=== PATIENT | male | born 1955 | race Caucasian/White ===

== ENCOUNTER 2022-03-06 08:45 | Outpatient (RCR) | payer MEDICARE, SELFPAY ==
--- NOTE | 2022-03-06 11:44 | HP.PTEVAL_ITS ---
Patient's Visit Information JO NAVARRO is a 66 year old M referred to Physical Therapy by MILTON TODD with a diagnosis of Thoracic back pain, unspecified back pain laterality, M54.6. Date of Evaluation: 03/06/22 Physical Therapist: Srinivas De Oliveira - Visit Plan Frequency: 1-2x /Week Duration: 6 Weeks Plan: Focus on improving core/back strength and LE flexibility. Find direction of preference if he has radicular symptoms. Use manual therapy as needed. 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 - Subjective Pt. is a 66 y.o. male who is having thoracic and lumbar pain for over 10 years. Pt. states that he injured his back in December 2010 when he was lifting a box and the weight shifted in the box and he noticed immediate pain in his back after this and has had pain ever since. His PLOF includes no history of back pain before this. Pt. has had MRI of his spine but is not clear on what it showed. Pt. will get intermittent pain down his right leg to his ankle. He denies any change in his bowel or bladder function or unexplained weight loss. He has difficulty with standing/walking longer than 30 minutes, sitting longer than 30 minutes, reaching out over the sink, sleeping, driving, lifting things, pushing/pulling, housework, and yard work. 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 His goal with physical therapy is to decrease his pain and improve his core strength. He has had previous physical therapy for his back many years ago. Pt. rates back pain at 1.5/10 currently, at worst 6/10, at best 1/10 and describes the pain as achy and intense. He is not taking any pain medication currently. His PMH includes type II diabetes, chronic back pain, and three abdominal surgeries. Pt. lives with his roommate. His hobbies include kumari player, fishing, and riding motorcycle. - Objective Posture- Thoracic kyphosis in standing. Palpation- Vague tenderness over thoracic and lumbar spine area. Lumbar AROM flexion- WNL and mild to moderate pain in low back, extension- WNL and mild low back pain, SB to left- WNL and mild low back pain, SB to right- WNL and mild low back pain, lumbar rotations- min restriction bilaterally and mild low back pain. Left LE strength grossly 5/5 for all motions. Right LE strength grossly 5/5 for all motions. Core strength- 4-/5. Sensation- WNL bilateral lower extremities. Moderate tight hamstrings bilaterally. Special tests- Well's leg raise [-], Straight leg raise [-] - Balance/Special Test Scores Oswestry Low Back Score: 18 - Goals Goal 1:: Pt. will be able to sit for at least 1 hour with back pain < 3/10. Goal Time Frame: 4-6 Weeks Goal 2:: Pt. will be able to stand/walk for at least 30 minutes with back pain < 3/10. Goal Time Frame: 4-6 Weeks Goal 3:: Pt. will be able to sleep a full night with no back pain. Goal Time Frame: 4-6 Weeks Goal 4:: Pt. will be able to lift at least 30# with proper body mechanics and no back pain. Goal Time Frame: 4-6 Weeks Goal 5:: Pt. will rate back pain at worst at 5/10 with ADL's. Goal Time Frame: 4-6 Weeks Goal 6:: Pt. will improve Oswestry <30% in order to improve mobility. Goal Time Frame: 4-6 Weeks - Rehabilitation Potential Physical Therapy Diagnosis: Decreased lumbar ROM, LE flexibility, core/back strength, and pain Rehabilitation Potential: Good - Anticipated Interventions Patient/Client Instruction: Educate patient on: Condition, Plan of Care, Benefits of Fitness Program For the Purpose of:: To decrease pain, To increase ROM, To improve ability to perform ADL's, To improve performance and independence with ADL's, To assume or resume ADL's, To improve tolerance to ADL's Therapeutic Exercise to Include: Strength training, Body mechanics, Flexibilty training, Gait and locomotor training, Active ROM, Dynamic Lumbar Stabilization, Travis Exercises Comment: Focus on improving core and back strength. For the Purpose of:: To decrease pain, To improve ability to perform ADL's, To improve performance and independence with ADL's, To increase flexibility/ROM, To improve tolerance to ADL's Functional Training to Include: ADL Training For the Purpose of:: To decrease pain, To improve ability to perform ADL's, To improve performance and independence with ADL's, To assume or resume ADL's Manual Therapy Techniques to Include: Functional dry needling, Soft tissue mobilization For the Purpose of:: To decrease pain, To improve performance and independence with ADL's, To increase flexibility/ROM Thank you for the opportunity to evaluate your patient. For Medicare and Medicare HMO plans, please review the plan of care and approve it. It will need to be FAXED BACK to us at [phone] for Medicare purposes. For Medicare only, by signing this I certify the plan of care. Please let me know if there are questions or concerns regarding this plan of care. Physician Signature: Date:
--- NOTE | 2022-06-17 15:42 | HP.PT.NRP ---
JO NAVARRO was seen in my office for initial evaluation on 03/06/22. The following Plan of Care was established for this patient: Initial Frequency: 1-2x /Week Initial Duration: 6 Weeks Patient/Client Instruction: Educate patient on: Condition, Plan of Care, Benefits of Fitness Program For the Purpose of:: To decrease pain, To increase ROM, To improve ability to perform ADL's, To improve performance and independence with ADL's, To assume or resume ADL's, To improve tolerance to ADL's Therapeutic Exercise to Include: Strength training, Body mechanics, Flexibilty training, Gait and locomotor training, Active ROM, Dynamic Lumbar Stabilization, Travis Exercises For the Purpose of:: To decrease pain, To improve ability to perform ADL's, To improve performance and independence with ADL's, To increase flexibility/ROM, To improve tolerance to ADL's Functional Training to Include: ADL Training For the Purpose of:: To decrease pain, To improve ability to perform ADL's, To improve performance and independence with ADL's, To assume or resume ADL's Manual Therapy Techniques to Include: Functional dry needling, Soft tissue mobilization For the Purpose of:: To decrease pain, To improve performance and independence with ADL's, To increase flexibility/ROM This patient was last seen in our office 03/06/22. Pertinent comments regarding their Physical therapy will appear below: Pt seen for initial evaluation and POC established. Pt did not show for any further visits. at this point, it has been over 2 months and I will discontinue due to nonattendance. At this point I will be discontinuing this patient from physical therapy. I would be happy to see this patient again in the future if found appropriate by the physician. Thank you! Claudio Recinos, DPT, OCS, CSCS Balance/Gait/Functional tests - Balance/Special Test Scores Oswestry Low Back Score: 18
== END 2022-03-06 19:00 | disposition home or self-care (01) ==
LOC: PT 08:45
DX: M54.6 Pain in thoracic spine; M79.18 Myalgia, other site
CPT/HCPCS: 97110; 97162

== ENCOUNTER 2023-05-01 15:48 | Emergency (ER) | payer MEDICARE, SELFPAY ==
[2023-05-01 15:49] VITALS: BP 193/116; PULSE 81; RESP 16; TEMP 37.2; O2SAT 94; BMI 41.8
--- NOTE | 2023-05-01 15:58 | EX.ED.DYSGE1 ---
HPI History of Present Illness Chief Complaint: Bite Informant: patient Onset/Context/Timing Onset: Today Narrative Narrative: Patient presents with a cat bite to the left hand. He was working in his garage when a neighbor's cat was there. Patient was petting the cat and looked away to talk to someone. The cat turned and bit him on the left hand. He has wounds around the thenar eminence. He states the cat was recently adopted from the cat rescue. PFSH ON LICENSE OF [facility] Medical History COPD (chronic obstructive pulmonary disease) Diabetes mellitus, type II HTN (hypertension) Hyperlipidemia Home Medications amoxicillin 875 mg-potassium clavulanate 125 mg tablet 1 tab PO BID #20 tabs 05/01/23 [Rx Last Taken Unknown] Allergy/AdvReac Type Severity Reaction Status Date / Time No Known Allergies Allergy Verified 05/01/23 15:49 Surgical History History of colon resection History of colostomy reversal Social History Smoking Status: Former smoker ROS ROS ED Constitutional Constitutional ED: Denies chills or fever(s) Eyes Eyes: Denies discharge from eye(s) ENT ENT ED: Denies discharge from eye(s), rhinorrhea or sore throat Cardiovascular Cardiovascular: Denies chest pain Respiratory/Chest Respiratory/Chest: Denies cough or dyspnea Gastrointestinal Gastrointestinal: Denies abdominal pain, nausea or vomiting Musculoskeletal Musculoskeletal: Reports extremity pain; Denies back pain Integumentary Reports other Details: Bite wound ; Denies Abrasions or rash Neurologic Neurologic: Denies headache(s), paresthesias or weakness Allergic/Immunologic Allergic/Immunologic ED: Denies lip swelling or urticaria EXAM Physical Exam Const Vital Signs: 05/01/23 15:49 Temperature 98.9 F Temperature Source Temporal Pulse Rate 81 Respiratory Rate 16 Blood Pressure 193/116 H Blood Pressure Mean 141 Pulse Ox 94 Oxygen Delivery Method Room Air Positive well nourished and well developed General Appearance ED: well developed HEENT Reports moist mucous membranes Eyes EOMs intact bilaterally Chest Wall inspection of chest normal and palpation of chest normal Resp normal respiratory effort and clear to auscultation bilaterally Cardio regular rate and regular rhythm GI non-tender Palpation: soft Extremity Extremity Narrative: 1 puncture wound each to the volar and dorsal aspect of the left thenar eminence. The wound over the palmar side measures approximately 3 mm in length. The dorsal wound measures approximate 1.5 mm in length. No fluctuance or tenderness. Full range of motion of the digit without difficulty. Normal cap refill and sensation. Neuro oriented x3 and no sensory deficits noted Motor Exam: strength 5/5 throughout Psych mental status grossly normal MDM MDM MDM Narrative Medical decision making narrative: Patient be given a dose of Augmentin. Left hand x-ray obtained to ensure no evidence of radiopaque foreign body. Treatment and Re-Evaluation :: Left hand x-rays per my interpretation reveal no evidence of bony abnormality and no radiopaque foreign body. Wounds are cleansed and dressed. Patient be started on a course of Augmentin. Return instructions given. Discharge Plan Triage Chief Complaint: Bite ED Provider: Jessica Espinal Dx/Rx/DC Orders Clinical Impression: Cat bite of left hand Instructions: ED Cat Bite Prescriptions: New amoxicillin-pot clavulanate 875-125 mg tablet 1 tab PO BID Qty: 20 0RF Primary Care Provider: Nohemy Nava Referrals: Nohemy Nava MD [Primary Care Provider] - 5-7 Days Disposition Disposition: Home, Self Care
--- NOTE | 2023-05-01 16:12 | RAD_ITS ---
STUDY: X-RAY - LEFT HAND REASON FOR EXAM: Male, 67 years old. bite wound TECHNIQUE: 3 view(s) of the hand. COMPARISON: None. FINDINGS: Normal radiocarpal articulation. Normal distal radioulnar joint. Normal visualized carpal bones. Normal carpal articulations Arthrosis of the carpometacarpal articulation of the thumb. Normal second through fifth carpometacarpal joints. Normal metacarpi. Normal metacarpophalangeal joint of the thumb. Normal interphalangeal joint of the thumb. Normal proximal and distal phalanges of the thumb. Normal metacarpophalangeal joints of the second through fifth fingers. Normal proximal and distal interphalangeal joints of the second through fifth fingers. Normal phalanges of the second through fifth fingers. Mild focal soft tissue swelling the base of the thumb RAD/Hand Min 3 Views IMPRESSION: Soft tissue swelling along the base of the thumb without radiopaque foreign body in soft tissues or evidence for acute osteomyelitis. Electronically Signed: Jg Tellez MD at 16:25 EST ,
[2023-05-01] MEDS: Amox/Clavulanate 875 MG Tablet PO (16:29)
== END 2023-05-01 16:35 | disposition home or self-care (01) ==
PROVIDERS: Emergency Provider Emergency Medicine; PCP Internal Medicine; Visit Provider Emergency Medicine
DX: S61.452A Open bite of left hand, initial encounter (principal); Z93.3 Colostomy status; J44.9 Chronic obstructive pulmonary disease, unspecified; E11.9 Type 2 diabetes mellitus without complications; W55.01XA Bitten by cat, initial encounter; Z87.891 Personal history of nicotine dependence; I10 Essential (primary) hypertension; E78.5 Hyperlipidemia, unspecified; Y93.89 Activity, other specified; Y92.015 Private garage of single-family (private) house as the place of occurrence of the external cause
CPT/HCPCS: 73130; 99283

== ENCOUNTER → 2023-10-05 | Outpatient (CLI) | payer MEDICARE, MEDICAID, SELFPAY ==
--- NOTE | 2023-10-05 13:25 | MRI_ITS ---
STUDY: MRI THORACIC SPINE WITHOUT CONTRAST REASON FOR EXAM: Male, 68 years old. SPONDYLOSIS TECHNIQUE: Standardized fat and water weighted pulse sequences were obtained in the sagittal and axial planes. COMPARISON: None. FINDINGS: Normal kyphosis of the thoracic spine. There is no substantial scoliosis. No demonstrated marrow edema or fracture or compression deformity. T1-2, T2-3, T3-4, T4-5, T5-6, T6-7, T7-8, T8-9, T9-10, T10-11, T11-12: Disc desiccation with mild disc space narrowing and disc bulging at the lower levels of the thoracic spine but no central canal stenosis or cord compression is demonstrated at any level. Severe left foraminal stenosis with nerve root compression at T10 and T11 due to significant severe facet joint hypertrophy. Normal remaining intervertebral neural foramina. Multilevel endplate degenerative changes are present as well. Normal visualized thoracic cord. No cord edema or syrinx formation is present. Normal conus medullaris that terminates at the T12-L1 level. The soft tissue structures are unremarkable. MRI/Spine Thoracic (Routine) IMPRESSION: 1. Multilevel degenerative changes of the thoracic spine. 2. Severe left foraminal stenosis with nerve root compression at T10-T11 no right foraminal stenosis with nerve root compression is demonstrated in the thoracic spine. Electronically Signed: Shashank Zamudio MD at 16:00 EDT ,
== END | disposition home or self-care (01) ==
LOC: MRI 13:21
PROVIDERS: PCP Internal Medicine; Referring Provider Anesthesiology; Visit Provider Anesthesiology
DX: M47.814 Spondylosis without myelopathy or radiculopathy, thoracic region (principal)
CPT/HCPCS: 72146

== ENCOUNTER → 2023-12-08 | Outpatient (CLI) | payer MEDICARE, SELFPAY ==
[2023-12-08 11:44] LABS: Amphetamine Urine VISTA NEGATIVE (<1000 ng/mL); Barbiturate Urine VISTA NEGATIVE (< 200 ng/mL); Benzodiazepine Urine VISTA NEGATIVE (< 200 ng/mL); Cocaine Urine VISTA NEGATIVE (< 300 ng/mL); Ecstacy Urine VISTA NEGATIVE (< 500 ng/mL); Methadone Urine VISTA NEGATIVE (< 300 ng/mL); PCP Urine VISTA NEGATIVE (< 25 ng/mL); THC Urine VISTA POSITIVE (< 50 ng/mL); Vista UDS pH Range 5
== END | disposition home or self-care (01) ==
PROVIDERS: PCP Internal Medicine; Referring Provider Anesthesiology; Visit Provider Anesthesiology
DX: M47.814 Spondylosis without myelopathy or radiculopathy, thoracic region (principal); G89.4 Chronic pain syndrome
CPT/HCPCS: 80307

== ENCOUNTER → 2024-03-28 | Outpatient (CLI) | payer MEDICARE, SELFPAY ==
--- NOTE | 2024-03-28 09:30 | MRI_ITS ---
EXAM: MR RIGHT UPPER EXTREMITY WITHOUT INTRAVENOUS CONTRAST, SHOULDER CLINICAL INDICATION: PAIN TECHNIQUE: Multiplanar and multisequence MR images of the right shoulder without intravenous contrast. COMPARISON: No relevant prior studies available. FINDINGS: TENDONS: SUPRASPINATUS: Full-thickness tear of the supraspinatus tendon with failure at the footprint and with retraction to the joint line. INFRASPINATUS: Full-thickness tear of the infraspinatus tendon with failure at the footprint and with retraction to the joint line. SUBSCAPULARIS: High-grade tearing involving the fibers of the distal superior subscapularis tendon allowing medial dislocation of the long head biceps tendon. TERES MINOR: Unremarkable. Intact. BICEPS BRACHII, LONG HEAD: Medial dislocation of the long head biceps tendon. LIGAMENTS: GLENOHUMERAL: Unremarkable. Intact. MUSCLES: Unremarkable. No rotator cuff muscle atrophy. FLUID: Unremarkable. No joint effusion. No subacromial-subdeltoid space bursal fluid. CARTILAGE: Unremarkable. Articular cartilage intact. GLENOID LABRUM: Unremarkable. Intact, limited evaluation on non-arthrographic exam. BONES/JOINTS: [id number] hypertrophic degenerative of the acromioclavicular joint with mass effect on the underlying soft tissues. Posterior subluxation of the humeral head indicating glenohumeral instability. Intraosseous cystic changes at the lateral/anterolateral aspect of the humeral head. Superior subluxation of the humeral head forming a pseudoarticulation with the undersurface of the acromion. Height 2 acromion with undersurface. No subacromial enthesophyte or os acromiale. OTHER SOFT TISSUES: Unremarkable. No rotator interval edema. MRI/Upper Ext Joint Only(Routine) IMPRESSION: 1. Full-thickness tear of the supraspinatus and infraspinatus tendons with failure at the footprint and retraction to the joint line. 2. High-grade tearing involving the fibers of the distal superior subscapularis tendon allowing medial dislocation of the long head biceps tendon. Electronically Signed: Mayo Perez MD at 0:49 EST ,
== END | disposition home or self-care (01) ==
LOC: MRI 08:51
PROVIDERS: PCP Internal Medicine; Referring Provider Anesthesiology; Visit Provider Anesthesiology
DX: M25.511 Pain in right shoulder (principal)
CPT/HCPCS: 73221

== ENCOUNTER → 2024-09-12 | Outpatient (CLI) | payer MEDICARE, SELFPAY ==
--- NOTE | 2024-09-12 15:54 | MRI_ITS ---
PROCEDURE: UPPER EXT JOINT ONLY(ROUTINE) 09/12/2024 REASON FOR EXAM: PAIN, PSEUDO PARALYSIS TECHNIQUE: MRI of the LEFT upper Extremity. Multiplanar and multisequence images were obtained without IV contrast administration. COMPARISON: COMPARISON : Radiographs on 08/09/2024. FINDINGS: Type III acromion. Degenerative joint disease of the acromioclavicular joint. Findings are demonstrated by joint space narrowing, osteophyte formation and degenerative periarticular bone marrow changes. Narrowing of the supraspinatus outlet and impingement on its myotendinous junction. Complete full thickness tear of the insertional fibers of the supraspinatus tendon. 5.7 cm proximal retraction of the ruptured tendon fibers. Severe chronic atrophy of the supraspinatus muscle. Complete full thickness tear of the insertional fibers of the infraspinatus tendon. 4.5 cm proximal retraction of the ruptured tendon fibers. Severe chronic atrophy of the infraspinatus muscle. Associated edema and surrounding effusion. Complete full thickness tear of the insertional fibers of the subscapularis tendon. 4.2 cm proximal retraction of the ruptured tendon fibers. Severe chronic atrophy of the infraspinatus muscle. Unremarkable teres minor muscle and tendon. Elevation of the humeral head with narrowing of the subacromial space. Posterior subluxation of the humerus in relation to the glenoid at the level of the glenohumeral joint. Degenerative joint disease of the glenohumeral joint. Medial subluxation of the bicipital tendon. Tendinosis of the bicipital tendon. Diffusely degenerated articular cartilage. Diffusely degenerated labrum. Degenerative fibrocystic changes at the humeral insertion of the rotator cuff tendons. Moderate glenohumeral joint effusion. Fluid signal and edema in the subdeltoid/subacromial bursa suggestive of bursitis and/or impingement. The remaining visualized osseous elements are intact with no evidence of fracture or dislocation. The remaining marrow signal is within normal limits. MRI/Upper Ext Joint Only(Routine) IMPRESSION: External impingement. Complete full thickness tear of the insertional fibers of the supraspinatus ten don. 5.7 cm proximal retraction of the ruptured tendon fibers. Severe chronic atrophy of the supraspinatus muscle. Complete full thickness tear of the insertional fibers of the infraspinatus ten don. 4.5 cm proximal retraction of the ruptured tendon fibers. Severe chronic atrophy of the infraspinatus muscle. Associated edema and surrounding effusion. Complete full thickness tear of the insertional fibers of the subscapularis ten don. 4.2 cm proximal retraction of the ruptured tendon fibers. Severe chronic atrophy of the infraspinatus muscle. Unremarkable teres minor muscle and tendon. Elevation of the humeral head with narrowing of the subacromial space. Posterior subluxation of the humerus in relation to the glenoid at the level of the glenohumeral joint. Degenerative joint disease of the glenohumeral joint. Medial subluxation of the bicipital tendon. Tendinosis of the bicipital tendon. Diffusely degenerated articular cartilage. Diffusely degenerated labrum. Degenerative fibrocystic changes at the humeral insertion of the rotator cuff t endons. Moderate glenohumeral joint effusion. Reading [facility]
== END | disposition home or self-care (01) ==
LOC: MRI 15:36
PROVIDERS: PCP Internal Medicine; Referring Provider Orthopaedic Surgery Sports Medicine; Visit Provider Orthopaedic Surgery Sports Medicine
DX: M25.512 Pain in left shoulder (principal)
CPT/HCPCS: 73221

== ENCOUNTER 2025-03-27 17:47 | Inpatient (IN) | payer MEDICARE, SELFPAY ==
[2025-03-27] VITALS (8 sets, daily range): BP systolic 138–178; BP diastolic 70–117; PULSE 80–110; RESP 16–27; TEMP 36.3–38.1; O2SAT 80–99; BMI 40.0; BMI 39.4
--- NOTE | 2025-03-27 17:57 | EKG12_ITS ---
Test Reason : Blood Pressure : */* mmHG Vent. Rate : 103 BPM Atrial Rate : 103 BPM P-R Int : 182 ms QRS Dur : 84 ms QT Int : 358 ms P-R-T Axes : 83 44 104 degrees QTcB Int : [address] & T wave abnormality, consider lateral ischemia Abnormal ECG Confirmed by Ajith Zamarripa ([id number]), editor managing newspaper ZULEYKA LUIS ([id number]) on 03/28/2025 10:56:27 AM Also confirmed by Ajith Zamarripa ([id number]), editor managing newspaper ZULEYKA LUIS ([id number]) on 03/29/2025 11:04:22 AM Referred By: Confirmed By: Ajith Zamarripa
[2025-03-27 18:58] LABS: Anion Gap 18 (7-18); BUN 13 mg/dL (4-19); BUN/Creat Ratio 15.8 RATIO (10-20); Calcium,Total 9.6 mg/dL (7.6-11.0); Carbon Dioxide 25.3 mmol/L (20.0-29.0); Chloride 92 mmol/L (96-106); Glucose 209 mg/dL (70-99); Potassium 4.8 mmol/L (3.5-5.1)
[2025-03-27 19:19] LABS: Troponin T High Sensitivity 21 ng/L (<=22)
--- NOTE | 2025-03-27 19:33 | EX.ED.DYSGE1 ---
HPI History of Present Illness Chief Complaint: Shortness of Breath PFSH PFS Medical History Left rotator cuff tear arthropathy Left shoulder pain Right rotator cuff tear arthropathy COPD (chronic obstructive pulmonary disease) Hyperlipidemia HTN (hypertension) Diabetes mellitus, type II Home Medications ?Medication ?Instructions ?Recorded ?Last Taken ?Type amoxicillin 875 mg-potassium 1 tab PO BID #20 tabs 05/01/23 Unknown Rx clavulanate 125 mg tablet albuterol sulfate 90 mcg/actuation 1 - 2 puff inhalation QDAY PRN 06/21/24 Unknown History aerosol inhaler atorvastatin 40 mg tablet 40 mg PO QDAY 06/21/24 Unknown History cyclobenzaprine 10 mg tablet mg PO 06/21/24 Unknown History cyclobenzaprine 5 mg tablet 5 mg PO QHS 06/21/24 Unknown History hydrochlorothiazide 12.5 mg capsule 12.5 mg PO QAM 06/21/24 Unknown History lisinopril 5 mg tablet 5 mg PO QDAY 06/21/24 Unknown History metformin 500 mg tablet 500 mg PO QDAY 06/21/24 Unknown History metoprolol succinate 100 mg 100 mg PO QDAY 06/21/24 Unknown History tablet,extended release 24 hr sertraline 100 mg tablet 100 mg PO QDAY 06/21/24 Unknown History trazodone 50 mg tablet 100 mg PO QPM 06/21/24 Unknown History Allergy/AdvReac Type Severity Reaction Status Date / Time No Known Allergies Allergy Verified 03/27/25 17:54 Surgical History History of colostomy reversal History of colon resection Social History housing: house Smoking Status: Former smoker EXAM Physical Exam Const Vital Signs: 03/27/25 17:51 03/27/25 19:38 03/27/25 19:38 Temperature 97.3 F L Temperature Source Temporal Pulse Rate 110 H Respiratory Rate 24 H 16 Respiratory Effort Respiratory Depth Respiratory Pattern Blood Pressure 178/117 H Blood Pressure Mean 137 Pulse Ox 80 98 98 Oxygen Delivery Method Room Air Nasal Cannula Oxygen Flow Rate (L/min) 4 03/27/25 19:38 03/27/25 19:38 03/27/25 19:40 Temperature Temperature Source Pulse Rate 80 107 H Respiratory Rate 16 26 H Respiratory Effort Normal Non-Labored Respiratory Depth Normal Respiratory Pattern Normal Tachypnea Blood Pressure 138/70 H Blood Pressure Mean 92 Pulse Ox 99 Oxygen Delivery Method Room Air Oxygen Flow Rate (L/min) 03/27/25 20:00 03/27/25 21:00 Temperature Temperature Source Pulse Rate 110 H 104 H Respiratory Rate 23 H 21 H Respiratory Effort Respiratory Depth Respiratory Pattern Blood Pressure 149/97 H 165/96 H Blood Pressure Mean 114 116 Pulse Ox 92 93 Oxygen Delivery Method Nasal Cannula Nasal Cannula Oxygen Flow Rate (L/min) 2 2 MDM MDM MDM Narrative Medical decision making narrative: HISTORY OF PRESENT ILLNESS: Chief complaint: Shortness of breath 69-year-old male history of COPD, hypertension, type 2 diabetes presents shortness of breath. Notes 2 days of congestion runny nose. Notes when EMS arrived he was 80% room air. Placed on 2 L in triage here and his saturations improved to 95% per triage note. Patient notes he feels congested. Reported sick contact. Denies chest pain. Denies leg swelling. The patient denies recent surgery in the last 4 weeks or immobilization in the last 3 days, denies previous diagnosis of DVT or PE, hemoptysis, unilateral leg swelling or malignancy with treatment the last 6 months or palliative. No estrogen use noted. REVIEW OF SYSTEMS: Pertinent positives: Shortness of breath Pertinent negatives: As per HPI PHYSICAL EXAM: Nursing triage notes reviewed, Vital signs reviewed Constitutional: please see mdm HENT: MMM Eyes: Pupils equal round and reactive to light, Extraocular muscles intact Neck: No stridor, no JVD, full neck ROM Lungs: Clear to auscultation, No wheezing or rales. No increased work of breathing, no conversational dyspnea, no accessory muscle use, no nasal flaring. No respiratory distress noted Heart: Regular rate and rhythm, No murmurs, No rubs and No gallops, 2+ distal pulses (radial, femoral, posterior tibial) in all extremities Abdomen: Soft, there is no tenderness, rigidity, rebound or guarding, no obvious peritoneal signs, no palpable pulsatile abdominal masses, no auscultated abdominal bruit : No CVAT Extremities: No edema Neuro: No new focal neurological deficits, cranial nerves II through XII intact, 5/5 strength in all present extremities. Intact sensation to light touch in all present extremities, 2+ reflexes bilateral patella tendons. Skin: No rash or lesions noted MEDICAL DECISION MAKING: Chief Complaint: please see HPI External records reviewed: Reviewed prior cardiovascular testing Factors affecting care: COPD otherwise as per HPI History obtained from others: none Consults: Internal medicine (Dr. Akin Linares) [facility] Narrative: Patient was initially hypotensive with blood pressure 170/117, tachycardic, tachypneic but afebrile initially satting 80% on room air. I considered the following differential diagnosis: COPD exacerbation, CHF exacerbation, hypertensive emergency, anemia, electro disturbance, PE I obtained a broad lab and imaging workup to further elucidate etiology the patient's complaint to further determine if the patient was suffering from a life-threatening etiology. Initially treat the patient with breathing treatments and steroids given complaint of headache also added on Reglan ALL IMAGES (IF OBTAINED) HAVE BEEN PERSONALLY REVIEWED AND INTERPRETED BY MYSELF. BMP without evidence of significant electrolyte abnormalities, no anion gap, no acute kidney injury. EKG with sinus tachycardia rate 103, normal axis, normal intervals, no STEMI COVID RSV/flu negative I have personally reviewed the patient's chest x-ray. Chest x-ray is unremarkable for pulmonary edema, pneumothorax, pneumonia or focal cardiopulmonary abnormality. Of note per radiology report there is signs of possible pulmonary edema so I added a BNP at this time. BNP is pending CBC with no leukocytosis, no anemia or thrombocytopenia High-sensitivity troponin is negative, no evidence of myocardial ischemia x2 Discussed with hospitalist given hypoxia, new onset oxygen requirement for admission. Hospitalist accepted the patient and recommended MedSurg. The patient and/or family, caregivers express understanding. The patient and/or family, caregivers agrees with the plan. Shared decision making: I will have a discussion with the patient and or visitors regarding risk/benefits of further testing or admission. They will be made aware of of the risk/benefits inherent in this decision they will be given the opportunity to voice understanding. Total critical care time today provided was at least 0 minutes. This excludes separately billable procedures. Critical care time (if documented) is secondary to the patient having high probability of clinically significant/life threatening deterioration in the patient's condition which required my urgent intervention. Impression: 1. Hypoxia 2. COPD exacerbation 3. Viral URI Dispo: Admit to MedSurg This note was generated with Taptuation software. It may contain incorrect words, spelling, and punctuation that were not noted in review of the chart prior to signing. Lab Data Labs: Laboratory Results - last 24 hr 03/27/25 03/27/25 03/27/25 18:06 18:06 19:15 WBC Cancelled 6.9 Corrected WBC Cancelled RBC Cancelled 5.88 Hgb Cancelled 16.7 H Hct Cancelled 50.8 MCV Cancelled 86.4 MCH Cancelled 28.4 MCHC Cancelled 32.9 RDW Std Deviation Cancelled 47.4 H RDW Coeff of Kishan Cancelled 14.9 H Plt Count Cancelled 165 MPV Cancelled 10.2 Immature Gran % (Auto) Cancelled 0.400 Neut % (Auto) Cancelled 85.4 H Lymph % (Auto) Cancelled 6.7 L Maury % (Auto) Cancelled 7.1 Eos % (Auto) Cancelled 0.1 Baso % (Auto) Cancelled 0.3 Absolute Neuts (auto) Cancelled 5.9 Absolute Lymphs (auto) Cancelled 0.46 L Total Counted Cancelled Neutrophils % (Manual) Cancelled Band Neutrophils % Cancelled Lymphocytes % (Manual) Cancelled Monocytes % (Manual) Cancelled Eosinophils % (Manual) Cancelled Basophils % (Manual) Cancelled Metamyelocytes % Cancelled Myelocytes % Cancelled Promyelocytes % Cancelled Blast Cells % Cancelled Plasma Cell % (Manual) Cancelled Other Cells % Cancelled Nucleated RBC % Cancelled 0 Nucleated RBCs/100 WBC Cancelled Differential Comment Cancelled Diff Path Review Cancelled Hypersegmented Neuts Cancelled Atypical Lymphocytes Cancelled Reactive Lymphocytes Cancelled Smudge Cells Cancelled Toxic Granulation Cancelled Toxic Vacuolation Cancelled Dohle Bodies Cancelled Rose Rods Cancelled Platelet Estimate Cancelled Plt Morphology Comment Cancelled RBC Morphology Cancelled Cancelled Polychromasia Cancelled Hypochromasia Cancelled Basophilic Stippling Cancelled Anisocytosis Cancelled Microcytosis Cancelled Macrocytosis Cancelled Spherocytes Cancelled Sickle Cells Cancelled Target Cells Cancelled Tear Drop Cells Cancelled Ovalocytes Cancelled Stomatocytes Cancelled [place] Bodies Cancelled Revere Cells Cancelled Bite Cells Cancelled Crenated Cell Cancelled Acanthocytes (Spur) Cancelled Rouleaux Cancelled Schistocytes Cancelled Sodium 135 Potassium 4.8 Chloride 92 L Carbon Dioxide 25.3 Anion Gap 18 BUN 13 Creatinine 0.84 Est GFR (MDRD) Non-Af 95 BUN/Creatinine Ratio 15.8 Glucose 209 H Calcium 9.6 Troponin T High Sens 21 Troponin T Hi Sens 2 Hr 03/27/25 19:54 WBC Corrected WBC RBC Hgb Hct MCV MCH MCHC RDW Std Deviation RDW Coeff of Kishan Plt Count MPV Immature Gran % (Auto) Neut % (Auto) Lymph % (Auto) Maury % (Auto) Eos % (Auto) Baso % (Auto) Absolute Neuts (auto) Absolute Lymphs (auto) Total Counted Neutrophils % (Manual) Band Neutrophils % Lymphocytes % (Manual) Monocytes % (Manual) Eosinophils % (Manual) Basophils % (Manual) Metamyelocytes % Myelocytes % Promyelocytes % Blast Cells % Plasma Cell % (Manual) Other Cells % Nucleated RBC % Nucleated RBCs/100 WBC Differential Comment Diff Path Review Hypersegmented Neuts Atypical Lymphocytes Reactive Lymphocytes Smudge Cells Toxic Granulation Toxic Vacuolation Dohle Bodies Rose Rods Platelet Estimate Plt Morphology Comment RBC Morphology Polychromasia Hypochromasia Basophilic Stippling Anisocytosis Microcytosis Macrocytosis Spherocytes Sickle Cells Target Cells Tear Drop Cells Ovalocytes Stomatocytes [place] Bodies Esa Cells Bite Cells Crenated Cell Acanthocytes (Spur) Rouleaux Schistocytes Sodium Potassium Chloride Carbon Dioxide Anion Gap BUN Creatinine Est GFR (MDRD) Non-Af BUN/Creatinine Ratio Glucose Calcium Troponin T High Sens Troponin T Hi Sens 2 Hr 20 Radiography Diagnostic Testing: Clinical Impression(s) from Imaging Studies Chest X-Ray 03/27/25 20:00 IMPRESSION: [id number] pulmonary edema. No focal consolidations. Reading Location: [facility] Discharge Plan Triage Chief Complaint: Shortness of Breath ED Provider: Leroy Grant Dx/Rx/DC Orders Prescriptions: No Action metformin 500 mg tablet 500 mg PO QDAY lisinopril 5 mg tablet 5 mg PO QDAY hydrochlorothiazide 12.5 mg capsule 12.5 mg PO QAM metoprolol succinate 100 mg tablet extended release 24 hr 100 mg PO QDAY atorvastatin 40 mg tablet 40 mg PO QDAY cyclobenzaprine 5 mg tablet 5 mg PO QHS trazodone 50 mg tablet 100 mg PO QPM cyclobenzaprine 10 mg tablet PO Patient Comments: [NO ORIGINAL SIG] sertraline 100 mg tablet 100 mg PO QDAY albuterol sulfate 90 mcg/actuation HFA aerosol inhaler 1 - 2 puff inhalation QDAY PRN amoxicillin-pot clavulanate 875-125 mg tablet 1 tab PO BID Qty: 20 0RF Primary Care Provider: Nohemy Nava Referrals: Nohemy Nava MD [Primary Care Provider, Internal Medicine] Print Language: Ma[place]
[2025-03-27] MEDS: Albuterol 2.5 MG/3 ML VIAL.NEB. INHALATION (19:40)
[2025-03-27 19:41] LABS: Hematocrit 50.8 % (40-54); Hemoglobin 16.7 g/dL (13.0-16.5); Immature Granulocytes Count 0.030 X10^3/uL (0.0-0.0); Mean Corp Hgb Conc 32.9 g/dL (32-36); Mean Corpuscular Volume 86.4 fL (80-94); Mean Platelet Vol. 10.2 fl (6.2-12.0); NRBC Flagged by Analyzer 0 % (0-5); POSITIVE DIFFERENTIAL YES; Platelet Count 165 K/mm3 (150-450); RBC Distribution Width CV 14.9 % (11.6-14.6); RBC Distribution Width SD 47.4 fl (35.1-43.9); Red Blood Count 5.88 M/mm3 (4.6-6.2); White Blood Count 6.9 K/mm3 (4.4-11.0)
--- NOTE | 2025-03-27 20:00 | RAD_ITS ---
PROCEDURE: CHEST 1 VIEW (PORTABLE) 03/27/2025 REASON FOR EXAM: SOB TECHNIQUE: Frontal view of the chest. FINDINGS: [id number] pulmonary edema. No focal consolidations. No pleural effusion or pneumothorax. Cardiac silhouette is within normal limits. No acute fractures. RAD/Chest 1 View (Portable) IMPRESSION: [id number] pulmonary edema. No focal consolidations. Reading Location: [id number]
[2025-03-27 20:28] LABS: Troponin T High Sens 2 HR 20 ng/L (<=22)
[2025-03-27 22:09] LABS: Pro- Brain NATRIURETIC PEPTIDE 84 pg/mL (<=900)
--- OUTSIDE RECORDS SUMMARY | 2025-03-27 22:41 | XMS RPT_ITS | CCD ---
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 06/21/24 10/21/24 History cyclobenzaprine 5 mg tablet 5 mg PO QHS 06/21/24 10/21/24 Hist ory diclofenac sodium 75 mg 75 mg PO Q12H PRN 06/21/24 5 History tablet,delayed release hydrochlorothiazide 12.5 mg capsule 12.5 mg PO QAM 06/21/24 5 History lisinopril 5 mg tablet 5 mg PO QDAY 06/21/24 10/21/24 His tory metformin 500 mg tablet 500 mg PO QDAY 06/21/24 10/21/24 H istory metoprolol succinate 100 mg 100 mg PO QDAY 06/21/24 10/21/24 H istory tablet,extended release 24 hr sertraline 100 mg tablet 100 mg PO QDAY 06/21/24 10/21/24 H istory trazodone 50 mg tablet 100 mg PO QPM 06/21/24 10/21/24 Hi story Have you fallen in the past year?: No PFSH Medical History Left rotator cuff tear arthropathy Left shoulder pain Right rotator cuff tear arthropathy COPD (chronic obstructive pulmonary disease) Hyperlipidemia HTN (hypertension) Diabetes mellitus, type II Surgical History History of colostomy reversal History of colon resection Social History Smoking Status: Former smoker HPI RIGHT SHOULDER Details: This documentation accurately reflects the service provided and the decisions made by me, Dr. Silvio Singleton MD 10/21/24 0909. Part of today???s visit was documented by [ ], acting as scribe. JO FISHER is a 69 year old M here today for right shoulder pain and wants to go ahead with cortisone injection instead now over 3 months since last injection at sections were noted. He has a rotator cuff tear arthropathy. Ortho Exam General General: Yes no acute distress Neurologic: Yes alert and Yes oriented x3 Psychologic: Yes reasonable and appropriate Right Shoulder Skin/Wound: Yes CDI, No ecchymosis, No erythema and No swelling Testing: Positive Hawkin's, Neer's, Speed's, empty can and belly press normal; Negative TTP Biceps, TTP AC Joint, Drop Arm, cross arm or scapular winging SHOULDER: normal motor and sens to ax nerve, and MRU and AIN/PIN Crepitus with range of motion testing active forward elevation 165 external rotation 20 degrees. Strength in forward elevation external rotation 4/5 Coding Level of Care Code Attention Mark Diagnoses Right rotator cuff tear arthropathy M75.101; M12.811 Comment 75852 and CPT inject major joint Assessment and Plan Assessment and Plan (1) Right rotator cuff tear arthropathy: Status: Acute Plan: 69-year-old man with right shoulder pain ongoing rotator cuff tear arthropat (more content not included)... Normal [facility] Orthopedic Visit Reporton Orthopedic Visit Report [facility] [address] [place] [address] OFFICE VISIT Date of Service: 09/20/24 MR#: [id number] Acct: [id number] Name: JO FISHER Rep #: [id number] : 1955 Provider: Dr. Silvio shore MD Age/Sex: 69/M Location: [facility] Status: Signed Intake Vital Signs 06/21/24 08:23 09/20/24 08:24 Height 5 ft 10 in 5 ft 10 in Weight: 290 lb BMI 41.5 Intake Visit Reasons: LEFT SHOULDER Chief Complaint: Left shoulder MRI review Accompanied by: Self Is patient in pain?: Yes Pain scale (1-10): 6 Allergies No Known Allergies Allergy (Verified 09/20/24 08:27) Medications ???Medication ???Instructions ???Recorded ???Confirmed ???Type amoxicillin 875 mg-potassium 1 tab PO BID #20 tabs 05/01/23 Rx clavulanate 125 mg tablet albuterol sulfate 90 mcg/actuation 1 - 2 puff inhalation QDAY PRN 0 06/21/24 09/20/24 History aerosol inhaler atorvastatin 40 mg tablet 40 mg PO QDAY 06/21/24 09/20/24 Hi story cyclobenzaprine 10 mg tablet mg PO 06/21/24 09/20/24 History cyclobenzaprine 5 mg tablet 5 mg PO QHS 06/21/24 09/20/24 Hist ory diclofenac sodium 75 mg 75 mg PO Q12H PRN 06/21/24 5 History tablet,delayed release hydrochlorothiazide 12.5 mg capsule 12.5 mg PO QAM 06/21/24 5 History lisinopril 5 mg tablet 5 mg PO QDAY 06/21/24 09/20/24 His tory metformin 500 mg tablet 500 mg PO QDAY 06/21/24 09/20/24 H istory metoprolol succinate 100 mg 100 mg PO QDAY 06/21/24 09/20/24 H istory tablet,extended release 24 hr sertraline 100 mg tablet 100 mg PO QDAY 06/21/24 09/20/24 H istory trazodone 50 mg tablet 100 mg PO QPM 06/21/24 09/20/24 Hi story Have you fallen in the past year?: No PFSH Medical History Left rotator cuff tear arthropathy Left shoulder pain Right rotator cuff tear arthropathy COPD (chronic obstructive pulmonary disease) Hyperlipidemia HTN (hypertension) Diabetes mellitus, type II Surgical History History of colostomy reversal History of colon resection Social History Smoking Status: Former smoker HPI LEFT SHOULDER Details: This documentation accurately reflects the service provided and the decisions made by me, Dr. Silvio Singleton MD 09/20/24 0820. Part of today???s visit was documented by [ ], acting as scribe. JO FISHER is a 69 year old M here today for FU L shoulder MRI. Doing reasonly well with the injections. 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 Supplemental Info [facility] [address] [place] [address] Upper Ext Joint Only(Routine) MR#: [id number] Acct: [id number] Name: JO FISHER Rep #: [id number] : 1955 M 69 From: Anny Rushing MD PCP: Dr. Win Zamora MD Status: REG CLI Study: Upper Ext Joint Only(Routine) Date of Exam: 09/12/24 Exam# [id number] Ordering Dr: Silvio Singleton MD PROCEDURE: UPPER EXT JOINT ONLY(ROUTINE) 09/12/2024 REASON FOR EXAM: PAIN, PSEUDO PARALYSIS TECHNIQUE: MRI of the LEFT upper Extremity. Multiplanar and multisequence images were obtained without IV contrast administration. COMPARISON: COMPARISON : Radiographs on 08/09/2024. FINDINGS: Type III acromion. Degenerative joint disease of the acromioclavicular joint. Findings are demonstrated by joint space narrowing, osteophyte formation and degenerative periarticular bone marrow changes. Narrowing of the supraspinatus outlet and impingement on its myotendinous junction. Complete full thickness tear of the insertional fibers of the supraspinatus tendon. 5.7 cm proximal retraction of the ruptured tendon fibers. Severe chronic atrophy of the supraspinatus muscle. Complete full thickness tear of the insertional fibers of the infraspinatus tendon. 4.5 cm proximal retraction of the ruptured tendon fibers. Severe chronic atrophy of the infraspinatus muscle. Associated edema and surrounding effusion. Complete full thickness tear of the insertional fibers of the subscapularis tendon. 4.2 cm proximal retraction of the ruptured tendon fibers. Severe chronic atrophy of the infraspinatus muscle. Unremarkable teres minor muscle and tendon. Elevation of the humeral head with narrowing of the subacromial space. Posterior subluxation of the humerus in relation to the glenoid at the level of the glenohumeral joint. Degenera (more content not included)... Normal [facility] Magnetic resonance imaging r eportOrdered By: Anny Rushing on 09-13-2024 Study report [facility] [address] [place] [address] Upper Ext Joint Only(Routine) MR#: [id number] Acct: [id number] Name: JO FISHER Rep #: [id number] : 1955 M 69 From: Michaela Rushing MD PCP: Dr. Win Zamora MD Status: RE G CLI Study:Upper Ext Joint Only(Routine) Date of Exam: 09/12/24 Exam# [id number] Ordering Dr: Silvio Singleton MD PROCEDURE: UPPER EXT JOINT ONLY(ROUTINE) 09/12/2024 REASON FOR EXAM: PAIN, PSEUDO PARALYSIS TECHNIQUE: MRI of the LEFT upper Extremity. Multiplanar and multisequence images were obtained without IV contrast administration. COMPARISON: COMPARISON : Radiographs on 08/09/2024. FINDINGS: Type III acromion. Degenerative joint disease of the acromioclavicular joint. Findings are demonstrated by joint space narrowing, osteophyte formation and degenerative periarticular bone marrow changes. Narrowing of the supraspinatus outlet and impingement on its myotendinous junction. Complete full thickness tear of the insertional fibers of the supraspinatus tendon. 5.7 cm proximal retraction of the ruptured tendon fibers. Severe chronic atrophy of the supraspinatus muscle. Complete full thickness tear of the insertional fibers of the infraspinatus tendon. 4.5 cm proximal retraction of the ruptured tendon fibers. Severe chronic atrophy of the infraspinatus muscle. Associated edema and surrounding effusion. Complete full thickness tear of the insertional fibers of the subscapularis tendon. 4.2 cm proximal retraction of the ruptured tendon fibers. Severe chronic atrophy of the infraspinatus muscle. Unremarkable teres minor muscle and tendon. Elevation of the humeral head with narrowing of the subacromial space. Posterior subluxation of the humerus in relation to the glenoid at the level of the glenohumeral joint. Degenerative joint disease of the glenohumeral joint. Medial subluxation of the bicipital tendon. Tendinosis of the bicipital tendon. Diffusely degenerated articular cartilage. Diffusely degenerated labrum. Degenerative fibrocystic changes at the humeral insertion of the rotator cuff tendons. Moderate glenohumeral joint effusion. Fluid signal and edema in the subdeltoid/subacromial bursa suggestive of bursitis and/or impingement. The remaining visualized osseous elements are intact with no evidence of fracture or dislocation. The remaining marrow signal is within normal limits. MRI/Upper Ext Joint Only(Routine) IMPRESSION: External impingement. Complete full thickness tear of the insertional fibers of the supraspinatus tendon. 5.7 cm proximal retraction of the ruptured tendon fibers. Severe chronic atrophy of the supraspinatus muscle. Complete full thickness tear of the insertional fibers of the infraspinatus tendon. 4.5 cm proximal retraction of the ruptured tendon fibers. Severe chronic atrophy of the infraspinatus muscle. Associated edema and surrounding effusion. Complete full thickness tear of the insertional fibers of the subscapularis tendon. 4.2 cm proximal retraction of the ruptured tendon fibers. Severe chronic atrophy of the infraspinatus muscle. Unremarkable teres minor muscle and tendon. Elevation of the humeral head with narrowing of the subacromial space. Posterior subluxation of the humerus in relation to the glenoid at the level of the glenohumeral joint. Degenerative joint disease of the glenohumeral joint. Medial subluxation of the bicipital tendon. Tendinosis of the bicipital tendon. Diffusely degenerated articular cartilage. Diffusely degenerated labrum. Degenerative fibrocystic changes at the humeral insertion of the rotator cuff tendons. Moderate glenohumeral joint effusion. Reading [facility] CC: Dr. Win Zamora MD; Dr. Silvio Singleton MD ~ Sleeping Car Conductor: Signed [facility] Upper Ext Joint Only(Routine )on 09-12-2024 Upper Ext Joint Only(Routine) [facility] [address] [place] [address] Upper Ext Joint Only(Routine) MR#: [id number] Acct: [id number] Name: JO FISHER Rep #: [id number] : 1955 M 69 From: Anny bey MD PCP: Dr. Win Zamora MD Status: REG CLI Study: Upper Ext Joint Only(Routine) Date of Exam: 0 09/12/24 Exam# [id number] Ordering Dr: Silvio Singleton MD PROCEDURE: UPPER EXT JOINT ONLY(ROUTINE) 09/12/2024 REASON FOR EXAM: PAIN, PSEUDO PARALYSIS TECHNIQUE: MRI of the LEFT upper Extremity. Multiplanar and multisequence images were obtained without IV contrast administration. COMPARISON: COMPARISON : Radiographs on 08/09/2024. FINDINGS: Type III acromion. Degenerative joint disease of the acromioclavicular joint. Findings are demonstrated by joint space narrowing, osteophyte formation and degenerative periarticular bone marrow changes. Narrowing of the supraspinatus outlet and impingement on its myotendinous junction. Complete full thickness tear of the insertional fibers of the supraspinatus tendon. 5.7 cm proximal retraction of the ruptured tendon fibers. Severe chronic atrophy of the supraspinatus muscle. Complete full thickness tear of the insertional fibers of the infraspinatus tendon. 4.5 cm proximal retraction of the ruptured tendon fibers. Severe chronic atrophy of the infraspinatus muscle. Associated edema and surrounding effusion. Complete full thickness tear of the insertional fibers of the subscapularis tendon. 4.2 cm proximal retraction of the ruptured tendon fibers. Severe chronic atrophy of the infraspinatus muscle. Unremarkable teres minor muscle and tendon. Elevation of the humeral head with narrowing of the subacromial space. Posterior subluxation of the humerus in relation to the glenoid at the level of the glenohumeral joint. Degenerative joint disease of the glenohumeral joint. Medial subluxation of the bicipital tendon. Tendinosis of the bicipital tendon. Diffusely degenerated articular cartilage. Diffusely degenerated labrum. Degenerative fibrocystic changes at the humeral insertion of the rotator cuff tendons. Moderate glenohumeral joint effusion. Fluid signal and edema in the subdeltoid/subacromial bursa suggestive of bursitis and/or impingement. The remaining visualized osseous elements are intact with no evidence of fracture or dislocation. The remaining marrow signal is within normal limits. MRI/Upper Ext Joint Only(Routine) IMPRESSION: External impingement. Complete full thickness tear of the insertional fibers of the supraspinatus tendon. 5.7 cm proximal retraction of the ruptured tendon fibers. Severe chronic atrophy of the supraspinatus muscle. Complete full thickness tear of the insertional fibers of the infraspinatus tendon. 4.5 cm proximal retraction of the ruptured tendon fibers. Severe chronic atrophy of the infraspinatus muscle. Associated edema and surrounding effusion. Complete full thickness tear of the insertional fibers of the subscapularis tendon. 4.2 cm proximal retraction of the ruptured tendon fibers. Severe chronic atrophy of the infraspinatus muscle. Unremarkable teres minor muscle and tendon. Elevation of the humeral head with narrowing of the subacromial space. Posterior subluxation of the humerus in relation to the glenoid at the level of the glenohumeral joint. Degenerative joint disease of the glenohumeral joint. Medial subluxation of the bicipital tendon. Tendinosis of the bicipital tendon. Diffusely degenerated articular cartilage. Diffusely degenerated labrum. Degenerative fibrocystic changes at the humeral insertion of the rotator cuff tendons. Moderate glenohumeral joint effusion. Reading Location: [place] [address] CC: Dr. Win Zamora MD; Dr. Silvio Singleton MD Sleeping Car Conductor: Signed [facility] Orthopedic Visit Reporton Orthopedic Visit Report [facility] [address] [place] [address] OFFICE VISIT Date of Service: 08/09/24 MR#: [id number] Acct: [id number] Name: JO FISHER Rep #: [id number] : 1955 Provider: Dr. Silvio shore MD Age/Sex: 69/M Location: [facility] Status: Signed with Addenda ADDENDUM by Emily Rojo on 08/09/24 at 1043 Office Procedure Documentation entered by Emily Rojo 08/09/24 10:43: Ortho Injections Injections Yes Subacromial Injection Left Is this a patient provided medication?: No Details: Obtained consent for injection. Under sterile conditions, injected the patients left subacromial with 2cc Kenalog 4cc Bupivacaine. The patient tolerated the injection well without any noted complication. Patient should call our office if redness develops, pain worsens or if they have any concerns. Office Meds Kenalog 40 mg/mL suspension for injection Performing Provider: Silvio Singleton MD Performing Location: [facility] Administered by: Silvio Singleton MD on 08/09/24 10:42 Dose Route Admin Location Dispensed Lot Number Expiration Date ND Man ufacturer 80 mg intra-articular left subacromial 2 mL [id number] 08/04/25 2520-9487-45 [employer] Date cc: * Signed Intake Vital Signs 06/21/24 08:23 Height 5 ft 10 in Intake Visit Reasons: LEFT SHOULDER Accompanied by: Self Is patient in pain?: Yes Pain scale (1-10): 7 Allergies No Known Allergies Allergy (Verified 08/09/24 10:00) Medications ???Medication ???Instructions ???Recorded ???Confirmed ???Type amoxicillin 875 mg-potassium 1 tab PO BID #20 tabs 05/01/2309/28 Rx clavulanate 125 mg tablet albuterol sulfate 90 mcg/actuation 1 - 2 puff inhalation QDAY PRN 0 06/21/24 08/09/24 History aerosol inhaler atorvastatin 40 mg tablet 40 mg PO QDAY 06/21/24 08/09/24 Hi story cyclobenzaprine 10 mg tablet mg PO 06/21/24 08/09/24 History cyclobenzaprine 5 mg tablet 5 mg PO QHS 06/21/24 08/09/24 Hist ory diclofenac sodium 75 mg 75 mg PO Q12H PRN 06/21/24 5 History tablet,delayed release hydrochlorothiazide 12.5 mg capsule 12.5 mg PO QAM 06/21/24 5 History lisinopril 5 mg tablet 5 mg PO QDAY 06/21/24 08/09/24 His tory metformin 500 mg tablet 500 mg PO QDAY 03/18/25 05/06/25 H istory metoprolol succinate 100 mg 100 mg PO QDAY 06/21/24 08/09/24 H istory tablet,extended release 24 hr sertraline 100 mg tablet 100 mg PO QDAY 06/21/24 08/09/24 H istory trazodone 50 mg tablet 100 mg PO QPM 06/21/24 08/09/24 Hi story Have you fallen in the past year?: No PFSH Medical History Left shoulder pain Right rotator cuff tear arthropathy COPD (chronic obstructive pulmonary disease) Hyperlipidemia HTN (hypertension) Diabetes mellitus, type II Surgical History History of colostomy reversal History of colon resection Social History Smoking Status: Former smoker HPI LEFT SHOULDER Details: This documentation accurately reflects the service provided and the decisions made by me, Dr. Silvio Singleton MD 08/09/24 08. Part of today???s visit was documented by [ ], acting as scribe. JO FISHER is a 69 year old M here today for new onset left shoulder pain. Patient feels like he tore something. He was previously seen for a right shoulder rotator cuff tear arthropathy and given a cortisone injection. 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 He is having great difficulty lifting up the arm. He was previously seen for the right shoulder. Left shoulder he actually injured it a while ago but that settled down. Most the pain is laterally worse with lifting quite weak. Supplemental Info X-rays 4 views taken today of the left shoulder demonstrate glenohumeral joint space well- maintained. The acromiohumeral distance is slightly narrowed at 6 mm. Coding Level of Care Code Attention Mark Diagnoses Left shoulder pain M25.512 Comment 79224 and CPT inject major joint Assessment and Plan Assessment and Plan (1) Left shoulder pain: Status: Acute Plan: JO FISHER is a 69 year old M here today for new onset left shoulder pain. Patient has pseudoparalysis as well as a narrowed acromiohumeral distance and very concerned for a high-grade rotator cuff tear. I will go ahead and order an urgent MRI of the shoulder follow-up after that in the meantime rest ice anti-inflammatories gentle shoulder exercises. Patient opted to go ahead with a cortisone injection I did let the (more content not included)... Normal [facility] Shoulder min 2 Viewson 08-09 Shoulder min 2 Views [facility] [address] [place] [address] Shoulder min 2 Views MR#: [id number] Acct: [id number] Name: JO FISHER Rep #: [id number] : 1955 M 69 From: Mehran Live i, MD PCP: Dr. Win Zamora MD Status: DEP AMB Study: Shoulder min 2 Views Date of Exam: 08/09/24 Exam# [id number] Ordering Dr: Silvio Singleton MD PROCEDURE: SHOULDER MIN 2 VIEWS 08/09/2024 REASON FOR EXAM: PAIN, INJURY TECHNIQUE: Four views of the left shoulder. COMPARISON: None. FINDINGS: Left shoulder is in anatomic alignment. There is no fracture or dislocation. Minimal age-related subchondral sclerosis seen within the glenoid fossa as well as the humeral head. Amorphous calcification seen within the soft tissue of the left upper arm. RAD/Shoulder min 2 Views IMPRESSION: Minor age-related arthritic changes. No fracture or dislocation is seen within the left shoulder. Reading Location: [id number] CC: Dr. Win Zamora MD; Dr. Silvio Singleton MD Sleeping Car Conductor: Signed Normal [facility] Orthopedic Visit Reporton Orthopedic Visit Report [facility] [place] [facility] [facility] [address] [place] [address] OFFICE VISIT Date of Service: 06/21/24 MR#: [id number] Acct: [id number] Name: JO FISHER Rep #: [id number] : 1955 Provider: Dr. Silvio shore MD Age/Sex: 69/M Location: [facility] Status: Signed with Addenda ADDENDUM by Debo shore 06/21/24 at 0904 Office Procedure Documentation entered by Debo Benitez 06/21/24 09:04: Ortho Injections Injections Yes Subacromial Injection Right Is this a patient provided medication?: No Details: Obtained consent for injection. Under sterile conditions, injected the patients right subacromial shoulder with 2.0mL Kenalog and 4.0mL Bupivacaine. The patient tolerated the injection well without any noted complication. Patient should call our office if redness develops, pain worsens or if they have any concerns. Office Meds Kenalog 40 mg/mL suspension for injection Performing Provider: Silvio Singleton MD Performing Location: [facility] Administered by: Silvio Singleton MD on 06/21/24 09:02 Dose Route Admin Location Dispensed Lot Number Expiration Date [place] Man ufacturer 80 mg intra-articular Right Shoulder 2 mL [id number] 08/04/25 5749-7399-28 [employer] Date cc: * Signed Intake Vital Signs 05/01/23 15:49 06/21/24 08:23 Height 5 ft 10 in 5 ft 10 in Intake Visit Reasons: RIGHT SHOULDER Chief Complaint: Right Shoulder Pain Accompanied by: Self Is patient in pain?: Yes Pain scale (1-10): 3 Allergies No Known Allergies Allergy (Verified 06/21/24 08:24) Medications ???Medication ???Instructions ???Recorded ???Confirmed ???Type amoxicillin 875 mg-potassium 1 tab PO BID #20 tabs 05/01/23 Rx clavulanate 125 mg tablet albuterol sulfate 90 mcg/actuation 1 - 2 puff inhalation QDAY PRN 0 06/21/24 06/21/24 History aerosol inhaler atorvastatin 40 mg tablet 40 mg PO QDAY 06/21/24 06/21/24 Hi story cyclobenzaprine 10 mg tablet mg PO 06/21/24 06/21/24 History cyclobenzaprine 5 mg tablet 5 mg PO QHS 06/21/24 06/21/24 Hist ory diclofenac sodium 75 mg 75 mg PO Q12H PRN 06/21/24 5 History tablet,delayed release hydrochlorothiazide 12.5 mg capsule 12.5 mg PO QAM 06/21/24 5 History lisinopril 5 mg tablet 5 mg PO QDAY 06/21/24 06/21/24 His tory metformin 500 mg tablet 500 mg PO QDAY 06/21/24 06/21/24 H istory metoprolol succinate 100 mg 100 mg PO QDAY 06/21/24 06/21/24 H istory tablet,extended release 24 hr sertraline 100 mg tablet 100 mg PO QDAY 06/21/24 06/21/24 H istory trazodone 50 mg tablet 100 mg PO QPM 06/21/24 06/21/24 Hi story Have you fallen in the past year?: No PFSH Medical History Right rotator cuff tear arthropathy COPD (chronic obstructive pulmonary disease) Hyperlipidemia HTN (hypertension) Diabetes mellitus, type II Surgical History History of colostomy reversal History of colon resection Social History Smoking Status: Former smoker HPI RIGHT SHOULDER Details: This documentation accurately reflects the service provided and the decisions made by me, Dr. Silvio Singleton MD 06/21/24 0802. Part of today???s visit was documented by [ ], acting as scribe. JO FISHER is a 69 year old M here today for right shoulder pain. 1 year history no trauma pain on the lateral anterior aspect of the shoulder some grinding and crepitus clicking and popping of the shoulder. [id number]. Has not had any formal treatment. The pain is moderate. It is worse with lifting. 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 Supplemental Info [facility] Imaging Services [address] [facility] [place] [address] Upper Ext Joint Only(Routine) MR#: [id number] Acct: [id number] Name: JO FISHER Rep #: [id number] : 1955 M 68 From: Mayo Perez MD PCP: Dr. Win Zamora MD Status: REG CLI Study: Upper Ext Joint Only(Routine) Date of Exam: 03/28/24 Exam# [id number] Ordering Dr: Srinivas Peoples MD [id number] EXAM: MR RIGHT UPPER EXTREMITY WITHOUT INTRAVENOUS CONTRAST, SHOULDER CLINICAL INDICATION: PAIN TECHNIQUE: Multiplanar and multisequence MR images of the right shoulder without intravenous contrast. COMPARISON: No relevant prior studies available. FINDINGS: TENDONS: SUPRASPINAT (more content not included)... Normal [facility] A1AT SerPl-ncon 06-06-2024 Alpha 1 antitrypsin [Mass/Vol] 136 mg/dL Normal 90-200 [facility] Comment on above: Order Comment: Speci men Type: BLOOD SPECIMENOrdering Facility: [facility] Address: [address] [place] [address] Performed By: #### 1 825-9 ####[facility] LABCLIA [id number] [place] [address] [place]#### 87342-9 ####[facility]ORATORYCLIA [id number] [address] STATES OF [facility] [id number] [place] [address] [place]#### 12519-4 ####[facility] [id number] [place] [address] [place] ALBUMIN/CREATININE RATIO, UR INEon 06-06-2024 Albumin Unsp time DL <= 20 mg/L (U) [Mass/Time] 224.3 mg/L Normal [facility] Comment on above: Order Comment: Speci men Type: URINE SPECIMENOrdering Facility: [facility] Address: [address] [place] [address] Performed By: #### U ACR ####[facility] [place] LABORATORYCLIA [id number] [place] [address] [place] Albumin/Creatinine (U) [Mass ratio] 295 mg/g High <30 [facility] Comment on above: Order Comment: Speci men Type: URINE SPECIMENOrdering Facility: [facility] Address: [address] [place] [address] Result Comment: Adul t Male and Female Nephrotic Criteria: <30 mg/g is considered normal to mildly increased 30-300 mg/g is considered moderately increased >300 mg/g is considered severely increased KDIGO. (2013). KDIGO 2012 Clinical Practice Guideline for the Evaluation and Management of Chronic Kidney Disease. Official Journal of the International Society of Nephrology, 3(1), 1-150. Performed By: #### U ACR ####[facility] LABORATORYCLIA [id number] [place] [address] [place] Creatinine (U) [Mass/Vol] 76.0 mg/dL Normal 46.8-314.5 [facility] Comment on above: Order Comment: Speci men Type: URINE SPECIMENOrdering Facility: [facility] Address: [address] [place] [address] Performed By: #### U ACR ####[facility] LABORATORYCLIA [id number] [place] [address] [place] CBC panel Auto (Bld)on 06-06 Erythrocyte distribution width (RBC) [Ratio] 15.2 % High 11.5-15.0 [facility] Comment on above: Order Comment: Speci men Type: BLOOD SPECIMENOrdering Facility: [facility] Address: [address] [place] [address] Performed By: #### 5 8410-2 ####[facility] [id number] [place] [address] [place] Hematocrit (Bld) [Volume fraction] 51.6 % High 39.0-51.0 [facility] Comment on above: Order Comment: Speci men Type: BLOOD SPECIMENOrdering Facility: [facility] Address: [address] [place] [address] Performed By: #### 5 8410-2 ####[facility]BURGNCL[facility] [id number] [place] [address] [place] Hemoglobin (Bld) [Mass/Vol] 16.5 g/dL Normal 13.0-17.0 [facility] Comment on above: Order Comment: Speci men Type: BLOOD SPECIMENOrdering Facility: [facility] Address: [address] [place] [address] Performed By: #### 5 8410-2 ####[facility]GNCC[facility] [id number] [place] [address] [place] MCH (RBC) [Entitic mass] 27.5 pg Normal 26.0-34.0 [facility] Comment on above: Order Comment: Speci men Type: BLOOD SPECIMENOrdering Facility: [facility] Address: [address] [place] [address] Performed By: #### 5 8410-2 ####[facility]BURGNCLIA [id number] [place] [address] [place] MCHC (RBC) [Mass/Vol] 32.0 g/dL Normal 30.5-36.0 [facility] Comment on above: Order Comment: Speci men Type: BLOOD SPECIMENOrdering Facility: [facility] Address: [address] [place] [address] Performed By: #### 5 8410-2 ####[facility] PETERSBURGNCLI [id number] [address] [place] MCV (RBC) [Entitic vol] 86.0 fL Normal 80.0-100.0 [facility] Comment on above: Order Comment: Speci men Type: BLOOD SPECIMENOrdering Facility: [facility] Address: [address] [place] [address] Performed By: #### 5 8410-2 ####[facility]GNCLI [id number] [place] [address] [place] Nucleated RBC (Bld) [#/Vol] 10*3/uL Normal <0.01 [facility] Comment on above: Order Comment: Speci men Type: BLOOD SPECIMENOrdering Facility: [facility] Address: [address] [place] [address] Performed By: #### 5 8410-2 ####[facility] PETERSBURGPAMELLAFER [id number] [place] [address] [place] Platelet mean volume (Bld) [Entitic vol] 10.4 fL Normal 9.0-12.7 [facility] Comment on above: Order Comment: Speci men Type: BLOOD SPECIMENOrdering Facility: [facility] Address: [address] [place] [address] Performed By: #### 5 8410-2 ####[facility]ERSBURGPAMELLACACHE VAL[facility] [id number] [place] [address] [place] Platelets (Bld) [#/Vol] 167 10*3/uL Normal 150-400 [facility] Comment on above: Order Comment: Speci men Type: BLOOD SPECIMENOrdering Facility: [facility] Address: [address] [place] [address] Performed By: #### 5 8410-2 ####[facility] PETERSBURGPAMELLASUKUMARA [id number] [place] [address] [place] RBC (Bld) [#/Vol] 6.00 10*6/uL Normal 4.20-6.00 [facility] Comment on above: Order Comment: Speci men Type: BLOOD SPECIMENOrdering Facility: [facility] Address: [address] [place] [address] Performed By: #### 5 8410-2 ####[facility]GNCLIA [id number] [place] [address] [place] WBC (Bld) [#/Vol] 6.19 10*3/uL Normal 3.70-11.00 [facility] Comment on above: Order Comment: Speci men Type: BLOOD SPECIMENOrdering Facility: [facility] Address: [address] [place] [address] Performed By: #### 5 8410-2 ####[facility] [id number] [place] [address] [place] [facility] Comprehensive metabolic 2000 panelon 06-06-2024 Albumin [Mass/Vol] 4.0 g/dL Normal 3.9-4.9 [facility] Comment on above: Order Comment: Speci men Type: BLOOD SPECIMENOrdering Facility: [facility] Address: [address] [place] [address] Performed By: #### 1 825-9 ####[facility] LABCLIA [id number] [place] [address] [place]#### 90704-5 ####[facility] LABORATORYCLIA [id number] [address] STATES OF [facility] [id number] [place] [address] [place]#### 99386-3 ####[facility] [id number] [place] [address] [place] ALP [Catalytic activity/Vol] 73 U/L Normal 38-113 [facility] Comment on above: Order Comment: Speci men Type: BLOOD SPECIMENOrdering Facility: [facility] Address: [address] [place] [address] Performed By: #### 1 825-9 ####[facility] LABCLIA [id number] [place] [address] [place]#### 87223-0 ####[facility]ORATORYCLIA [id number] [place] [address] [place] AMERICATRINITY [facility] MILLTOWNCLIA [id number] [place] [address] [place]#### 61025-6 ####[facility] MILLTOWNCLIA [id number] [place] [address] [place] ALT [Catalytic activity/Vol] 16 U/L Normal 10-54 [facility] Comment on above: Order Comment: Speci men Type: BLOOD SPECIMENOrdering Facility: [facility] Address: [address] [place] [address] Performed By: #### 1 825-9 ####[facility] LABCLIA [id number] [place] [address] [place]#### 18255-0 ####[facility] LABORATORYCLIA [id number] [place] [address] [place] AMERICATRINITY HE[facility] MILLWNCLIA [id number] [place] [address] [place]#### 88525-6 ####[facility] MILLWNCLIA [id number] [place] [address] [place] Anion gap [Moles/Vol] 12 mmol/L Normal 8-15 [facility] Comment on above: Order Comment: Speci men Type: BLOOD SPECIMENOrdering Facility: [facility] Address: [facility] [place] [address] Performed By: #### 1 825-9 ####[facility] LABCLIA [id number] [place] [address] [place]#### 80872-2 ####[facility]ORATORYCLIA [id number] [place] [address] [place] AMERICATRIN[facility] MILLTOWNCLIA [id number] [place] [address] [place]#### 34382-9 ####[facility] MILLWNCLIA [id number] [place] [address] [place] AST [Catalytic activity/Vol] 13 U/L Low 14-40 [facility] Comment on above: Order Comment: Speci men Type: BLOOD SPECIMENOrdering Facility: [facility] Address: [address] [place] [address] Performed By: #### 1 825-9 ####[facility] LABCLIA [id number] [place] [address] [place]#### 32561-7 ####[facility] LABORATORYCLIA [id number] [address] STATES OF [facility] [id number] [place] [address] [place]#### 13764-1 ####[facility]ERS[facility]GNCLIA [id number] [place] [address] [place] Bilirubin [Mass/Vol] 0.4 mg/dL Normal 0.2-1.3 [facility] Comment on above: Order Comment: Speci men Type: BLOOD SPECIMENOrdering Facility: [facility] Address: [address] [place] [address] Performed By: #### 1 825-9 ####[facility] LABCLIA [id number] [place] [address] [place]#### 97554-5 ####[facility]ORATORYCLIA [id number] [address] STATES OF AMERICATRIN[facility] MILLWNCLIA [id number] [place] [address] [place]#### 71934-2 ####[facility] CENTERWNCLIA [id number] [place] [address] [place] Calcium [Mass/Vol] 8.9 mg/dL Normal 8.5-10.2 [facility] Comment on above: Order Comment: Speci men Type: BLOOD SPECIMENOrdering Facility: [facility] Address: [address] [place] [address] Performed By: #### 1 825-9 ####[facility] LABCLIA [id number] [place] [address] [place]#### 17708-6 ####[facility]ORATORYCLIA [id number] [place] [address] [place] AMERICAAULTMAN [facility] TOO MILLWNCLIA [id number] [place] [address] [place]#### 57217-3 ####[facility] MILLTOWNCLIA [id number] [place] [address] [place] Chloride [Moles/Vol] 96 mmol/L Low 98-107 [facility] Comment on above: Order Comment: Speci men Type: BLOOD SPECIMENOrdering Facility: [facility] Address: [address] [place] [address] Performed By: #### 1 825-9 ####[facility] LABCLIA [id number] [place] [address] [place]#### 08866-2 ####[facility]ORATORYCLIA [id number] [place] [address] [place] AMERICAAULTMAN [facility] TOO MILLTOWNCLIA [id number] [place] [address] [place]#### 36452-1 ####[facility] MILLTOWNCLIA [id number] [place] [address] [place] CO2 [Moles/Vol] 29 mmol/L Normal 22-30 [facility] Comment on above: Order Comment: Speci men Type: BLOOD SPECIMENOrdering Facility: [facility] Address: [address] [place] [address] Performed By: #### 1 825-9 ####[facility] LABCLIA [id number] [place] [address] [place]#### 92155-2 ####[facility] LABORATORYCLIA [id number] [address] STATES OF [facility] [id number] [place] [address] [place]#### 15674-2 ####[facility] [id number] [place] [address] [place] Creatinine [Mass/Vol] 0.68 mg/dL Low 0.73-1.22 [facility] Comment on above: Order Comment: Speci men Type: BLOOD SPECIMENOrdering Facility: [facility] Address: [address] [place] [address] Performed By: #### 1 825-9 ####[facility] LABCLIA [id number] [address] [place]#### 71948-2 ####[facility] LABORATORYCLIA [id number] [address] STATES OF AMERICAMEASE COUNTRYSIDE HOSPITALA [id number] [place] [address] [place]#### 14769-0 ####[facility] [id number] [place] [address] [place] Creatinine and Glomerular filtration rate.predicted panel (S/P/Bld) 101 mL/min/1.73m??? Normal >=60 [facility] Comment on above: Order Comment: Speci men Type: BLOOD SPECIMENOrdering Facility: [facility] Address: [address] [place] [address] Result Comment: Lucretia mated Glomerular Filtration Rate (eGFR) is calculated using the 2020 CKD-EPI creatinine equation. This equation utilizes serum creatinine, sex, and age as parameters. The creatinine assay has traceable calibration to isotope dilution-mass spectrometry. Refer to KDIGO guidelines for clinical interpretation. In patients with unstable renal function, e.g. those with acute kidney injury, the eGFR may not accurately reflect actual GFR. Performed By: #### 1 825-9 ####[facility] LABCLIA [id number] [address]#### 48336-3 ####[facility] LABORATORYCLIA [id number] [address] [id number] [address]#### 77334-9 ####[facility] [id number] [place] [address] [place] Glucose [Mass/Vol] 138 mg/dL High 74-99 [facility] Comment on above: Order Comment: Speci men Type: BLOOD SPECIMENOrdering Facility: [facility] Address: [address] [place] [address] Result Comment: The [place] Diabetes Association (ADA) provides guidance for cutoff values for fasting glucose and random glucose. The ADA defines fasting as no caloric intake for at least 8 hours. Fasting plasma glucose results between 100 to 125 mg/dL indicate increased risk for diabetes (prediabetes). Fasting plasma glucose results greater than or equal to 126 mg/dL meet the criteria for diagnosis of diabetes. In the absence of unequivocal hyperglycemia, results should be confirmed by repeat testing. In a patient with classic symptoms of hyperglycemia or hyperglycemic crisis, random plasma glucose results greater than or equal to 200 mg/dL meet the criteria for diagnosis of diabetes. Reference: Standards of Medical Care in Diabetes 2016, [place] Diabetes Association. Diabetes Care. 2016.39(Suppl 1). Performed By: #### 1 825-9 ####[facility] LABCLIA [id number] [place] [address] [place]#### 16357-4 ####[facility] [place] LABORATORYCLIA [id number] [place] [address] [place] AMERICAMEASE COUNTRYSIDE HOSPITALA [id number] [place] [address] [place]#### 68253-0 ####[facility] [id number] [place] [address] [place] Potassium [Moles/Vol] 3.9 mmol/L Normal 3.7-5.1 [facility] Comment on above: Order Comment: Speci men Type: BLOOD SPECIMENOrdering Facility: [facility] Address: [address] [place] [address] Performed By: #### 1 825-9 ####[facility] LABCLIA [id number] [place] [address] [place]#### 55521-4 ####[facility] [place] LABORATORYCLIA [id number] [place] [address] [place] AMERICAMEASE COUNTRYSIDE HOSPITALA [id number] [place] [address] [place]#### 55557-3 ####[facility] [id number] [place] [address] [place] Protein [Mass/Vol] 6.9 g/dL Normal 6.3-8.0 [facility] Comment on above: Order Comment: Speci men Type: BLOOD SPECIMENOrdering Facility: [facility] Address: [address] [place] [address] Performed By: #### 1 825-9 ####[facility] LABCLIA [id number] [place] [address] [place]#### 51593-8 ####[facility]ORATORYCLIA [id number] [place] [address] [place] AMERICAAULTMAN [facility] TOO MILLTOWNCLIA [id number] [place] [address] [place]#### 38246-4 ####[facility] MILLTOWNCLIA [id number] [place] [address] [place] Sodium [Moles/Vol] 137 mmol/L Normal 136-144 [facility] Comment on above: Order Comment: Speci men Type: BLOOD SPECIMENOrdering Facility: [facility] Address: [address] [place] [address] Performed By: #### 1 825-9 ####[facility] LABCLIA [id number] [place] [address] [place]#### 45340-4 ####[facility] LABORATORYCLIA [id number] [place] [address] [place] AMERICAAULTMAN [facility] TOO MILLTOWNCLIA [id number] [place] [address] [place]#### 24243-5 ####[facility] MILLTOWNCLIA [id number] [place] [address] [place] Urea nitrogen [Mass/Vol] 17 mg/dL Normal 9-24 [facility] Comment on above: Order Comment: Speci men Type: BLOOD SPECIMENOrdering Facility: [facility] Address: [address] [place] [address] Performed By: #### 1 825-9 ####[facility] LABCLIA [id number] [place] [address] [place]#### 61520-6 ####[facility]ORATORYCLIA [id number] [place] [address] [place] AMERICAKINDRED HOSPITAL [facility]BURGNCCAC[facility] [id number] [place] [address] [place]#### 35746-3 ####[facility] [id number] [place] [address] [place] HbA1c (Bld)on 06-06-2024 Average glucose Estimated from glycated hemoglobin (Bld) [Mass/Vol] 169 mg/dL Normal [facility] Comment on above: Order Comment: Juan belle Type: BLOOD SPECIMENOrdering Facility: [facility] Address: [address] [place] [address] Result Comment: eAG: (Estimated average glucose) is a calculated value from HgbA1c and is leather goods sales representative of the average blood glucose level in the last 2-3 month period. Performed By: #### 5 5454-3 ####[facility] LABCLIA [id number] [place] [address] [place] HbA1c (Bld) [Mass fraction] 7.5 % High 4.3-5.6 [facility] Comment on above: Order Comment: Juan belle Type: BLOOD SPECIMENOrdering Facility: [facility] Address: [address] [place] [address] Result Comment: Amjulio ican Diabetes Association guidelines indicate that patients with HgbA1c in the range 5.7-6.4% are at increased risk for development of diabetes, and intervention by lifestyle modification may be beneficial. HgbA1c greater or equal to 6.5% is considered diagnostic of diabetes. Performed By: #### 5 5454-3 ####[facility] LABCLIA [id number] [place] [address] [place] Lipid 1996 panelon Cholesterol [Mass/Vol] 183 mg/dL Normal <200 [facility] Comment on above: Order Comment: Juan belle Type: BLOOD SPECIMENOrdering Facility: [facility] Address: [address] [place] [address] Result Comment: <200 mg/dL, Desirable 200-239 mg/dL, Borderline high >239 mg/dL, High Performed By: #### 1 825-9 ####[facility] LABCLIA [id number] [place] [address] [place]#### 14202-7 ####[facility] LABORATORYCLIA [id number] [address] STATES OF [facility] HOSPITALLIA [id number] [place] [address] [place]#### 40776-3 ####[facility] [id number] [place] [address] [place] Cholesterol in HDL [Mass/Vol] 40 mg/dL Normal >39 [facility] Comment on above: Order Comment: Speci men Type: BLOOD SPECIMENOrdering Facility: [facility] Address: [address] [place] [address] Result Comment: 40-5 9 mg/dL, Acceptable >59 mg/dL, High: Negative risk factor for coronary heart disease <40 mg/dL, Low: Positive risk factor for coronary heart disease Performed By: #### 1 825-9 ####[facility] LABCLIA [id number] [place] [address] [place]#### 42052-1 ####[facility]ORATORYCLIA [id number] [address] STATES OF [facility]PITALWMDLIA [id number] [place] [address] [place]#### 39956-4 ####[facility] [id number] [place] [address] [place] Cholesterol in LDL [Mass/Vol] 106 mg/dL High <100 [facility] Comment on above: Order Comment: Speci men Type: BLOOD SPECIMENOrdering Facility: [facility] Address: [address] [place] [address] Result Comment: <100 mg/dL, Optimal 100-129 mg/dL, Near optimal/above optimal 130-159 mg/dL, Borderline high 160-189 mg/dL, High >189 mg/dL, Very high Secondary prevention optimal LDL Cholesterol levels are recommended to be < 70 mg/dL Performed By: #### 1 825-9 ####[facility] LABCLIA [id number] [address]#### 69379-3 ####[facility] LABORATORYCLIA [id number] [address] [id number] [place] [address]#### 80748-0 ####[facility] [id number] [address] STATES OF [facility] Cholesterol in LDL/Cholesterol in HDL [Mass ratio] 2.65 {ratio} High <2.54 [facility] Comment on above: Order Comment: Speci men Type: BLOOD SPECIMENOrdering Facility: [facility] Address: [address] [place] [address] Result Comment: Refe rence: 1. National Cholesterol Education Program ATP III Guideline At-A-Glance Quick Desk Reference: National Heart, Lung, and Blood [place]. National Institutes of Health. 2001: NIH Publication No. 01-3305. 2. An International Atherosclerosis Society position paper: global recommendations for the management of dyslipidemia: executive summary, Atherosclerosis. 2014: 232(2):410-413. Performed By: #### 1 825-9 ####[facility] LABCLIA [id number] [address]#### [address]673-3 ####[facility] LABORATORYCLIA [id number] [address] [id number] [place] [address] [place]#### 54049-7 ####[facility] [id number] [place] [address] [place] Cholesterol in VLDL [Mass/Vol] 37 mg/dL High <30 [facility] Comment on above: Order Comment: Speci men Type: BLOOD SPECIMENOrdering Facility: [facility] Address: [address] [place] [address] Performed By: #### 1 825-9 ####[facility] LABCLIA [id number] [place] [address] [place]#### 24739-2 ####[facility]ORATORYCLIA [id number] [address] [id number] [place] [address] [place]#### 29692-3 ####[facility] [id number] [place] [address] [place] Cholesterol non HDL [Mass/Vol] 143 mg/dL High <130 [facility] Comment on above: Order Comment: Speci men Type: BLOOD SPECIMENOrdering Facility: [facility] Address: [address] [place] [address] Result Comment: <130 mg/dL, Optimal 130-159 mg/dL, Near optimal/above optimal 160-189 mg/dL, Borderline high 190-219 mg/dL, High >219 mg/dL, Very high Secondary prevention optimal non HDL Cholesterol levels are recommended to be <100 mg/dL Performed By: #### 1 825-9 ####[facility] LABCLIA [id number] [place] [address] [place]#### 65534-5 ####[facility]ORYCLIA [id number] [address] STATES OF [facility] MILLTOWNCLIA [id number] [place] [address] [place]#### 57287-7 ####[facility]ENTERWNCLIA [id number] [place] [address] [place] Cholesterol.total/C holesterol in HDL [Mass ratio] 4.58 {ratio} Normal <5.10 [facility] Comment on above: Order Comment: Speci men Type: BLOOD SPECIMENOrdering Facility: [facility] Address: [address] [place] [address] Performed By: #### 1 825-9 ####[facility] LABCLIA [id number] [place] [address] [place]#### 42069-0 ####[facility]ORATORYCLIA [id number] [place] [address] [place] [facility] H[facility]IT[facility] [id number] [place] [address] [place]#### 98069-4 ####[facility] [id number] [place] [address] [place] FASTING TIME 12 hrs Normal [facility] Comment on above: Order Comment: Speci men Type: BLOOD SPECIMENOrdering Facility: [facility] Address: [address] [place] [address] Performed By: #### 1 825-9 ####[facility] LABCLIA [id number] [place] [address] [place]#### 09612-1 ####[facility]ATORYCLIA [id number] [place] [address] [place] AMERICAMELBOUR[facility] MEDICAL CENTERWMDLIA [id number] [place] [address] [place]#### 59775-1 ####[facility]ENTERWNCLIA [id number] [place] [address] [place] Triglyceride [Mass/Vol] 187 mg/dL High <150 [facility] Comment on above: Order Comment: Speci men Type: BLOOD SPECIMENOrdering Facility: [facility] Address: [address] [place] [address] Result Comment: <150 mg/dL, Normal 150-199 mg/dL, Borderline high 200-499 mg/dL, High >499 mg/dL, Very high Performed By: #### 1 825-9 ####[facility] LABCLIA [id number] [address] [place]#### 35250-3 ####[facility] LABORATORYCLIA [id number] [place], [place] [id number] [place] [address] STATES OF [facility] [id number] [address] [place]#### [address]122-0 ####[facility] [id number] [address] STATES OF [facility] CNOVon 05-16-2024 CNOV Office Visit (INTMWS ) -------- JO FISHER ([id number]) 1955 M Date Time Provider Department 05/16/24 8:00 AM WIN ZAMORA INTMWS During your visit today, we recorded the following information about you: Pulse Respiration Blood pressure Weight 79/minute 16/minute 138/84 131 kg Height 1.734 m Win Zamora MD 05/16/2024 11:13 PM Signed This note was created using NoteWriter. Subjective Jo Fisher is a 68 year old male. HISTORY Jo Fisher is a 68 year old gentleman here for Medicare Annual Wellness Visit, yearly exam and follow up appointment. Jo Fisher is a 68-year-old male with a history of DM, HTN, insomnia, anxiety, depression, and COPD, presenting for a Medicare Annual Wellness Visit. Jo reports no issues with current medications, including metformin, metoprolol, trazodone, Jardiance, lisinopril, Lipitor, hydrochlorothiazide, and sertraline, and denies experiencing any side effects. He is taking trazodone for insomnia, which helps him fall asleep but does not maintain sleep. He typically gets 3-6 hours of sleep per night, occasionally up to 8 hours. He attributes his sleep disturbances to chronic back pain from an injury in 2010. He uses a memory foam mattress and a good pillow, which he finds comfortable. He is also taking sertraline for anxiety and depression. He was previously on duloxetine for pain management but experienced significant personality changes and brain zaps when attempting to discontinue it. He expresses a desire to eventually discontinue sertraline as well. He is currently under the care of Dr. Peoples for pain management, receiving injections that initially provided relief. He monitors his blood pressure at home and reports good control. He also checks his blood glucose occasionally, with readings typically in the 110-120 mg/dL range in the morning. His last HbA1c was 7.3% last year. He has been losing weight and has quit smoking, although he continues to vape occasionally. He has not received any vaccines this year but is interested in updating his COVID-19 and flu vaccinations. He declines the shingles vaccine, stating he has never had chickenpox despite exposure. He also declines lung cancer screening. He has a history of a perforated colon and colostomy but has not completed a Cologuard test sent last year. He has two sisters and no brothers. His mother had HTN, and his father had heart issues and in 1981 at the age of 50, possibly due to a blood clot following a fall. He has an emergency contact, his roommate, who he trusts to make medical decisions on his behalf if needed. PAST MEDICAL HISTORY Diagnosis Date Opiate abuse, episodic (HCC) history of opiate abuse, per care everywhere note 04/21/2022 Perforated sigmoid colon (HCC) Current Outpatient Medications Medication Sig diclofenac, EC, (VOLTAREN) 75 mg EC tablet TAKE 1 PILL BY MOUTH WITH FOOD UP TO EVERY 12 HOURS NEEDED FOR PAIN cyclobenzaprine (FLEXERIL) 10 mg tablet Take 15 mg by mouth three times a day as needed. sertraline (ZOLOFT) 100 mg tablet Take 1 tablet by mouth once daily. hydroCHLOROthiazide 12.5 mg capsule Take 1 capsule by mouth once daily. albuterol HFA (PROVENTIL HFA, VENTOLIN HFA) 90 mcg/actuation inhaler INHALE 1-2 PUFFS BY MOUTH DAILY NEEDED atorvastatin (LIPITOR) 40 mg tablet Take 1 tablet by mouth once daily. empagliflozin (JARDIANCE) 10 mg tablet Take 1 tablet by mouth once daily. lisinopril (ZESTRIL) 30 mg tablet Take 1 tablet by mouth once daily. traZODone (DESYREL) 50 mg tablet TAKE 2 TABLETS BY MOUTH EVERY EVENING AT 6 PM. metFORMIN (GLUCOPHAGE) 1,000 mg tablet Take 1 tablet by mouth two times a day with meals. metoprolol succinate ER (TOPROL XL) 100 mg Take 1 tablet by mouth once daily. Fluticasone Propionate (CUTIVATE) 0.05 % cream Apply to affected area twice daily. No current facility-administered medications for this visit. ALLERGIES Allergen Reactions Poison Tamica Extract Itching FAMILY HISTORY Problem Relation Age of Onset Hypertension Mother Heart Father Social History Tobacco Use Smoking status: Former Current packs/day: 0.00 Average packs/day: 1.5 packs/day for 44.0 years (66.0 ttl pk-yrs) Types: Cigarettes Start date: 09/17/1968 Quit date: 09/17/2012 Years since quittin.6 Smokeless tobacco: Never Vaping Use Vaping status: Some Days Substances: Nicotine Devices: Disposable Substance Use Topics Alcohol use: Yes Comment: very rarely Drug use: Yes Types: Marijuana Comment: medical marijuana card - occationally Review of Systems Objective BP 159/100 Pulse 79 Resp 16 Ht 173.4 cm (5' 8.25) Wt 131 kg (288 lb 12.8 oz) BMI 43.59 kg/m? Last 5 Encounter Wt Readings: Date: Wt: 05/16/2024 131 kg (288 lb 12.8 oz) 10/23/2023 132.5 kg (292 lb) 06/15/2023 132. (more content not included)... Normal [facility] Upper Ext Joint Only(Routine )on 03-28-2024 Upper Ext Joint Only(Routine) [facility] [address] [place] [address] Upper Ext Joint Only(Routine) MR#: [id number] Acct: [id number] Name: JO FISHER Rep #: [id number] : 1955 M 68 From: Mayo Perez MD PCP: Dr. Win Zamora MD Status: REG CLI Study: Upper Ext Joint Only(Routine) Date of Exam: 05/29/23 Exam# [id number] Ordering Dr: Srinivas Peoples MD [id number] EXAM: MR RIGHT UPPER EXTREMITY WITHOUT INTRAVENOUS CONTRAST, SHOULDER CLINICAL INDICATION: PAIN TECHNIQUE: Multiplanar and multisequence MR images of the right shoulder without intravenous contrast. COMPARISON: No relevant prior studies available. FINDINGS: TENDONS: SUPRASPINATUS: Full-thickness tear of the supraspinatus tendon with failure at the footprint and with retraction to the joint line. INFRASPINATUS: Full-thickness tear of the infraspinatus tendon with failure at the footprint and with retraction to the joint line. SUBSCAPULARIS: High-grade tearing involving the fibers of the distal superior subscapularis tendon allowing medial dislocation of the long head biceps tendon. TERES MINOR: Unremarkable. Intact. BICEPS BRACHII, LONG HEAD: Medial dislocation of the long head biceps tendon. LIGAMENTS: GLENOHUMERAL: Unremarkable. Intact. MUSCLES: Unremarkable. No rotator cuff muscle atrophy. FLUID: Unremarkable. No joint effusion. No subacromial-subdeltoid space bursal fluid. CARTILAGE: Unremarkable. Articular cartilage intact. GLENOID LABRUM: Unremarkable. Intact, limited evaluation on non-arthrographic exam. BONES/JOINTS: [id number] hypertrophic degenerative of the acromioclavicular joint with mass effect on the underlying soft tissues. Posterior subluxation of the humeral head indicating glenohumeral instability. Intraosseous cystic changes at the lateral/anterolateral aspect of the humeral head. Superior subluxation of the humeral head forming a pseudoarticulation with the undersurface of the acromion. Height 2 acromion with undersurface. No subacromial enthesophyte or os acromiale. OTHER SOFT TISSUES: Unremarkable. No rotator interval edema. MRI/Upper Ext Joint Only(Routine) IMPRESSION: 1. Full-thickness tear of the supraspinatus and infraspinatus tendons with failure at the footprint and retraction to the joint line. 2. High-grade tearing involving the fibers of the distal superior subscapularis tendon allowing medial dislocation of the long head biceps tendon. Electronically Signed: Mayo Perez MD at 0:49 EST , CC: Dr. Win Zamora MD; Dr. Srinivas Peoples MD Sleeping Car Conductor: Signed Normal [facility] ECG COMPLETEon 10-23-2023 Atrial Rate 83 BPM [facility] Calculated P [place] 56 degrees [facility] Calculated R [place] 68 degrees [facility] Calculated T [place] 88 degrees [facility] P-R Interval 192 ms [facility] QRS Duration 96 ms [facility] QT Interval 394 ms [facility] QTC Calculation (Bazett) 462 ms [facility] Ventricular Rate 83 BPM [facility] NORMAL SINUS RHYTHM NONSPECIFIC T WAVE ABNORMALITY PROLONGED QT INTERVAL OR TU FUSION, CONSIDER HYPOKALEMIA ABNORMAL ECG Confirmed by MD ROBLES GREGORY () on 10/23/2023 10:31:14 AM [facility] NAME : CHRIS FISHER PID : [id number] : 1955 Gender : Male Race : ORD : [id number] Procedure Date : Oct 23 2023 08:11:35 Edit Date : Oct 23 2023 10:31:18 Diagnosis: NORMAL SINUS RHYTHM NONSPECIFIC T WAVE ABNORMALITY PROLONGED QT INTERVAL OR TU FUSION, CONSIDER HYPOKALEMIA ABNORMAL ECG Confirmed by MD ROBLES GREGORY () on 10/23/2023 10:31:14 AM Test Reason : Z00.00 Welcome to Medicare preventive visit Location : [address] : [place] Overread By : MD ROBLES GREGORY Edited By : MD ROBLES GREGORY Referred By : JESSICA NICOLE Acquired by : Jill VILCHIS, [facility] XR Chest PA and Lateralon IMPRESSION: Mild prominence of interstitial markings at the lung bases. Minimal atelectasis or fibrosis. Sleeping Car Conductor: PSCB Transcribe Date/Time: Jun 05 2023 4:06P Dictated by : TERRIE RAM MD This examination was interpreted and the report reviewed and electronically signed by: TERRIE RAM MD on Jun 05 2023 4:07PM [facility] DIVISION OF RADIOLOGY * * *Final Report* * * DATE OF EXAM: Jun 05 2023 8:21AM WOX [id number] - XR CHEST 2V FRONTAL/LAT / PROCEDURE REASON: Pre-op exam * * * * Physician Interpretation * * * * EXAMINATION: CHEST RADIOGRAPH (2 VIEW FRONTAL & LATERAL) CLINICAL HISTORY: Pre-op exam MQ: XC2_6 EXAM DATE/TIME: 06/05/2023 8:21 AM COMPARISON: No relevant prior studies available. RESULT: Lines, tubes, and devices: None. Lungs and pleura: No consolidation. No lung mass. No pleural effusion. No pneumothorax. Prominence of the interstitial markings at the lung bases. Minimal basal atelectasis or fibrosis Cardiomediastinal silhouette: Normal cardiomediastinal silhouette. Bones and soft tissues: Unremarkable. DIVISION OF RADIOLOGY Provider, [facility] - 06/05/2023 * * *Final Report* * * DATE OF EXAM: Jun 05 2023 8:21AM WOX [id number] - XR CHEST 2V FRONTAL/LAT / PROCEDURE REASON: Pre-op exam * * * * Physician Interpretation * * * * EXAMINATION: CHEST RADIOGRAPH (2 VIEW FRONTAL & LATERAL) CLINICAL HISTORY: Pre-op exam MQ: XC2_6 EXAM DATE/TIME: 06/05/2023 8:21 AM COMPARISON: No relevant prior studies available. RESULT: Lines, tubes, and devices: None. Lungs and pleura: No consolidation. No lung mass. No pleural effusion. No pneumothorax. Prominence of the interstitial markings at the lung bases. Minimal basal atelectasis or fibrosis Cardiomediastinal silhouette: Normal cardiomediastinal silhouette. Bones and soft tissues: Unremarkable. IMPRESSION IMPRESSION: Mild prominence of interstitial markings at the lung bases. Minimal atelectasis or fibrosis. Sleeping Car Conductor: KYLEE Transcribe Date/Time: Jun 05 2023 4:06P Dictated by : TERRIE RAM MD This examination was interpreted and the report reviewed and electronically signed by: TERRIE RAM MD on Jun 05 2023 4:07PM EST [facility] Radiology Study observation (narrative) [facility] XR Chest PA and LateralOrder ed By: Ccf Provider on 06-05-2023 [facility] CNCOon 04-23-2023 CNCO Letter Text Normal [facility] CNOVon 04-23-2023 CNOV Office Visit (SPAGWO ) -------- JO FISHER ([id number]) 1955 M Date Time Provider Department 04/23/23 8:15 AM ALISON GLASS During your visit today, we recorded the following information about you: Pulse Respiration 78/minute 16/minute Belkys Navarro MA 04/23/2023 12:59 PM Signed Review of Systems Constitutional: Negative for activity change, chills, fever and unexpected weight change. Gastrointestinal: Negative for bowel retention or incontinence Genitourinary: Negative for difficulty urinating. Negative for bladder retention or incontinence Musculoskeletal: Positive for arthralgias, back pain, gait problem, joint swelling, myalgias, neck pain and neck stiffness. Neurological: Positive for weakness, numbness and headaches. Psychiatric/Behavioral: Positive for dysphoric mood and sleep disturbance. Negative for suicidal ideas. The patient is nervous/anxious. Alison Glass APRN.CNP 04/23/2023 12:59 PM Signed [facility] Today's Date: 04/23/2023 Name: Jo Fisher : 1955 Purpose: Follow-up Patient Evaluation - This is an established patient, returning today for continued evaluation and management of the chief complaint noted below Chief complaint: Mid and Lower back pain Pertinent Past Medical History: DM, anxiety/depression, HTN, HLD, COPD, Medical THC __ Interval History: Overall pain and functional disability since last visit: Unchanged New Complaints since last visit: right shoulder pain Pt states the right shoulder started hurting about 1 month ago, does not remember an initial injury Pt states the pain is an aching, burning pain, pt states with lifting it feels it is being stabbed with a hot knife. Pt states he can lift his right arm but with assistance of his left arm. States he can not hold his coffee cup with his right hand at this point. Pt states the pain is interrupting his sleep. Pt states he had an xray (at [facility]) and was told he did not tear his rotator cuff. Pt has not had PT for this pain. Pain Description (Back): Timing: constant to a degree Character: Aching and Stabbing Primary Location: Right sided Mid thoracic (can go to both sides at times) Lumbar Back Radiation: radiation into his left hip from the low back Exacerbating factors: standing, forward flexion, lifting, and walking Relieving factors: sitting down Interferes with: physical activity, walking, sleeping, cooking, household cleaning, reaching for shelves, and lifting The patient reports 2 hours of uninterrupted sleep per night The patient denies difficulty with bowel or bladder control, unintentional weight loss, and fevers, chills, or night sweats. Pt states the pain increases as the day progresses. Pt states when he is cooking is when his pain really increases. Pt states he did not get any relief from the ILESI he had done. Pt states his left hip and the right shoulder are the areas that are interfering with his activity of daily living the most. Current Pain Medications: Neuropathics: pt stopped lyrica reports ineffective and made him feel funny NSAIDS:diclofenac Muscle Relaxants:tizanidine Topicals: Other Prescription or OTC Pain Medications: Opioids (when applicable): Current Anti-depressants or Mood-Stabilizers: Zoloft Current Anti-Coagulants: None Tolerating Medication: No Medications helping improve ADL's and Self-care: No Current Therapies Attended: No Current Therapies Studies Obtained (when obtained, relevant findings reported below): None __ Notable Events During Course of Treatment: btained on 10/28/2022) Jo Fisher is a 67 year old year-old male; for evaluation and management of the above-mentioned chief complaint. This has been present for the past 12 years. The onset of symptoms was sudden and was without associated trauma. Patient states he had a work injury in 2010. 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 He states his pain is the worst with things like reaching out, standing and doing dishes. He is constantly rubbing his right side thoracic region, to the point there has skin color and texture changes there. He also has pain to his left hip. He states it is a burning ache and numbness. This effects his gait. He states he was with a PM in [place] and was getting injections. He isn't sure exactly what he got. But does remember he had a testing injection with lidocaine. Perhaps it was a MBB. He does think that he has had lumbar RFA, and states it wasn't helpful. He was to start PT, however went to one visit and could not tolerate it. This was (more content not included)... Normal [facility] Jocelin 04-23-2023 KAMAR Telephone (SPAGWO) -------- JO FISHER ([id number]) 1955 M Date Time Provider Department 04/23/23 ALISON GLASS During your visit today, we recorded the following information about you: Tyra Burris 04/23/2023 9:01 AM Signed Procedure(s) being scheduled: 1.Are you diabetic Yes. Please list the current medications being prescribed Metfoermin. 2. Are you on any blood thinners? No If yes, does it require a hold? No If yes, was approval letter sent? No 3. Are you taking any aspirin? No 4. Are you currently taking any antibiotics? No If yes, is it prophylactic or for treatment of an infection? 5. Do you have any allergies to latex? No 6. Do you have any allergies to seafood or shellfish? No 7. Do you have any allergies to x-ray dye? No 8. Did the physician instruct you to take any medication prior to your procedure? No 9. Does this procedure require a milk driver? Yes If yes, has patient been notified that a milk driver is needed and must be present at check in? yes 10. Were the pre-procedure instructions explained and provided to the patient? Yes 11. Do you have a pacemaker? No 12. Do you have an internal stimulator of any kind? No If yes, please bring the remote with you to your procedure visit. 13. Have you received the COVID-19 Vaccine? Yes. If yes, date(s) received: (Patient should not receive a procedure including steroids 14 days prior to their first dose of the COVID vaccine. They should not receive any procedure containing steroids in the time frame between their 1st and 2nd doses of the COVID vaccine. They should not receive a procedure containing steroids 14 days after their 2nd dose of the COVID vaccine.) Tyra Burris Allergies As of Date: 04/23/2023 Noted Allergy Reaction POISON TAMICA EXTRACT 04/24/2022 9 - Itching Date Reviewed: 04/23/2023 Reviewed by: Belkys Navarro MA - Fully Assessed Reason for Visit: Injection Questions [Other] Prescriptions as of 04/23/2023 - ALPRAZolam 0.5 mg dissolvable tablet Bring to office for procedure. Do not take until instructed by clinical staff - tiZANidine (ZANAFLEX) 4 mg tablet Take 1 tablet by mouth daily at bedtime. - diclofenac, EC, (VOLTAREN) 75 mg EC tablet TAKE 1 PILL BY MOUTH WITH FOOD UP TO EVERY 12 HOURS NEEDED FOR PAIN - sertraline (ZOLOFT) 100 mg tablet take 1 tablet by mouth every day - hydroCHLOROthiazide 12.5 mg capsule Take 1 capsule by mouth once daily. - albuterol HFA (PROVENTIL HFA, VENTOLIN HFA) 90 mcg/actuation inhaler INHALE 1-2 PUFFS BY MOUTH DAILY NEEDED - atorvastatin (LIPITOR) 40 mg tablet Take 1 tablet by mouth once daily. - traZODone (DESYREL) 50 mg tablet TAKE 2 TABLETS BY MOUTH EVERY EVENING AT 6 PM. - empagliflozin (JARDIANCE) 10 mg tablet Take 1 tablet by mouth once daily. - lisinopril (ZESTRIL,PRINIVIL) 30 mg tablet Take 30 mg by mouth once daily. - metoprolol succinate ER (TOPROL XL) 100 mg Take 100 mg by mouth once daily. - Fluticasone Propionate (CUTIVATE) 0.05 % cream Apply to affected area twice daily. - metFORMIN (GLUCOPHAGE) 1,000 mg tablet Take 1 tablet by mouth twice daily with meals. Problem List As Of Date 04/23/2023 Noted Resolved Myofascial pain [M79.18] 02/20/2021 Low back pain [M54.50] 02/20/2021 Arthropathy of lumbar facet joint [M47.816] 02/20/2021 Degeneration of lumbar intervertebral disc [M51*02/20/2021 Type 2 diabetes mellitus with hyperglycemia (HC*04/23/2022 Morbid obesity with BMI of 40.0-44.9, adult (HC*04/24/2022 Primary hypertension [I10] 08/20/2022 Chronic right-sided thoracic back pain [M54.6, *09/09/2022 Mood disorder (HCC) [F39] 09/15/2022 Encounter Status:Closed by TYRA BURRIS on 04/23/23 [facility] XR SHOULDER MINIMUM 2 VIEWS RIGHTon 04-20-2023 XR SHOULDER MINIMUM 2 VIEWS RIGHT ORIGINAL EXAMINATION: XR right shoulder four views 04/20/2023 2:50 pm XR COMPARISON: None HISTORY: ORDERING SYSTEM PROVIDED HISTORY: Reason for Exam: pain, chronic shoulder pain that is worsening FINDINGS: No acute fracture, dislocation, lytic process or periosteal reaction is seen in the visualized bones and joints. No erosive type of arthritis. There is faint calcifications superior to the greater tuberosity on the Grashey view suspicious for calcific tendinitis. Minimal osteoarthritis in the glenohumeral and AC joints. Preserved subacromial space. IMPRESSION: No acute skeletal abnormality is seen. . Minimal osteoarthritis. Suspect mild calcific tendinitis. Interpreted by: Moisés Carias MD Preliminary Report By: Moisés Carias MD Electronically signed By Moisés Carias MD Dictated Date: 04/20/2023 2:52:15 PM Prelim Date: 04/20/2023 2:53:37 PM Sign Date: 04/20/2023 2:53:37 PM Ordering Provider: CHARLES Cabrera [facility]ly [facility] ([place]) [facility] -------- JO FISHER ([id number]) 1955 M Date Time Provider Department 03/16/23 JESSICA TAPIA AGSPINE3 During your visit today, we recorded the following information about you: Sandra Laurent LPN 03/16/2023 11:28 AM Signed Patient called stating he is about to run out of methocarbamol because he was told he is allowed to take extra when needed. He has a refill that will be available soon, but will run out before that date. He is asking if you can write for more as needed. Please advise Sandra Laurent LPN Allergies As of Date: 03/16/2023 Noted Allergy Reaction POISON TAMICA EXTRACT 04/24/2022 9 - Itching Date Reviewed: 03/16/2023 Reviewed by: Rehana Jiang LPN - Fully Assessed Reason for Visit: Medication Problem [65] Visit Diagnosis:Myofascial pain [M79.18] Order(s):methocarbamol (ROBAXIN) 750 mg tabletTake 1 tablet by mouth as directed. TAKE 1-2 PILL BY MOUTH UP TO 3 TIMES PER DAY NEEDED FOR PAINFUL MUSCLE SPASMSDisp: 180 tabletRfl: 5 Prescriptions as of 03/16/2023 - methocarbamol (ROBAXIN) 750 mg tablet Take 1 tablet by mouth as directed. TAKE 1-2 PILL BY MOUTH UP TO 3 TIMES PER DAY NEEDED FOR PAINFUL MUSCLE SPASMS - tiZANidine (ZANAFLEX) 4 mg tablet Take 1 tablet by mouth daily at bedtime. - diclofenac, EC, (VOLTAREN) 75 mg EC tablet TAKE 1 PILL BY MOUTH WITH FOOD UP TO EVERY 12 HOURS NEEDED FOR PAIN - sertraline (ZOLOFT) 100 mg tablet take 1 tablet by mouth every day - hydroCHLOROthiazide 12.5 mg capsule Take 1 capsule by mouth once daily. - albuterol HFA (PROVENTIL HFA, VENTOLIN HFA) 90 mcg/actuation inhaler INHALE 1-2 PUFFS BY MOUTH DAILY NEEDED - atorvastatin (LIPITOR) 40 mg tablet Take 1 tablet by mouth once daily. - traZODone (DESYREL) 50 mg tablet TAKE 2 TABLETS BY MOUTH EVERY EVENING AT 6 PM. - empagliflozin (JARDIANCE) 10 mg tablet Take 1 tablet by mouth once daily. - lisinopril (ZESTRIL,PRINIVIL) 30 mg tablet Take 30 mg by mouth once daily. - metoprolol succinate ER (TOPROL XL) 100 mg Take 100 mg by mouth once daily. - Fluticasone Propionate (CUTIVATE) 0.05 % cream Apply to affected area twice daily. - metFORMIN (GLUCOPHAGE) 1,000 mg tablet Take 1 tablet by mouth twice daily with meals. Problem List As Of Date 03/16/2023 Noted Resolved Myofascial pain [M79.18] 02/20/2021 Low back pain [M54.50] 02/20/2021 Arthropathy of lumbar facet joint [M47.816] 02/20/2021 Degeneration of lumbar intervertebral disc [M51*02/20/2021 Type 2 diabetes mellitus with hyperglycemia (HC*04/23/2022 Morbid obesity with BMI of 40.0-44.9, adult (HC*04/24/2022 Primary hypertension [I10] 08/20/2022 Chronic right-sided thoracic back pain [M54.6, *09/09/2022 Mood disorder (HCC) [F39] 09/15/2022 Prescriptions ordered this encounter Disp Refills Start End METHOCARBAMOL 750 MG TABLET 180 * 5 03/16/2023 04/15/2023 Route: ORAL Sig: Take 1 tablet by mouth as directed. TAKE 1-2 PILL BY MOUTH UP TO 3 TIMES PER DAY NEEDED FOR PAINFUL MUSCLE SPASMS Medications Discontinued During This Encounter Prescriptions - methocarbamol (ROBAXIN) 750 mg tablet (Discontinued) TAKE 1 PILL BY MOUTH UP TO 3 TIMES PER DAY NEEDED FOR PAINFUL MUSCLE SPASMS Encounter Status:Closed by JESSICA TAPIA on 03/16/23 [facility] GLUCOSE, BLOOD (POC)on 03-16 Glucose [Mass/Vol] 227 mg/dL Abnormal 74 - 99 mg/dL [facility] CNOVon 03-06-2023 CNOV Office Visit (SPAGWO ) -------- JO FISHER ([id number]) 1955 M Date Time Provider Department 03/06/23 7:30 AM ALISON GLASS During your visit today, we recorded the following information about you: Pulse Respiration 82/minute 16/minute Alison Glass APRN.CNP 03/06/2023 12:48 PM Signed [facility] Today's Date: 03/06/2023 Last Visit: 01/22/2023 Name: Jo Fisher : 1955 Purpose: Follow-up Patient Evaluation - This is an established patient, returning today for continued evaluation and management of the chief complaint noted below Chief complaint: Mid and Lower back pain Referring Clinician: Pertinent Past Medical History: DM, anxiety/depression, HTN, HLD, COPD, Medical THC __ Plan at last visit: Impression AND Plan: Unfortunately patient did not respond well to lumbar MBB's, we will cancel the second set. He also did not have a positive response to the right T5 REID NB. He continues to have that right-sided flank pain especially concentrated to a small region below the bra line which bothers him a lot he constantly rubs that region. After discussing imaging and considering pain complaints we discussed thoracic MADISON. Patient was agreeable to this. Although he did have severe left foraminal stenosis that he 10 his pain seems to be more concentrated to the right side, slightly below the bra line. In the meantime we will increase patient's Lyrica to 150 mg 3 times daily. Encourage patient to obtain hip imaging as he also complained that his left hip continues to bother him. Patient to follow-up after intervention and after x-ray. Depending on results of current treatment plan consider: Titrate Lyrica, repeat lumbar MADISON, TBD-pending response to thoracic MADISON, TPI's to right thoracic paraspinal region (not previously tolerated)-pending response to REID NB __ Interval History: Overall pain and functional disability since last visit: Unchanged New Complaints since last visit: No Patient states he stopped the Lyrica as he did not feel it was helping him with his pain and he felt it was causing him other issues he did not like. Patient states he went for the epidural injection and he had a panic moment and did not go through with the injection. Patient states he is scheduled for second injection and is willing to attempt it. Patient states he has had these injections in the past and they have not helped however he would like to try them with another provider. Patient was stating that his current medication regime is not managing his pain. Patient currently is on medical marijuana, but he says if he could get medication other than that he would not use that. He said he did stop at a heartbeat. Patient states in the past he has been prescribed fentanyl and oxycodone 4 times a day at his provider in [place]. Patient states he felt his pain was managed at that time. Patient is here for follow-up appointment. Pain Description: Timing: intermittent Character: Aching and Stabbing Primary Location: Right sided Mid thoracic (can go to both sides at times) Radiation: Lumbar Back Exacerbating factors: standing, forward flexion, lifting, and walking Relieving factors: unable to pinpoint positions/factors that are mitigating Interferes with: physical activity, walking, sleeping, cooking, household cleaning, reaching for shelves, and lifting The patient reports 2 hours of uninterrupted sleep per night The patient denies difficulty with bowel or bladder control, unintentional weight loss, and fevers, chills, or night sweats. Current Pain Medications: Neuropathics: pt stopped lyrica reports ineffective and made him feel funny NSAIDS: Muscle Relaxants: Topicals: Other Prescription or OTC Pain Medications: Opioids (when applicable): Date last refilled: Quantity supplied: Quantity remaining: Last taken: Tolerating Medication: No Medications helping improve ADL's and Self-care: No Current Therapies Attended: No Current Therapies Studies Obtained (when obtained, relevant findings reported below): None __ Notable Events During Course of Treatment: btained on 10/28/2022) Jo Fisher is a 67 year old year-old male; for evaluation and management of the above-mentioned chief complaint. This has been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 Result Comment: Quiller Operator bailee Kidney disease, GFR = <60. Kidney failure, GFR = <15. The GFR estimate is not adjusted for extreme body surface area or acute process, nor has it been validated for women or ethnic groups other than and . Performed By: #### C REAT, ALT, AST, PLTC #### Testing performed at [address] [address] PLATELET COUNTon 01-23-2022 Platelets (Bld) [#/Vol] 191 10*3/uL Normal 130.0-400.0 [facility] Comment on above: Performed By: #### C REAT, ALT, AST, PLTC #### Testing performed at [place] [id number] COVID-19, MOLECULARon 2021 SARS-CoV-2 (COVID-19) RNA DIMA+probe Ql (Unsp spec) Not detected Normal Not Detected [facility] Comment on above: Order Comment: This test was performed under the FDA's Emergency Use Authorization (EUA). Testing was performed using the [employer] SARS-CoV-2 RT-PCR Test on the Ema Anneliese System. This test has not been approved for use in asymptomatic patients and its performance in this patient population has not been evaluated. Negative results do not rule out the presence of SARS-CoV-2. Fact sheets for the EUA can be found at the following links: For Healthcare Providers: https://www.fda.gov/media/316848/download For Patients: https://www.fda.gov/media/013240/download Performed By: #### L [id number] #### [facility] [address] [address] Kane Baptiste M.D. [id number] BMP FASTINGon 11-27-2021 Anion gap [Moles/Vol] 8 mmol/L Normal 8-16 [facility] Comment on above: Performed By: #### B MPF #### [place] [address] Calcium [Mass/Vol] 9.4 mg/dL Normal 8.4-10.2 [facility] Comment on above: Performed By: #### B MPF #### Testing performed at [place] [id number] Chloride [Moles/Vol] 101 mmol/L Normal 98-107 [facility] Comment on above: Result Comment: Plea se note: Triglyceride levels of 600mg/dL or higher may positively bias chloride results by approximately 2.1 mmol Performed By: #### B MPF #### [place] [address] CO2 [Moles/Vol] 29 mmol/L Normal 22-30 [facility] Comment on above: Performed By: #### B MPF #### Testing performed at [place] [id number] Creatinine [Mass/Vol] 0.80 mg/dL Normal 0.7-1.2 [facility] Comment on above: Performed By: #### B MPF #### Testing performed at [place] [id number] EST. GFR, 125 ml/min/1.73sq.m Normal [facility] Comment on above: Performed By: #### B MPF #### Testing performed at [place] [id number] EST. GFR,Non 103 ml/min/1.73sq.m Normal [facility] Comment on above: Performed By: #### B MPF #### [place] [address] GFR Information Average GFR for 60-6 9 years old = 85. 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 Kidney failure, GFR = <15. The GFR estimate is not adjusted for extreme body surface area or acute process, nor has it been validated for women or ethnic groups other than and . Testing performed at [place] [address] Performed By: #### B MPF #### [place] [address] Glucose [Mass/Vol] 108 mg/dL High 70-100 [facility] Comment on above: Result Comment: NORMAL <100 mg/dL PREDIABETES 101-126 mg/dL DIABETES 126 mg/dL or higher Performed By: #### B MPF #### [place] [address] Potassium [Moles/Vol] 4.9 mmol/L Normal 3.5-5.1 [facility] Comment on above: Performed By: #### B MPF #### [place] [address] Sodium [Moles/Vol] 138 mmol/L Normal 137-145 [facility] Comment on above: Performed By: #### B MPF #### [place] [address] Urea nitrogen [Mass/Vol] 22 mg/dL High 7-20 [facility] Comment on above: Performed By: #### B MPF #### [place] [address] HEMOGLOBIN A1Con 11-27-2021 Glucose [Mass/Vol] 154 mg/dL Normal [facility] Comment on above: Result Comment: Test ing performed at [place] [address] Performed By: #### H A1CT #### Testing performed at [facility] [address] [place] [address] HbA1c (Bld) [Mass fraction] 7.0 % High 0-6 [facility] Comment on above: Result Comment: NORMAL <5.7% PREDIABETES 5.7-6.4% DIABETES 6.5% OR HIGHER Performed By: #### H A1CT #### Testing performed at [facility] [address] [place] [address] Vital Signs Date Time Vital Sign Value Performing Clinician Facility 11-15-2024 09:41-0400 Body mass index (BMI) [Ratio] 44.52 kg/m2 Jessica Nicole PRODUCT TEST SPECIALIST.WORM RAISER Work Phone: [facility] 11-15-2024 09:41-0400 Body weight 133.8 kg Jessica Nicole PRODUCT TEST SPECIALIST.WORM RAISER Work Phone: [facility] 11-15-2024 09:41-0400 Diastolic blood pressure 74 mm[Hg] Jessica Nicole PRODUCT TEST SPECIALIST.WORM RAISER Work Phone: [facility] 11-15-2024 09:41-0400 Heart rate 80 /min Jessica Nicole PRODUCT TEST SPECIALIST.WORM RAISER Work Phone: [facility] 11-15-2024 09:41-0400 Respiratory rate 16 /min Jessica Nicole PRODUCT TEST SPECIALIST.WORM RAISER Work Phone: [facility] 11-15-2024 09:41-0400 Systolic blood pressure 138 mm[Hg] Jessica Nicole PRODUCT TEST SPECIALIST.WORM RAISER Work Phone: [facility] 10-21-2024 09:09-0400 Body height 177.[address] Win Zamora MD Work Phone: [facility] 10-21-2024 09:09-0400 Body mass index (BMI) [Ratio] 41.5 kg/m2 Dr. Win Zamora MD Work Phone: [facility] 10-21-2024 09:09-0400 Body weight 131.[address] Win Zamora MD Work Phone: [facility] 09-20-2024 08:24-0400 Body height 177.[address] Win Zamora MD Work Phone: [facility] 09-20-2024 08:24-0400 Body mass index (BMI) [Ratio] 41.5 kg/m2 Dr. Win Zamora MD Work Phone: [facility] 09-20-2024 08:24-0400 Body weight 131.[address] Win Zamora MD Work Phone: [facility] 06-21-2024 08:23-0400 Body height 177.[address] Win Zamora MD Work Phone: [facility] 05-16-2024 09:10-0500 Diastolic blood pressure 84 mm[Hg] Win Zamora MD Work Phone: [facility] 05-16-2024 09:10-0500 Systolic blood pressure 138 mm[Hg] Win Zamora MD Work Phone: [facility] 05-16-2024 08:06-0500 Heart rate 79 /min Win Zamora MD Work Phone: [facility] 05-16-2024 08:02-0500 Body height 173.4 cm Win Zamora MD Work Phone: [facility] 05-16-2024 08:02-0500 Body mass index (BMI) [Ratio] 43.59 kg/m2 Win Zamora MD Work Phone: [facility] 05-16-2024 08:02-0500 Body weight 131 kg Win Zamora MD Work Phone: [facility] 05-16-2024 08:02-0500 Respiratory rate 16 /min Win Zamora MD Work Phone: [facility] 10-23-2023 07:09-0400 Body height 174 cm Jessica Nicole APRN.CNS Work Phone: [facility] 10-23-2023 07:09-0400 Body mass index (BMI) [Ratio] 43.75 kg/m2 Jessica Nicole PRODUCT TEST SPECIALIST.WORM RAISER Work Phone: [facility] 10-23-2023 07:09-0400 Body weight 132.45 kg Jessica Nicole PRODUCT TEST SPECIALIST.WORM RAISER Work Phone: [facility] 10-23-2023 07:09-0400 Diastolic blood pressure 82 mm[Hg] Jessica Nicole PRODUCT TEST SPECIALIST.WORM RAISER Work Phone: [facility] 10-23-2023 07:09-0400 Heart rate 91 /min Jessica Nicole PRODUCT TEST SPECIALIST.WORM RAISER Work Phone: [facility] 10-23-2023 07:09-0400 Respiratory rate 16 /min Jessica Nicole PRODUCT TEST SPECIALIST.WORM RAISER Work Phone: [facility] 10-23-2023 07:09-0400 Systolic blood pressure 142 mm[Hg] Jessica Nicole PRODUCT TEST SPECIALIST.WORM RAISER Work Phone: [facility] 06-15-2023 07:30-0400 Body weight 132.45 kg Naun Briana PRODUCT TEST SPECIALIST.SPORTS BOOK SERVER Work Phone: [facility] 06-15-2023 07:30-0400 Diastolic blood pressure 92 mm[Hg] Naun Briana PRODUCT TEST SPECIALIST.SPORTS BOOK SERVER Work Phone: [facility] 06-15-2023 07:30-0400 Heart rate 76 /min Naun Briana PRODUCT TEST SPECIALIST.SPORTS BOOK SERVER Work Phone: [facility] 06-15-2023 07:30-0400 Respiratory rate 18 /min Naun Briana PRODUCT TEST SPECIALIST.SPORTS BOOK SERVER Work Phone: [facility] 06-15-2023 07:30-0400 SaO2% (BldA) [Mass fraction] 94 % Naun Briana PRODUCT TEST SPECIALIST.SPORTS BOOK SERVER Work Phone: [facility] 06-15-2023 07:30-0400 Systolic blood pressure 146 mm[Hg] Naun Briana PRODUCT TEST SPECIALIST.SPORTS BOOK SERVER Work Phone: [facility] 06-05-2023 07:18-0500 Diastolic blood pressure 94 mm[Hg] Naun Briana PRODUCT TEST SPECIALIST.SPORTS BOOK SERVER Work Phone: [facility] 06-05-2023 07:18-0500 Systolic blood pressure 168 mm[Hg] Naun Briana PRODUCT TEST SPECIALIST.SPORTS BOOK SERVER Work Phone: [facility] 06-05-2023 07:15-0500 Body weight 130.64 kg Naun Briana PRODUCT TEST SPECIALIST.SPORTS BOOK SERVER Work Phone: [facility] 06-05-2023 07:15-0500 Heart rate 77 /min Naun Briana PRODUCT TEST SPECIALIST.SPORTS BOOK SERVER Work Phone: [facility] 06-05-2023 07:15-0500 Respiratory rate 16 /min Naun Briana PRODUCT TEST SPECIALIST.SPORTS BOOK SERVER Work Phone: [facility] 06-05-2023 07:15-0500 SaO2% (BldA) [Mass fraction] 92 % Naun Briana PRODUCT TEST SPECIALIST.SPORTS BOOK SERVER Work Phone: [facility] 05-01-2023 15:49-0500 Body height 177.8 cm [facility] 05-01-2023 15:49-0500 Body mass index (BMI) [Ratio] 41.8 kg/m2 [facility] 05-01-2023 15:49-0500 Body temperature 98.9 [degF] [facility] 05-01-2023 15:49-0500 Body weight 132.3 kg [facility] 05-01-2023 15:49-0500 Diastolic blood pressure 116 mm[Hg] [facility] 05-01-2023 15:49-0500 Heart rate 81 /min [facility] 05-01-2023 15:49-0500 Respiratory rate 16 /min [facility] 05-01-2023 15:49-0500 SaO2% (BldA) [Mass fraction] 94 % [facility] 05-01-2023 15:49-0500 Systolic blood pressure 193 mm[Hg] [facility] 04-20-2023 15:17-0500 Diastolic Blood Pressure Non-Invasive 87 mm[Hg] DR CHARLES WARNER DO [facility] 04-20-2023 15:17-0500 Heart rate 78 /min DR CHARLES WARNER DO [facility] 04-20-2023 15:17-0500 Respiratory rate 16 /min DR CHARLES WARNER DO [facility] 04-20-2023 15:17-0500 Systolic Blood Pressure Non-Invasive 166 mm[Hg] DR CHARLES WARNER DO [facility] 04-20-2023 13:15-0500 Body temperature 96.98 [degF] DR CHARLES WARNER DO [facility] 04-20-2023 13:15-0500 Diastolic Blood Pressure Non-Invasive 104 mm[Hg] DR CHARLES WARNER DO [facility] 04-20-2023 13:15-0500 Heart rate 84 /min DR CHARLES WARNER DO [facility] 04-20-2023 13:15-0500 Respiratory rate 22 /min DR CHARLES WARNER DO [facility] 04-20-2023 13:15-0500 Systolic Blood Pressure Non-Invasive 192 mm[Hg] DR CHARLES WARNER DO [facility] 03-16-2023 08:19-0500 Diastolic blood pressure 81 mm[Hg] Shiv Salguero MD Work Phone: [facility] 03-16-2023 08:19-0500 Heart rate 99 /min Shiv Salguero MD Work Phone: [facility] 03-16-2023 08:19-0500 Respiratory rate 15 /min Shiv Salguero MD Work Phone: [facility] 03-16-2023 08:19-0500 Systolic blood pressure 132 mm[Hg] Shiv Salguero MD Work Phone: [facility] 03-06-2023 07:51-0500 Heart rate 82 /min Alison Prebish PRODUCT TEST SPECIALIST.SPORTS BOOK SERVER Work Phone: [facility] 03-06-2023 07:51-0500 Respiratory rate 16 /min Alison Prebish PRODUCT TEST SPECIALIST.SPORTS BOOK SERVER Work Phone: [facility] 03-06-2023 07:51-0500 SaO2% (BldA) [Mass fraction] 96 % Alison Prebish PRODUCT TEST SPECIALIST.SPORTS BOOK SERVER Work Phone: [facility] 02-02-2023 07:01-0400 Diastolic blood pressure 110 mm[Hg] Shiv Salguero MD Work Phone: [facility] 02-02-2023 07:01-0400 Heart rate 76 /min Shiv Salguero MD Work Phone: [facility] 02-02-2023 07:01-0400 Respiratory rate 18 /min Shiv Salguero MD Work Phone: [facility] 02-02-2023 07:01-0400 SaO2% (BldA) [Mass fraction] 94 % Shiv Salguero MD Work Phone: [facility] 02-02-2023 07:01-0400 Systolic blood pressure 182 mm[Hg] Shiv Salguero MD Work Phone: [facility] 01-19-2023 07:25-0400 Diastolic blood pressure 112 mm[Hg] Shiv Salguero MD Work Phone: [facility] 01-19-2023 07:25-0400 Heart rate 77 /min Shiv Salguero MD Work Phone: [facility] 01-19-2023 07:25-0400 Respiratory rate 16 /min Shiv Salguero MD Work Phone: [facility] 01-19-2023 07:25-0400 SaO2% (BldA) [Mass fraction] 93 % Shiv Salguero MD Work Phone: [facility] 01-19-2023 07:25-0400 Systolic blood pressure 188 mm[Hg] Shiv Salguero MD Work Phone: [facility] 12-22-2022 08:42-0400 Diastolic blood pressure 99 mm[Hg] Shiv Salguero MD Work Phone: [facility] 12-22-2022 08:42-0400 Heart rate 76 /min Shiv Salguero MD Work Phone: [facility] 12-22-2022 08:42-0400 Respiratory rate 18 /min Shiv Salguero MD Work Phone: [facility] 12-22-2022 08:42-0400 SaO2% (BldA) [Mass fraction] 96 % Shiv Salguero MD Work Phone: [facility] 12-22-2022 08:42-0400 Systolic blood pressure 160 mm[Hg] Shiv Salguero MD Work Phone: [facility] 10-13-2022 13:14-0400 Body weight 124.29 kg Naun Briana PRODUCT TEST SPECIALIST.SPORTS BOOK SERVER Work Phone: [facility] 10-13-2022 13:14-0400 Diastolic blood pressure 60 mm[Hg] Naun Briana PRODUCT TEST SPECIALIST.SPORTS BOOK SERVER Work Phone: [facility] 10-13-2022 13:14-0400 Heart rate 84 /min Naun Briana PRODUCT TEST SPECIALIST.SPORTS BOOK SERVER Work Phone: [facility] 10-13-2022 13:14-0400 SaO2% (BldA) [Mass fraction] 92 % Naun Briana PRODUCT TEST SPECIALIST.SPORTS BOOK SERVER Work Phone: [facility] 10-13-2022 13:14-0400 Systolic blood pressure 130 mm[Hg] Naun Briana PRODUCT TEST SPECIALIST.SPORTS BOOK SERVER Work Phone: [facility] 10-08-2022 13:34-0400 Body weight 124.29 kg Naun Briana PRODUCT TEST SPECIALIST.SPORTS BOOK SERVER Work Phone: [facility] 10-08-2022 13:34-0400 Diastolic blood pressure 90 mm[Hg] Naun Briana PRODUCT TEST SPECIALIST.SPORTS BOOK SERVER Work Phone: [facility] 10-08-2022 13:34-0400 Heart rate 80 /min Naun Briana PRODUCT TEST SPECIALIST.SPORTS BOOK SERVER Work Phone: [facility] 10-08-2022 13:34-0400 Respiratory rate 16 /min Naun Briana PRODUCT TEST SPECIALIST.SPORTS BOOK SERVER Work Phone: [facility] 10-08-2022 13:34-0400 Systolic blood pressure 158 mm[Hg] Naun Briana PRODUCT TEST SPECIALIST.SPORTS BOOK SERVER Work Phone: [facility] 09-03-2022 08:32-0400 Body height 172.7 cm Tia Eckert MD Work Phone: [facility] 09-03-2022 08:32-0400 Body weight 124.29 kg Tia Eckert MD Work Phone: [facility] 09-03-2022 08:32-0400 Diastolic blood pressure 102 mm[Hg] Tia Eckert MD Work Phone: [facility] 09-03-2022 08:32-0400 Systolic blood pressure 160 mm[Hg] Tia Eckert MD Work Phone: [facility] 05-14-2022 08:20-0500 Body weight 126.1 kg Makayla Mansfield APRN.SPORTS BOOK SERVER Work Phone: [facility] 05-14-2022 08:20-0500 Diastolic blood pressure 84 mm[Hg] Makayla Mansfield APRN.SPORTS BOOK SERVER Work Phone: [facility] 05-14-2022 08:20-0500 Heart rate 74 /min Makayla Mansfield APRN.SPORTS BOOK SERVER Work Phone: [facility] 05-14-2022 08:20-0500 SaO2% (BldA) [Mass fraction] 94 % Makayla Mansfield APRN.SPORTS BOOK SERVER Work Phone: [facility] 05-14-2022 08:20-0500 Systolic blood pressure 171 mm[Hg] Makayla Mansfield PRODUCT TEST SPECIALIST.SPORTS BOOK SERVER Work Phone: [facility] 05-12-2022 08:46-0500 Diastolic blood pressure 92 mm[Hg] Elba Amaya MD Work Phone: [facility] 05-12-2022 08:46-0500 Heart rate 68 /min Elba Amaya MD Work Phone: [facility] 05-12-2022 08:46-0500 Respiratory rate 18 /min Elba Amaya MD Work Phone: [facility] 05-12-2022 08:46-0500 SaO2% (BldA) [Mass fraction] 95 % Elba Amaya MD Work Phone: [facility] 05-12-2022 08:46-0500 Systolic blood pressure 174 mm[Hg] Elba Amaya MD Work Phone: [facility] 04-24-2022 12:59-0500 Body height 172.7 cm Jessica Nicole PRODUCT TEST SPECIALIST.WORM RAISER Work Phone: [facility] 04-24-2022 12:59-0500 Body weight 124.29 kg Jessica Nicole PRODUCT TEST SPECIALIST.WORM RAISER Work Phone: [facility] 04-24-2022 12:59-0500 Diastolic blood pressure 78 mm[Hg] Jessica Nicole PRODUCT TEST SPECIALIST.WORM RAISER Work Phone: [facility] 04-24-2022 12:59-0500 Heart rate 83 /min Jessica Nicole PRODUCT TEST SPECIALIST.WORM RAISER Work Phone: [facility] 04-24-2022 12:59-0500 Respiratory rate 16 /min Jessica Nicole PRODUCT TEST SPECIALIST.WORM RAISER Work Phone: [facility] 04-24-2022 12:59-0500 SaO2% (BldA) [Mass fraction] 93 % Jessica Nicole PRODUCT TEST SPECIALIST.WORM RAISER Work Phone: [facility] 04-24-2022 12:59-0500 Systolic blood pressure 122 mm[Hg] Jessica Nicole PRODUCT TEST SPECIALIST.WORM RAISER Work Phone: [facility] 04-23-2022 09:19-0500 Body height 177.8 cm Fermín Fonseca II, MD Work Phone: [facility] 04-23-2022 09:19-0500 Body mass index (BMI) [Ratio] 40.32 kg/m2 Fermín Fonseca II, MD Work Phone: [facility] 04-23-2022 09:19-0500 Body weight 127.46 kg Fermín Fonseca II, MD Work Phone: [facility] 04-23-2022 09:19-0500 Diastolic blood pressure 84 mm[Hg] Fermín Fonseca II, MD Work Phone: [facility] 04-23-2022 09:19-0500 Systolic blood pressure 160 mm[Hg] Fermín Fonseca II, MD Work Phone: [facility] 07-31-2021 09:41-0400 Body height 177.8 cm Fermín Fonseca II, MD Work Phone: [facility] 07-31-2021 09:41-0400 Body mass index (BMI) [Ratio] 39.6 kg/m2 Fermín Fonseca II, MD Work Phone: [facility] 07-31-2021 09:41-0400 Body temperature 97.7 [degF] Fermín Fonscea II, MD Work Phone: [facility] 07-31-2021 09:41-0400 Body weight 125.19 kg Fermín Fonseca II, MD Work Phone: [facility] 07-31-2021 09:41-0400 Diastolic blood pressure 90 mm[Hg] Fermín Fonseca II, MD Work Phone: [facility] 07-31-2021 09:41-0400 Heart rate 78 /min Fermín Fonseca II, MD Work Phone: [facility] 07-31-2021 09:41-0400 SaO2% (BldA) [Mass fraction] 92 % Fermín Fonseca II, MD Work Phone: [facility] 07-31-2021 09:41-0400 Systolic blood pressure 144 mm[Hg] Fermín Fonseca II, MD Work Phone: [facility] 04-18-2021 09:36-0500 Body height 177.8 cm Fermín Fonseca II, MD Work Phone: [facility] 04-18-2021 09:36-0500 Body mass index (BMI) [Ratio] 37.82 kg/m2 Fermín Fonseca II, MD Work Phone: [facility] 04-18-2021 09:36-0500 Body temperature 98.01 [degF] Fermín Fonseca II, MD Work Phone: [facility] 04-18-2021 09:36-0500 Body weight 119.57 kg Fermín Fonseca II, MD Work Phone: [facility] 04-18-2021 09:36-0500 Diastolic blood pressure 84 mm[Hg] Fermín Fonseca II, MD Work Phone: [facility] 04-18-2021 09:36-0500 Heart rate 86 /min Fermín Fonseca II, MD Work Phone: [facility] 04-18-2021 09:36-0500 SaO2% (BldA) [Mass fraction] 95 % Fermín Fonseca II, MD Work Phone: [facility] 04-18-2021 09:36-0500 Systolic blood pressure 138 mm[Hg] Fermín Fonseca II, MD Work Phone: [facility] Encounters Encounter Date Encounter Type Care Provider Facility Start: 12-26-2024 End: 12-26-[address] Silvio Singleton [facility] Work Phone: Start: 12-26-2024 End: 12-26-2024 ambulatory Silvio Singleton Facility:[facility] Start: 12-13-2024 End: 12-13-2024 ambulatory Win Zamora MD Work Phone: [facility] Comment on above: Allied Health Visit (Medication Adherence Outreach ) Start: 11-15-2024 End: 11-15-2024 Office outpatient visit 25 minutes Jessica Nicole APRNRahWORM RAISER Work Phone: [facility] Comment on above: Type 2 diabetes rubén itus with hyperglycemia, without long-term current use of insulin (HCC) (Primary Dx); Type 2 diabetes mellitus with diabetic polyneuropathy, without long-term current use of insulin (HCC); Screening for diabetic retinopathy; Screening for depression; Encounter for screening examination for other mental health and behavioral disorders; Screening for colon cancer; Lumbar spondylosis Start: 11-15-2024 End: 11-15-2024 ambulatory WIN ZAMORA Facility:[facility] Start: 10-21-2024 End: 10-21-[address] Sil[facility] Work Phone: Start: 10-21-2024 End: 10-21-[address] Win Zamora MD Work Phone: [facility] Start: 10-19-2024 End: 10-19-2024 ambulatory Win Zamora MD Work Phone: [facility] Start: 10-19-2024 End: 10-19-2024 Patient encounter procedure Win Zamora MD Work Phone: [facility] Comment on above: Population Health Na vigation Outreach ([employer] ) Start: 09-20-2024 End: 09-20-[address] Sil[facility]io Singleton [facility] Work Phone: Start: 09-20-2024 End: 09-20-[address] Win Zamora MD Work Phone: [facility] Work Phone: Start: 09-12-2024 End: 09-12-[address] Win Zamora MD Work Phone: [facility] Work Phone: Start: 09-12-2024 End: 09-12-[address] Silvio Singleton MD -[facility] Work Phone: Start: 09-12-2024 End: 09-12-2024 ambulatory Silvio Singleton Facility:[facility] Start: 08-16-2024 End: 08-17-2024 Refill Win Zamora MD Work Phone: [facility] Comment on above: Refill Request Start: 08-09-2024 End: 08-09-[address] Silvio Singleton MD -[facility] Work Phone: Start: 08-09-2024 End: 08-09-2024 ambulatory Win Zamora Facility:[facility] Start: 08-05-2024 End: 08-05-2024 ambulatory Constantin Escobedo MA [facility] Start: 08-05-2024 End: 08-05-2024 Patient encounter procedure [facility] [place] Start: 06-21-2024 End: 06-21-[address] [facility] Work Phone: Start: 06-21-2024 End: 06-21-2024 ambulatory Win Zamora Facility:[facility] Start: 06-06-2024 End: 06-06-2024 ambulatory WIN ZAMORA Facility:[facility] Start: 05-16-2024 End: 05-16-2024 ambulatory WIN Jill ZAMORA Facility:[facility] Start: 05-16-2024 End: 05-16-2024 Patient encounter procedure Win Zamora MD Work Phone: [facility] [place] Comment on above: Type 2 diabetes rubén itus with diabetic polyneuropathy, without long-term current use of insulin (HCC) (Primary Dx); Pulmonary emphysema, unspecified emphysema type (HCC); Anxiety and depression; Morbid obesity with BMI of 40.0-44.9, adult (HCC); Medicare annual wellness visit, subsequent; Primary hypertension; Hyperlipidemia, unspecified hyperlipidemia type; Insomnia, unspecified type; Mood disorder (HCC); Encounter for immunization; Chronic obstructive pulmonary disease, unspecified COPD type (HCC); Screening for colon cancer; Mucopurulent chronic bronchitis (HCC) Start: 03-28-2024 End: 03-28-2024 ambulatory Win Zamora Facility:[facility] Start: 02-10-2024 End: 02-11-2024 Refill Win Zamora MD Work Phone: [facility] Comment on above: Refill Request [facility] Start: 12-16-2023 End: 12-16-2023 Refill Win Zamora MD Work Phone: [facility] Comment on above: Refill Request Start: 10-23-2023 Orders Only Jessica Nicole APRN.WORM RAISER Work Phone: [facility] Comment on above: EKG abnormality (Lissy eldon Dx) Start: 10-23-2023 End: 10-23-2023 Patient encounter procedure Jessica Nicole APRN.WORM RAISER Work Phone: [facility] Comment on above: Welcome to Medicare preventive visit (Primary Dx); Encounter for immunization; Pulmonary emphysema, unspecified emphysema type (HCC); Chronic obstructive pulmonary disease, unspecified COPD type (HCC); Screening for colon cancer; Encounter for screening for lung cancer; Screening for diabetic retinopathy; Type 2 diabetes mellitus with diabetic polyneuropathy, without long-term current use of insulin (HCC); Mood disorder (HCC); Hyperlipidemia, unspecified hyperlipidemia type Start: 10-23-2023 End: 10-23-2023 Patient encounter status Jessica Nicole APRN.WORM RAISER Work Phone: [facility] Work Phone: Start: 08-07-2023 Refill Win chapin MD Work Phone: [facility] Comment on above: Refill Request Start: 07-10-2023 Refill Win chapin MD Work Phone: [facility] [place] Comment on above: Refill Request Start: 06-29-2023 Telephone encounter Win munoz MD Work Phone: [facility] [place] Comment on above: requesting medicatio n no on list Start: 06-26-2023 ambulatory Kimmy Serra TR[facility] Comment on above: Population Health Na vigation Outreach ([employer] care gaps) Start: 06-17-2023 ambulatory No Pcp CARRIE Beltran [facility] Start: 06-15-2023 Telephone encounter Naun key APRN.SPORTS BOOK SERVER Work Phone: [facility] Comment on above: Orders Start: 06-15-2023 End: 06-15-2023 Patient encounter procedure Naun Warren APRN.SPORTS BOOK SERVER Work Phone: [facility] Comment on above: Chronic right should er pain (Primary Dx); Chronic pain syndrome; Back pain due to injury; Sleep disorder; Primary hypertension Start: 06-05-2023 End: 06-05-2023 Subsequent hospital visit by physician Robb [facility] Work Phone: Radiology Comment on above: Pre-op exam [Z01.818 ] Start: 06-05-2023 End: 06-05-2023 Patient encounter procedure Naun Warren APRN.SPORTS BOOK SERVER Work Phone: [facility] Comment on above: Chronic right should er pain (Primary Dx); Pre-op exam; Chronic right-sided thoracic back pain; Radiculopathy of lumbar region; Back pain due to injury; Primary hypertension; Mood disorder (HCC); Pulmonary emphysema, unspecified emphysema type (HCC); Morbid obesity with BMI of 40.0-44.9, adult (HCC); Type 2 diabetes mellitus with diabetic polyneuropathy, without long-term current use of insulin (HCC); Encounter for therapeutic drug monitoring; Screening for lipid disorders Start: 06-05-2023 End: 06-05-2023 Preprocedural examination done Naun Warren APRN.SPORTS BOOK SERVER Work Phone: [facility] Work Phone: Start: 05-20-2023 Refill Win chapin MD Work Phone: [facility] [place] Comment on above: Refill Request Start: 05-01-2023 End: 05-01-2023 Emergency department patient visit [facility] Work Phone: Start: 04-23-2023 End: 04-23-2023 ambulatory WIN D TALAMPAS Facility:[facility] Start: 04-20-2023 End: 04-20-2023 Emergency department patient visit DR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 and Outreach to patient: Left Voicemail/message for return call What was primary intervention? No intervention Jess Taveras CPhT [facility] Pharmacy Team [facility] 12-23-2024 Note Patient Outreach ([facility]) RAMONJO L ([id number]) 1955 M Date Time Provider Department 12/23/24 WIN ZAMORA During your visit today, we recorded the following information about you: Jess Taveras CPhT 12/23/2024 10:31 AM Signed Patient is identified through a medication adherence outreach initiative based on pharmacy claims data from: [employer] Medication Adherence Category: Hypertension Statins Second Attempt Medication(s) Lisinopril 30 mg Last Filled 08/11/24 for 90 DS, Next fill due 11/11/24 Medication Status per portal/Epic Reconcile Dispense: Not filled Medication Status per Profile Review: No issues per profile review Atorvastatin 40 mg Last Filled 08/11/24 for 90 DS, Next fill due 11/11/24 Medication Status per portal/Epic Reconcile Dispense: Filled late - Greater than 7 days after next fill date Date Filled (MM/DD): 12/15 Day Supply: 90 Medication Status per Profile Review: No issues per profile review Patient identified by name and Outreach to patient: Left Voicemail/message for return call What was primary intervention? No intervention Jess Taveras CPhT [facility] Pharmacy Team Jess Taveras CPhT 12/30/2024 12:32 PM Signed Patient is identified through a medication adherence outreach initiative based on pharmacy claims data from: [employer] Medication Adherence Category: Hypertension Second Attempt Medication(s) Lisinopril 30 mg Last Filled 08/11/24 for 90 DS, Next fill due 11/11/24 Medication Status per portal/Epic Reconcile Dispense: Not filled Medication Status per Profile Review: No issues per profile review Patient identified by name and Outreach to patient: Left Voicemail/message for return call What was primary intervention? No intervention Jess Taveras CPhT [facility] Team Allergies As of Date: 12/23/2024 Noted Allergy Reaction POISON TAMICA EXTRACT 04/24/2022 9 - Itching Date Reviewed: 11/15/2024 Reviewed by: Jessica Nicole APRN.WORM RAISER - Fully Assessed Reason for Visit: Allied Health Visit [5] Cmt: Medication Adherence Outreach Prescriptions as of 12/30/2024 - peg 3350-Electrolytes (GOLYTELY) 236-22.74-6.74 -5.86 gram suspension Refer to printed prep instructions from your provider. - diclofenac, EC, (VOLTAREN) 75 mg EC tablet TAKE 1 PILL BY MOUTH WITH FOOD UP TO EVERY 12 HOURS NEEDED FOR PAIN - albuterol HFA (PROVENTIL HFA, VENTOLIN HFA) 90 mcg/actuation inhaler INHALE 1-2 PUFFS BY MOUTH DAILY NEEDED - metFORMIN (GLUCOPHAGE) 1,000 mg tablet Take 1 tablet by mouth two times a day with meals. - metoprolol succinate ER (TOPROL XL) 100 mg Take 1 tablet by mouth once daily. - traZODone (DESYREL) 50 mg tablet TAKE 2 TABLETS BY MOUTH EVERY EVENING AT 6 PM. - empagliflozin (JARDIANCE) 10 mg tablet Take 1 tablet by mouth once daily. - lisinopril (ZESTRIL) 30 mg tablet Take 1 tablet by mouth once daily. - atorvastatin (LIPITOR) 40 mg tablet Take 1 tablet by mouth once daily. - hydroCHLOROthiazide 12.5 mg capsule Take 1 capsule by mouth once daily. - sertraline (ZOLOFT) 100 mg tablet Take 1 tablet by mouth once daily. - cyclobenzaprine (FLEXERIL) 10 mg tablet Take 15 mg by mouth three times a day as needed. - Fluticasone Propionate (CUTIVATE) 0.05 % cream Apply to affected area twice daily. Problem List As Of Date 12/23/2024 Noted Resolved Myofascial pain [M79.18] 02/20/2021 Low back pain [M54.50] 02/20/2021 Arthropathy of lumbar facet joint [M47.816] 02/20/2021 Degeneration of lumbar intervertebral disc [M51*02/20/2021 Type 2 diabetes mellitus with hyperglycemia (HC*04/23/2022 Morbid obesity with BMI of 40.0-44.9, adult (HC*04/24/2022 Primary hypertension [I10] 08/20/2022 Chronic right-sided thoracic back pain [M54.6, *09/09/2022 Mood disorder (HCC) [F39] 09/15/2022 Pulmonary emphysema, unspecified emphysema type*06/05/2023 Type 2 diabetes mellitus with diabetic polyneur*05/16/2024 Encounter Status:Closed by JESS TAVERAS on 12/23/24 [facility] 12-13-2024 Note HNO ID: [id number] Author: CARLI KWAN CPhT Service: ? Author Type: Production Repairer Type: Progress Notes Filed: 12/13/2024 10:47 Note Text: Patient is identified through a medication adherence outreach initiative based on pharmacy claims data from: [employer] Medication Adherence Category: Hypertension Statins First Review Attribution Status: Correct attribution Medication(s) Lisinopril 30 mg 1 tab daily Last Filled 08/11/24 for 90 DS, Next fill due 11/11/24 Filled 03/29/24, 05/16/24 both 90 ds Medication Status per portal/Epic Reconcile Dispense: Not filled Medication Status per Profile Review: No issues per profile review Atorvastatin 40 mg 1 tab daily Last Filled 07/30/24 for 90 DS, Next fill due 11/11/24 Filled 03/09/24, 05/16/24 both 90 ds Medication Status per portal/Epic Reconcile Dispense: Not filled Medication Status per Profile Review: No issues per profile review Patient/provider appropriate for outreach? Yes Patient identified by name and Outreach to patient: Left Voicemail/message for return call What was primary intervention? No intervention Carli Kwan CPhT [facility] Pharmacy Team [facility] 12-13-2024 History of Present illness Narrative Patient is identified through a medication adherence outreach initiative based on pharmacy claims data from: [employer] Medication Adherence Category: Hypertension Statins First Review Attribution Status: Correct attribution Medication(s) Lisinopril 30 mg 1 tab daily Last Filled 08/11/24 for 90 DS, Next fill due 11/11/24 Filled 03/29/24, 05/16/24 both 90 ds Medication Status per portal/Epic Reconcile Dispense: Not filled Medication Status per Profile Review: No issues per profile review Atorvastatin 40 mg 1 tab daily Last Filled 07/30/24 for 90 DS, Next fill due 11/11/24 Filled 03/09/24, 05/16/24 both 90 ds Medication Status per portal/Epic Reconcile Dispense: Not filled Medication Status per Profile Review: No issues per profile review Patient/provider appropriate for outreach? Yes Patient identified by name and Outreach to patient: Left Voicemail/message for return call What was primary intervention? No intervention Carli Kwan CPhT [facility] Pharmacy Team documented in this encounter [facility] 12-13-2024 Note Patient Outreach ( POHE) JO FISHER ([id number]) 1955 Date Time Provider Department 12/13/24 WIN ZAMORA During your visit today, we recorded the following information about you: Carli Kwan CPhT 12/13/2024 10:47 AM Signed Patient is identified through a medication adherence outreach initiative based on pharmacy claims data from: [employer] Medication Adherence Category: Hypertension Statins First Review Attribution Status: Correct attribution Medication(s) Lisinopril 30 mg 1 tab daily Last Filled 08/11/24 for 90 DS, Next fill due 11/11/24 Filled 03/29/24, 05/16/24 both 90 ds Medication Status per portal/Epic Reconcile Dispense: Not filled Medication Status per Profile Review: No issues per profile review Atorvastatin 40 mg 1 tab daily Last Filled 07/30/24 for 90 DS, Next fill due 11/11/24 Filled 03/09/24, 05/16/24 both 90 ds Medication Status per portal/Epic Reconcile Dispense: Not filled Medication Status per Profile Review: No issues per profile review Patient/provider appropriate for outreach? Yes Patient identified by name and Outreach to patient: Left Voicemail/message for return call What was primary intervention? No intervention Carli Kwan CPhT [facility] Team Allergies As of Date: 12/13/2024 Noted Allergy Reaction POISON TAMICA EXTRACT 04/24/2022 9 - Itching Date Reviewed: 11/15/2024 Reviewed by: Jessica Nicole APRN.WORM RAISER - Fully Assessed Reason for Visit: Allied Health Visit [5] Cmt: Medication Adherence Outreach Prescriptions as of 12/13/2024 - peg 3350-Electrolytes (GOLYTELY) 236-22.74-6.74 -5.86 gram suspension Refer to printed prep instructions from your provider. - diclofenac, EC, (VOLTAREN) 75 mg EC tablet TAKE 1 PILL BY MOUTH WITH FOOD UP TO EVERY 12 HOURS NEEDED FOR PAIN - albuterol HFA (PROVENTIL HFA, VENTOLIN HFA) 90 mcg/actuation inhaler INHALE 1-2 PUFFS BY MOUTH DAILY NEEDED - metFORMIN (GLUCOPHAGE) 1,000 mg tablet Take 1 tablet by mouth two times a day with meals. - metoprolol succinate ER (TOPROL XL) 100 mg Take 1 tablet by mouth once daily. - traZODone (DESYREL) 50 mg tablet TAKE 2 TABLETS BY MOUTH EVERY EVENING AT 6 PM. - empagliflozin (JARDIANCE) 10 mg tablet Take 1 tablet by mouth once daily. - lisinopril (ZESTRIL) 30 mg tablet Take 1 tablet by mouth once daily. - atorvastatin (LIPITOR) 40 mg tablet Take 1 tablet by mouth once daily. - hydroCHLOROthiazide 12.5 mg capsule Take 1 capsule by mouth once daily. - sertraline (ZOLOFT) 100 mg tablet Take 1 tablet by mouth once daily. - cyclobenzaprine (FLEXERIL) 10 mg tablet Take 15 mg by mouth three times a day as needed. - Fluticasone Propionate (CUTIVATE) 0.05 % cream Apply to affected area twice daily. Problem List As Of Date 12/13/2024 Noted Resolved Myofascial pain [M79.18] 02/20/2021 Low back pain [M54.50] 02/20/2021 Arthropathy of lumbar facet joint [M47.816] 02/20/2021 Degeneration of lumbar intervertebral disc [M51*02/20/2021 Type 2 diabetes mellitus with hyperglycemia (HC*04/23/2022 Morbid obesity with BMI of 40.0-44.9, adult (HC*04/24/2022 Primary hypertension [I10] 08/20/2022 Chronic right-sided thoracic back pain [M54.6, *09/09/2022 Mood disorder (HCC) [F39] 09/15/2022 Pulmonary emphysema, unspecified emphysema type*06/05/2023 Type 2 diabetes mellitus with diabetic polyneur*05/16/2024 Encounter Status:Closed by CARLI KWAN on 12/13/24 [facility] 11-15-2024 History of Present illness Narrative SUBJECTIVE: Colorectal Cancer Screening Never done RSV Vaccine(1 - Risk 60-74 years 1-dose series) Never done Dilated Retinal Exam due on 10/17/2023 Depression Screening due on 10/22/2024 Anxiety Screening due on 10/22/2024 Jo Fisher is a 66 year old male. PMH significant for ACTIVE PROBLEM LIST Myofascial Pain Low Back Pain Arthropathy of Lumbar Facet Joint Degeneration of Lumbar Intervertebral Disc Type 2 Diabetes Mellitus With Hyperglycemia (Hcc) Morbid Obesity With Bmi of 40.0-44.9, Adult (Hcc) Primary Hypertension Chronic Right-Sided Thoracic Back Pain Mood Disorder Pulmonary Emphysema, Unspecified Emphysema Type (Hcc) Type 2 Diabetes Mellitus With Diabetic Polyneuropathy, Without Long-Term Current Use of Insulin (Hcc) Jo Fisher is a 69-year-old male with a history of diabetes mellitus and hypertension, presenting for a routine visit. Diabetes Mellitus: - Last A1c in June was 7.5%. - Notes remote history of A1c over 13%, took ozempic at that time for several months, not sure it helped much - Taking metformin 1000 mg BID. - Checks blood glucose levels periodically at home. - Jo has not had an eye exam recently; last exam was over a year ago at [place]. Hypertension: - Blood pressure readings remain consistent. - Jo requests refill for diclofenac. Back Pain: - Jo reports improvement in back pain. Colorectal Health: - Last colonoscopy was 10 years ago; revealed a soft spot leading to a perforated colon. - Underwent emergency surgery for perforated colon, resulting in temporary colostomy for 9 months. He reports colonoscopy 2012 when he had bowel surgery, no colon cancer screening since that time. Lifestyle: - Jo switched pharmacy to [facility] due to issues with [facility]. - Denies depression or anxiety. - Denies head or neck cancer, heart problems, Parkinson's, multiple sclerosis, or cirrhosis. - No difficulty with sedation or anesthesia in the past. - Denies chest pain or dyspnea in normal situations; experiences dyspnea with heat. DIABETES MELLITUS: Without report of excessive thirst or increased frequency of urination, chest pain or dyspnea , numbness, tingling or pain in extremities, new or unusual visual symptoms, low sugar/hypoglycemic reactions, weight loss/gain, lightheadedness/dizziness, and bowel changes/loose stools. Hemoglobin A1C (%) Date Value 06/06/2024 7.5 06/05/2023 7.3 ) HTN: Without report of headache, chest pain, palpitations, dyspnea, peripheral edema, orthopnea, fatigue, and PND. Last 14 Encounter BP Readings: Date: BP: 11/15/2024 138/74 05/16/2024 138/84 10/23/2023 142/82 06/15/2023 146/92 06/05/2023 168/94 03/16/2023 132/81 02/02/2023 182/110 01/19/2023 188/112 01/05/2023 158/88 12/22/2022 160/99 12/10/2022 132/66 10/13/2022 130/60 10/08/2022 158/90 09/15/2022 174/100 Hyperlipidemia. Mr. Fisher reports doing well on current therapy. His most recent lipid panels are: Cholesterol, Total (mg/dL) Date Value 06/06/2024 183 06/05/2023 164 HDL Cholesterol (mg/dL) Date Value 06/06/2024 40 06/05/2023 32 LDL Cholesterol, Calculated (mg/dL) Date Value 06/06/2024 106 06/05/2023 86 Triglyceride (mg/dL) Date Value 06/06/2024 187 06/05/2023 228 DIABETES MELLITUS: Without report ofexcessive thirst or increased frequency of urination, chest pain or dyspnea , numbness, tingling or pain in extremities, new or unusual visual symptoms, low sugar/hypoglycemic reactions, weight loss/gain, lightheadedness/dizziness, and bowel changes/loose stools. Patient's last HgA1C was Hemoglobin A1C (%) Date Value 06/06/2024 7.5 06/05/2023 7.3 ) ROS Respiratory: (+) exertional dyspnea in heat, (-) dyspnea at rest Psychiatric: (-) depression, (-) anxiety Objective BP 138/74 Pulse 80 Resp 16 Wt 133.8 kg (294 lb 15.6 oz) BMI 44.52 kg/m Physical Exam Vitals and nursing note reviewed. Constitutional: Appearance: Normal appearance. HENT: Head: Normocephalic and atraumatic. Eyes: Conjunctiva/sclera: Conjunctivae normal. Neck: Thyroid: No thyroid mass or thyromegaly. Vascular: Normal carotid pulses. No carotid bruit or JVD. Cardiovascular: Rate and Rhythm: Normal rate and regular rhythm. Pulses: Carotid pulses are 2+ on the right side and 2+ on the left side. Radial pulses are 2+ on the right side and 2+ on the left side. Pulmonary: Effort: Pulmonary effort is normal. Breath sounds: Normal breath sounds. Abdominal: General: Bowel sounds are normal. Palpations: Abdomen is soft. Musculoskeletal: Right lower leg: No edema. Left lower leg: No edema. Skin: General: Skin is warm and dry. Neurological: General: No focal deficit present. Mental Status: He is alert and oriented to person, place, and time. ALLERGIES Allergen Reactions Poison Tamica Extract Itching Medications metFORMIN (GLUCOPHAGE) 1,000 mg tablet Take 1 tablet by mouth two times a day with meals. metoprolol succinate ER (TOPROL XL) 100 mg Take 1 tablet by mouth once daily. traZODone (DESYREL) 50 mg tablet TAKE 2 TABLETS BY MOUTH EVERY EVENING AT 6 PM. empagliflozin (JARDIANCE) 10 mg tablet Take 1 tablet by mouth once daily. lisinopril (ZESTRIL) 30 mg tablet Take 1 tablet by mouth once daily. atorvastatin (LIPITOR) 40 mg tablet Take 1 tablet by mouth once daily. hydroCHLOROthiazide 12.5 mg capsule Take 1 capsule by mouth once daily. sertraline (ZOLOFT) 100 mg tablet Take 1 tablet by mouth once daily. cyclobenzaprine (FLEXERIL) 10 mg tablet Take 15 mg by mouth three times a day as needed. albuterol HFA (PROVENTIL HFA, VENTOLIN HFA) 90 mcg/actuation inhaler INHALE 1-2 PUFFS BY MOUTH DAILY NEEDED Fluticasone Propionate (CUTIVATE) 0.05 % cream Apply to affected area twice daily. peg 3350-Electrolytes (GOLYTELY) 236-22.74-6.74 -5.86 gram suspension Refer to printed prep instructions from your provider. diclofenac, EC, (VOLTAREN) 75 mg EC tablet TAKE 1 PILL BY MOUTH WITH FOOD UP TO EVERY 12 HOURS NEEDED FOR PAIN PAST MEDICAL HISTORY Diagnosis Date Opiate abuse, episodic (HCC) history of opiate abuse, per care everywhere note 04/21/2022 Perforated sigmoid colon (HCC) PAST SURGICAL HISTORY Procedure Laterality Date PAST SURGICAL HISTORY OF colon surgery PAST SURGICAL HISTORY OF colostomy bag REPAIR EPIGASTRIC HERNIA,REDUC Social History Tobacco Use Smoking status: Former Current packs/day: 0.00 Average packs/day: 1.5 packs/day for 44.0 years (66.0 ttl pk-yrs) Types: Cigarettes Start date: 09/17/1968 Quit date: 09/17/2012 Years since quittin.1 Smokeless tobacco: Never Vaping Use Vaping status: Some Days Substances: Nicotine Devices: Disposable Substance Use Topics Alcohol use: Yes Comment: very rarely Drug use: Yes Types: Marijuana Comment: medical marijuana card - occationally 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 Ambrocio or with ophthalmology providers with [facility]. 1. Type 2 diabetes mellitus with hyperglycemia, without long-term current use of insulin (HCC) (E11.65) 2. Type 2 diabetes mellitus with diabetic polyneuropathy, without long-term current use of insulin (HCC) (E11.42) - Last A1c in June was 7.5%; currently taking metformin 1000 mg BID. - Discussed GLP-1 medications for glucose and weight control; previously trialed Ozempic for several months without perceived benefit. - Discussed option to increase metformin dose if A1c rises. - Recommended A1c testing today. - Educated on importance of annual eye exams to monitor for diabetic retinopathy. 3. Screening for diabetic retinopathy (Z13.5) Will schedule follow up exam 4. Screening for depression (Z13.31) 5. Encounter for screening examination for other mental health and behavioral disorders (Z13.39) - No current depression or anxiety symptoms reported. 6. Screening for colon cancer (Z12.11) - Due for colon cancer screening; last colonoscopy 10 years ago. - Discussed colonoscopy as a screening option; to consider and schedule if desired. - Reviewed medical history and assessed risk for sedation/anesthesia. 7. Lumbar spondylosis (M47.816) - Back pain improving. - Refill for diclofenac sent to new pharmacy. labs today 6 mo. visit with MD Jessica Salvador APRN.WORM RAISER Medical Decision Making: Problems: Moderate: 2+ stable chronic illnesses Data: Unique test(s) ordered: 2 Risk: Moderate: Drug management Medical Decision Making Level: 4 - Moderate documented in this encounter [facility] 11-15-2024 Note HNO ID: [id number] Author: JESSICA NICOLE APRN.WORM RAISER Service: ? Author Type: Nurse Specialist Type: Progress Notes Filed: 11/15/2024 10:18 Note Text: SUBJECTIVE: Colorectal Cancer Screening Never done RSV Vaccine(1 - Risk 60-74 years 1-dose series) Never done Dilated Retinal Exam due on 10/17/2023 Depression Screening due on 10/22/2024 Anxiety Screening due on 10/22/2024 Jo Fisher is a 66 year old male. PMH significant for ACTIVE PROBLEM LIST Myofascial Pain Low Back Pain Arthropathy of Lumbar Facet Joint Degeneration of Lumbar Intervertebral Disc Type 2 Diabetes Mellitus With Hyperglycemia (Hcc) Morbid Obesity With Bmi of 40.0-44.9, Adult (Hcc) Primary Hypertension Chronic Right-Sided Thoracic Back Pain Mood Disorder Pulmonary Emphysema, Unspecified Emphysema Type (Hcc) Type 2 Diabetes Mellitus With Diabetic Polyneuropathy, Without Long-Term Current Use of Insulin ([facility]) Jo Fisher is a 69-year-old male with a history of diabetes mellitus and hypertension, presenting for a routine visit. Diabetes Mellitus: - Last A1c in June was 7.5%. - Notes remote history of A1c over 13%, took ozempic at that time for several months, not sure it helped much - Taking metformin 1000 mg BID. - Checks blood glucose levels periodically at home. - Jo has not had an eye exam recently; last exam was over a year ago at [place]. Hypertension: - Blood pressure readings remain consistent. - Jo requests refill for diclofenac. Back Pain: - Jo reports improvement in back pain. Colorectal Health: - Last colonoscopy was 10 years ago; revealed a soft spot leading to a perforated colon. - Underwent emergency surgery for perforated colon, resulting in temporary colostomy for 9 months. He reports colonoscopy 2012 when he had bowel surgery, no colon cancer screening since that time. Lifestyle: - Jo switched pharmacy to [facility] due to issues with [facility]. - Denies depression or anxiety. - Denies head or neck cancer, heart problems, Parkinson's, multiple sclerosis, or cirrhosis. - No difficulty with sedation or anesthesia in the past. - Denies chest pain or dyspnea in normal situations; experiences dyspnea with heat. DIABETES MELLITUS: Without report of excessive thirst or increased frequency of urination, chest pain or dyspnea , numbness, tingling or pain in extremities, new or unusual visual symptoms, low sugar/hypoglycemic reactions, weight loss/gain, lightheadedness/dizziness, and bowel changes/loose stools. Hemoglobin A1C (%) Date Value 06/06/2024 7.5 06/05/2023 7.3 ) HTN: Without report of headache, chest pain, palpitations, dyspnea, peripheral edema, orthopnea, fatigue, and PND. Last 14 Encounter BP Readings: Date: BP: 11/15/2024 138/74 05/16/2024 138/84 10/23/2023 142/82 06/15/2023 146/92 06/05/2023 168/94 03/16/2023 132/81 02/02/2023 182/110 01/19/2023 188/112 01/05/2023 158/88 12/22/2022 160/99 12/10/2022 132/66 10/13/2022 130/60 10/08/2022 158/90 09/15/2022 174/100 Hyperlipidemia. Mr. Fisher reports doing well on current therapy. His most recent lipid panels are: Cholesterol, Total (mg/dL) Date Value 06/06/2024 183 06/05/2023 164 HDL Cholesterol (mg/dL) Date Value 06/06/2024 40 06/05/2023 32 LDL Cholesterol, Calculated (mg/dL) Date Value 06/06/2024 106 06/05/2023 86 Triglyceride (mg/dL) Date Value 06/06/2024 187 06/05/2023 228 DIABETES MELLITUS: Without report ofexcessive thirst or increased frequency of urination, chest pain or dyspnea , numbness, tingling or pain in extremities, new or unusual visual symptoms, low sugar/hypoglycemic reactions, weight loss/gain, lightheadedness/dizziness, and bowel changes/loose stools. Patient's last HgA1C was Hemoglobin A1C (%) Date Value 06/06/2024 7.5 06/05/2023 7.3 ) ROS Respiratory: (+) exertional dyspnea in heat, (-) dyspnea at rest Psychiatric: (-) depression, (-) anxiety Objective BP 138/74 Pulse 80 Resp 16 Wt 133.8 kg (294 lb 15.6 oz) BMI 44.52 kg/m? Physical Exam Vitals and nursing note reviewed. Constitutional: Appearance: Normal appearance. HENT: Head: Normocephalic and atraumatic. Eyes: Conjunctiva/sclera: Conjunctivae normal. Neck: Thyroid: No thyroid mass or thyromegaly. Vascular: Normal carotid pulses. No carotid bruit or JVD. Cardiovascular: Rate and Rhythm: Normal rate and regular rhythm. Pulses: Carotid pulses are 2+ on the right side and 2+ on the left side. Radial pulses are 2+ on the right side and 2+ on the left side. Pulmonary: Effort: Pulmonary effort is normal. Breath sounds: Normal breath sounds. Abdominal: General: Bowel sounds are normal. Palpations: Abdomen is soft. Musculoskeletal: Right lower leg: No edema. Left lower leg: No edema. Skin: General: Skin is warm and dry. Neurological: General: No focal deficit present. Mental Status: He i (more content not included)... [facility] 10-19-2024 Note HNO ID: [id number] Author: ?, ?, ? Service: ? Author Type: ? Type: Progress Notes Filed: 10/19/2024 12:18 Note Text: POPULATION HEALTH NAVIGATION OUTREACH Action/FYI Patient outreach for HM due; ZAN, Maynard Unable to reach pt/ mychart sent Reason for Outreach Care Gap/HCC or Scheduling Wellness Visits Care Gaps due: Colorectal Cancer Screening Diabetic Eye Exam Patient Contacted: Unable or unnecessary to reach patient: Unable to leave message MyChart message sent Navigation Signature: Jessica Boyer Pss October 19, 2024 12:06 PM [facility] 07-16-2025 History of Present illness Narrative POPULATION HEALTH NAVIGATION OUTREACH Action/FYI Patient outreach for HM due; ZAN, Maynard Unable to reach pt/ mychart sent Reason for Outreach Care Gap/HCC or Scheduling Wellness Visits Care Gaps due: Colorectal Cancer Screening Diabetic Eye Exam Patient Contacted: Unable or unnecessary to reach patient: Unable to leave message Xquvat message sent Navigation Signature: Jessica [place] October 19, 2024 12:06 PM documented in this encounter [facility] 10-19-2024 Note Patient Outreach (NE TNAV) JO FISHER ([id number]) 1955 M Date Time Provider Department 10/19/24 WIN ZAMORA During your visit today, we recorded the following information about you: Jessica Christianson 10/19/2024 12:18 PM Signed POPULATION HEALTH NAVIGATION OUTREACH Action/FYI Patient outreach for HM due; ZAN, Maynard Unable to reach pt/ mychart sent Reason for Outreach Care Gap/HCC or Scheduling Wellness Visits Care Gaps due: Colorectal Cancer Screening Diabetic Eye Exam Patient Contacted: Unable or unnecessary to reach patient: Unable to leave message Independent IP message sent Navigation Signature: Jessica Colorado October 19, 2024 12:06 PM Allergies As of Date: 10/19/2024 Noted Allergy Reaction POISON TAMICA EXTRACT 04/24/2022 9 - Itching Date Reviewed: 05/16/2024 Reviewed by: Tori Vilchis LPN - Fully Assessed Reason for Visit: Population Health Navigation Outreach [3910] Cmt: June Gage Prescriptions as of 10/19/2024 - diclofenac, EC, (VOLTAREN) 75 mg EC tablet TAKE 1 PILL BY MOUTH WITH FOOD UP TO EVERY 12 HOURS NEEDED FOR PAIN - metFORMIN (GLUCOPHAGE) 1,000 mg tablet Take 1 tablet by mouth two times a day with meals. - metoprolol succinate ER (TOPROL XL) 100 mg Take 1 tablet by mouth once daily. - traZODone (DESYREL) 50 mg tablet TAKE 2 TABLETS BY MOUTH EVERY EVENING AT 6 PM. - empagliflozin (JARDIANCE) 10 mg tablet Take 1 tablet by mouth once daily. - lisinopril (ZESTRIL) 30 mg tablet Take 1 tablet by mouth once daily. - atorvastatin (LIPITOR) 40 mg tablet Take 1 tablet by mouth once daily. - hydroCHLOROthiazide 12.5 mg capsule Take 1 capsule by mouth once daily. - sertraline (ZOLOFT) 100 mg tablet Take 1 tablet by mouth once daily. - cyclobenzaprine (FLEXERIL) 10 mg tablet Take 15 mg by mouth three times a day as needed. - albuterol HFA (PROVENTIL HFA, VENTOLIN HFA) 90 mcg/actuation inhaler INHALE 1-2 PUFFS BY MOUTH DAILY NEEDED - Fluticasone Propionate (CUTIVATE) 0.05 % cream Apply to affected area twice daily. Problem List As Of Date 10/19/2024 Noted Resolved Myofascial pain [M79.18] 02/20/2021 Low back pain [M54.50] 02/20/2021 Arthropathy of lumbar facet joint [M47.816] 02/20/2021 Degeneration of lumbar intervertebral disc [M51*02/20/2021 Type 2 diabetes mellitus with hyperglycemia (HC*04/23/2022 Morbid obesity with BMI of 40.0-44.9, adult (HC*04/24/2022 Primary hypertension [I10] 08/20/2022 Chronic right-sided thoracic back pain [M54.6, *09/09/2022 Mood disorder (HCC) [F39] 09/15/2022 Pulmonary emphysema, unspecified emphysema type*06/05/2023 Type 2 diabetes mellitus with diabetic polyneur*05/16/2024 Encounter Status:Closed by JESSICA CHRISTIANSON on 10/19/24 [facility] 09-20-2024 Evaluation note Diagnosis Onset Date Resolution Left rotator cuff tear arthropathy acute September 20, 2024 8:24am Left shoulder pain acute September 042024 8:24am Right rotator cuff tear arthropathy acute October 21, 2024 9:07am Left rotator cuff tear arthropathy acute December 26, 2024 7:54am [facility] Work Phone: [phone] Telephone encounter Note* Telephone Encounter - Win Zamora MD - 08/16/2024 7:58 PM EDT Renal function fine The following approved medication requests have been transmitted electronically. Requested Prescriptions Signed Prescriptions Disp Refills diclofenac, EC, (VOLTAREN) 75 mg EC tablet 60 tablet 5 Sig: TAKE 1 PILL BY MOUTH WITH FOOD UP TO EVERY 12 HOURS NEEDED FOR PAIN Authorizing Provider: WIN ZAMORA MD [facility]05-13-2025 Miscellaneous Notes* Telephone Encounter - Win Zamora MD - 08/16/2024 7:58 PM EDT Renal function fine The following approved medication requests have been transmitted electronically. Requested Prescriptions Signed Prescriptions Disp Refills diclofenac, EC, (VOLTAREN) 75 mg EC tablet 60 tablet 5 Sig: TAKE 1 PILL BY MOUTH WITH FOOD UP TO EVERY 12 HOURS NEEDED FOR PAIN Authorizing Provider: WIN ZAMORA MD * Telephone Encounter - Felicita Kurtz RN - 08/16/2024 6:08 PM EDT Prescription Refill Information The patient has been identified by name and date of : Yes Caregiver verified no other encounters exist for this prescription request: Yes Caregiver confirmed with patient/requestor that no other refills are due, in the near future, with this provider at this time: Yes The last office visit in the department: 05/16/24 Does the patient have a future office visit with this provider/department: Yes (11/14/24) Requested Prescriptions Pending Prescriptions Disp Refills diclofenac, EC, (VOLTAREN) 75 mg EC tablet 60 tablet 5 Sig: TAKE 1 PILL BY MOUTH WITH FOOD UP TO EVERY 12 HOURS NEEDED FOR PAIN Felicita Kurtz RN August 16, 2024 6:09 PM [facility] Telephone encounter Note * Telephone Encounter - Felicita Kurtz RN - 08/16/2024 6:08 PM EDT Prescription Refill Information The patient has been identified by name and date of : Yes Caregiver verified no other encounters exist for this prescription request: Yes Caregiver confirmed with patient/requestor that no other refills are due, in the near future, with this provider at this time: Yes The last office visit in the department: 05/16/24 Does the patient have a future office visit with this provider/department: Yes (11/14/24) Requested Prescriptions Pending Prescriptions Disp Refills diclofenac, EC, (VOLTAREN) 75 mg EC tablet 60 tablet 5 Sig: TAKE 1 PILL BY MOUTH WITH FOOD UP TO EVERY 12 HOURS NEEDED FOR PAIN Felicita Kurtz RN August 16, 2024 6:09 PM [facility] Evaluation note* Diagnosis Onset Date Resolution Status Admit Date Left shoulder pain acute August 9:55am Left rotator cuff tear arthropathy acute September 20, 2024 8:24am Left shoulder pain acute September 042024 8:24am [facility] Work Phone: 1(743) 960-596005-02-2025 NoteHNO ID: [id number] Author: CONSTANTIN ESCOBEDO MA Service: ? Author Type: Senior Clinical Data Analyst Type: Progress Notes Filed: 08/05/2024 14:31 Note Text: POPULATION HEALTH NAVIGATION OUTREACH Action/FYI Gaps due: DIABETIC RETINAL EXAM Maynard No med adherence LVM/MCM, Updated notes. Reason for Outreach Care Gap/HCC or Scheduling Wellness Visits Care Gaps due: Colorectal Cancer Screening Diabetic Eye Exam Patient Contacted: Unable or unnecessary to reach patient: Left message Mommy Nearesthart message sent Updated appointment notes Navigation Signature: Constantin Escobedo MA August 05, 2024 2:27 [facility]05-02-2025 History of Present illness Narrative* Constantin Escobedo MA - 08/05/2024 2:22 PM EDT POPULATION HEALTH NAVIGATION OUTREACH Action/FYI Gaps due: DIABETIC RETINAL EXAM Maynard No med adherence LVM/MCM, Updated notes. Reason for Outreach Care Gap/HCC or Scheduling Wellness Visits Care Gaps due: Colorectal Cancer Screening Diabetic Eye Exam Patient Contacted: Unable or unnecessary to reach patient: Left message Xquvat message sent Updated appointment notes Navigation Signature: Constantin Escobedo MA August 05, 2024 2:27 PM documented in [facility] NotePatient Outreach (NETNAV) JO FISHER ([id number]) 1955 M Date Time Provider Department 08/05/24 CONSTANTIN ESCOBEDO During your visit today, we recorded the following information about you: Constantin Escobedo MA 08/05/2024 2:31 PM Signed POPULATION HEALTH NAVIGATION OUTREACH Action/FYI Gaps due: DIABETIC RETINAL EXAM Maynard No med adherence LVM/MCM, Updated notes. Reason for Outreach Care Gap/HCC or Scheduling Wellness Visits Care Gaps due: Colorectal Cancer Screening Diabetic Eye Exam Patient Contacted: Unable or unnecessary to reach patient: Left message Xquvat message sent Updated appointment notes Navigation Signature: Constantin Escobedo MA August 05, 2024 2:27 PM Allergies As of Date: 08/05/2024 Noted Allergy Reaction POISON TAMICA EXTRACT 04/24/2022 9 - Itching Date Reviewed: 05/16/2024 Reviewed by: Tori Vilchis LPN - Fully Assessed Prescriptions as of 08/05/2024 - metFORMIN (GLUCOPHAGE) 1,000 mg tablet Take 1 tablet by mouth two times a day with meals. - metoprolol succinate ER (TOPROL XL) 100 mg Take 1 tablet by mouth once daily. - traZODone (DESYREL) 50 mg tablet TAKE 2 TABLETS BY MOUTH EVERY EVENING AT 6 PM. - empagliflozin (JARDIANCE) 10 mg tablet Take 1 tablet by mouth once daily. - lisinopril (ZESTRIL) 30 mg tablet Take 1 tablet by mouth once daily. - atorvastatin (LIPITOR) 40 mg tablet Take 1 tablet by mouth once daily. - hydroCHLOROthiazide 12.5 mg capsule Take 1 capsule by mouth once daily. - sertraline (ZOLOFT) 100 mg tablet Take 1 tablet by mouth once daily. - diclofenac, EC, (VOLTAREN) 75 mg EC tablet TAKE 1 PILL BY MOUTH WITH FOOD UP TO EVERY 12 HOURS NEEDED FOR PAIN - cyclobenzaprine (FLEXERIL) 10 mg tablet Take 15 mg by mouth three times a day as needed. - albuterol HFA (PROVENTIL HFA, VENTOLIN HFA) 90 mcg/actuation inhaler INHALE 1-2 PUFFS BY MOUTH DAILY NEEDED - Fluticasone Propionate (CUTIVATE) 0.05 % cream Apply to affected area twice daily. Problem List As Of Date 08/05/2024 Noted Resolved Myofascial pain [M79.18] 02/20/2021 Low back pain [M54.50] 02/20/2021 Arthropathy of lumbar facet joint [M47.816] 02/20/2021 Degeneration of lumbar intervertebral disc [M51*02/20/2021 Type 2 diabetes mellitus with hyperglycemia (HC*04/23/2022 Morbid obesity with BMI of 40.0-44.9, adult (HC*04/24/2022 Primary hypertension [I10] 08/20/2022 Chronic right-sided thoracic back pain [M54.6, *09/09/2022 Mood disorder (HCC) [F39] 09/15/2022 Pulmonary emphysema, unspecified emphysema type*06/05/2023 Type 2 diabetes mellitus with diabetic polyneur*05/16/2024 Encounter Status:Closed by CONSTANTIN ESCOBEDO on 08/05/24[facility] 06-21-2024 Evaluation note* Diagnosis Onset Date Resolution Status Admit Date Right rotator cuff tear arthropathy acute June 21, 2024 8:18am Left shoulder pain acute August h2024 9:55am [facility] Work Phone: 1(273) 677-525903-18-2025 Evaluation note* Diagnosis Onset Date Resolution Status Admit Date Right rotator cuff tear arthropathy acute June 21, 2024 8:18am Left shoulder pain acute August h2024 9:55am Left rotator cuff tear arthropathy acute September 20, 2024 8:24am Left shoulder pain acute September 042024 8:24am [facility] Work Phone: 1(922) 862-849002-10-2025 Instructions* Patient Instructions* Win Zamora MD - 05/16/2024 8:21 AM EST - Continue taking your current medications: Metformin, Metoprolol, and Trazodone. - New prescriptions for Jardiance and Lisinopril have been sent to your pharmacy; fill them when due. - Schedule and complete the following lab tests: - Hemoglobin A1c - Metabolic panel - Blood count - Cholesterol - Urine test for ualfpkd-tk-[id number] ratio - These lab tests should be done twice a year; fasting is required for the cholesterol test. - Schedule an eye exam with your eye doctor, Claudio Ambrocio, if you haven't had one this year. - Monitor your blood pressure at home regularly. - Check your blood sugar levels occasionally, especially in the morning before eating. - Apply lotion to your feet daily to prevent dry skin and cracking. - Consider getting the RSV vaccine at your pharmacy, especially given your history of COPD. - Work on reducing and eventually quitting vaping. - Maintain a healthy diet and exercise at least 3 days a week. - Next follow-up appointment in 6 months. Screening schedule The following prevention plan is recommended: Alpha-1 Antitrypsin Deficiency Screening Never done Colorectal Cancer Screening Never done RSV Vaccine(1 - Risk 60-74 years 1-dose series) Never done BP Controlled (<130/80) due on 10/14/2023 Dilated Retinal Exam due on 10/17/2023 Urine Albumin:Creatinine Ratio due on 11/25/2023 Influenza Vaccine(1) due on 12/06/2023 HbA1C due on 12/06/2023 Diabetic Foot Exam due on 12/11/2023 Covid-19 Vaccine() due on 12/18/2023 LDL Cholesterol due on 06/04/2024 WHAT YOU CAN DO TO PREVENT FALLS Many falls can be prevented. By making some changes, you can lower your chances of falling. Four things YOU can do to prevent falls for you* and your caregiver 1. Begin a regular exercise program Exercise is one of the most important ways to lower your chances of falling. It makes you stronger and helps you feel better. Exercises that improve balance and coordination (like Volodymyr Chi) are the most helpful. Lack of exercise leads to weakness and increases your chances of falling. Ask your doctor or health care provider about the best type of exercise program for you. 2. Have your health care provider review your medicines Have your doctor or pharmacist review all the medicines you take, even [id number] medicines. As you get older, the way medicines work in your body can change. Some medicines, or combinations of medicines, can make you sleepy or dizzy andcan cause you to fall. 3. Have your vision checked Have your eyes checked by an eye doctor at least once a year. You may be wearing the wrong glasses or have a condition like glaucoma or cataracts that limits your vision. Poor vision can increase your chances of falling. 4. Make your home safer About half of all falls happen at home. To make your home safer: Remove things you can trip over (like papers, books, clothes, and shoes) from stairs and places where you walk. Remove small throw rugs or use double-sided tape to keep the rugs from slipping. Keep items you use often in cabinets you can reach easily without using a step stool. Have grab bars put in next to your toilet and in the tub or shower. Use non-slip mats in the bathtub and on shower floors. Improve the lighting in your home. As you get older, you need brighter lights to see well. Hang light-weight curtains or shades to reduce glare. Have handrails and lights put in on all staircases. Wear shoes both inside and outside the house. Avoid going barefoot or wearing slippers. For more information, contact: Centers for Disease Control and Prevention www.cdc.gov/injury * This information may not apply if you have certain medical conditions. documented in this encounterK[facility]-10-[facility]25 NoteHNO ID: [id number] Author: WIN ZAMORA MD Service: ? Author Type: Physician Type: Progress Notes Filed: 05/16/2024 23:13 Note Text: This note was created using [employer]. Subjective Jo Fisher is a 68 year old male. HISTORY Jo Fisher is a 68 year old gentleman here for Medicare Annual Wellness Visit, yearly exam and follow up appointment. Jo Fisher is a 68-year-old male with a history of DM, HTN, insomnia, anxiety, depression, and COPD, presenting for a Medicare Annual Wellness Visit. Jo reports no issues with current medications, including metformin, metoprolol, trazodone, Jardiance, lisinopril, Lipitor, hydrochlorothiazide, and sertraline, and denies experiencing any side effects. He is taking trazodone for insomnia, which helps him fall asleep but does not maintain sleep. He typically gets 3-6 hours of sleep per night, occasionally up to 8 hours. He attributes his sleep disturbances to chronic back pain from an injury in 2010. He uses a memory foam mattress and a good pillow, which he finds comfortable. He is also taking sertraline for anxiety and depression. He was previously on duloxetine for pain management but experienced significant personality changes and brain zaps when attempting to discontinue it. He expresses a desire to eventually discontinue sertraline as well. He is currently under the care of Dr. Peoples for pain management, receiving injections that initially provided relief. He monitors his blood pressure at home and reports good control. He also checks his blood glucose occasionally, with readings typically in the 110-120 mg/dL range in the morning. His last HbA1c was 7.3% last year. He has been losing weight and has quit smoking, although he continues to vape occasionally. He has not received any vaccines this year but is interested in updating his COVID-19 and flu vaccinations. He declines the shingles vaccine, stating he has never had chickenpox despite exposure. He also declines lung cancer screening. He has a history of a perforated colon and colostomy but has not completed a Cologuard test sent last year. He has two sisters and no brothers. His mother had HTN, and his father had heart issues and in 1981 at the age of 50, possibly due to a blood clot following a fall. He has an emergency contact, his roommate, who he trusts to make medical decisions on his behalf if needed. PAST MEDICAL HISTORY Diagnosis Date Opiate abuse, episodic (HCC) history of opiate abuse, per care everywhere note 04/21/2022 Perforated sigmoid colon ([facility]) Current Outpatient Medications Medication Sig diclofenac, EC, (VOLTAREN) 75 mg EC tablet TAKE 1 PILL BY MOUTH WITH FOOD UP TO EVERY 12 HOURS NEEDED FOR PAIN cyclobenzaprine (FLEXERIL) 10 mg tablet Take 15 mg by mouth three times a day as needed. sertraline (ZOLOFT) 100 mg tablet Take 1 tablet by mouth once daily. hydroCHLOROthiazide 12.5 mg capsule Take 1 capsule by mouth once daily. albuterol HFA (PROVENTIL HFA, VENTOLIN HFA) 90 mcg/actuation inhaler INHALE 1-2 PUFFS BY MOUTH DAILY NEEDED atorvastatin (LIPITOR) 40 mg tablet Take 1 tablet by mouth once daily. empagliflozin (JARDIANCE) 10 mg tablet Take 1 tablet by mouth once daily. lisinopril (ZESTRIL) 30 mg tablet Take 1 tablet by mouth once daily. traZODone (DESYREL) 50 mg tablet TAKE 2 TABLETS BY MOUTH EVERY EVENING AT 6 PM. metFORMIN (GLUCOPHAGE) 1,000 mg tablet Take 1 tablet by mouth two times a day with meals. metoprolol succinate ER (TOPROL XL) 100 mg Take 1 tablet by mouth once daily. Fluticasone Propionate (CUTIVATE) 0.05 % cream Apply to affected area twice daily. No current facility-administered medications for this visit. ALLERGIES Allergen Reactions Poison Tamica Extract Itching FAMILY HISTORY Problem Relation Age of Onset Hypertension Mother Heart Father Social History Tobacco Use Smoking status: Former Current packs/day: 0.00 Average packs/day: 1.5 packs/day for 44.0 years (66.0 ttl pk-yrs) Types: Cigarettes Start date: 09/17/1968 Quit date: 09/17/2012 Years since quittin.6 Smokeless tobacco: Never Vaping Use Vaping status: Some Days Substances: Nicotine Devices: Disposable Substance Use Topics Alcohol use: Yes Comment: very rarely Drug use: Yes Types: Marijuana Comment: medical marijuana card - occationally Review of Systems Objective BP 159/100 Pulse 79 Resp 16 Ht 173.4 cm (5' 8.25) Wt 131 kg (288 lb 12.8 oz) BMI 43.59 kg/m? Last 5 Encounter Wt Readings: Date: Wt: 05/16/2024 131 kg (288 lb 12.8 oz) 10/23/2023 132.5 kg (292 lb) 06/15/2023 132.5 kg (292 lb) 06/05/2023 130.6 kg (288 lb) 12/10/2022 124.3 kg (274 lb) No waist measurement recorded Estimated body mass index is 43.59 kg/m? as calculated from the following: Height as of this encounter: 173.4 cm (5' 8.25). Weight as of this encounter: 131 kg (288 lb 12.8 oz). Las (more content not included)...[facility]02-10-2025 History of Present illness Narrative* Win Zamora MD - 05/16/2024 8:19 AM EST Images from the original note were not included. This note was created using [employer]. Subjective Jo Fisher is a 68 year old male. HISTORY Jo Fisher is a 68 year old gentleman here for Medicare Annual Wellness Visit, yearly exam and follow up appointment. Jo Fisher is a 68-year-old male with a history of DM, HTN, insomnia, anxiety, depression, andCOPD, presenting for a Medicare Annual Wellness Visit. Jo reports no issues with current medications, including metformin, metoprolol, trazodone, Jardiance, lisinopril, Lipitor, hydrochlorothiazide, and sertraline, and denies experiencing any side effects. He is taking trazodone for insomnia, which helps him fall asleep but does not maintain sleep.He typically gets 3-6 hours of sleep per night, occasionally up to 8 hours. He attributes his sleepdisturbances to chronic back pain from an injury in 2010. He uses a memory foam mattress and a goodpillow, which he finds comfortable. He is also taking sertraline for anxiety and depression. He was previously on duloxetine for pain management but experienced significant personality changes and brain zaps when attempting to discontinue it. He expresses a desire to eventually discontinue sertraline as well. He is currently under the care of Dr. Peoples for pain management, receiving injections that initially provided relief. He monitors his blood pressure at home and reports good control. He also checks his blood glucose occasionally, with readings typically in the 110-120 mg/dL range in the morning. His last HbA1c was 7.3% last year. He has been losing weight and has quit smoking, although he continues to vape occasionally. He has not received any vaccines this year but is interested in updating his COVID-19 and flu vaccinations. He declines the shingles vaccine, stating he has never had chickenpox despite exposure. He also declines lung cancer screening. He has a history of a perforated colon and colostomy but has not completed a Cologuard test sent last year. He has two sisters and no brothers. His mother had HTN, and his father had heart issues and in 1981 at the age of 50, possibly due to a blood clot following a fall. He has an emergency contact, his roommate, who he trusts to make medical decisions on his behalf if needed. PAST MEDICAL HISTORY Diagnosis Date Opiate abuse, episodic (HCC) history of opiate abuse, per care everywhere note 04/21/2022 Perforated sigmoid colon (HCC) Current Outpatient Medications Medication Sig diclofenac, EC, (VOLTAREN) 75 mg EC tablet TAKE 1 PILL BY MOUTH WITH FOOD UP TO EVERY 12 HOURS NEEDED FOR PAIN cyclobenzaprine (FLEXERIL) 10 mg tablet Take 15 mg by mouth three times a day as needed. sertraline (ZOLOFT) 100 mg tablet Take 1 tablet by mouth once daily. hydroCHLOROthiazide 12.5 mg capsule Take 1 capsule by mouth once daily. albuterol HFA (PROVENTIL HFA, VENTOLIN HFA) 90 mcg/actuation inhaler INHALE 1-2 PUFFS BY MOUTH DAILY NEEDED atorvastatin (LIPITOR) 40 mg tablet Take 1 tablet by mouth once daily. empagliflozin (JARDIANCE) 10 mg tablet Take 1 tablet by mouth once daily. lisinopril (ZESTRIL) 30 mg tablet Take 1 tablet by mouth once daily. traZODone (DESYREL) 50 mg tablet TAKE 2 TABLETS BY MOUTH EVERY EVENING AT 6 PM. metFORMIN (GLUCOPHAGE) 1,000 mg tablet Take 1 tablet by mouth two times a day with meals. metoprolol succinate ER (TOPROL XL) 100 mg Take 1 tablet by mouth once daily. Fluticasone Propionate (CUTIVATE) 0.05 % cream Apply to affected area twice daily. No current facility-administered medications for this visit. ALLERGIES Allergen Reactions Poison Tamica Extract Itching FAMILY HISTORY Problem Relation Age of Onset Hypertension Mother Heart Father Social History Tobacco Use Smoking status: Former Current packs/day: 0.00 Average packs/day: 1.5 packs/day for 44.0 years (66.0 ttl pk-yrs) Types: Cigarettes Start date: 09/17/1968 Quit date: 09/17/2012 Years since quittin.6 Smokeless tobacco: Never Vaping Use Vaping status: Some Days Substances: Nicotine Devices: Disposable Substance Use Topics Alcohol use: Yes Comment: very rarely Drug use: Yes Types: Marijuana Comment: medical marijuana card - occationally Review of Systems Objective BP 159/100 Pulse 79 Resp 16 Ht 173.4 cm (5' 8.25) Wt 131 kg (288 lb 12.8 oz) BMI 43.59 kg/m Last 5 Encounter Wt Readings: Date: Wt: 05/16/2024 131 kg (288 lb 12.8 oz) 10/23/2023 132.5 kg (292 lb) 06/15/2023 132.5 kg (292 lb) 06/05/2023 130.6 kg (288 lb) 12/10/2022 124.3 kg (274 lb) No waist measurement recorded Estimated body mass index is 43.59 kg/m as calculated from the following: Height as of this encounter: 173.4 cm (5' 8.25). Weight as of this encounter: 131 kg (288 lb 12.8 oz). Last 5 Encounter BP Readings: Date: BP: 05/16/2024 159/100 10/23/2023 142/82 06/15/2023 146/92 06/05/2023 168/94 03/16/2023 132/81 05/16/24 0802 05/16/24 0806 05/16/24 0910 BP: 165/102 159/100 138/84 BP Position: Sitting Pulse: 80 79 Resp: 16 Weight: 131 kg (288 lb 12.8 oz) Height: 173.4 cm (5' 8.25) Physical Exam Vitals reviewed. Constitutional: Appearance: Normal appearance. HENT: Head: Normocephalic. Right Ear: Tympanic membrane, ear canal and external ear normal. Left Ear: Tympanic membrane, ear canal and external ear normal. Mouth/Throat: Mouth: Mucous membranes are moist. Pharynx: Oropharynx is clear. Eyes: Extraocular Movements: Extraocular movements intact. Conjunctiva/sclera: Conjunctivae normal. Neck: Thyroid: No thyromegaly. Vascular: No carotid bruit. Cardiovascular: Rate and Rhythm: Normal rate and regular rhythm. Pulses: Normal pulses. Dorsalis pedis pulses are 2+ on the right side and 2+ on the left side. Posterior tibial pulses are 2+ on the right side and 2+ on the left side. Heart sounds: Normal heart sounds. Pulmonary: Effort: Pulmonary effort is normal. Breath sounds: Normal breath sounds. Abdominal: General: Abdomen is flat. There is no distension. Palpations: Abdomen is soft. There is no mass. Musculoskeletal: Cervical back: Normal range of motion. Right lower leg: No edema. Left lower leg: No edema. Feet: Right foot: Protective Sensation: 10 sites tested. 10 sites sensed. Skin integrity: Skin integrity normal. Left foot: Protective Sensation: 10 sites tested. 9 sites sensed. Skin integrity: Skin integrity normal. Skin: General: Skin is warm and dry. Neurological: General: No focal deficit present. Mental Status: He is alert and oriented to person, place, and time. Psychiatric: Attention and Perception: Attention and perception normal. Mood and Affect: Mood and affect normal. Speech: Speech normal. Behavior: Behavior normal. Thought Content: Thought content normal. Cognition and Memory: Cognition and memory normal. Judgment: Judgment normal. Hemoglobin A1C (%) Date Value 06/05/2023 7.3 11/24/2022 6.9 04/24/2022 6.8 Assessment and Plan Jo Fisher is a 68 year old male here for a Medicare wellness visit. Medicare Health Risk Assessment General Health Good Exercise: Minutes/Day 120 min Exercise: Days/Week 3 days Alcohol: Daily Use Never Alcohol: Drinks/Day Patient does not drink Alcohol: 6 or more drinks Never Feel off balance No Concerns: Teeth/Dentures No Concerns: Sexual function No Troubled by feelings None of the above Frequency: Eating healthy diet Several days ADLs requiring help None of the above Safety precautions in home/vehicle Yes Smoke, vape, chews tobacco Yes, and I might quit Difficulty hearing No Difficulty seeing No Current Providers Specialists: I have reviewed specialist-related care of the patient in the medical record. Outside specialists seen: Dr. Shant Ambrocio (ophthalmology), Dr. Peoples (pain management) Medical/Family history review Reviewed and updated problem list, medical/surgical/family/social history, medications, and allergies. Opioid use review Opioid Medications (last 90 days) No data to display Anxiety/Depression screening PHQ-2 Score: 1 (Lower risk for depression) Recommendation: no further intervention at this time, continuing current treatment plan, and medication management Cognitive screening Mini Cog Score: 5 Cognitive screening reviewed and No further action needed (score 3-5). Functional Observation Was the patient's Timed Up & Go test unsteady or >= 12 seconds? No Advance Care Planning Surrogate decision maker and/or advance care plan documented Does not have HCDPOA but roommate is his surrogate decision maker and emergency contact. Measurements BP 159/100 Pulse 79 Resp 16 Ht 173.4 cm (5' 8.25) Wt 131 kg (288 lb 12.8 oz) BMI 43.59 kg/m 05/16/24 0802 05/16/24 0806 05/16/24 0910 BP: 165/102 159/100 138/84 BP Position: Sitting Pulse: 80 79 Resp: 16 Weight: 131 kg (288 lb 12.8 oz) Height: 173.4 cm (5' 8.25) Vision Screening: Follows with optometry/ophthalmology Hearing/vision screening results: Vision Screening Right eye - Without correction: With correction: 20/25 Left eye - Without correction: With correction: 20/25 Both eyes - Without correction: With correction: 20/25 Assessment/Plan Medicare annual wellness visit, subsequent (Z00.00) - Counseled on healthy diet and regular exercise - Fall avoidance information provided - Personalized prevention plan provided # Type 2 diabetes mellitus with diabetic polyneuropathy, without long-term current use of insulin ([facility]) (E11.42) - Ordered standing lab orders for Hemoglobin A1c, metabolic panel, blood count, lipid panel, and urine bkrkcde-my-[id number] ratio to monitor glycemic control and renal function. - Last A1c was 7.3% last year; goal is to maintain or improve this level. - Continue current medications: Metformin and Jardiance. - Refilled Jardiance prescription to ensure continuity of care. - Advised patient to monitor blood glucose levels at home, especially fasting levels, which are currently in the 110-120 mg/dL range. - Scheduled follow-up in 6 months to review lab results and adjust treatment as necessary. # Pulmonary emphysema, unspecified emphysema type ([facility]) (J43.9) # Chronic obstructive pulmonary disease, unspecified COPD type ([facility]) (J44.9) # Mucopurulent chronic bronchitis ([facility]) (J41.1) - Patient reports chronic cough with sputum production. - Lungs clear on auscultation. - Discussed the importance of smoking cessation; patient continues to vape. - Recommended RSV vaccine, available at the pharmacy, to reduce the risk of respiratory infections. - Ordered spirometry to assess lung function. # Anxiety and depression (F41.9) # Mood disorder ([facility]) (F39) - Currently managed with sertraline. - Patient expresses desire to discontinue sertraline; discussed potential withdrawal symptoms and the importance of gradual tapering. - Advised to consult with mental health provider before making any changes to medication regimen. # Morbid obesity with BMI of 40.0-44.9, adult ([facility]) (E66.01) - BMI within the range of 40.0-44.9. - Encouraged dietary modifications and regular physical activity to promote weight loss. - Scheduled follow-up in 6 months to monitor progress. # Medicare annual wellness visit, subsequent (Z00.00) - Completed comprehensive review of medical history, medications, and family history. - Discussed preventive care measures, including immunizations and cancer screenings. - Performed physical examination, including diabetic foot exam. - Updated family history to include mother's hypertension and father's heart disease. - Provided patient with information on advance directives and healthcare power of ip attorney. # Primary hypertension (I10) - Blood pressure readings within target range. - Continue current medication: Lisinopril. - Refilled Lisinopril prescription to ensure continuity of care. - Advised patient to monitor blood pressure at home. # Hyperlipidemia, unspecified hyperlipidemia type (E78.5) - Ordered standing lab orders for lipid panel to monitor cholesterol levels. - Continue current medication: Lipitor. - Refilled Lipitor prescription to ensure continuity of care. - Discussed dietary modifications to improve lipid profile. # Insomnia, unspecified type (G47.00) - Currently managed with trazodone. - Patient reports variable sleep duration, ranging from 3 to 8 hours per night. - Refi lled trazodone prescription to ensure continuity of care. - Discussed sleep hygiene measures to improve sleep quality. # Encounter for immunization (Z23) - Administered influenza and COVID-19 vaccines. - Discussed the benefits of the shingles vaccine; patient declined. # Screening for colon cancer (Z12.11) - Patient has a history of partial colectomy. - Discussed the importance of regular colon cancer screening. - Ordered Cologuard test; patient to complete and return the kit. Win Zamora MD [facility] Telephone encounter Note * Telephone Encounter - Charity Mann LPN - 02/11/2024 3:01 PM EST Spoke with pt and information listed below given. Pt verbalizes understanding. Charity Mann LPN [facility]11-07-2024 Miscellaneous Notes* Telephone Encounter - Charity Mann LPN - 02/11/2024 3:01 PM EST Spoke with pt and information listed below given. Pt verbalizes understanding. Charity Mann LPN * Telephone Encounter - Win Zamora MD - 02/11/2024 12:28 PM EST The following approved medication requests have been transmitted electronically. Requested Prescriptions Pending Prescriptions Disp Refills diclofenac, EC, (VOLTAREN) 75 mg EC tablet 60 tablet 5 Sig: TAKE 1 PILL BY MOUTH WITH FOOD UP TO EVERY 12 HOURS NEEDED FOR PAIN Win Zamora MD * Telephone Encounter - Jessica Su - 02/10/2024 4:44 PM EST Prescription Refill Information The patient has been identified by name and date of : Yes Caregiver verified no other encounters exist for this prescription request: Yes Caregiver confirmed with patient/requestor that no other refills are due, in the near future, with this provider at this time: Yes The last office visit in the department: 10-23-23 Does the patient have a future office visit with this provider/department: Yes diclofenac, EC, (VOLTAREN) 75 mg EC tablet 60 tablet 5 08/07/2023 02/03/2024 Sig: TAKE 1 PILL BY MOUTH WITH FOOD UP TO EVERY 12 HOURS NEEDED FOR PAIN Sent to pharmacy as: diclofenac, EC, (VOLTAREN) 75 mg EC tablet Class: Normal [facility] [place] Jessica Castillo [facility] February 10, 2024 4:45 PM documented in this encounterK[facility]11-[facility]24 Telephone encounter Note * Telephone Encounter - Win Zamora MD - 02/11/2024 12:28 PM EST The following approved medication requests have been transmitted electronically. Requested Prescriptions Pending Prescriptions Disp Refills diclofenac, EC, (VOLTAREN) 75 mg EC tablet 60 tablet 5 Sig: TAKE 1 PILL BY MOUTH WITH FOOD UP TO EVERY 12 HOURS NEEDED FOR PAIN Win Zamora MD [facility]11-06-[facility] Telephone encounter Note* Telephone Encounter - Charity Mann LPN - 02/10/2024 4:57 PM EST Our records show pt should have a refill left at the pharmacy. Let a message with this information for pt. Charity Mann LPN [facility]11-06-2024 Miscellaneous Notes* Telephone Encounter - Charity Mann LPN - 02/10/2024 4:57 PM EST Our records show pt should have a refill left at the pharmacy. Let a message with this information for pt. Charity Mann LPN * Telephone Encounter - Jessica Su - 02/10/2024 4:42 PM EST Prescription Refill Information The patient has been identified by name and date of : Yes Caregiver verified no other encounters exist for this prescription request: Yes Caregiver confirmed with patient/requestor that no other refills are due, in the near future, with this provider at this time: Yes The last office visit in the department: 10-23-23 Does the patient have a future office visit with this provider/department: Yes Requested Prescriptions Pending Prescriptions Disp Refills metFORMIN (GLUCOPHAGE) 1,000 mg tablet 180 tablet 3 Sig: Take 1 tablet by mouth two times a day with meals. Jessica [place] February 10, 2024 4:43 PM documented in this encounterK[facility]11-[facility]-2024 Telephone encounter Note * Telephone Encounter - Jessica Su - 02/10/2024 4:44 PM EST Prescription Refill Information The patient has been identified by name and date of : Yes Caregiver verified no other encounters exist for this prescription request: Yes Caregiver confirmed with patient/requestor that no other refills are due, in the near future, with this provider at this time: Yes The last office visit in the department: 10-23-23 Does the patient have a future office visit with this provider/department: Yes diclofenac, EC, (VOLTAREN) 75 mg EC tablet 60 tablet 5 08/07/2023 02/03/2024 Sig: TAKE 1 PILL BY MOUTH WITH FOOD UP TO EVERY 12 HOURS NEEDED FOR PAIN Sent to pharmacy as: diclofenac, EC, (VOLTAREN) 75 mg EC tablet Class: Normal [facility] in [place] Jessica Newton [facility] February 10, 2024 4:45 PM [facility] Work Phone: 1(120) 912-890111-06-2024 Telephone encounter Note* Telephone Encounter - Jessica Su - 02/10/2024 4:42 PM EST Prescription Refill Information The patient has been identified by name and date of : Yes Caregiver verified no other encounters exist for this prescription request: Yes Caregiver confirmed with patient/requestor that no other refills are due, in the near future, with this provider at this time: Yes The last office visit in the department: 10-23-23 Does the patient have a future office visit with this provider/department: Yes Requested Prescriptions Pending Prescriptions Disp Refills metFORMIN (GLUCOPHAGE) 1,000 mg tablet 180 tablet 3 Sig: Take 1 tablet by mouth two times a day with meals. Jessica Newton [facility] February 10, 2024 4:43 PM [facility] Work Phone: 1(781) 380-528809-11-2024 Telephone encounter Note* Telephone Encounter - Marilee Beasley RN - 12/16/2023 6:18 PM EDT Patient calling for refill of Atorvastatin. Advised refills available at pharmacy. Marilee Beasley RN [facility]09-11-2024 Miscellaneous Notes* Telephone Encounter - Marilee Beasley RN - 12/16/2023 6:18 PM EDT Patient calling for refill of Atorvastatin. Advised refills available at pharmacy. Marilee Beasley, RN documented in this encounterK[facility]07-19-2024 Progress note* Result Encounter Note - Jessica Nicole APRN.CNS - 10/23/2023 11:18 AM EDT nonspecific T wave changes, prolonged QT or fusion beats [facility]07-19-2024 Miscellaneous Notes* Result Encounter Note - Jessica Nicole APRN.CNS - 10/23/2023 11:18 AM EDT nonspecific T wave changes, prolonged QT or fusion beats * Result Encounter Note - Jessica Nicole APRN.CNS - 10/23/2023 11:17 AM EDT Will add BMP to labs to complete next month documented in this encounterK[facility]07-19-2024 Progress note* Result Encounter Note - Jessica Nicole APRN.CNS - 10/23/2023 11:17 AM EDT Will add BMP to labs to complete next month [facility]-19[facility] Instructions* Patient Instructions* Jessica Nicole APRN.CNS - 10/23/2023 7:21 AM EDT Screening schedule The following prevention plan is recommended: Pneumococcal Vaccine: 65+(1 of 2 - PCV) Never done Spirometry Never done DTaP,Tdap,Td Vaccine(1 - Tdap) Never done Alpha-1 Antitrypsin Deficiency Screening Never done Colorectal Cancer Screening Never done Shingrix Vaccine(1 of 2) Never done RSV Vaccine(1 - 1-dose 60+ series) Never done Covid-19 Vaccine(2022- season) due on 12/05/2022 Behavioral Health Screening Never done Lung Cancer Screening due on 07/02/2023 BP Controlled (<130/80) due on 10/14/2023 Dilated Retinal Exam due on 10/17/2023 WHAT YOU CAN DO TO PREVENT FALLS Many falls can be prevented. By making some changes, you can lower your chances of falling. Four things YOU can do to prevent falls for you* and your caregiver 1. Begin a regular exercise program Exercise is one of the most important ways to lower your chances of falling. It makes you stronger and helps you feel better. Exercises that improve balance and coordination (like Volodymyr Chi) are the most helpful. Lack of exercise leads to weakness and increases your chances of falling. Ask your doctor or health care provider about the best type of exercise program for you. 2. Have your health care provider review your medicines Have your doctor or pharmacist review all the medicines you take, even hwyl-qji-pehzepr medicines. As you get older, the way medicines work in your body can change. Some medicines, or combinations of medicines, can make you sleepy or dizzy andcan cause you to fall. 3. Have your vision checked Have your eyes checked by an eye doctor at least once a year. You may be wearing the wrong glasses or have a condition like glaucoma or cataracts that limits your vision. Poor vision can increase your chances of falling. 4. Make your home safer About half of all falls happen at home. To make your home safer: Remove things you can trip over (like papers, books, clothes, and shoes) from stairs and places where you walk. Remove small throw rugs or use double-sided tape to keep the rugs from slipping. Keep items you use often in cabinets you can reach easily without using a step stool. Have grab bars put in next to your toilet and in the tub or shower. Use non-slip mats in the bathtub and on shower floors. Improve the lighting in your home. As you get older, you need brighter lights to see well. Hang light-weight curtains or shades to reduce glare. Have handrails and lights put in on all staircases. Wear shoes both inside and outside the house. Avoid going barefoot or wearing slippers. For more information, contact: Centers for Disease Control and Prevention www.cdc.gov/injury * This information may not apply if you have certain medical conditions. documented in this encounterK[facility]07-19-2024 History of Present illness Narrative* Jessica Nicole APRN.CNS - 10/23/2023 7:20 AM EDT Images from the original note were not included. Jo Fisher is a 68 year old male here for a Medicare wellness visit. Medicare Health Risk Assessment General Health Fair health Exercise: Minutes/Day Walking, limited UE due to right shoulder rotator cuff repair Exercise: Days/Week daily Alcohol: Daily Use no Alcohol: Drinks/Day 0 Alcohol: 6 or more drinks 0 Feel off balance no problems Concerns: Teeth/Dentures lower dentures loose, can eat, no pain Concerns: Sexual function no problems reported Troubled by feelings no Frequency: Eating healthy diet tries to eat a healthy, some indiscretions ADLs requiring help independent Safety precautions in home/vehicle no problems Smoke, vape, chews tobacco no, former Difficulty hearing none reported Difficulty seeing wears glasses Current Providers Specialists: I have reviewed specialist-related care of the patient in the medical record. 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 Dr. Peoples [facility] for pain management.Has had injections. Donn Mauro for medical marijuana. Online Medical/Family history review Reviewed and updated problem list, medical/surgical/family/social history, medications, and allergies. Opioid use review Opioid Medications (last 90 days) No data to display Anxiety/Depression screening Recommendation: continuing current treatment plan Cognitive screening Cognitive screening reviewed and No further action needed (score 3-5). Functional Observation Was the patient's Timed Up & Go test unsteady or ? 12 seconds? No Advance Care Planning Surrogate decision maker and/or advance care plan documented Roommate, [place]-contact listed Measurements BP 142/82 Pulse 91 Resp 106 Ht 5' 8.5 (1.74m) Wt 292 lb (132.5kg) BMI 43.75 kg/(m^2). Vision Screening: Right: Left: Both: Assessment/Plan Welcome to Medicare preventive visit (Z00.00) - Counseled on healthy diet and regular exercise - Fall avoidance information provided - Personalized prevention plan provided Labs 1 mo. 6 mo follow up Win Zamora MD documented in this encounterK[facility]05-03-2024 Telephone encounter Note * Telephone Encounter - Tisha Christina LPN - 08/07/2023 1:02 PM EDT Patient has been identified by name and date of : Yes, Patient phones for refill(s): Requested Prescriptions Pending Prescriptions Disp Refills diclofenac, EC, (VOLTAREN) 75 mg EC tablet 60 tablet 5 Sig: TAKE 1 PILL BY MOUTH WITH FOOD UP TO EVERY 12 HOURS NEEDED FOR PAIN empagliflozin (JARDIANCE) 10 mg tablet 90 tablet 3 Sig: Take 1 tablet by mouth once daily. Date of last office visit in primary care: 06/15/2023 Date of next office visit in primary care: Visit date not found Patient advised of need for a follow up appointment. Please advise. Thank you. Tisha Christina LPN. [facility]05-03-2024 Miscellaneous Notes* Telephone Encounter - Tisha Christina LPN - 08/07/2023 1:02 PM EDT Patient has been identified by name and date of : Yes, Patient phones for refill(s): Requested Prescriptions Pending Prescriptions Disp Refills diclofenac, EC, (VOLTAREN) 75 mg EC tablet 60 tablet 5 Sig: TAKE 1 PILL BY MOUTH WITH FOOD UP TO EVERY 12 HOURS NEEDED FOR PAIN empagliflozin (JARDIANCE) 10 mg tablet 90 tablet 3 Sig: Take 1 tablet by mouth once daily. Date of last office visit in primary care: 06/15/2023 Date of next office visit in primary care: Visit date not found Patient advised of need for a follow up appointment. Please advise. Thank you. Tisha Christina LPN. * Telephone Encounter - Soniya Matias - 08/07/2023 12:53 PM EDT Patient has been identified by name and date of : Yes Requested Prescriptions Pending Prescriptions Disp Refills diclofenac, EC, (VOLTAREN) 75 mg EC tablet 60 tablet 5 Sig: TAKE 1 PILL BY MOUTH WITH FOOD UP TO EVERY 12 HOURS NEEDED FOR PAIN empagliflozin (JARDIANCE) 10 mg tablet 90 tablet 3 Sig: Take 1 tablet by mouth once daily. RX INSTRUCTIONS: Patient aware RX will be sent to pharmacy. No need to notify patient. Soniya [place] documented in this encounterK[facility]05-03-2024 Telephone encounter Note * Telephone Encounter - Soniya Matias - 08/07/2023 12:53 PM EDT Patient has been identified by name and date of : Yes Requested Prescriptions Pending Prescriptions Disp Refills diclofenac, EC, (VOLTAREN) 75 mg EC tablet 60 tablet 5 Sig: TAKE 1 PILL BY MOUTH WITH FOOD UP TO EVERY 12 HOURS NEEDED FOR PAIN empagliflozin (JARDIANCE) 10 mg tablet 90 tablet 3 Sig: Take 1 tablet by mouth once daily. RX INSTRUCTIONS: Patient aware RX will be sent to pharmacy. No need to notify patient. Soniya [place] [facility]04-05-2024 Miscellaneous Notes* Telephone Encounter - Tramaine Altman MA - 07/10/2023 3:03 PM EDT Requested Prescriptions Pending Prescriptions Disp Refills lisinopril (ZESTRIL) 30 mg tablet Sig: Take 1 tablet by mouth once daily. Date of last office visit in primary care: 06/15/2023 Date of next office visit in primary care: 07/24/2023 Please advise. Thank you. Tramaine Altman MA. * Telephone Encounter - Scarlet Salazar - 07/10/2023 8:58 AM EDT Patient has been identified by name and date of : Yes Patient phones for refill(s): Requested Prescriptions Pending Prescriptions Disp Refills lisinopril (ZESTRIL) 30 mg tablet Sig: Take 1 tablet by mouth once daily. Date of last office visit in primary care: 06/15/2023 Date of next office visit in primary care: 07/24/2023 Please advise. Thank you. Scarlet Salazar. documented in this [facility]03-25-2024 Miscellaneous Notes* Telephone Encounter - Jessica Nicole APRN.CNS - 06/29/2023 3:51 PM EDT ok * Telephone Encounter - Soniya Ferrara MA - 06/29/2023 11:15 AM EDT Patient has been identified by name and date of : Yes Patient phones for refill(s): Requested Prescriptions Pending Prescriptions Disp Refills traZODone (DESYREL) 50 mg tablet 60 tablet 5 Sig: TAKE 2 TABLETS BY MOUTH EVERY EVENING AT 6 PM. Date of last office visit in primary care: 06/15/2023 Date of next office visit in primary care: 07/24/2023 Please advise. Thank you. Soniya Ferrara MA. * Telephone Encounter - Nimco Parsons - 06/29/2023 10:31 AM EDT Patient requesting medication that is no longer of medication list. traZODone (DESYREL) 50 mg tablet Pharmacy: [facility] documented in this encounterK[facility]03-22-2024 History of Present illness Narrative* Kimmy Serra MA - 06/26/2023 2:18 PM EDT POPULATION HEALTH NAVIGATION OUTREACH Action[facility] Reason for Outreach Care Gap/HCC or Scheduling Wellness Visits Care Gaps due: Medicare Annual Wellness Visit Patient Contacted: Unable or unnecessary to reach patient: Unable to leave message Mommy Nearesthart message sent Navigation Signature: Kimmy Serra MA June 26, 2023 2:18 PM documented in this encounterK[facility]03-13-2024 History of Present illness Narrative* Makenzie Hussein - 06/17/2023 10:50 AM EDT POPULATION HEALTH NAVIGATION OUTREACH Action/[facility] Support: Called pt to schedule an appt in Pain Management. [facility] for pt to call [phone] for scheduling. Reason for Outreach Care Gap/HCC or Scheduling Wellness Visits Care Gaps due: Specialty Scheduling Patient Contacted: Unable or unnecessary to reach patient: Left message Navigation Signature: Makenzie Hussein June 17, 2023 10:50 AM documented in this encounterK[facility]03-11-2024 Miscellaneous Notes* Telephone Encounter - Melania Hylton OCCA - 06/15/2023 8:15 AM EDT Consult to pain management faxed to the [facility] [place] at [phone] as requested. ARMANI Osuna documented in this [facility]03-11-2024 Instructions* Patient Instructions* Naun Warren APRN.SPORTS BOOK SERVER - 06/15/2023 7:47 AM EDT [facility] [place] [facility] Address: [address] [place] [address], [address] [place] [phone] Look up Amitriptyline medication and see if you would be interested. You could also look at trying supplements that have glucosamine chondroitin, tumeric, or try nettletea. documented in this encounterK[facility]03-11-2024 History of Present illness Narrative* Naun Warren APRN.CNP - 06/15/2023 7:35 AM EDT SUBJECTIVE Jo Fisher is a 68 year old male here today for a check up on his medical problems. Chief Complaint Patient presents with: Follow Up HPI Jo Fisher is a 68 year old male. Here today for follow up. Still with a lot of aches and pains. Issues with his shoulders, knees. Weather change has been hard. Planning for a right shoulder arthroscopy with rotator cuff repair with Dr. Gilmore but surgery date is TBD, he has been cleared forthe procedure by primary care. Pain continues to be the primary concern. He was seen with [facility] pain management but not helpful. Has tried things such as tylenol, NSAIDs, muscle relaxer use, muscle rubs, lidocaine patches, prior PT,gabapentin and Lyrica and Cymbalta along with prior use of a TENS unit and injections. He has had minimal relief with his pain other than some relief with marijuana use.Sleep is not the greatest even with Trazodone use. His medications were reviewed today and his list is now up to date. Medications Current Outpatient Medications Medication Sig methocarbamol (ROBAXIN) 750 mg tablet metFORMIN (GLUCOPHAGE) 1,000 mg tablet Take 1 tablet by mouth two times a day with meals. metoprolol succinate ER (TOPROL XL) 100 mg Take 1 tablet by mouth once daily. tiZANidine (ZANAFLEX) 4 mg tablet Take 1 tablet by mouth daily at bedtime. diclofenac, EC, (VOLTAREN) 75 mg EC tablet TAKE 1 PILL BY MOUTH WITH FOOD UP TO EVERY 12 HOURS NEEDED FOR PAIN sertraline (ZOLOFT) 100 mg tablet take 1 tablet by mouth every day hydroCHLOROthiazide 12.5 mg capsule Take 1 capsule by mouth once daily. albuterol HFA (PROVENTIL HFA, VENTOLIN HFA) 90 mcg/actuation inhaler INHALE 1-2 PUFFS BY MOUTH DAILY NEEDED atorvastatin (LIPITOR) 40 mg tablet Take 1 tablet by mouth once daily. empagliflozin (JARDIANCE) 10 mg tablet Take 1 tablet by mouth once daily. lisinopril (ZESTRIL,PRINIVIL) 30 mg tablet Take 30 mg by mouth once daily. Fluticasone Propionate (CUTIVATE) 0.05 % cream Apply to affected area twice daily. amitriptyline (ELAVIL) 10 mg tablet Take 1-2 tablets by mouth daily at bedtime. No current facility-administered medications for this visit. ALLERGIES Allergen Reactions Poison Tamica Extract Itching ACTIVE PROBLEM LIST Pulmonary Emphysema, Unspecified Emphysema Type ([facility]) - 06/05/2023 Mood Disorder ([facility]) - 09/15/2022 Chronic Right-Sided Thoracic Back Pain - 09/09/2022 Primary Hypertension - 08/20/2022 Morbid Obesity With Bmi of 40.0-44.9, Adult ([facility]) - 04/24/2022 Type 2 Diabetes Mellitus With Hyperglycemia ([facility]) - 04/23/2022 Myofascial Pain - 02/20/2021 Low Back Pain - 02/20/2021 Arthropathy of Lumbar Facet Joint - 02/20/2021 Degeneration of Lumbar Intervertebral Disc - 02/20/2021 Social History Tobacco Use Smoking status: Former Packs/day: 1.50 Years: 44.00 Additional pack years: 0.00 Total pack years: 66.00 Types: Cigarettes Quit date: 09/17/2012 Years since quittin.7 Smokeless tobacco: Never Vaping Use Vaping Use: Some days Substances: Nicotine Devices: Disposable Substance Use Topics Alcohol use: Yes Comment: very rarely Drug use: Yes Types: Marijuana Comment: medical marijuana card - occationally Review of Systems Respiratory: Negative. Cardiovascular: Negative. Musculoskeletal: Positive for arthralgias and myalgias. OBJECTIVE BP 146/92 Pulse 76 Resp 18 Wt 292 lb (132.5kg) SpO2 94% Physical Exam Vitals and nursing note reviewed. Constitutional: General: He is awake. He is not in acute distress. Appearance: Normal appearance. He is well-developed and well-groomed. He is not ill-appearing, toxic-appearing or diaphoretic. HENT: Head: Normocephalic. Right Ear: External ear normal. Left Ear: External ear normal. Nose: Nose normal. Eyes: General: Vision grossly intact. Conjunctiva/sclera: Conjunctivae normal. Pupils: Pupils are equal, round, and reactive to light. Neck: Vascular: No JVD. Trachea: Trachea normal. Pulmonary: Effort: Pulmonary effort is normal. No accessory muscle usage, prolonged expiration or respiratory distress. Musculoskeletal: Cervical back: Neck supple. Skin: General: Skin is warm and dry. Capillary Refill: Capillary refill takes less than 2 seconds. Neurological: General: No focal deficit present. Mental Status: He is alert and oriented to person, place, and time. Mental status is at baseline. Psychiatric: Attention and Perception: Attention and perception normal. Mood and Affect: Mood and affect normal. Speech: Speech normal. Behavior: Behavior normal. Behavior is cooperative. Thought Content: Thought content normal. Cognition and Memory: Cognition and memory normal. Judgment: Judgment normal. ASSESSMENT/PLAN: 1. Chronic right shoulder pain - ICD9: 719.41, 338.29, ICD10: M25.511, G89.29 (primary diagnosis) Planning for surgery with ortho for right shoulder issues. - CONSULT TO PAIN MGT 2. Chronic pain syndrome - ICD9: 338.4, ICD10: G89.4 Discussed options. Can get second opinion from other pain management here in town. Try amitriptyline. Discussed other supplements he could try. - CONSULT TO PAIN MGT 3. Back pain due to injury - ICD9: 724.5, ICD10: M54.9 - CONSULT TO PAIN MGT 4. Sleep disorder - ICD9: 780.50, ICD10: G47.[address] of trazodone. 5. Primary hypertension - ICD9: 401.9, ICD10: I10 - Home blood pressure readings controlled - Factors affecting control: elevated first thing in the am, better about 2 hours after medications - Recommend home blood pressure monitoring, to bring results to next visit - Encouraged sodium restriction, DASH or Mediterranean diet - Recommend regular aerobic exercise Portions of this note have been entered by ancillary staff. I have reviewed and when necessary edited, so that they are an adequate record of my encounter with this patient Please note that parts of this document were created using voice recognition software and therefore may contain grammatical errors. Patient verbalizes understanding of instructions from today's visit and in agreement with treatmentplan. Questions answered. Agrees to call the office if questions, concerns of issues with acute symptoms not improving or if they worsen. See diagnoses and orders for additional plan(s). Allergies and medications were reviewed, list was updated, and refills given if needed. Past medical, surgical, social, and family history reviewed and updated as appropriate. Encouraged proper diet & exercise as well as compliance with taking medications. Age- appropriate health preventative measures were discussed. Return in about 4 weeks (around 07/13/2023) for recheck on new medication.. RAJAT Martinez [facility] History of Present illness Narrative* Adriana Gutiérrez RT(Aimee) - 06/05/2023 8:20 AM EST Radiology Service Progress Note PATIENT NAME: Jo Fisher DATE OF SERVICE: June 05, 2023 TIME: 8:13 AM PATIENT IDENTITY VERIFICATION COMPLETED USING TWO (2) IDENTIFIERS: Name and Date of confirmedby patient verbally. FALL SCREENING: Has the patient had 2 falls in the last year or 1 fall with injury or currently using an Ambulatory Assistive Device (Walker, Cane, Wheelchair, Crutches, etc.)? No PATIENT GENDER DATA: Male PATIENT RELEVANT IMPLANT DATA REVIEWED: Yes PATIENT PRESENTS WITH AN IMPLANTABLE OR ATTACHED SPIDER ASSEMBLER: No RADIOLOGY DEPARTMENT: General X-ray: Exam(s) Completed: Chest X-Ray PERIPHERAL IV DATA: Not applicable SIGNED BY: RT Bernabe(Aimee) June 05, 2023 8:13 AM documented in this encounterK[facility]-01-2024 History of Present illness Narrative* Naun Warren APRN.CNP - 06/05/2023 7:21 AM EST SUBJECTIVE Jo Fisher is a 68 year old male here today for a check up on his medical problems. Chief Complaint Patient presents with: Pre-Op Exam HPI Jo Fisher is an 68 year old male presents to the office for pre-op examination. Is scheduled to have a right shoulder arthroscopy with rotator cuff repair, distal clavicle excision and subacromial decompression done, date is still TBD pending clearance, by Dr. Gilmore with [facility]. History of having anesthesia: Yes, prior surgeries without issues. Any reaction from anesthesia in the past: No. Personal or family history of heart disease: No. Chronic diseases controlled: Due for labs. Currently taking a blood thinner: NSAIDs for chronic pain issues. Patient denies chest pain, SOB,dizziness, palpitations, one sided weakness, dropping of face or mouth, fever, or recent sickness. No history of CVA or CT. Labs, chest xray, EKG to be obtained. Medical history is significant for chronic back pain, HTN, mood disorder, pulmonary emphysema, obesity and DM. Had been seen with [facility] pain management, recommended PT for his back pain. Treatment for pain has included tylenol use, NSAIDs, muscle relaxer, muscle rubs, lidocaine patches, prior PT, prior opoid use but was weaned off of this, gabapentin, Lyrica (cause him to feel funny), and Cymbalta along with marijuana use. With his hypertension he is typically elevated in the am upon taking his medications and then improves to desired goal shortly after taking medications. Prior heart cath that was clear years ago. No issues with swelling, chest pain, or chest tightness. Former smoker. Last low dose CT in 06/2022 with nodules, routine monitoring recommended. DM has been controlled, most recent hgba1c 6 months ago was 6.9%. His medications were reviewed today and his list is now up to date. Medications Current Outpatient Medications Medication Sig methocarbamol (ROBAXIN) 750 mg tablet metFORMIN (GLUCOPHAGE) 1,000 mg tablet Take 1 tablet by mouth two times a day with meals. metoprolol succinate ER (TOPROL XL) 100 mg Take 1 tablet by mouth once daily. tiZANidine (ZANAFLEX) 4 mg tablet Take 1 tablet by mouth daily at bedtime. diclofenac, EC, (VOLTAREN) 75 mg EC tablet TAKE 1 PILL BY MOUTH WITH FOOD UP TO EVERY 12 HOURS NEEDED FOR PAIN sertraline (ZOLOFT) 100 mg tablet take 1 tablet by mouth every day hydroCHLOROthiazide 12.5 mg capsule Take 1 capsule by mouth once daily. albuterol HFA (PROVENTIL HFA, VENTOLIN HFA) 90 mcg/actuation inhaler INHALE 1-2 PUFFS BY MOUTH DAILY NEEDED atorvastatin (LIPITOR) 40 mg tablet Take 1 tablet by mouth once daily. traZODone (DESYREL) 50 mg tablet TAKE 2 TABLETS BY MOUTH EVERY EVENING AT 6 PM. empagliflozin (JARDIANCE) 10 mg tablet Take 1 tablet by mouth once daily. lisinopril (ZESTRIL,PRINIVIL) 30 mg tablet Take 30 mg by mouth once daily. Fluticasone Propionate (CUTIVATE) 0.05 % cream Apply to affected area twice daily. No current facility-administered medications for this visit. ALLERGIES Allergen Reactions Poison Tamica Extract Itching ACTIVE PROBLEM LIST Pulmonary Emphysema, Unspecified Emphysema Type ([facility]) - 06/05/2023 Mood Disorder ([facility]) - 09/15/2022 Chronic Right-Sided Thoracic Back Pain - 09/09/2022 Primary Hypertension - 08/20/2022 Morbid Obesity With Bmi of 40.0-44.9, Adult ([facility]) - 04/24/2022 Type 2 Diabetes Mellitus With Hyperglycemia ([facility]) - 04/23/2022 Myofascial Pain - 02/20/2021 Low Back Pain - 02/20/2021 Arthropathy of Lumbar Facet Joint - 02/20/2021 Degeneration of Lumbar Intervertebral Disc - 02/20/2021 Social History Tobacco Use Smoking status: Former Packs/day: 1.50 Years: 44.00 Additional pack years: 0.00 Total pack years: 66.00 Types: Cigarettes Quit date: 09/17/2012 Years since quittin.7 Smokeless tobacco: Never Vaping Use Vaping Use: Some days Substances: Nicotine Devices: Disposable Substance Use Topics Alcohol use: Yes Comment: very rarely Drug use: Yes Types: Marijuana Comment: medical marijuana card - occationally Review of Systems Constitutional: Negative. Eyes: Negative for visual disturbance. Respiratory: Negative for chest tightness and shortness of breath. Cardiovascular: Negative for chest pain, palpitations and leg swelling. Musculoskeletal: Positive for arthralgias and back pain. Neurological: Negative for seizures, syncope, facial asymmetry and speech difficulty. OBJECTIVE BP 168/94 Pulse 77 Resp 16 Wt 288 lb (130.6kg) SpO2 92% Physical Exam Vitals and nursing note reviewed. Constitutional: General: He is awake. He is not in acute distress. Appearance: Normal appearance. He is well-developed and well-groomed. He is not ill-appearing, toxic-appearing or diaphoretic. HENT: Head: Normocephalic. Right Ear: External ear normal. Left Ear: External ear normal. Nose: Nose normal. Eyes: General: Vision grossly intact. Conjunctiva/sclera: Conjunctivae normal. Pupils: Pupils are equal, round, and reactive to light. Neck: Vascular: No carotid bruit or JVD. Trachea: Trachea normal. Cardiovascular: Rate and Rhythm: Normal rate and regular rhythm. Pulses: Normal pulses. Heart sounds: Normal heart sounds. No murmur heard. Pulmonary: Effort: Pulmonary effort is normal. No accessory muscle usage, prolonged expiration or respiratory distress. Breath sounds: Normal breath sounds. Musculoskeletal: Cervical back: Normal range of motion and neck supple. Skin: General: Skin is warm and dry. Capillary Refill: Capillary refill takes less than 2 seconds. Neurological: General: No focal deficit present. Mental Status: He is alert and oriented to person, place, and time. Mental status is at baseline. Cranial Nerves: No cranial nerve deficit. Sensory: No sensory deficit. Psychiatric: Attention and Perception: Attention and perception normal. Mood and Affect: Mood and affect normal. Speech: Speech normal. Behavior: Behavior normal. Behavior is cooperative. Thought Content: Thought content normal. Cognition and Memory: Cognition and memory normal. Judgment: Judgment normal. ASSESSMENT/PLAN: 1. Chronic right shoulder pain - ICD9: 719.41, 338.29, ICD10: M25.511, G89.29 (primary diagnosis) Scheduled to have a right shoulder arthroscopy with rotator cuff repair, distal clavicle excision and subacromial decompression done, date is still TBD pending clearance, by Dr. Gilmore with [facility]. 2. Pre-op exam - ICD9: V72.84, ICD10: Z01.818 Based on physical exam done at today's visit, negative review of systems, negative history for heart disease, CVD, and stable EKG showing sinus rhythm with no signs ischemia, no arrhythmia, no ectopythe patient is cleared for surgery from a primary care standpoint pending that his labs and chest xray are also stable. If stable then ok to proceed with planned procedure at the discretion of the performing provider. - XR CHEST 2V FRONTAL/LAT - ECG COMPLETE 3. Chronic right-sided thoracic back pain - ICD9: 724.1, 338.29, ICD10: M54.6, G89.29 We can reach out to his pain management provider and see if any other recommendations, procedures and alternative pain management are too costly. He declines a trial of getting back on gabapentin to see if it is helpful to at least reduce pain some. Could consider a trial of amitriptyline. 4. Radiculopathy of lumbar region - ICD9: 724.4, ICD10: M54.16 5. Back pain due to injury - ICD9: 724.5, ICD10: M54.9 6. Primary hypertension - ICD9: 401.9, ICD10: I10 - Home blood pressure readings controlled and controlled when in later in the day - Factors affecting control: suspected white coat hypertension - Continue current medications - Recommend home blood pressure monitoring, to bring results to next visit - Encouraged sodium restriction, DASH or Mediterranean diet - Recommend regular aerobic exercise 7. Mood disorder (HCC) - ICD9: 296.90, ICD10: F39 Continue Zoloft. 8. Pulmonary emphysema, unspecified emphysema type (HCC) - ICD9: 492.8, ICD10: J43.9 Stable. 9. Morbid obesity with BMI of 40.0-44.9, adult (HCC) - ICD9: 278.01, V85.41, ICD10: E66.01, Z68.41 10. Type 2 diabetes mellitus with diabetic polyneuropathy, without long-term current use of insulin(HCC) - ICD9: 250.60, 357.2, ICD10: E11.42 - Control undetermined, due for labs - Continue current medications - Counseled on healthy diet and regular exercise - Discussed need for and benefit of weight loss. BMI 43.79 kg/(m^2) - HGB A1C 11. Encounter for therapeutic drug monitoring - ICD9: V58.83, ICD10: Z51.81 - CBC + DIFF - COMP METABOLIC PANEL 12. Screening for lipid disorders - ICD9: V77.91, ICD10: Z13.220 - LIPID PANEL BASIC Portions of this note have been entered by ancillary staff. I have reviewed and when necessary edited, so that they are an adequate record of my encounter with this patient Please note that parts of this document were created using voice recognition software and therefore may contain grammatical errors. Patient verbalizes understanding of instructions from today's visit and in agreement with treatmentplan. Questions answered. Agrees to call the office if questions, concerns of issues with acute symptoms not improving or if they worsen. See diagnoses and orders for additional plan(s). Allergies and medications were reviewed, list was updated, and refills given if needed. Past medical, surgical, social, and family history reviewed and updated as appropriate. Encouraged proper diet & exercise as well as compliance with taking medications. Age- appropriate health preventative measures were discussed. Return if symptoms worsen or fail to improve, for Keep next scheduled appointment.. Naun Warren APRN-KAMAR documented in this encounterK[facility]-14-2024 Miscellaneous Notes* Telephone Encounter - Nimco Parsons - 05/20/2023 9:22 AM EST Patient has been identified by name and date of : Patient phones for refill(s): Requested Prescriptions Pending Prescriptions Disp Refills metFORMIN (GLUCOPHAGE) 1,000 mg tablet 180 tablet 3 Sig: Take 1 tablet by mouth two times a day with meals. Date of last office visit in primary care: 12/10/2022 Date of next office visit in primary care: 06/10/2023 Please advise. Thank you. Nimco Parsons. documented in this encounterK[facility]01-18-2024 NoteHNO ID: [id number] Author: ALISON GLASS APRN.CNP Service: ? Author Type: Nurse Practitioner Type: Progress Notes Filed: 04/23/2023 12:59 Note Text: [facility] Today's Date: 04/23/2023 Name: Jo Fisher : 1955 Purpose: Follow-up Patient Evaluation - This is an established patient, returning today for continued evaluation and management of the chief complaint noted below Chief complaint: Mid and Lower back pain Pertinent Past Medical History: DM, anxiety/depression, HTN, HLD, COPD, Medical THC Interval History: Overall pain and functional disability since last visit: Unchanged New Complaints since last visit: right shoulder pain Pt states the right shoulder started hurting about 1 month ago, does not remember an initial injury Pt states the pain is an aching, burning pain, pt states with lifting it feels it is being stabbed with a hot knife. Pt states he can lift his right arm but with assistance of his left arm. States he can not hold his coffee cup with his right hand at this point. Pt states the pain is interrupting his sleep. Pt states he had an xray (at [facility]) and was told he did not tear his rotator cuff. Pt has not had PT for this pain. Pain Description (Back): Timing: constant to a degree Character: Aching and Stabbing Primary Location: Right sided Mid thoracic (can go to both sides at times) Lumbar Back Radiation: radiation into his left hip from the low back Exacerbating factors: standing, forward flexion, lifting, and walking Relieving factors: sitting down Interferes with: physical activity, walking, sleeping, cooking, household cleaning, reaching for shelves, and lifting The patient reports 2 hours of uninterrupted sleep per night The patient denies difficulty with bowel or bladder control, unintentional weight loss, and fevers, chills, or night sweats. Pt states the pain increases as the day progresses. Pt states when he is cooking is when his pain really increases. Pt states he did not get any relief from the ILESI he had done. Pt states his left hip and the right shoulder are the areas that are interfering with his activity of daily living the most. Current Pain Medications: Neuropathics: pt stopped lyrica reports ineffective and made him feel funny NSAIDS:diclofenac Muscle Relaxants:tizanidine Topicals: Other Prescription or OTC Pain Medications: Opioids (when applicable): Current Anti-depressants or Mood-Stabilizers: Zoloft Current Anti-Coagulants: None Tolerating Medication: No Medications helping improve ADL's and Self-care: No Current Therapies Attended: No Current Therapies Studies Obtained (when obtained, relevant findings reported below): None Notable Events During Course of Treatment: btained on 10/28/2022) Jo Fisher is a 67 year old year-old male; for evaluation and management of the above-mentioned chief complaint. This has been present for the past 12 years. The onset of symptoms was sudden and was without associated trauma. Patient states he had a work injury in 2010. 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 He states his pain is the worst with things like reaching out, standing and doing dishes. He is constantly rubbing his right side thoracic region, to the point there has skin color and texture changes there. He also has pain to his left hip. He states it is a burning ache and numbness. This effects his gait. He states he was with a PM in [place] and was getting injections. He isn't sure exactly what he got. But does remember he had a testing injection with lidocaine. Perhaps it was a MBB. He does think that he has had lumbar RFA, and states it wasn't helpful. He was to start PT, however went to one visit and could not tolerate it. This was a few weeks ago. He states that the pain seems to be consistent throughout the day. No specific time of the day it is bothersome. He does notice his pain increases with changes in the weather. He does seem to lean forward on the grocery cart when shopping. 01/2023: Patient was stating that his current medication regime is not managing his pain. Patient currently is on medical marijuana, but he says if he could get medication other than that he would not use that. He said he did stop at a heartbeat. Patient states in the past he has been prescribed fentanyl and oxycodone 4 times a day at his provider in [place]. Patient states he felt his pain was managed at that time. Data Reviewed: PAIN PROCEDURES: DATE PROCEDURE IMPROVEMENT 03/16/2023 ASHLEY T10-T11 No relief, made it wo (more content not included)... [facility]01-18-2024 NoteHNO ID: [id number] Author: BELKYS NAVARRO MA Service: ? Author Type: Senior Clinical Data Analyst Type: Progress Notes Filed: 04/23/2023 12:59 Note Text: Review of Systems Constitutional: Negative for activity change, chills, fever and unexpected weight change. Gastrointestinal: Negative for bowel retention or incontinence Genitourinary: Negative for difficulty urinating. Negative for bladder retention or incontinence Musculoskeletal: Positive for arthralgias, back pain, gait problem, joint swelling, myalgias, neck pain and neck stiffness. Neurological: Positive for weakness, numbness and headaches. Psychiatric/Behavioral: Positive for dysphoric mood and sleep disturbance. Negative for suicidal ideas. The patient is nervous/anxious.[facility]01-15-2024 Hospital Discharge instructions Patient Education 04/20/2023 15:05:19 Shoulder Sprain Shoulder Sprain A sprain is a stretching or tearing of the ligaments that hold a joint together. A sprain may take up to 8 weeks to fully heal, depending on how severe it is. Moderate to severe shoulder sprains are treated with a sling or shoulder immobilizer. Minor sprains can be treated without any special support. Home care The following guidelines will help you care for your injury at home: If a sling was given to you, leave it in place for the time advised by your healthcare provider. Ifyou aren t sure how long to wear it, ask for advice. If the sling becomes loose, adjust it so that your forearm is level with the ground. Your shoulder should feel well supported. Put an ice pack on the injured area for 20 minutes every 1 to 2 hours the first day. You can make your own ice pack by putting ice cubes in a plastic bag. A bag of frozen peas or something similar works well too. Wrap the bag in a thin towel. Continue with ice packs 3 to 4 times a day for the next 2 to 3 days. Then use the pack as needed to ease pain and swelling. You may use acetaminophen or ibuprofen to control pain, unless another pain medicine was prescribed. If you have chronic liver or kidney disease, talk with your healthcare provider before using thesemedicines. Also talk with your provider if you ve had a stomach ulcer or gastrointestinal bleeding. Shoulder joints become stiff if left in a sling for too long. You should start range of motion exercises about 7 to 10 days after the injury. Talk with your provider to find out what type of exercises to do and how soon to start. Follow-up care Follow up with your healthcare provider, or as advised. Any X-rays you had today don t show any broken bones, breaks, or fractures. Sometimes fractures dont show up on the first X-ray. Bruises and sprains can sometimes hurt as much as a fracture. These injuries can take time to heal completely. If your symptoms don t improve or they get worse, talk with your provider. You may need a repeat X-ray or other treatments. When to seek medical advice Call your healthcare provider right away if any of these occur: Shoulder pain or swelling in your arm that gets worse Fingers become cold, blue, numb, or tingly Large amount of bruising of the shoulder or upper arm Fever or chills [id number] [employer]. [address] [place] [address]. All rights reserved. This information is not intended as a substitute for professional medical care. Always follow yourhealthcare professional's instructions. Follow Up Care 04/20/2023 13:08:04 With:ENOC MAYEN MD Address: [address] [place] [address] [facility] [place] [address] [phone] When:2-4 days With:WIN ZAMORA MD Address: [address] [place] [address]- When:2-4 days [facility] 01-15-2024 Emergency department Discharge summary Discharge Instructions Thank you for allowing [facility] to assist you with your healthcare needs. The following is importantdischarge information regarding your hospital visit. Diagnosis from Today's Visit Shoulder pain-right x 1 month What to Do Next Instructions from Your Care Team No qualifying data available. Post Acute Orders No qualifying data available. You Need to Schedule the Following Appointments Follow Up with ENOC MAYEN MD When Within 2-4 days Where: [address] [facility] [place] [address]- [phone] Follow Up with WIN ZAMORA MD When Within 2-4 days Where: [address] [place] [address]- Allergies NKA Medications Please ask your primary doctor or pharmacist before taking any other medication not listed, including over the counter drugs, herbal medications, vitamins and or supplements as they may interact withyour home medications. Please take this list to your next doctor s visit. Bring all medications you take, including over the counter medications, herbals and other supplements with you to your doctor s visit. Patients and families are reminded to discard old lists and to update any records with all medication providers or retail pharmacies. Education Materials Shoulder Sprain A sprain is a stretching or tearing of the ligaments that hold a joint together. A sprain may take up to 8 weeks to fully heal, depending on how severe it is. Moderate to severe shoulder sprains are treated with a sling or shoulder immobilizer. Minor sprains can be treated without any special support. Home care The following guidelines will help you care for your injury at home: If a sling was given to you, leave it in place for the time advised by your healthcare provider. Ifyou aren t sure how long to wear it, ask for advice. If the sling becomes loose, adjust it so that your forearm is level with the ground. Your shoulder should feel well supported. Put an ice pack on the injured area for 20 minutes every 1 to 2 hours the first day. You can make your own ice pack by putting ice cubes in a plastic bag. A bag of frozen peas or something similar works well too. Wrap the bag in a thin towel. Continue with ice packs 3 to 4 times a day for the next 2 to 3 days. Then use the pack as needed to ease pain and swelling. You may use acetaminophen or ibuprofen to control pain, unless another pain medicine was prescribed. If you have chronic liver or kidney disease, talk with your healthcare provider before using thesemedicines. Also talk with your provider if you ve had a stomach ulcer or gastrointestinal bleeding. Shoulder joints become stiff if left in a sling for too long. You should start range of motion exercises about 7 to 10 days after the injury. Talk with your provider to find out what type of exercises to do and how soon to start. Follow-up care Follow up with your healthcare provider, or as advised. Any X-rays you had today don t show any broken bones, breaks, or fractures. Sometimes fractures dont show up on the first X-ray. Bruises and sprains can sometimes hurt as much as a fracture. These injuries can take time to heal completely. If your symptoms don t improve or they get worse, talk with your provider. You may need a repeat X-ray or other treatments. When to seek medical advice Call your healthcare provider right away if any of these occur: Shoulder pain or swelling in your arm that gets worse Fingers become cold, blue, numb, or tingly Large amount of bruising of the shoulder or upper arm Fever or chills [id number] [employer]. [address] [place] [address]. All rights reserved. This information is not intended as a substitute for professional medical care. Always follow yourhealthcare professional's instructions. Additional Information VACCINATE! IT SAVES LIVES! Members of the community who have not yet received the COVID-19 vaccine and would like to receive it can visit one of [facility] vaccine clinics. There are many vaccine clinic locations within the [facility]. For locations and available times, please visit www.[email or web address].[email or web address]/. It is important to note that some COVID mobile vaccine clinics are held outdoors and may be canceled in rainy or stormy conditions. To learn more about pediatric vaccinations (ages 5-11), we invite you to visit the [facility] webpage. [email or web address]/[email or web address] [email or web address] learn more about the COVID-19 vaccine, we invite you to visit the CDC website for a list of frequently asked questions. https://www.cdc.gov/coronavirus/2019-ncov/vaccines/faq.html [facility] Patient Portal Access Instructions: Stay connected with your healthcare team and access your personal medical information anytime with the [facility] Patient Portal. If you would like a full copy of your medical records please contact the [facility] Medical Records Department Thursday through Thursday between 8a.m. and 4:30p.m. Please follow the directions below to access the portal: 1.Access the email account you provided upon registration to the [facility].2.Look for an invitation email from [facility].3.Open the email and access the invitation link: Accept Invitation to [facility]4.Fill in the required schultz to create your account. Sign into [email or web address] with your username and password that you created in the above steps to stay up to date. You can then view a summary of results, a summary of your visits, and the ability to download your summaries to your computer or send the information securely to a physician. Remember that your healthcare information is confidential, so carefully consider who you will allow to register on the [facility] Patient Portal for access to your information. You can also access the [facility] Patient Portal on the [employer]. Simply click on Health Records under [employer] and then click on the [facility] logo. HOW TO SAFELY DISPOSE OF PRESCRIPTION MEDICATIONS Please use one of the following methods to safely dispose of your unused medications. 1.Use a drug disposal kit: the drug disposal pouch allows you to safely discard your old and unuseddrugs. Ask your nurse to give you one when you are discharged.2.Visit a local take-back location: Many local pharmacies and police departments have programs that collect old and unwanted prescriptiondrugs. Call your local pharmacy or go to http://[employer]/9A8Rc6m to find one close to you.3.Make use of household items: Use cat litter or old coffee grounds to dispose medications if other options arenot available. Mix your drugs with these household products, seal them in an airtight container andthrow it into the garbage. Call [facility]: [phone] to be sure your drugs can be disposed of in this way. Some medicines may require a different approach.4.Never flush your medications down the toilet. IF YOU HAVE BEEN PRESCRIBED AN OPIOIDS FOR PAIN If you have been prescribed an opioid (such as hydrocodone, oxycodone or morphine), it is critical to understand the possible side effects and risks of opioid pain medications. Even when taken as directed, opioids can have several side effects including: Tolerance, meaning you might need to take more of a medication for the same pain relief. Nausea, vomiting and/or constipation. Sleepiness, dizziness, dry mouth, confusion, depression or itching. Physical dependence, meaning you have withdrawal symptoms when a medication is stopped ? this can develop within a few days. KNOW YOUR RESPONSIBILITIES It is important to know exactly how much and how often to take the opioid pain medications you are prescribed. Never take opioids in higher amounts or more often than prescribed. Do not combine opioids with alcohol or other drugs that cause drowsiness, such as benzodiazepines, also known as benzos,including diazepam and alprazolam, muscle relaxants or sleep aids. Never sell or share prescriptionopioids. This is illegal. Store opioids in a secure place and out of reach of others (including children, family, friends and visitors). The last page(s) of this document has been signed and retained as a CHART COPY Signatures Patient Education Materials Shoulder Sprain Medication Leaflets My discharge plan and instructions have been reviewed and explained to me and I,JO FISHER understand my current condition and have read and understand these discharge instructions. I have received a written copy of the plan/instructions. If I have questions, I am aware that I should contact my doctor. Patient/Child Protective Services Social Worker Signature: Date/Time: Relationship to Patient: Witness Name/Signature: Date/Time: [facility]01-15-2024 Note ORIGINAL EXAMINATION: XR right shoulder four views 04/20/2023 2:50 pm XR COMPARISON: None HISTORY: ORDERING SYSTEM PROVIDED HISTORY: Reason for Exam: pain, chronic shoulder pain that is worsening FINDINGS: No acute fracture, dislocation, lytic process or periosteal reaction is seen in the visualized bones and joints. No erosive type of arthritis. There is faint calcifications superior to the greater tuberosity on the Grashey view suspicious for calcific tendinitis. Minimal osteoarthritis in the glenohumeral and AC joints. Preserved subacromial space. IMPRESSION: No acute skeletal abnormality is seen. . Minimal osteoarthritis. Suspect mild calcific tendinitis. Interpreted by: Moisés Carias MD Preliminary Report By: Moisés Carias MD Electronically signed By Moisés Carias MD Dictated Date: 04/20/2023 2:52:15 PM Prelim Date: 04/20/2023 2:53:37 PM Sign Date: 04/20/2023 2:53:37 PM Ordering Provider: [facility]12-11-2023 NoteHNO ID: [id number] Author: Shiv Salguero MD Service: ? Author Type: Physician Type: Progress Notes Filed: 03/16/2023 11:45 AM Note Text: [facility] Date: 03/16/2023 Patient name: Jo Fisher Physician performing procedure: Shiv Salguero MD, PhD Procedure: Thoracic Interlaminar Epidural Steroid Injection under fluoroscopic guidance Levels Treated: T10-11 Interlaminar Space, Left bias Injectate: A total of 3ml, consisting of 1ml of Depo-medrol (40mg/cc), and 2ml of Normal Saline Improvement after today's procedure: as per nursing report Diagnosis: No diagnosis found. Comments: None HPI: Jo Fisher is an 67 year old MALE 67 year old MALE opioid abuse history, HTN, T2DM, perforated sigmoid colon s/p repair who presents today for an elective thoracic interlaminar epidural steroid injection. Patient otherwise denies fevers, chills, weakness, saddle anesthesia, bowel or bladder incontinence or recent antibiotic or anticoagulant use. MRI Spine Report MRI LUMBAR SPINE WO IVCON Exam End: 10/02/2022 10:30 AM (Final result) Narrative: * * *Final Report* * * DATE OF EXAM: Oct 02 2022 9:48AM LDM 0303 - MRI LUMBAR SPINE WO IVCON / PROCEDURE REASON: multiple diagnoses * * * * Physician Interpretation * * * * EXAMINATION: MRI LUMBAR SPINE WO IVCON, MRI THORACIC SPINE WO IVCON CLINICAL HISTORY: Chronic thoracic and lumbar pain with progressive increase in severity and frequency, unresponsive to conservative management. TECHNIQUE: Routine lumbosacral and thoracic spine MR protocol without gadolinium. MQ: [id number] COMPARISON: None. RESULT: THORACIC: Counting reference: Craniocervical and lumbosacral junctions For the purposes of this report, Assume the first normal thoracic rib is at the T1 level. Localizer images: Non-diagnostic. Alignment: Alignment is anatomic. Mild to moderate disc space narrowing is noted in the lower thoracic spine. Cord: The thoracic spinal cord is within normal limits of signal intensity and morphology. Bone marrow signal/fracture: No evidence of pathologic marrow infiltration. No evidence of prior fracture. Thoracic soft tissues: The paraspinal soft tissues are within normal limits. Canal and foramina: Minimal disc bulging is noted at T3-4, T9-10 and T10-11 and a small central disc protrusion is noted at T8-9 and T11-12 with slight flattening of ventral surface of the cord at T8-9 but there is no impact on the adjacent spinal cord otherwise. Facet degenerative changes and rostrocaudal facet subluxation cause severe left T10-11 bony foraminal stenosis. The thoracic canal and foramina are otherwise patent. LUMBAR: Counting reference: Craniocervical and lumbosacral junctions For the purposes of this report, L4-5 is considered the level of the iliac crest and assume there are 5 lumbar-type vertebrae. Anatomic variant: None. Localizer images: No additional findings. Alignment: Alignment is anatomic. Moderate disc space narrowing is noted at L4-5 and L5-S1 and mild disc space narrowing is noted at L1-2. Bone marrow signal/fracture: No evidence of pathologic marrow infiltration. No evidence of prior fracture. Conus: The conus is within normal limits of signal intensity and morphology. Paraspinal soft tissues: Paraspinal soft tissues are within normal limits. L1-L2: Mild disc bulging without significant canal or foraminal stenosis. L2-L3: Canal and foramina are patent L3-L4: Canal and foramina are patent L4-L5: Mild disc osteophyte complex with mild canal stenosis. Facet degenerative changes and rostrocaudal facet subluxation cause [id number] right and mild left foraminal stenosis. L5-S1: Mild disc osteophyte complex and small shallow right central disc protrusion, the latter of which abuts the exiting right S1 nerve root sleeve. No significant impact on the thecal sac. Facet degenerative changes and rostrocaudal facet subluxation cause mild right and moderate left foraminal stenosis. Sacrum and iliac wings: Mild arthritic changes in the right SI joint. Impression: IMPRESSION: Small eccentric disc protrusion at L5-S1 abutting the exiting right S1 nerve root sleeve. No impact on the adjacent thecal sac. Bony foraminal stenosis at L4-5 and L5-S1 as outlined above. Mild thoracic degenerative disc disease. Small central disc protrusions at T8-9 and T11-12 without significant impact on the cord at either level. Severe left T10-11 bony foraminal stenosis. Anatomic Thoracic/Lumbar Variant: None. L4-5 is considered the level of the iliac crest and assume there are 5 lumbar-type vertebrae. Sleeping Car Conductor: KYLEE Transcribe Date/Time: Oct 04 2022 7:26P Dictated by : NEHA DE JESUS MD This examination was interpreted and the report reviewed and electronically signed by: NEHA DE JESUS MD on Oct 04 2022 7:37P (more content not included)...[facility]12-11-2023 NoteHNO ID: [id number] Author: Martina Bey MA Service: ? Author Type: Senior Clinical Data Analyst Type: Progress Notes Filed: 03/16/2023 11:45 AM Note Text: Review of Systems Constitutional: Negative for activity change, chills, fever and unexpected weight change. Gastrointestinal: Negative for bowel retention or incontinence Genitourinary: Negative for difficulty urinating. Negative for bladder retention or incontinence Musculoskeletal: Positive for back pain and neck pain. Negative for arthralgias, gait problem, joint swelling, myalgias and neck stiffness. Neurological: Positive for weakness, numbness and headaches. Psychiatric/Behavioral: Positive for sleep disturbance. Negative for dysphoric mood and suicidal ideas. The patient is nervous/anxious.[facility]12-11-2023 Nurse Note* Marta Alcantara LPN - 03/16/2023 8:18 AM EST Order has been placed in the patient's chart with the following parameters for discharge from the physician: Patient is alert and oriented Vitals: Diastolic/Systolic +/- 20mmHg Respirations: 12-18 Pulse: 60-100 SpO2 is greater than or equal to 90% Patient has no nausea or vomiting Patient has no dizziness Pain level is +/- 2 from initial evaluation Dressing, dry and intact with no evidence of bleeding Criteria has been met, patient is okay to be discharged per the physician. Physician has gone in and evaluated the patient. Dressing dry and intact. No drainage noted. The patient denies nausea, numbness, tingling, weakness, shortness of breath, dizziness, or headache. Pain level 4/10. Vital signs within normal limits. Patient denied needing walked out by clinical staff and denied needing a wheelchair. Patient given discharge instructions and sent to transportation via ambulatory method. Patient left in good condition. * Rehana Jiang LPN - 03/16/2023 7:24 AM EST Procedure to be performed: T10/11 Thoracic Interlaminar Epidural Steroid Injection Patient was walked from exam room to procedure room and assisted onto the procedure tablePatient s procedure was performed in an [facility] Procedure room. Pause completed at each level by provider to verify correct level and laterality placement Pressure was applied to patient s injection site(s) and bleeding was minimal. Patient had no complaint of shortness of breath, dizziness, headache, numbness, tingling, weakness or complications from procedure. Patient was assisted from the procedure table and walked back to exam room. Patient was advised a clinician will be to obtain another set of vitals. Time Out: 0800 Confirmed patient name, date of , procedure site, laterality, and allergies Procedure Start: 802 Procedure End: 812 NON * Martina Bey MA - 03/16/2023 7:24 AM EST Solar Applications Development Engineer's Name: eldon Are you on a blood thinner: no If yes, is a hold required: no Last dose of blood thinner: no INR Result today: no Do you require a Lovenox bridge:no Are you a diabetic:yes Are you/or could you be : no Are you taking Xanax for the procedure:yes Are you currently on a steroid? no Are you currently on an antibiotic: no Have you had a COVID-19 vaccine in the last 14 days Or are you scheduled to receive one? no [facility] History of Present illness Narrative* Shiv Salguero MD - 03/16/2023 7:40 AM EST [facility] Date: 03/16/2023 Patient name: Jo Fisher Physician performing procedure: Shiv Salguero MD, PhD Procedure: Thoracic Interlaminar Epidural Steroid Injection under fluoroscopic guidance Levels Treated: T10-11 Interlaminar Space, Left bias Injectate: A total of 3ml, consisting of 1ml of Depo-medrol (40mg/cc), and 2ml of Normal Saline Improvement after today's procedure: as per nursing report Diagnosis: No diagnosis found. Comments: None HPI: Jo Fisher is an 67 year old MALE 67 year old MALE opioid abuse history, HTN, T2DM, perforated sigmoid colon s/p repair who presents today for an elective thoracic interlaminar epidural steroid injection. Patient otherwise denies fevers, chills, weakness, saddle anesthesia, bowel or bladder incontinenceor recent antibiotic or anticoagulant use. MRI Spine Report MRI LUMBAR SPINE WO IVCON Exam End: 10/02/2022 10:30 AM (Final result) Narrative: * * *Final Report* * * DATE OF EXAM: Oct 02 2022 9:48AM LDM 0303 - MRI LUMBAR SPINE WO IVCON / PROCEDURE REASON: multiple diagnoses * * * * Physician Interpretation * * * * EXAMINATION: MRI LUMBAR SPINE WO IVCON, MRI THORACIC SPINE WO IVCON CLINICAL HISTORY: Chronic thoracic and lumbar pain with progressive increase in severity and frequency, unresponsive to conservative management. TECHNIQUE: Routine lumbosacral and thoracic spine MR protocol without gadolinium. MQ: MRTLWO_3 COMPARISON: None. RESULT: THORACIC: Counting reference: Craniocervical and lumbosacral junctions For the purposes of this report, Assume the first normal thoracic rib is at the T1 level. Localizer images: Non-diagnostic. Alignment: Alignment is anatomic. Mild to moderate disc space narrowing is noted in the lower thoracic spine. Cord: The thoracic spinal cord is within normal limits of signal intensity and morphology. Bone marrow signal/fracture: No evidence of pathologic marrow infiltration. No evidence of prior fracture. Thoracic soft tissues: The paraspinal soft tissues are within normal limits. Canal and foramina: Minimal disc bulging is noted at T3-4, T9-10 and T10-11 and a small central disc protrusion is noted at T8-9 and T11-12 with slight flattening of ventral surface of the cord at T8-9 but there is no impact on the adjacent spinal cord otherwise. Facet degenerative changes and rostrocaudal facet subluxation cause severe left T10-11 bony foraminal stenosis. The thoracic canal and foramina are otherwise patent. LUMBAR: Counting reference: Craniocervical and lumbosacral junctions For the purposes of this report, L4-5 is considered the level of the iliac crest and assume there are 5 lumbar-type vertebrae. Anatomic variant: None. Localizer images: No additional findings. Alignment: Alignment is anatomic. Moderate disc space narrowing is noted at L4-5 and L5-S1 and mild disc space narrowing is noted at L1-2. Bone marrow signal/fracture: No evidence of pathologic marrow infiltration. No evidence of prior fracture. Conus: The conus is within normal limits of signal intensity and morphology. Paraspinal soft tissues: Paraspinal soft tissues are within normal limits. L1-L2: Mild disc bulging without significant canal or foraminal stenosis. L2-L3: Canal and foramina are patent L3-L4: Canal and foramina are patent L4-L5: Mild disc osteophyte complex with mild canal stenosis. Facet degenerative changes and rostrocaudal facet subluxation cause [id number] right and mild left foraminal stenosis. L5-S1: Mild disc osteophyte complex and small shallow right central disc protrusion, the latter of which abuts the exiting right S1 nerve root sleeve. No significant impact on the thecal sac. Facet degenerative changes and rostrocaudal facet subluxation cause mild right and moderate left foraminal stenosis. Sacrum and iliac wings: Mild arthritic changes in the right SI joint. Impression: IMPRESSION: Small eccentric disc protrusion at L5-S1 abutting the exiting right S1 nerve root sleeve. No impact on the adjacent thecal sac. Bony foraminal stenosis at L4-5 and L5-S1 as outlined above. Mild thoracic degenerative disc disease. Small central disc protrusions at T8-9 and T11-12 without significant impact on the cord at either level. Severe left T10-11 bony foraminal stenosis. Anatomic Thoracic/Lumbar Variant: None. L4-5 is considered the level of the iliac crest and assume there are 5 lumbar-type vertebrae. Sleeping Car Conductor: PSCB Transcribe Date/Time: Oct 04 2022 7:26P Dictated by : NEHA DE JESUS MD This examination was interpreted and the report reviewed and electronically signed by: NEHA DE JESUS MD on Oct 04 2022 7:37PM EST Review of Systems: Pertinent Positives: MSK: pain in the region being treated Neuro: No weakness or numbness in the region being treated Skin: Negative (No itching) Eyes: Negative (No blurred or double vision) Respiratory: Negative (No Cough, Dnzfpdnzf-va-xyuxen, Dyspnea on exertion, wheezing) Cardiovascular: Negative (No Chest Pain, Tightness, Pressure, Palpitations) Gastrointestinal: Negative (No Abdominal pain, Nausea, Vomiting, Constipation, Diarrhea) Genitourinary: Negative (No dysuria) Hematologic: Negative (No bleeding, bruising) OB: is Denied or Not Applicable Endocrine: Negative (No hot/cold intolerance) Psychiatric: Negative (No depression, anxiety or suicidal ideation) PAST MEDICAL HISTORY Diagnosis Date Opiate abuse, episodic (HCC) history of opiate abuse, per care everywhere note 04/21/2022 Perforated sigmoid colon (HCC) PAST SURGICAL HISTORY Procedure Laterality Date PAST SURGICAL HISTORY OF colon surgery PAST SURGICAL HISTORY OF colostomy bag REPAIR EPIGASTRIC HERNIA,REDUC FAMILY HISTORY Problem Relation Age of Onset Hypertension Mother Heart Father Social History Tobacco Use Smoking status: Former Packs/day: 1.50 Years: 44.00 Additional pack years: 0.00 Total pack years: 66.00 Types: Cigarettes Quit date: 09/17/2012 Years since quittin.3 Smokeless tobacco: Never Vaping Use Vaping Use: Some days Substances: Nicotine Devices: Disposable Substance Use Topics Alcohol use: Yes Comment: very rarely Drug use: Yes Types: Marijuana Comment: medical marijuana card - occationally Current Outpatient Medications on File Prior to Visit Medication Sig pregabalin (LYRICA) 150 mg capsule Take 1 capsule by mouth three times a day for 30 days. hydroCHLOROthiazide 12.5 mg capsule Take 1 capsule by mouth once daily. albuterol HFA (PROVENTIL HFA, VENTOLIN HFA) 90 mcg/actuation inhaler INHALE 1-2 PUFFS BY MOUTH DAILY NEEDED atorvastatin (LIPITOR) 40 mg tablet Take 1 tablet by mouth once daily. traZODone (DESYREL) 50 mg tablet TAKE 2 TABLETS BY MOUTH EVERY EVENING AT 6 PM. tiZANidine (ZANAFLEX) 4 mg tablet TAKE 1 TABLET BY MOUTH EVERY DAY AT BEDTIME NEEDED FOR MUSCLE SPASM sertraline (ZOLOFT) 100 mg tablet TAKE 1 TABLET BY MOUTH EVERY DAY methocarbamol (ROBAXIN) 750 mg tablet TAKE 1 PILL BY MOUTH UP TO 3 TIMES PER DAY NEEDED FOR PAINFUL MUSCLE SPASMS diclofenac, EC, (VOLTAREN) 75 mg EC tablet TAKE 1 PILL BY MOUTH WITH FOOD UP TO EVERY 12 HOURS NEEDED FOR PAIN empagliflozin (JARDIANCE) 10 mg tablet Take 1 tablet by mouth once daily. lisinopril (ZESTRIL,PRINIVIL) 30 mg tablet Take 30 mg by mouth once daily. metoprolol succinate ER (TOPROL XL) 100 mg Take 100 mg by mouth once daily. Fluticasone Propionate (CUTIVATE) 0.05 % cream Apply to affected area twice daily. metFORMIN (GLUCOPHAGE) 1,000 mg tablet Take 1 tablet by mouth twice daily with meals. No current facility-administered medications on file prior to visit. Attestation Information obtained by others were confirmed and edited as necessary on 02/02/2023 by Shiv Salguero MD. Objective Exam: Vitals: As per nursing documentation Constitutional: Normal Appearance, Oriented to Time, Place and Person Head: No lacerations, no external signs of trauma Eyes: Conjunctiva clear. No discharge from the eyes Cardiovascular: Appears well-perfused Pulmonary: Non-labored respirations Abdominal: Non-distended Skin: No visible rashes or ecchymosis Psychiatric: Mood appropriate for given condition Neurological: no focal deficits, gross movements are limited by pain, but otherwise unremarkable Data Reviewed: Nursing note and vitals reviewed. Additional imaging reviewed as appropriate Assessment and Plan: We discussed the current plan and the pathology responsible for the patient's pain. Specific counseling related to the procedure was provided regarding the risks, benefits and alternatives. The patient wishes to proceed with the plan as noted above. No diagnosis found. UNIVERSAL PROTOCOL / SAFETY CHECKLIST Procedure to be Performed: as stated above Sign In: A Moment of CARE was completed. Personnel directly involved with the procedure wore the appropriate PPE (Personal Protective Equipment). Patient/Surrogate Stated/Verified: PATIENT VERIFIED(optional for EMERGENT procedures): Patient name, Date of , Relevant allergies and The intended procedure Time Out Communication: Intended patient and procedure match the source documents. Consent documented and matches the intended procedure. Relevant labs, photos, and/or imaging studies have been reviewed. Medications required for procedure verified. Sign Out: SIGN OUT (optional for EMERGENT procedures): No specimen collected. Shiv Salguero MD Time out to confirm patient name, date of , procedure site, laterality, and allergies performed by physician. Please see nursing note for exact times (time out, procedure start, procedure end). [place] protocol documentation / Pre-Procedure checklist: Unless stated otherwise in the procedure note, the risks include but are not limited to infection, allergic reaction, increased pain, lack of therapeutic benefit, steroid reaction, nerve damage, paralysis, stroke, epidural hematoma, syncope, headache, respiratory or cardiac arrest, pneumothorax, and scar formation Time Out was led by the physician in the procedure room, with the patient and all staff present andparticipating The following information was verified: name, date of , procedure site (marked), laterality, anticoagulants and allergies [place] protocol documentation / Pre-Procedure Checklist: Consent: Verbal and written consent was obtained prior to the procedure. Risks, benefits and alternative treatment options were discussed with the patient. All questions were fully answered. Unless stated otherwise in the procedure note, the risks include but are not limited to infection, allergic reaction, increased pain, lack of therapeutic benefit, steroid reaction, nerve damage, paralysis, stroke, epidural hematoma, syncope, headache, respiratory or cardiac arrest, pneumothorax, and scar formation Once the plan was agreed upon, the patient gave written consent to proceed and was transported intothe procedure room Surgical/Procedure pause or Time Out : Time Out was led by the physician in the procedure room, with the patient and all staff present andparticipating The following information was verified during the Time Out process: Patient name, patient date of , procedure site (marked), laterality, anticoagulants and allergies Anticoagulants: reviewed with patient, notable for: none DESCRIPTION OF PROCEDURE: The patient was brought to the procedure room and positioned prone on the procedure room table. Thecervical spine was then exposed, prepped, and draped in the usual sterile fashion using 2% Chloroprep scrub. Skin anesthesia was achieved using 2 mL of Lidocaine 1% using a 25G 1.5inch needle to infiltrate the skin over the respective injection site. The target interspace was visualized under fluoroscopic imaging. A 20 gauge 3 1/2 Tuohy needle was then slowly guided into the epidural space utilizing loss of resistance technique and multi- planar fluoroscopic imaging for needle guidance. After negative aspiration for blood or CSF, contrast in the form of 1mL of Omnipaque 300 was injected and was found to be consistent with epidural spread. There was no evidence of intravascular or intrathecal uptake. After negative aspiration, the above mentioned injectate was then administered. The needlewas subsequently withdrawn and minimal bleeding was observed. No specimens were obtained. A dressing was applied and the patient was taken to the recovery area for further observation. Please see the nursing note for exact times (time out, procedure start, procedure end). The patient was noted to have tolerated the procedure well and was discharged after an appropriate period of post-procedure observation in stable condition. The patient was instructed to contact us in the event of worsening pain, fever, weakness, numbness or bladder or bowel incontinence. The patient was further advised to follow-up with the requesting physician within one to two weeks or as per their requested follow-up plan. A post-procedure visit summary with written instructions was offeredto the patient at the time of discharge. Shiv Salguero MD, PhD Pain Management [facility] * Martina Bey MA - 03/16/2023 7:39 AM EST Review of Systems Constitutional: Negative for activity change, chills, fever and unexpected weight change. Gastrointestinal: Negative for bowel retention or incontinence Genitourinary: Negative for difficulty urinating. Negative for bladder retention or incontinence Musculoskeletal: Positive for back pain and neck pain. Negative for arthralgias, gait problem, joint swelling, myalgias and neck stiffness. Neurological: Positive for weakness, numbness and headaches. Psychiatric/Behavioral: Positive for sleep disturbance. Negative for dysphoric mood and suicidal ideas. The patient is nervous/anxious. [facility] Instructions* Patient Instructions* Marta Alcantara LPN - 03/16/2023 7:27 AM EST PROCEDURE DISCHARGE INSTRUCTIONS 03/16/2023 Jo Fisher 1955 Physician: Shiv Salguero MD Procedure: Epidural Steroid Injection: Thoracic (Transforaminal/Interlaminar) Post Procedure Instructions: If sedation given, no driving the day of the procedure., Rest the day of the procedure., You may resume normal activities the day after the procedure, as tolerated., Pain should gradually subside over the next 2-3 weeks., Avoid movements that may aggravate pain., Apply cold compresses to injection site if needed., No hot baths, hot tubs or hot compresses for 24 hours., and Increased pain the day after the procedure may occur. If you have any of the following signs or symptoms, please call our office at Fever and/or chills Swelling and/or drainage from injection site New pain that is different than your normal pain (other than soreness at the site of the procedure) Stiff neck Shortness of breath Severe increase in pain Motor dysfunctions, such as difficulty walking, bowel or bladder dysfunction and/or incontinence Headache that is severe, light sensitive or develops when changing positions (positional headache) Nausea and/or vomiting accompanied by headache that started 24-48 hours after the procedure If you have any emergent concerns, please call 911 or go to your local emergency room. Please also contact our office to let us know you will be seeking emergency care and why. documented in this [facility]12-[facility]23 NoteHNO ID: [id number] Author: Martina Bey MA Service: ? Author Type: Senior Clinical Data Analyst Type: Progress Notes Filed: 03/06/2023 12:48 PM Note Text: Review of Systems Constitutional: Negative for activity change, chills, fever and unexpected weight change. Gastrointestinal: Negative for bowel retention or incontinence Genitourinary: Negative for difficulty urinating. Negative for bladder retention or incontinence Musculoskeletal: Positive for back pain and neck pain. Negative for arthralgias, gait problem, joint swelling, myalgias and neck stiffness. Neurological: Positive for weakness and headaches. Negative for numbness. Psychiatric/Behavioral: Positive for sleep disturbance. Negative for dysphoric mood and suicidal ideas. The patient is nervous/anxious.[facility]12-01-2023 NoteHNO ID: [id number] Author: Alison Glass APRN.SPORTS BOOK SERVER Service: ? Author Type: Nurse Practitioner Type: Progress Notes Filed: 03/06/2023 12:48 PM Note Text: [facility] Today's Date: 03/06/2023 Last Visit: 01/22/2023 Name: Jo Fisher : 1955 Purpose: Follow-up Patient Evaluation - This is an established patient, returning today for continued evaluation and management of the chief complaint noted below Chief complaint: Mid and Lower back pain Referring Clinician: Pertinent Past Medical History: DM, anxiety/depression, HTN, HLD, COPD, Medical THC Plan at last visit: Impression AND Plan: Unfortunately patient did not respond well to lumbar MBB's, we will cancel the second set. He also did not have a positive response to the right T5 REID NB. He continues to have that right-sided flank pain especially concentrated to a small region below the bra line which bothers him a lot he constantly rubs that region. After discussing imaging and considering pain complaints we discussed thoracic MADISON. Patient was agreeable to this. Although he did have severe left foraminal stenosis that he 10/11 his pain seems to be more concentrated to the right side, slightly below the bra line. In the meantime we will increase patient's Lyrica to 150 mg 3 times daily. Encourage patient to obtain hip imaging as he also complained that his left hip continues to bother him. Patient to follow-up after intervention and after x-ray. Depending on results of current treatment plan consider: Titrate Lyrica, repeat lumbar MADISON, TBD-pending response to thoracic MADISON, TPI's to right thoracic paraspinal region (not previously tolerated)-pending response to REID NB Interval History: Overall pain and functional disability since last visit: Unchanged New Complaints since last visit: No Patient states he stopped the Lyrica as he did not feel it was helping him with his pain and he felt it was causing him other issues he did not like. Patient states he went for the epidural injection and he had a panic moment and did not go through with the injection. Patient states he is scheduled for second injection and is willing to attempt it. Patient states he has had these injections in the past and they have not helped however he would like to try them with another provider. Patient was stating that his current medication regime is not managing his pain. Patient currently is on medical marijuana, but he says if he could get medication other than that he would not use that. He said he did stop at a heartbeat. Patient states in the past he has been prescribed fentanyl and oxycodone 4 times a day at his provider in [place]. Patient states he felt his pain was managed at that time. Patient is here for follow-up appointment. Pain Description: Timing: intermittent Character: Aching and Stabbing Primary Location: Right sided Mid thoracic (can go to both sides at times) Radiation: Lumbar Back Exacerbating factors: standing, forward flexion, lifting, and walking Relieving factors: unable to pinpoint positions/factors that are mitigating Interferes with: physical activity, walking, sleeping, cooking, household cleaning, reaching for shelves, and lifting The patient reports 2 hours of uninterrupted sleep per night The patient denies difficulty with bowel or bladder control, unintentional weight loss, and fevers, chills, or night sweats. Current Pain Medications: Neuropathics: pt stopped lyrica reports ineffective and made him feel funny NSAIDS: Muscle Relaxants: Topicals: Other Prescription or OTC Pain Medications: Opioids (when applicable): Date last refilled: Quantity supplied: Quantity remaining: Last taken: Tolerating Medication: No Medications helping improve ADL's and Self-care: No Current Therapies Attended: No Current Therapies Studies Obtained (when obtained, relevant findings reported below): None Notable Events During Course of Treatment: btained on 10/28/2022) Jo Fisher is a 67 year old year-old male; for evaluation and management of the above-mentioned chief complaint. This has been present for the past 12 years. The onset of symptoms was sudden and was without associated trauma. Patient states he had a work injury in 2010. 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 He states his pain is the worst with things like reaching out, standing and doing dishes. He is constantly rubbing his right side thoracic region, to the point there has skin color and texture changes there. He also has pain to his left hip. He (more content not included)...[facility]12-01-[facility] History of Present illness Narrative* Martina Bey MA - 03/06/2023 7:48 AM EST Review of Systems Constitutional: Negative for activity change, chills, fever and unexpected weight change. Gastrointestinal: Negative for bowel retention or incontinence Genitourinary: Negative for difficulty urinating. Negative for bladder retention or incontinence Musculoskeletal: Positive for back pain and neck pain. Negative for arthralgias, gait problem, joint swelling, myalgias and neck stiffness. Neurological: Positive for weakness and headaches. Negative for numbness. Psychiatric/Behavioral: Positive for sleep disturbance. Negative for dysphoric mood and suicidal ideas. The patient is nervous/anxious. * Alison Glass APRN.SPORTS BOOK SERVER - 03/06/2023 7:30 AM EST Images from the original note were not included. [facility] Today's Date: 03/06/2023 Last Visit: 01/22/2023 Name: Jo Fisher : 1955 Purpose: Follow-up Patient Evaluation - This is an established patient, returning today for continued evaluation and management of the chief complaint noted below Chief complaint: Mid and Lower back pain Referring Clinician: Pertinent Past Medical History: DM, anxiety/depression, HTN, HLD, COPD, Medical THC Plan at last visit: Impression & Plan: Unfortunately patient did not respond well to lumbar MBB's, we will cancel the second set. He also did not have a positive response to the right T5 REID NB. He continues to have that right-sided flankpain especially concentrated to a small region below the bra line which bothers him a lot he constantly rubs that region. After discussing imaging and considering pain complaints we discussed thoracic MADISON. Patient was agreeable to this. Although he did have severe left foraminal stenosis that he 10/ his pain seems to be more concentrated to the right side, slightly below the bra line. In the meantime we will increase patient's Lyrica to 150 mg 3 times daily. Encourage patient to obtain hip imaging as he also complained that his left hip continues to bother him. Patient to follow-up after intervention and after x-ray. Depending on results of current treatment plan consider: Titrate Lyrica, repeat lumbar MADISON, TBD-pending response to thoracic MADISON, TPI's to right thoracic paraspinal region (not previously tolerated)-pending response to REID NB Interv al History: Overall pain and functional disability since last visit: Unchanged New Complaints since last visit: No Patient states he stopped the Lyrica as he did not feel it was helping him with his pain and he felt it was causing him other issues he did not like. Patient states he went for the epidural injectionand he had a panic moment and did not go through with the injection. Patient states he is scheduledfor second injection and is willing to attempt it. Patient states he has had these injections in the past and they have not helped however he would like to try them with another provider. Patient was stating that his current medication regime is not managing his pain. Patient currently is on medical marijuana, but he says if he could get medication other than that he would not use that. He said he did stop at a heartbeat. Patient states in the past he has been prescribed fentanyl and oxycodone 4 times a day at his provider in [place]. Patient states he felt his pain was managed atthat time. Patient is here for follow-up appointment. Pain Description: Timing: intermittent Character: Aching and Stabbing Primary Location: Right sided Mid thoracic (can go to both sides at times) Radiation: Lumbar Back Exacerbating factors: standing, forward flexion, lifting, and walking Relieving factors: unable to pinpoint positions/factors that are mitigating Interferes with: physical activity, walking, sleeping, cooking, household cleaning, reaching for shelves, and lifting The patient reports 2 hours of uninterrupted sleep per night The patient denies difficulty with bowel or bladder control, unintentional weight loss, and fevers,chills, or night sweats. Current Pain Medications: Neuropathics: pt stopped lyrica reports ineffective and made him feel funny NSAIDS: Muscle Relaxants: Topicals: Other Prescription or OTC Pain Medications: Opioids (when applicable): Date last refilled: Quantity supplied: Quantity remaining: Last taken: Tolerating Medication: No Medications helping improve ADL's and Self-care: No Current Therapies Attended: No Current Therapies Studies Obtained (when obtained, relevant findings reported below): None Notable Events During Course of Treatment: btained on 10/28/2022) Jo Fisher is a 67 year old year-old male; for evaluation and managementof the above-mentioned chief complaint. This has been present for the past 12 years. The onset of symptoms was sudden and was without associated trauma. Patient states he had a work injury in 2010. 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 He states his pain is the worst with things like reaching out, standing and doing dishes. He is constantly rubbing his right side thoracic region, to the point there has skin color and texture changes there. He also has pain to his left hip. He states it is a burning ache and numbness. This effects his gait. He states he was with a PM in [place] and was getting injections. He isn't sure exactly what he got. Butaustyn remember he had a testing injection with lidocaine. Perhaps it was a MBB. He does think thathe has had lumbar RFA, and states it wasn't helpful. He was to start PT, however went to one visit and could not tolerate it. This was a few weeks ago. He states that the pain seems to be consistent throughout the day. No specific time of the day it is bothersome. He does notice his pain increases with changes in the weather. He does seem to lean forward on the grocery cart when shopping. Data Reviewed: PAIN PROCEDURES: DATE PROCEDURE IMPROVEMENT To date, no interventional pain management procedures performed at this practice. Pt has had injections in the past in [place] Current Anti-depressants or Mood-Stabilizers: Zoloft Current Anti-Coagulants: None SOCIAL HISTORY No social history on file. Allergies: ALLERGIES Allergen Reactions Poison Tamica Extract Itching INTAKE PAIN ASSESSMENT 02/02/2023 03/06/2023 Are you having pain associated with your visit today? Yes, Provider notified Yes, Provider notified Pain Scales Verbal (Numeric Rating or Visual Analog Scale) Verbal (Numeric Rating or Visual Analog Scale) Pain Level 8 5 Pain Location Back-Lower Back Description Aching Aching;Stabbing Duration Amount of Time - - Duration Units Years Years Frequency Continuous Intermittent Intervention/Comfort measure Medication;Reposition;Relaxation - Comments - - Compliance: PDMP website checked and validated on 03/06/2023 by Alison Glass APRN.SPORTS BOOK SERVER All prescriptions have been APPROPRIATELY filled. No suspicious activity was identified. Recent Drug screens: AG SPINE COMBINATION 10/28/2022 Questionnaire GREENLIGHT Completed Date 10/28/2022 Questionnaire Opiod Risk Tool Completed Date 10/28/2022 No question data found. (All drug screens are appropriate unless indicated otherwise) Risk Assessment: LIZ-7: LIZ - 7 SCORES 10/28/2022 LIZ-7 Score 3 (0-4) minimal anxiety, (5-9) mild anxiety, (10-14) moderate anxiety, (15-21) severe anxiety PHQ-9: PHQ-9 10/07/2022 10/07/2022 10/28/2022 Score 3 3 5 (0-4) minimal depression, (5-9) mild depression, (10-14) moderate depression, (15-19) moderately severe depression, (20-27) severe depression Diagnostic Studies: Relevant Imaging: MRI Spine Report MRI LUMBAR SPINE WO IVCON Exam End: 10/02/2022 10:30 AM (Final result) Narrative: * * *Final Report* * * DATE OF EXAM: Oct 02 2022 9:48AM LDM [id number] - MRI LUMBAR SPINE WO IVCON / PROCEDURE REASON: multiple diagnoses * * * * Physician Interpretation * * * * EXAMINATION: MRI LUMBAR SPINE WO IVCON, MRI THORACIC SPINE WO IVCON CLINICAL HISTORY: Chronic thoracic and lumbar pain with progressive increase in severity and frequency, unresponsive to conservative management. TECHNIQUE: Routine lumbosacral and thoracic spine MR protocol without gadolinium. MQ: [id number] COMPARISON: None. RESULT: THORACIC: Counting reference: Craniocervical and lumbosacral junctions For the purposes of this report, Assume the first normal thoracic rib is at the T1 level. Localizer images: Non-diagnostic. Alignment: Alignment is anatomic. Mild to moderate disc space narrowing is noted in the lower thoracic spine. Cord: The thoracic spinal cord is within normal limits of signal intensity and morphology. Bone marrow signal/fracture: No evidence of pathologic marrow infiltration. No evidence of prior fracture. Thoracic soft tissues: The paraspinal soft tissues are within normal limits. Canal and foramina: Minimal disc bulging is noted at T3-4, T9-10 and T10-11 and a small central disc protrusion is noted at T8-9 and T11-12 with slight flattening of ventral surface of the cord at T8-9 but there is no impact on the adjacent spinal cord otherwise. Facet degenerative changes and rostrocaudal facet subluxation cause severe left T10-11 bony foraminal stenosis. The thoracic canal and foramina are otherwise patent. LUMBAR: Counting reference: Craniocervical and lumbosacral junctions For the purposes of this report, L4-5 is considered the level of the iliac crest and assume there are 5 lumbar-type vertebrae. Anatomic variant: None. Localizer images: No additional findings. Alignment: Alignment is anatomic. Moderate disc space narrowing is noted at L4-5 and L5-S1 and mild disc space narrowing is noted at L1-2. Bone marrow signal/fracture: No evidence of pathologic marrow infiltration. No evidence of prior fracture. Conus: The conus is within normal limits of signal intensity and morphology. Paraspinal soft tissues: Paraspinal soft tissues are within normal limits. L1-L2: Mild disc bulging without significant canal or foraminal stenosis. L2-L3: Canal and foramina are patent L3-L4: Canal and foramina are patent L4-L5: Mild disc osteophyte complex with mild canal stenosis. Facet degenerative changes and rostrocaudal facet subluxation cause [id number] right and mild left foraminal stenosis. L5-S1: Mild disc osteophyte complex and small shallow right central disc protrusion, the latter of which abuts the exiting right S1 nerve root sleeve. No significant impact on the thecal sac. Facet degenerative changes and rostrocaudal facet subluxation cause mild right and moderate left foraminal stenosis. Sacrum and iliac wings: Mild arthritic changes in the right SI joint. Impression: IMPRESSION: Small eccentric disc protrusion at L5-S1 abutting the exiting right S1 nerve root sleeve. No impact on the adjacent thecal sac. Bony foraminal stenosis at L4-5 and L5-S1 as outlined above. Mild thoracic degenerative disc disease. Small central disc protrusions at T8-9 and T11-12 without significant impact on the cord at either level. Severe left T10-11 bony foraminal stenosis. Anatomic Thoracic/Lumbar Variant: None. L4-5 is considered the level of the iliac crest and assume there are 5 lumbar-type vertebrae. 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 Car Conductor: [facility] Transcribe Date/Time: Oct 04 2022 7:26P Dictated by : NEHA DE JESUS MD This examination was interpreted and the report reviewed and electronically signed by: NEHA DE JESUS MD on Oct 04 2022 7:37PM EST Electrodiagnostic Study (EMG): None Recent Labs: Creatinine Date Value Ref Range Status 11/24/2022 0.79 0.73 - 1.22 mg/dL Final No results found for: EGFR Glucose, Point of Care Date Value Ref Range Status 02/02/2023 132 (A) 74 - 99 mg/dL Final Comment: Location:[facility], [facility], [place], [facility] The Accu-Chek Inform II glucose meter has not been approved for testing on patients receiving intensive medical intervention or therapy and results from this point of care glucose test should not be used for patient management decisions in these cases. Inaccurate results may also occur from other interfering factors, such as N-acetylcysteine (blood concentrations of greater than 5mg/dL), galactose, extremes of hematocrit (<10 or >65), or high doses of ascorbic acid (vitamin C) greater than 3mg/dL. Consider alternate testing mechanisms (e.g. core lab, blood gas instrument) in the above situations. WBC Date Value Ref Range Status 11/24/2022 6.88 3.70 - 11.00 k/uL Final Hemoglobin Date Value Ref Range Status 11/24/2022 14.0 13.0 - 17.0 g/dL Final Hematocrit Date Value Ref Range Status 11/24/2022 46.8 39.0 - 51.0 % Final Platelet Count Date Value Ref Range Status 11/24/2022 177 150 - 400 k/uL Final Current Medications, Past Medical History, Past Surgical History, Family History, Social History and Review of Systems: On today's date, noted above, I have confirmed and edited as necessary, the PFSH and ROS obtained by others. Physic al Exam: 03/06/23 0751 Pulse: 82 Resp: 16 SpO2: 96% Physical Exam Vitals reviewed. Constitutional: General: He is not in acute distress. Appearance: He is not ill-appearing. HENT: Head: Normocephalic and atraumatic. Eyes: Conjunctiva/sclera: Conjunctivae normal. Cardiovascular: Pulses: Normal pulses. Pulmonary: Effort: Pulmonary effort is normal. No respiratory distress. Musculoskeletal: Thoracic back: No tenderness or bony tenderness. No scoliosis. Lumbar back: Tenderness present. Decreased range of motion. Positive right straight leg raise test and positive left straight leg raise test. Comments: Special Tests- Facet Loading: Right-Positive; Left Positive SI Compression:Negative SHEILA:Right-Positive ; Left Positive Skin: General: Skin is warm and dry. Neurological: Mental Status: He is alert and oriented to person, place, and time. Motor: Weakness present. Gait: Gait abnormal (analgic). Deep Tendon Reflexes: Reflex Scores: Patellar reflexes are 1+ on the right side and 1+ on the left side. Comments: Psychiatric: Mood and Affect: Mood and affect normal. Behavior: Behavior normal. Behavior is cooperative. IMPRESSION: 67 year old male presents with complaint(s) of Mid and low back pain. Had a lengthy discussion regarding the injection patient wants to follow through with the injection that is currentlyscheduled. Also discussed medications at length. Patient does understand with the medical marijuanathat no opioid therapy will be prescribed. Patient does understand the risks of opioid therapy in this practice at this point we will try to avoid this method of managing his pain. Patient stated understanding. Diagnoses: (M54.16) Radiculopathy of lumbar region (primary encounter diagnosis) (M54.9) Back pain due to injury (M54.6, G89.29) Chronic right-sided thoracic back pain (M47.816) Lumbar spondylosis (M79.18) Myofascial pain PLAN: Jo Fisher would benefit from the following to reach personal goals for decreasing pain, improving function and work participation, and/or improving quality of life: Medications: Requested Prescriptions Signed Prescriptions Disp Refills tiZANidine (ZANAFLEX) 4 mg tablet 30 tablet 5 Sig: Take 1 tablet by mouth daily at bedtime. methocarbamol (ROBAXIN) 750 mg tablet 90 tablet 5 Sig: TAKE 1 PILL BY MOUTH UP TO 3 TIMES PER DAY NEEDED FOR PAINFUL MUSCLE SPASMS diclofenac, EC, (VOLTAREN) 75 mg EC tablet 60 tablet 5 Sig: TAKE 1 PILL BY MOUTH WITH FOOD UP TO EVERY 12 HOURS NEEDED FOR PAIN Will attempt diclofenac twice daily to see if that will help with the pain until he has the injection done. Interventional Procedures: Patient is currently scheduled for a thoracic interlaminar epidural steroid injection. Studies: None Functional Anglican: NONE Referrals: No additional considerations at present Follow-up: after injection with Physician or DEONTE Depending on response to the above plan, consider: TBD Patient Education, Compliance and Clinic Policies Reviewed and/or Discussed Today: None Attribution: In addition to reviewing the information noted above, some elements copied from my most recent clinical note(s), including the physical exam (completed in entirety today), and the impression and plan sections, have been updated where appropriate. All reflect current medical decision making from today's date. Alison Glass APRN.[facility] documented in this encounterK[facility]23 Miscellaneous Notes* Telephone Encounter - Elsy Mendoza LPN - 02/02/2023 3:46 PM EDT Patient has been identified by name and date of : Yes Patient phones for refill(s): Requested Prescriptions Pending Prescriptions Disp Refills sertraline (ZOLOFT) 100 mg tablet [Pharmacy Med Name: SERTRALINE HCL 100 MG TABLET] 90 tablet Sig: take 1 tablet by mouth every day Date of last office visit in primary care: 12/10/2022 Date of next office visit in primary care: 06/10/2023 Last 2 Encounter Wt Readings: Date: Wt: 12/10/2022 124.3 kg (274 lb) 10/13/2022 124.3 kg (274 lb) Previous labs/tests for medication: Not applicable Please advise. Thank you. Elsy Mendoza LPN. * Telephone Encounter - Jessica Su - 02/02/2023 11:12 AM EDT Patient is out of medication. documented in this encounterK[facility]10-30-2023 NoteHNO ID: [id number] Author: Saloni Segundo LPN Service: ? Author Type: LICENSED NURSE Type: Progress Notes Filed: 02/03/2023 10:58 AM Note Text: Review of Systems Constitutional: Positive for activity change. Negative for chills, fever and unexpected weight change. Gastrointestinal: Negative for bowel retention or incontinence Genitourinary: Negative for difficulty urinating. Negative for bladder retention or incontinence Musculoskeletal: Positive for arthralgias, back pain, gait problem and joint swelling. Negative for myalgias, neck pain and neck stiffness. Neurological: Positive for weakness. Negative for numbness and headaches. Psychiatric/Behavioral: Positive for dysphoric mood. Negative for sleep disturbance and suicidal ideas. The patient is nervous/anxious.[facility]10-30-2023 Miscellaneous Notes* Telephone Encounter - Shiv Salguero MD - 02/02/2023 7:15 AM EDT Chart and PDMP reviewed. Order for Xanax 0.5mg SL #2 tablets sent to patients pharmacy to be used prior to their scheduled procedure on 02/02/23. Pt is advised to pick -up this medication on the day prior to the procedure and to bring it with them to her appointment. This medication should be taken in the presence of nursing staff prior to their procedure. documented in this encounterK[facility]10-30-2023 Instructions* Patient Instructions* Marta Alcantara LPN - 02/02/2023 7:09 AM EDT documented in this encounterK[facility]10-30-2023 History of Present illness Narrative* Saloni Segundo LPN - 02/02/2023 7:00 AM EDT Review of Systems Constitutional: Positive for activity change. Negative for chills, fever and unexpected weight change. Gastrointestinal: Negative for bowel retention or incontinence Genitourinary: Negative for difficulty urinating. Negative for bladder retention or incontinence Musculoskeletal: Positive for arthralgias, back pain, gait problem and joint swelling. Negative formyalgias, neck pain and neck stiffness. Neurological: Positive for weakness. Negative for numbness and headaches. Psychiatric/Behavioral: Positive for dysphoric mood. Negative for sleep disturbance and suicidal ideas. The patient is nervous/anxious. documented in this encounterK[facility]10-30-2023 Nurse Note* Saloni Segundo LPN - 02/02/2023 6:57 AM EDT Solar Applications Development Engineer's Name: Eldon Are you on a blood thinner: no If yes, is a hold required: no Last dose of blood thinner: no INR Result today: no Do you require a Lovenox bridge:no Are you a diabetic:yes 132 Are you/or could you be : no Are you taking Xanax for the procedure: no Are you currently on a steroid? no Are you currently on an antibiotic: no Have you had a COVID-19 vaccine in the last 14 days Or are you scheduled to receive one? no documented in this encounterKet[facility]10-24-2023 History of Present illness Narrative* Alexsandra Monte RT(R) - 01/27/2023 12:10 PM EDT Radiology Service Progress Note PATIENT NAME: Jo Fisher DATE OF SERVICE: January 27, 2023 TIME: 12:06 PM PATIENT IDENTITY VERIFICATION COMPLETED USING TWO (2) IDENTIFIERS: Name and Date of confirmedby patient verbally. FALL SCREENING: Has the patient had 2 falls in the last year or 1 fall with injury or currently using an Ambulatory Assistive Device (Walker, Cane, Wheelchair, Crutches, etc.)? No PATIENT GENDER DATA: Male PATIENT RELEVANT IMPLANT DATA REVIEWED: Yes RADIOLOGY DEPARTMENT: General X-ray: Exam(s) Completed: Pelvis X-Ray: Pelvis with Hip Left PERIPHERAL IV DATA: Not applicable SIGNED BY: JEF Morales) January 27, 2023 12:06 PM documented in this encounterKet[facility]10-19-2023 NoteHNO ID: [id number] Author: Jessica Tapia APRN.SPORTS BOOK SERVER Service: ? Author Type: Nurse Practitioner Type: Progress Notes Filed: 01/22/2023 8:48 AM Note Text: [facility] Today's Date: 01/22/2023 Last Visit: 01/08/2023 This is a virtual visit via Zoom, Phone and/or MyChart. It required patient-provider interaction for the medical decision making as documented below. Patient understands that privacy cannot be guaranteed. Name: Jo Fisher : 1955 Purpose: Established Patient Chief Complaint: Mid and Lower back pain Referred by: Dr. Zamora (PCP) PMH:DM, anxiety/depression, HTN, HLD, COPD, Medical THC Interval HPI: Patient presents today for follow up status post BL L4/5, L5/S1 MBBs (1st set) with Dr. Salguero on 01/19/2023. Patient states that he is having right sided mid-back pain, it is a stabbing pain. It starts mid back and radiates down to the lower back. This was bothering him the morning of the procedure and has now persisted since. He states that this is worse first thing in the morning, but it can wax and wain through the day. He is also status post R T5 REID NB with Dr Salguero on 01/05/2023. He states he has not seen improvement to his myofacial tightness and spasm since injection. At last office visit, Lyrica was increased to 100 mg TID. He feels like this has not provided him with much beneift. He was ordered left hip imaging, however, he has not had that done yet. Initial HPI: (Obtained on 10/28/2022) Jo Fisher is a 67 year old year-old male; for evaluation and management of the above-mentioned chief complaint. This has been present for the past 12 years. The onset of symptoms was sudden and was without associated trauma. Patient states he had a work injury in 2010. 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 He states his pain is the worst with things like reaching out, standing and doing dishes. He is constantly rubbing his right side thoracic region, to the point there has skin color and texture changes there. He also has pain to his left hip. He states it is a burning ache and numbness. This effects his gait. He states he was with a PM in [place] and was getting injections. He isn't sure exactly what he got. But does remember he had a testing injection with lidocaine. Perhaps it was a MBB. He does think that he has had lumbar RFA, and states it wasn't helpful. He was to start PT, however went to one visit and could not tolerate it. This was a few weeks ago. He states that the pain seems to be consistent throughout the day. No specific time of the day it is bothersome. He does notice his pain increases with changes in the weather. He does seem to lean forward on the grocery cart when shopping. Pain Description: Timing: constant Character: Aching and Stabbing Primary Location: Right sided Mid thoracic (can go to both sides at times) Radiation: Lumbar Back Exacerbating factors: standing, forward flexion, lifting, and walking Relieving factors: unable to pinpoint positions/factors that are mitigating Interferes with: physical activity, walking, sleeping, cooking, household cleaning, reaching for shelves, and lifting The patient reports 2 hours of uninterrupted sleep per night The patient denies difficulty with bowel or bladder control, unintentional weight loss, and fevers, chills, or night sweats. Treatments to date include the following: Medications (See below), Injections (See below), Modalities (eg. Heat, Ice), Physical Therapy , Chiropractic Manipulation , TENS, and Activity Modification. Past Pain Medications (for the chief complaint(s)): Opioids: Percocet (Oxycodone) NSAIDS: Motrin (Ibuprofen) and Naprosyn (Naproxen) Anti-depressants: Cymbalta (wasn't helpful) Zoloft 100 mg daily Anti-convulsants: Lyrica (Pregabalin) 50 mg 3 times daily (Helpful) Muscle Relaxants: Has been on them but felt they didn't work. Others: SalonpasTylenol (Acetaminophen) Current Status: INTAKE PAIN ASSESSMENT 01/08/2023 01/19/2023 Are you having pain associated with your visit today? Yes, Provider notified Yes, Provider notified Pain Scales - Verbal (Numeric Rating or Visual Analog Scale) Pain Level 5 6 Pain Location Back-Middle Back-Lower Description Aching;Radiating;Shooting;Stabbing Aching;Sharp;Shooting Duration Amount of Time - - Duration Units Hours Days Frequency Intermittent Intermittent Intervention/Comfort measure Reposition;Positioning Medication;Reposition;Relaxation Comments - - Current Anti-Coagulant Use: No Allergies: ALLERGIES Allergen Reactions Poison Tamica Extract Itching Data Reviewed: Reviewed personally on today's date Relevant Imaging: MRI Spine Report MRI LUMBAR SPINE WO IVCON Exam End: 10/02/2022 10:30 AM (Final result) Narrative: * * *Final Report* * * RESULT (more content not included)...[facility]10-19-[facility] Miscellaneous Notes* Telephone Encounter - Della Roque - 01/22/2023 8:45 AM EDT Called patient to schedule ILESI & Ccancel 2nd MBB's. LVM to return call @ [phone]. Della Roque documented in this encounterK[facility]10-19-2023 History of Present illness Narrative* Jessica Tapia APRN.CNP - 01/22/2023 8:27 AM EDT [facility] Today's Date: 01/22/2023 Last Visit: 01/08/2023 This is a virtual visit via Zoom, Phone and/or MyChart. It required patient- provider interaction for the medical decision making as documented below. Patient understands that privacy cannot be guaranteed. Name: Jo Fisher : 1955 Purpose: Established Patient Chief Complaint: Mid and Lower back pain Referred by: Dr. Zamora (PCP) PMH:DM, anxiety/depression, HTN, HLD, COPD, Medical THC Interval HPI: Patient presents today for follow up status post BL L4/5, L5/S1 MBBs (1st set) with Dr. Salguero on 01/19/2023. Patient states that he is having right sided mid-back pain, it is a stabbing pain. It starts mid back and radiates down to the lower back. This was bothering him the morning of the procedure and has now persisted since. He states that this is worse first thing in the morning, but it can wax and wain through the day. He is also status post R T5 REID NB with Dr Salguero on 01/05/2023. He states he has not seen improvement to his myofacial tightness and spasm since injection. At last office visit, Lyrica was increased to 100 mg TID. He feels like this has not provided him with much beneift. He was ordered left hip imaging, however, he has not had that done yet. Initial HPI: (Obtained on 10/28/2022) Jo Fisher is a 67 year old year-old male; for evaluationand management of the above-mentioned chief complaint. This has been present for the past 12 years. The onset of symptoms was sudden and was without associated trauma. Patient states he had a work injury in 2010. 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 He states his pain is the worst with things like reaching out, standing and doing dishes. He is constantly rubbing his right side thoracic region, to the point there has skin color and texture changes there. He also has pain to his left hip. He states it is a burning ache and numbness. This effects his gait. He states he was with a PM in [place] and was getting injections. He isn't sure exactly what he got. Butdotatyana remember he had a testing injection with lidocaine. Perhaps it was a MBB. He does think thathe has had lumbar RFA, and states it wasn't helpful. He was to start PT, however went to one visit and could not tolerate it. This was a few weeks ago. He states that the pain seems to be consistent throughout the day. No specific time of the day it is bothersome. He does notice his pain increases with changes in the weather. He does seem to lean forward on the grocery cart when shopping. Pain Description: Timing: constant Character: Aching and Stabbing Primary Location: Right sided Mid thoracic (can go to both sides at times) Radiation: Lumbar Back Exacerbating factors: standing, forward flexion, lifting, and walking Relieving factors: unable to pinpoint positions/factors that are mitigating Interferes with: physical activity, walking, sleeping, cooking, household cleaning, reaching for shelves, and lifting The patient reports 2 hours of uninterrupted sleep per night The patient denies difficulty with bowel or bladder control, unintentional weight loss, and fevers,chills, or night sweats. Treatments to date include the following: Medications (See below), Injections (See below), Modalities (eg. Heat, Ice), Physical Therapy , Chiropractic Manipulation , TENS, and Activity Modification. Past Pain Medications (for the chief complaint(s)): Opioids: Percocet (Oxycodone) NSAIDS: Motrin (Ibuprofen) and Naprosyn (Naproxen) Anti-depressants: Cymbalta (wasn't helpful) Zoloft 100 mg daily Anti-convulsants: Lyrica (Pregabalin) 50 mg 3 times daily (Helpful) Muscle Relaxants: Has been on them but felt they didn't work. Others: SalonpasTylenol (Acetaminophen) Current Status: INTAKE PAIN ASSESSMENT 01/08/2023 01/19/2023 Are you having pain associated with your visit today? Yes, Provider notified Yes, Provider notified Pain Scales - Verbal (Numeric Rating or Visual Analog Scale) Pain Level 5 6 Pain Location Back-Middle Back-Lower Description Aching;Radiating;Shooting;Stabbing Aching;Sharp;Shooting Duration Amount of Time - - Duration Units Hours Days Frequency Intermittent Intermittent Intervention/Comfort measure Reposition;Positioning Medication;Reposition;Relaxation Comments - - Current Anti-Coagulant Use: No Allergies: ALLERGIES Allergen Reactions Poison Tamica Extract Itching Data Reviewed: Reviewed personally on today's date Relevant Imaging: MRI Spine Report MRI LUMBAR SPINE WO IVCON Exam End: 10/02/2022 10:30 AM (Final result) Narrative: * * *Final Report* * * RESULT: THORACIC: Counting reference: Craniocervical and lumbosacral junctions For the purposes of this report, Assume the first normal thoracic rib is at the T1 level. Localizer images: Non-diagnostic. Alignment: Alignment is anatomic. Mild to moderate disc space narrowing is noted in the lower thoracic spine. Cord: The thoracic spinal cord is within normal limits of signal intensity and morphology. Bone marrow signal/fracture: No evidence of pathologic marrow infiltration. No evidence of prior fracture. Thoracic soft tissues: The paraspinal soft tissues are within normal limits. Canal and foramina: Minimal disc bulging is noted at T3-4, T9-10 and T10-11 and a small central disc protrusion is noted at T8-9 and T11-12 with slight flattening of ventral surface of the cord at T8-9 but there is no impact on the adjacent spinal cord otherwise. Facet degenerative changes and rostrocaudal facet subluxation cause severe left T10-11 bony foraminal stenosis. The thoracic canal and foramina are otherwise patent. LUMBAR: Counting reference: Craniocervical and lumbosacral junctions For the purposes of this report, L4-5 is considered the level of the iliac crest and assume there are 5 lumbar-type vertebrae. Anatomic variant: None. Localizer images: No additional findings. Alignment: Alignment is anatomic. Moderate disc space narrowing is noted at L4-5 and L5-S1 and mild disc space narrowing is noted at L1-2. Bone marrow signal/fracture: No evidence of pathologic marrow infiltration. No evidence of prior fracture. Conus: The conus is within normal limits of signal intensity and morphology. Paraspinal soft tissues: Paraspinal soft tissues are within normal limits. L1-L2: Mild disc bulging without significant canal or foraminal stenosis. L2-L3: Canal and foramina are patent L3-L4: Canal and foramina are patent L4-L5: Mild disc osteophyte complex with mild canal stenosis. Facet degenerative changes and rostrocaudal facet subluxation cause [id number] right and mild left foraminal stenosis. L5-S1: Mild disc osteophyte complex and small shallow right central disc protrusion, the latter of which abuts the exiting right S1 nerve root sleeve. No significant impact on the thecal sac. Facet degenerative changes and rostrocaudal facet subluxation cause mild right and moderate left foraminal stenosis. Sacrum and iliac wings: Mild arthritic changes in the right SI joint. Impression: IMPRESSION: Small eccentric disc protrusion at L5-S1 abutting the exiting right S1 nerve root sleeve. No impact on the adjacent thecal sac. Bony foraminal stenosis at L4-5 and L5-S1 as outlined above. Mild thoracic degenerative disc disease. Small central disc protrusions at T8-9 and T11-12 without significant impact on the cord at either level. Severe left T10-11 bony foraminal stenosis. Anatomic Thoracic/Lumbar Variant: None. L4-5 is considered the level of the iliac crest and assume there are 5 lumbar-type vertebrae. Electrodiagnostic Study (EMG): None Pain Procedures: DATE PROCEDURE IMPROVEMENT 01/19/2023 L4/5, L5/S1 MBBs 0% 01/05/2023 R T5 REID NB 0% 12/22/2022 L5/S1 [place]ISON with left bias 50% Compliance: PDMP website checked and validated. All prescriptions have been APPROPRIATELY filled. No suspiciousactivity was identified. by Jessica Tapia APRN.SPORTS BOOK SERVER Risk Assessment: LIZ-7: LIZ - 7 SCORES 10/28/2022 LIZ-7 Score 3 (0-4) minimal anxiety, (5-9) mild anxiety, (10-14) moderate anxiety, (15-21) severe anxiety PHQ-9: PHQ-9 10/07/2022 10/07/2022 10/28/2022 Score 3 3 5 (0-4) minimal depression, (5-9) mild depression, (10-14) moderate depression, (15-19) moderately severe depression, (20-27) severe depression Opioid Risk Tool: Family History of Substance Abuse: 0 - No Personal History of Substance Abuse: 0 - No Age between 16-45: 0 - No History of Pre-Adolescence Sexual Abuse: 0 - No Psychological Disease: 0 - No Risk Total: 0 Total Score Risk Category: Low Risk 0-3 (0-3, low risk or no risk; 4-7, moderate risk, 8+, high risk) Current Medications, Past Medical History, Past Surgical History, Family History, Social History and Review of Systems: On today's date, noted above, I have confirmed and edited as necessary, the PFSH and ROS obtained by others. Current Medications, Past Medical History, Past Surgical History, Family History & Social History: Reviewed on today's date. Review of Systems: Reviewed on today's date. Pertinent Positives: MSK - pain in the region being treated Neuro: No weakness or numbness in the region being treated Skin: Negative (No itching) Eyes: Negative (No blurred or double vision) Respiratory: Negative (No Cough, [id number]-[id number], Dyspnea on exertion, wheezing) Cardiovascular: Negative (No Chest Pain, Tightness, Pressure, Palpitations) Gastrointestinal: Negative (No Abdominal pain, Nausea, Vomiting, Constipation, Diarrhea) Genitourinary: Negative (No dysuria) Hematologic: Negative (No bleeding, bruising) OB: is Denied or Not Applicable Endocrine: Negative (No hot/cold intolerance) Psychiatric: Negative (No depression, anxiety or suicidal ideation) Physical Exam: There were no vitals filed for this visit. Constitutional:normal weight Eyes: Conjunctiva clear. No discharge from eyes Cardiovascular: Appears well perfused Lymphatic: No visible regional lymphadenopathy Skin: No visible rashes or ecchymosis Psychiatric: Full affect, Alert, Pleasant Note: Examination was limited today due to this being a virtual/telemedicine encounter Psychiatric: Full affect, Alert, Pleasant LUMBAR MUSCULOSKELETAL/NEURO EXAM (10/28/2022) Inspection: - Symmetric without atrophy Posture: - Normal intact spinal curves Gait: - Normal Spine Range of Motion: - Flexion: Full with pain - Extension: Full with pain -Rotation: Full with pain Palpation: - Lumbar Paraspinal Tenderness: Concordant in the Bilateral lumbar paraspinals - Paraspinal Spasms: Moderate - Facet Loading: Right-positive; Left-positive - Greater Trochanter: None tenderness Bilateral Strength: LEFT RIGHT Iliopsoas (L2) 4 5 Quadriceps (L3) 4 5 Anterior Tibialis (L4): 4 5 Exten Hallucis Longus (L5) 4 5 Gastrocnemius (S1): 4 5 Muscle Tone: - Normal and symmetric Neural Tension Signs: -Straight Leg Exam Negative Bilateral lower limb(s) Sensation: - diminished to light touch in the L2-S2 Left lower limb dermatomes Reflexes: LEFT RIGHT Patellar (L4) Normal 2+ Normal 2+ Achilles (S1) Normal 2+ Normal 2+ Clonus Negative Negative Hip Range of Motion: - Normal with None pain at end range internal rotation - Normal with None pain at end range external rotation Sacroiliac Maneuvers: - SIJ tenderness: Negative Bilateral - Sheila's (ankle to knee, push down): positive for concordant pain at the anterior hip joint-left side Significant tenderness to palpation at the R thoracic paraspinal region around braline. Diagnoses: 1. Chronic right-sided thoracic back pain 2. Radiculopathy of lumbar region 3. Back pain due to injury 4. Spinal stenosis of thoracic region Impression & Plan: Unfortunately patient did not respond well to lumbar MBB's, we will cancel the second set. He also did not have a positive response to the right T5 REID NB. He continues to have that right-sided flankpain especially concentrated to a small region below the bra line which bothers him a lot he constantly rubs that region. After discussing imaging and considering pain complaints we discussed thoracic MADISON. Patient was agreeable to this. Although he did have severe left foraminal stenosis that he 10/ his pain seems to be more concentrated to the right side, slightly below the bra line. In the meantime we will increase patient's Lyrica to 150 mg 3 times daily. Encourage patient to obtain hip imaging as he also complained that his left hip continues to bother him. Patient to follow-up after intervention and after x-ray. Depending on results of current treatment plan consider: Titrate Lyrica, repeat lumbar MADISON, TBD-pending response to thoracic MADISON, TPI's to right thoracic paraspinal region (not previously tolerated)-pending response to REID NB Medications: Requested Prescriptions Pending Prescriptions Disp Refills pregabalin (LYRICA) 100 mg capsule 90 capsule 1 Sig: Take 1 capsule by mouth three times a day for 30 days. TIME ON VISIT: Virtual visit 20 minutes-due to technical difficulties was done via audio only Attribution: In addition to reviewing the information noted above, some elements copied from my most recent clinical note(s), including the physical exam (completed in entirety today), and the impression and plan sections, have been updated where appropriate. All reflect current medical decision making from today's date. Jessica Tapia APRN.[employer] B[employer] SERVER Pain Management [facility] NoteHNO ID: [id number] Author: Shiv Salguero MD Service: ? Author Type: Physician Type: Progress Notes Filed: 01/19/2023 7:22 AM Note Text: [facility] Date: 01/19/2023 Patient name: Jo Fisher Physician performing procedure: Shiv Salguero MD, PhD Procedure: Lumbar Medial Branch Blocks under fluoroscopic guidance Levels Treated: Bilateral L4/5 and L5/S1 Facet Joint Nerves, aka Medial Branch(es) Approach: Bilateral Oblique Injectate: A total of 3cc of 0.5% Bupivacaine (0.5 ml per site) Improvement after today's procedure: as per nursing report Diagnosis: (M47.816) Lumbar spondylosis (primary encounter diagnosis) Comments: None HPI: Jo Fisher is an 67 year old MALE w/ opioid abuse history, HTN, T2DM, perforated sigmoid colon s/p repair who presents today for elective, diagnostic medial branch blocks. Patient otherwise denies fevers, chills, weakness, saddle anesthesia, bowel or bladder incontinence or recent antibiotic or anticoagulant use. Review of Systems: Pertinent Positives: MSK: pain in the region being treated Neuro: No weakness or numbness in the region being treated Skin: Negative (No itching) Eyes: Negative (No blurred or double vision) Respiratory: Negative (No Cough, Wayqtakhz-[id number], Dyspnea on exertion, wheezing) Cardiovascular: Negative (No Chest Pain, Tightness, Pressure, Palpitations) Gastrointestinal: Negative (No Abdominal pain, Nausea, Vomiting, Constipation, Diarrhea) Genitourinary: Negative (No dysuria) Hematologic: Negative (No bleeding, bruising) OB: is Denied or Not Applicable Endocrine: Negative (No hot/cold intolerance) Psychiatric: Negative (No depression, anxiety or suicidal ideation) ALLERGIES Allergen Reactions Poison Tamica Extract Itching Current Outpatient Medications on File Prior to Visit Medication Sig pregabalin (LYRICA) 100 mg capsule Take 1 capsule by mouth three times a day for 30 days. hydroCHLOROthiazide 12.5 mg capsule Take 1 capsule by mouth once daily. albuterol HFA (PROVENTIL HFA, VENTOLIN HFA) 90 mcg/actuation inhaler INHALE 1-2 PUFFS BY MOUTH DAILY NEEDED atorvastatin (LIPITOR) 40 mg tablet Take 1 tablet by mouth once daily. traZODone (DESYREL) 50 mg tablet TAKE 2 TABLETS BY MOUTH EVERY EVENING AT 6 PM. tiZANidine (ZANAFLEX) 4 mg tablet TAKE 1 TABLET BY MOUTH EVERY DAY AT BEDTIME NEEDED FOR MUSCLE SPASM sertraline (ZOLOFT) 100 mg tablet TAKE 1 TABLET BY MOUTH EVERY DAY methocarbamol (ROBAXIN) 750 mg tablet TAKE 1 PILL BY MOUTH UP TO 3 TIMES PER DAY NEEDED FOR PAINFUL MUSCLE SPASMS diclofenac, EC, (VOLTAREN) 75 mg EC tablet TAKE 1 PILL BY MOUTH WITH FOOD UP TO EVERY 12 HOURS NEEDED FOR PAIN empagliflozin (JARDIANCE) 10 mg tablet Take 1 tablet by mouth once daily. lisinopril (ZESTRIL,PRINIVIL) 30 mg tablet Take 30 mg by mouth once daily. metoprolol succinate ER (TOPROL XL) 100 mg Take 100 mg by mouth once daily. Fluticasone Propionate (CUTIVATE) 0.05 % cream Apply to affected area twice daily. metFORMIN (GLUCOPHAGE) 1,000 mg tablet Take 1 tablet by mouth twice daily with meals. No current facility-administered medications on file prior to visit. PAST MEDICAL HISTORY Diagnosis Date Opiate abuse, episodic (HCC) history of opiate abuse, per care everywhere note 04/21/2022 Perforated sigmoid colon (HCC) PAST SURGICAL HISTORY Procedure Laterality Date PAST SURGICAL HISTORY OF colon surgery PAST SURGICAL HISTORY OF colostomy bag REPAIR EPIGASTRIC HERNIA,REDUC FAMILY HISTORY Problem Relation Age of Onset Hypertension Mother Heart Father Social History Tobacco Use Smoking status: Former Packs/day: 1.50 Years: 44.00 Additional pack years: 0.00 Total pack years: 66.00 Types: Cigarettes Quit date: 09/17/2012 Years since quittin.3 Smokeless tobacco: Never Vaping Use Vaping Use: Some days Substances: Nicotine Devices: Disposable Substance Use Topics Alcohol use: Yes Comment: very rarely Drug use: Yes Types: Marijuana Comment: medical marijuana card - occationally Attestation Information obtained by others were confirmed and edited as necessary on 01/12/2023 by Shiv Salguero MD. Objective Exam: Vitals: As per nursing documentation Constitutional: Normal Appearance, Oriented to Time, Place and Person Head: No lacerations, no external signs of trauma Eyes: Conjunctiva clear. No discharge from the eyes Cardiovascular: Appears well-perfused Pulmonary: Non-labored respirations Abdominal: Non-distended Skin: No visible rashes or ecchymosis Psychiatric: Mood appropriate for given condition Neurological: no focal deficits, gross movements are limited by pain, but otherwise unremarkable Data Reviewed: Nursing note and vitals reviewed. Additional imaging reviewed as appropriate Assessment and Plan: We discussed their current p (more content not included)... [facility]10-16-2023 NoteHNO ID: [id number] Author: Saloni Segundo LPN Service: ? Author Type: LICENSED NURSE Type: Progress Notes Filed: 01/19/2023 7:22 AM Note Text: Review of Systems Constitutional: Positive for activity change. Negative for chills, fever and unexpected weight change. Gastrointestinal: Negative for bowel retention or incontinence Genitourinary: Negative for difficulty urinating. Negative for bladder retention or incontinence Musculoskeletal: Positive for back pain. Negative for arthralgias, gait problem, joint swelling, myalgias, neck pain and neck stiffness. Neurological: Positive for headaches. Negative for weakness and numbness. Psychiatric/Behavioral: Positive for sleep disturbance. Negative for dysphoric mood and suicidal ideas. The patient is not nervous/anxious.[facility]10-16-2023 Nurse Note* Sandra Laurent LPN - 01/19/2023 7:22 AM EDT Order has been placed in the patient's chart with the following parameters for discharge from the physician: Patient is alert and oriented Vitals: Diastolic/Systolic +/- 20mmHg Respirations: 12-18 Pulse: 60-100 SpO2 is greater than or equal to 90% Patient has no nausea or vomiting Patient has no dizziness Pain level is +/- 2 from initial evaluation Dressing, dry and intact with no evidence of bleeding Criteria has been met, patient is okay to be discharged per the physician. Physician has gone in and evaluated the patient. Dressing dry and intact. No drainage noted. The patient denies nausea, numbness, tingling, weakness, shortness of breath, dizziness, or headache. Pain level 7/10. Blood pressure is elevated, Patient denies any symptoms. Patient denied needing walked out by clinical staff and denied needing a wheelchair. Patient given discharge instructions and sent to transportation via ambulatory method. Patientleft in good condition. * Saloni Segundo LPN - 01/19/2023 6:53 AM EDT [employer] Development Engineer's Name: Eldon Are you on a blood thinner: NO If yes, is a hold required: NO Last dose of blood thinner: NO INR Result today: NO Do you require a Lovenox bridge:NO Are you a diabetic:YES 147 Are you/or could you be : NO Are you taking Xanax for the procedure: NO Are you currently on a steroid? NO Are you currently on an antibiotic: NO Have you had a COVID-19 vaccine in the last 14 days Or are you scheduled to receive one? NO * Rehana Jiang - 01/19/2023 6:49 AM EDT Procedure to be performed: Bilateral L4/5, L5/S1 Lumbar Medial Branch Blocks Patient was walked from exam room to procedure room and assisted onto the procedure tablePatient s procedure was performed in an [facility] Procedure room. Pause completed at each level by provider to verify correct level and laterality placement Pressure was applied to patient s injection site(s) and bleeding was minimal. Patient had no complaint of shortness of breath, dizziness, headache, numbness, tingling, weakness or complications from procedure. Patient was assisted from the procedure table and walked back to exam room. Patient was advised a clinician will be to obtain another set of vitals. Time Out: 708 Confirmed patient name, date of , procedure site, laterality, and allergies Procedure Start: 711 Procedure End: 718 documented in this [facility]23 Instructions* Patient Instructions* Sandra Laurent LPN - 01/19/2023 7:10 AM EDT PROCEDURE DISCHARGE INSTRUCTIONS 01/19/2023 Jo Fisher 1955 Physician: Shiv Salguero MD Procedure: Facet Joint Injection/Medial Branch Block Post Procedure Instructions: If sedation not given, no driving for 3 hours after the procedure., Perform activities that typically make you have pain and monitor your pain level during these activities for the next 3-4 hours., Apply cold compresses to injection site if needed., If medically acceptable, take over the counter anti- inflammatories such as ibuprofen or Aleve if needed for post procedure discomfort., No hot baths,hot tubs or hot compresses for 24 hours., and Increased pain the day after the procedure may occur. If you have any of the following signs or symptoms, please call our office at Fever and/or chills Swelling and/or drainage from injection site New pain that is different than your normal pain (other than soreness at the site of the procedure) Stiff neck Shortness of breath Severe increase in pain Motor dysfunctions, such as difficulty walking, bowel or bladder dysfunction and/or incontinence Headache that is severe, light sensitive or develops when changing positions (positional headache) Nausea and/or vomiting accompanied by headache that started 24-48 hours after the procedure If you have any emergent concerns, please call 911 or go to your local emergency room. Please also contact our office to let us know you will be seeking emergency care and why. documented in this [facility]10-[facility]23 History of Present illness Narrative* Shiv Salguero MD - 01/19/2023 7:00 AM EDT [facility] Date: 01/19/2023 Patient name: Jo Fisher Physician performing procedure: Shiv Salguero MD, PhD Procedure: Lumbar Medial Branch Blocks under fluoroscopic guidance Levels Treated: Bilateral L4/5 and L5/S1 Facet Joint Nerves, aka Medial Branch(es) Approach: Bilateral Oblique Injectate: A total of 3cc of 0.5% Bupivacaine (0.5 ml per site) Improvement after today's procedure: as per nursing report Diagnosis: (M47.816) Lumbar spondylosis (primary encounter diagnosis) Comments: None HPI: Jo Fisher is an 67 year old MALE w/ opioid abuse history, HTN, T2DM, perforated sigmoid colon s/p repair who presents today for elective, diagnostic medial branch blocks. Patient otherwise denies fevers, chills, weakness, saddle anesthesia, bowel or bladder incontinenceor recent antibiotic or anticoagulant use. Review of Systems: Pertinent Positives: MSK: pain in the region being treated Neuro: No weakness or numbness in the region being treated Skin: Negative (No itching) Eyes: Negative (No blurred or double vision) Respiratory: Negative (No Cough, Dmzjuutiz-qy-vajque, Dyspnea on exertion, wheezing) Cardiovascular: Negative (No Chest Pain, Tightness, Pressure, Palpitations) Gastrointestinal: Negative (No Abdominal pain, Nausea, Vomiting, Constipation, Diarrhea) Genitourinary: Negative (No dysuria) Hematologic: Negative (No bleeding, bruising) OB: is Denied or Not Applicable Endocrine: Negative (No hot/cold intolerance) Psychiatric: Negative (No depression, anxiety or suicidal ideation) ALLERGIES Allergen Reactions Poison Tamica Extract Itching Current Outpatient Medications on File Prior to Visit Medication Sig pregabalin (LYRICA) 100 mg capsule Take 1 capsule by mouth three times a day for 30 days. hydroCHLOROthiazide 12.5 mg capsule Take 1 capsule by mouth once daily. albuterol HFA (PROVENTIL HFA, VENTOLIN HFA) 90 mcg/actuation inhaler INHALE 1-2 PUFFS BY MOUTH DAILY NEEDED atorvastatin (LIPITOR) 40 mg tablet Take 1 tablet by mouth once daily. traZODone (DESYREL) 50 mg tablet TAKE 2 TABLETS BY MOUTH EVERY EVENING AT 6 PM. tiZANidine (ZANAFLEX) 4 mg tablet TAKE 1 TABLET BY MOUTH EVERY DAY AT BEDTIME NEEDED FOR MUSCLE SPASM sertraline (ZOLOFT) 100 mg tablet TAKE 1 TABLET BY MOUTH EVERY DAY methocarbamol (ROBAXIN) 750 mg tablet TAKE 1 PILL BY MOUTH UP TO 3 TIMES PER DAY NEEDED FOR PAINFUL MUSCLE SPASMS diclofenac, EC, (VOLTAREN) 75 mg EC tablet TAKE 1 PILL BY MOUTH WITH FOOD UP TO EVERY 12 HOURS NEEDED FOR PAIN empagliflozin (JARDIANCE) 10 mg tablet Take 1 tablet by mouth once daily. lisinopril (ZESTRIL,PRINIVIL) 30 mg tablet Take 30 mg by mouth once daily. metoprolol succinate ER (TOPROL XL) 100 mg Take 100 mg by mouth once daily. Fluticasone Propionate (CUTIVATE) 0.05 % cream Apply to affected area twice daily. metFORMIN (GLUCOPHAGE) 1,000 mg tablet Take 1 tablet by mouth twice daily with meals. No current facility-administered medications on file prior to visit. PAST MEDICAL HISTORY Diagnosis Date Opiate abuse, episodic (HCC) history of opiate abuse, per care everywhere note 04/21/2022 Perforated sigmoid colon (HCC) PAST SURGICAL HISTORY Procedure Laterality Date PAST SURGICAL HISTORY OF colon surgery PAST SURGICAL HISTORY OF colostomy bag REPAIR EPIGASTRIC HERNIA,REDUC FAMILY HISTORY Problem Relation Age of Onset Hypertension Mother Heart Father Social History Tobacco Use Smoking status: Former Packs/day: 1.50 Years: 44.00 Additional pack years: 0.00 Total pack years: 66.00 Types: Cigarettes Quit date: 09/17/2012 Years since quittin.3 Smokeless tobacco: Never Vaping Use Vaping Use: Some days Substances: Nicotine Devices: Disposable Substance Use Topics Alcohol use: Yes Comment: very rarely Drug use: Yes Types: Marijuana Comment: medical marijuana card - occationally Attestation Information obtained by others were confirmed and edited as necessary on 01/12/2023 by Shiv Salguero MD. Objective Exam: Vitals: As per nursing documentation Constitutional: Normal Appearance, Oriented to Time, Place and Person Head: No lacerations, no external signs of trauma Eyes: Conjunctiva clear. No discharge from the eyes Cardiovascular: Appears well-perfused Pulmonary: Non-labored respirations Abdominal: Non-distended Skin: No visible rashes or ecchymosis Psychiatric: Mood appropriate for given condition Neurological: no focal deficits, gross movements are limited by pain, but otherwise unremarkable Data Reviewed: Nursing note and vitals reviewed. Additional imaging reviewed as appropriate Assessment and Plan: We discussed their current plan and the pathology responsible for the patient's pain. Specific counseling related to the procedure was provided regarding the risks, benefits and alternatives. The patient wishes to proceed with the plan as noted above. Encounter Diagnosis ICD-10-CM 1. Lumbar spondylosis M47.816 NJX DX/THER AGT PVRT FACET JT LMBR/SAC 1 LEVEL NJX DX/THER AGT PVRT FACET JT LMBR/SAC 2ND LEVEL BUPivacaine (PF) 0.5 % (5 mg/mL) 15 mg injection lidocaine 10 mg/mL (1 %) 100 mg injection (XYLOCAINE) UNIVERSAL PROTOCOL / SAFETY CHECKLIST Procedure to be Performed: as stated above Sign In: A Moment of CARE was completed. Personnel directly involved with the procedure wore the appropriate PPE (Personal Protective Equipment). Patient/Surrogate Stated/Verified: PATIENT VERIFIED(optional for EMERGENT procedures): Patient name, Date of , Relevant allergies and The intended procedure Time Out Communication: Intended patient and procedure match the source documents. Consent documented and matches the intended procedure. Relevant labs, photos, and/or imaging studies have been reviewed. Medications required for procedure verified. Sign Out: SIGN OUT (optional for EMERGENT procedures): No specimen collected. Shiv Salguero MD Time out to confirm patient name, date of , procedure site, laterality, and allergies performed by physician. Please see nursing note for exact times (time out, procedure start, procedure end). [place] protocol documentation / Pre-Procedure checklist: Unless stated otherwise in the procedure note, the risks include but are not limited to infection, allergic reaction, increased pain, lack of therapeutic benefit, steroid reaction, nerve damage, paralysis, stroke, epidural hematoma, syncope, headache, respiratory or cardiac arrest, pneumothorax, and scar formation Time Out was led by the physician in the procedure room, with the patient and all staff present andparticipating The following information was verified: name, date of , procedure site (marked), laterality, anticoagulants and allergies [place] protocol documentation / Pre-Procedure Checklist: Consent: Obtained in writing prior to procedure Unless stated otherwise in the procedure note, the risks include but are not limited to infection, allergic reaction, increased pain, lack of therapeutic benefit, steroid reaction, nerve damage, paralysis, stroke, epidural hematoma, syncope, headache, respiratory or cardiac arrest, pneumothorax, and scar formation Once the plan was agreed upon, the patient gave written consent to proceed and was transported intothe procedure room Surgical/Procedure pause or Time Out : Time Out was led by the physician in the procedure room, with the patient and all staff present andparticipating The following information was verified during the Time Out process: Patient name, patient date of , procedure site (marked), laterality, anticoagulants and allergies Anticoagulants: reviewed with patient, notable for: none DESCRIPTION OF PROCEDURE: The patient was brought to the procedure room and placed in the prone position onto the fluoroscopytable. The lumbosacral area was prepped and draped in the usual sterile fashion using Chloroprep and a fenestrated drape. The fluoroscope was brought into the field and a AP image was obtained to identify the above noted lumbar vertebral bodies. The target points were the base of the superior articular process of the above noted levels and the sacrum bilaterally at its junction with the transverse process (or sacral ala). The skin and subcutaneous tissues overlying the proposed needle entry sites were anesthetized with 1 ml of 1% lidocaine per site with a 25G 1.5 inch needle. A 22G spinal needle was then advanced coaxially towards each of these target sites until the needle tip contacted bone. Correct final needle position was confirmed with multiplanar fluoroscopic imaging. After negative aspiration for heme or CSF, the above mentioned injectate was administered in divided doses at each site. After completion of the injection, the needles were removed. The injection sites were cleaned and dried and a sterile dressing was applied. Please see the nursing note for exact times (time out, procedure start, procedure end). After careful removal of the needle, there was minimal bleeding. The injection site was covered with appropriate sterile dressing. The patient was noted to have tolerated the procedure well and was discharged after an appropriate period of post-procedure observation. The patient was instructed to contact us if there were any complications. The patient was advised to follow-up with the requesting physician within one to two weeks or as per their requested follow-up plan. Post procedure visit summary with written instructions was offered to the patient. Shiv Salguero MD, PhD Pain Management [facility] * Saloni Segundo LPN - 01/19/2023 6:57 AM EDT Review of Systems Constitutional: Positive for activity change. Negative for chills, fever and unexpected weight change. Gastrointestinal: Negative for bowel retention or incontinence Genitourinary: Negative for difficulty urinating. Negative for bladder retention or incontinence Musculoskeletal: Positive for back pain. Negative for arthralgias, gait problem, joint swelling, myalgias, neck pain and neck stiffness. Neurological: Positive for headaches. Negative for weakness and numbness. Psychiatric/Behavioral: Positive for sleep disturbance. Negative for dysphoric mood and suicidal ideas. The patient is not nervous/anxious. documented [facility]23 NoteHNO ID: [id number] Author: Jessica Tapia APRN.SPORTS BOOK SERVER Service: ? Author Type: Nurse Practitioner Type: Progress Notes Filed: 01/08/2023 8:37 AM Note Text: [facility] Today's Date: 01/08/2023 Last Visit: 10/28/2022 This is a virtual visit via Zoom, Phone and/or [employer]arest[employer]. It required patient-provider interaction for the medical decision making as documented below. Patient understands that privacy cannot be guaranteed. Name: Jo Fisher : 1955 Purpose: Established Patient Chief Complaint: Mid and Lower back pain Referred by: Dr. Zamora (PCP) PMH:DM, anxiety/depression, HTN, HLD, COPD, Medical THC Interval HPI: Patient presents today for follow up status post L5/S1 ILESI with right bias with Dr. Salguero on . He states he has seen some impromvent to his left pain since the injection. He states he has seen at least 50% reduction in radicaar pain. He also had a R T5 REID NB, however it is too soon to evaluate. HE has follow up scheduled for that. He is also pending lumbar MBB's. Initial HPI: (Obtained on 10/28/2022) Jo Fisher is a 67 year old year-old male; for evaluation and management of the above-mentioned chief complaint. This has been present for the past 12 years. The onset of symptoms was sudden and was without associated trauma. Patient states he had a work injury in 2010. 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 He states his pain is the worst with things like reaching out, standing and doing dishes. He is constantly rubbing his right side thoracic region, to the point there has skin color and texture changes there. He also has pain to his left hip. He states it is a burning ache and numbness. This effects his gait. He states he was with a PM in [place] and was getting injections. He isn't sure exactly what he got. But does remember he had a testing injection with lidocaine. Perhaps it was a MBB. He does think that he has had lumbar RFA, and states it wasn't helpful. He was to start PT, however went to one visit and could not tolerate it. This was a few weeks ago. He states that the pain seems to be consistent throughout the day. No specific time of the day it is bothersome. He does notice his pain increases with changes in the weather. He does seem to lean forward on the grocery cart when shopping. Pain Description: Timing: constant Character: Aching and Stabbing Primary Location: Right sided Mid thoracic (can go to both sides at times) Radiation: Lumbar Back Exacerbating factors: standing, forward flexion, lifting, and walking Relieving factors: unable to pinpoint positions/factors that are mitigating Interferes with: physical activity, walking, sleeping, cooking, household cleaning, reaching for shelves, and lifting The patient reports 2 hours of uninterrupted sleep per night The patient denies difficulty with bowel or bladder control, unintentional weight loss, and fevers, chills, or night sweats. Treatments to date include the following: Medications (See below), Injections (See below), Modalities (eg. Heat, Ice), Physical Therapy , Chiropractic Manipulation , TENS, and Activity Modification. Past Pain Medications (for the chief complaint(s)): Opioids: Percocet (Oxycodone) NSAIDS: Motrin (Ibuprofen) and Naprosyn (Naproxen) Anti-depressants: Cymbalta (wasn't helpful) Zoloft 100 mg daily Anti-convulsants: Lyrica (Pregabalin) 50 mg 3 times daily (Helpful) Muscle Relaxants: Has been on them but felt they didn't work. Others: SalonpasTylenol (Acetaminophen) Current Status: INTAKE PAIN ASSESSMENT 01/05/2023 01/08/2023 Are you having pain associated with your visit today? Yes, Provider notified Yes, Provider notified Pain Scales Verbal (Numeric Rating or Visual Analog Scale) - Pain Level 6 5 Pain Location Back Back-Middle Description Stabbing/Not Incision;Aching;Cramping Aching;Radiating;Shooting;Stabbing Duration Amount of Time - - Duration Units Years Hours Frequency Intermittent Intermittent Intervention/Comfort measure Other: See comment Reposition;Positioning Comments - - Current Anti-Coagulant Use: No Allergies: ALLERGIES Allergen Reactions Poison Tamica Extract Itching Data Reviewed: Reviewed personally on today's date Relevant Imaging: MRI Spine Report MRI LUMBAR SPINE WO IVCON Exam End: 10/02/2022 10:30 AM (Final result) Narrative: * * *Final Report* * * RESULT: THORACIC: Counting reference: Craniocervical and lumbosacral junctions For the purposes of this report, Assume the first normal thoracic rib is at the T1 level. Localizer images: Non-diagnostic. Alignment: Alignment is anatomic. Mild to moderate disc space narrowing is noted in the lower thoracic spine. Cord: The thoracic spinal cord is within normal limits of signal intensity and morpholo (more content not included)...[facility] 01-08-2023 History of Present illness Narrative* Jessica Tapia APRN.SPORTS BOOK SERVER - 01/08/2023 8:24 AM EDT [facility] Today's Date: 01/08/2023 Last Visit: 10/28/2022 This is a virtual visit via Zoom, Phone and/or MyChart. It required patient- provider interaction for the medical decision making as documented below. Patient understands that privacy cannot be guaranteed. Name: Jo Fisher : 1955 Purpose: Established Patient Chief Complaint: Mid and Lower back pain Referred by: Dr. Zamora (PCP) PMH:DM, anxiety/depression, HTN, HLD, COPD, Medical THC Interval HPI: Patient presents today for follow up status post L5/S1 ILESI with right bias with Dr. Salguero on . He states he has seen some impromvent to his left pain since the injection. He states he has seen at least 50% reduction in radicaar pain. He also had a R T5 REID NB, however it is too soon to evaluate. HE has follow up scheduled for that. He is also pending lumbar MBB's. Initial HPI: (Obtained on 10/28/2022) Jo Fisher is a 67 year old year-old male; for evaluationand management of the above-mentioned chief complaint. This has been present for the past 12 years. The onset of symptoms was sudden and was without associated trauma. Patient states he had a work injury in 2010. 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 He states his pain is the worst with things like reaching out, standing and doing dishes. He is constantly rubbing his right side thoracic region, to the point there has skin color and texture changes there. He also has pain to his left hip. He states it is a burning ache and numbness. This effects his gait. He states he was with a PM in [place] and was getting injections. He isn't sure exactly what he got. Butdoes remember he had a testing injection with lidocaine. Perhaps it was a MBB. He does think thathe has had lumbar RFA, and states it wasn't helpful. He was to start PT, however went to one visit and could not tolerate it. This was a few weeks ago. He states that the pain seems to be consistent throughout the day. No specific time of the day it is bothersome. He does notice his pain increases with changes in the weather. He does seem to lean forward on the grocery cart when shopping. Pain Description: Timing: constant Character: Aching and Stabbing Primary Location: Right sided Mid thoracic (can go to both sides at times) Radiation: Lumbar Back Exacerbating factors: standing, forward flexion, lifting, and walking Relieving factors: unable to pinpoint positions/factors that are mitigating Interferes with: physical activity, walking, sleeping, cooking, household cleaning, reaching for shelves, and lifting The patient reports 2 hours of uninterrupted sleep per night The patient denies difficulty with bowel or bladder control, unintentional weight loss, and fevers,chills, or night sweats. Treatments to date include the following: Medications (See below), Injections (See below), Modalities (eg. Heat, Ice), Physical Therapy , Chiropractic Manipulation , TENS, and Activity Modification. Past Pain Medications (for the chief complaint(s)): Opioids: Percocet (Oxycodone) NSAIDS: Motrin (Ibuprofen) and Naprosyn (Naproxen) Anti-depressants: Cymbalta (wasn't helpful) Zoloft 100 mg daily Anti-convulsants: Lyrica (Pregabalin) 50 mg 3 times daily (Helpful) Muscle Relaxants: Has been on them but felt they didn't work. Others: SalonpasTylenol (Acetaminophen) Current Status: INTAKE PAIN ASSESSMENT 01/05/2023 01/08/2023 Are you having pain associated with your visit today? Yes, Provider notified Yes, Provider notified Pain Scales Verbal (Numeric Rating or Visual Analog Scale) - Pain Level 6 5 Pain Location Back Back-Middle Description Stabbing/Not Incision;Aching;Cramping Aching;Radiating;Shooting;Stabbing Duration Amount of Time - - Duration Units Years Hours Frequency Intermittent Intermittent Intervention/Comfort measure Other: See comment Reposition;Positioning Comments - - Current Anti-Coagulant Use: No Allergies: ALLERGIES Allergen Reactions Poison Tamica Extract Itching Data Reviewed: Reviewed personally on today's date Relevant Imaging: MRI Spine Report MRI LUMBAR SPINE WO IVCON Exam End: 10/02/2022 10:30 AM (Final result) Narrative: * * *Final Report* * * RESULT: THORACIC: Counting reference: Craniocervical and lumbosacral junctions For the purposes of this report, Assume the first normal thoracic rib is at the T1 level. Localizer images: Non-diagnostic. Alignment: Alignment is anatomic. Mild to moderate disc space narrowing is noted in the lower thoracic spine. Cord: The thoracic spinal cord is within normal limits of signal intensity and morphology. Bone marrow signal/fracture: No evidence of pathologic marrow infiltration. No evidence of prior fracture. Thoracic soft tissues: The paraspinal soft tissues are within normal limits. Canal and foramina: Minimal disc bulging is noted at T3-4, T9-10 and T10-11 and a small central disc protrusion is noted at T8-9 and T11-12 with slight flattening of ventral surface of the cord at T8-9 but there is no impact on the adjacent spinal cord otherwise. Facet degenerative changes and rostrocaudal facet subluxation cause severe left T10-11 bony foraminal stenosis. The thoracic canal and foramina are otherwise patent. LUMBAR: Counting reference: Craniocervical and lumbosacral junctions For the purposes of this report, L4-5 is considered the level of the iliac crest and assume there are 5 lumbar-type vertebrae. Anatomic variant: None. Localizer images: No additional findings. Alignment: Alignment is anatomic. Moderate disc space narrowing is noted at L4-5 and L5-S1 and mild disc space narrowing is noted at L1-2. Bone marrow signal/fracture: No evidence of pathologic marrow infiltration. No evidence of prior fracture. Conus: The conus is within normal limits of signal intensity and morphology. Paraspinal soft tissues: Paraspinal soft tissues are within normal limits. L1-L2: Mild disc bulging without significant canal or foraminal stenosis. L2-L3: Canal and foramina are patent L3-L4: Canal and foramina are patent L4-L5: Mild disc osteophyte complex with mild canal stenosis. Facet degenerative changes and rostrocaudal facet subluxation cause [id number]-[id number] right and mild left foraminal stenosis. L5-S1: Mild disc osteophyte complex and small shallow right central disc protrusion, the latter of which abuts the exiting right S1 nerve root sleeve. No significant impact on the thecal sac. Facet degenerative changes and rostrocaudal facet subluxation cause mild right and moderate left foraminal stenosis. Sacrum and iliac wings: Mild arthritic changes in the right SI joint. Impression: IMPRESSION: Small eccentric disc protrusion at L5-S1 abutting the exiting right S1 nerve root sleeve. No impact on the adjacent thecal sac. Bony foraminal stenosis at L4-5 and L5-S1 as outlined above. Mild thoracic degenerative disc disease. Small central disc protrusions at T8-9 and T11-12 without significant impact on the cord at either level. Severe left T10-11 bony foraminal stenosis. Anatomic Thoracic/Lumbar Variant: None. L4-5 is considered the level of the iliac crest and assume there are 5 lumbar-type vertebrae. Electrodiagnostic Study (EMG): None Pain Procedures: DATE PROCEDURE IMPROVEMENT 12/22/2022 L5/S1 [place] with left bias 50% Compliance: PDMP website checked and validated. All prescriptions have been APPROPRIATELY filled. No suspiciousactivity was identified. by Jessica Tapia APRN.SPORTS BOOK SERVER Risk Assessment: LIZ-7: LIZ - 7 SCORES 10/28/2022 LIZ-7 Score 3 (0-4) minimal anxiety, (5-9) mild anxiety, (10-14) moderate anxiety, (15-21) severe anxiety PHQ-9: PHQ-9 10/07/2022 10/07/2022 10/28/2022 Score 3 3 5 (0-4) minimal depression, (5-9) mild depression, (10-14) moderate depression, (15-19) moderately severe depression, (20-27) severe depression Opioid Risk Tool: Family History of Substance Abuse: 0 - No Personal History of Substance Abuse: 0 - No Age between 16-45: 0 - No History of Pre-Adolescence Sexual Abuse: 0 - No Psychological Disease: 0 - No Risk Total: 0 Total Score Risk Category: Low Risk 0-3 (0-3, low risk or no risk; 4-7, moderate risk, 8+, high risk) Current Medications, Past Medical History, Past Surgical History, Family History, Social History and Review of Systems: On today's date, noted above, I have confirmed and edited as necessary, the PFSH and ROS obtained by others. Current Medications, Past Medical History, Past Surgical History, Family History & Social History: Reviewed on today's date. Review of Systems: Reviewed on today's date. Pertinent Positives: MSK - pain in the region being treated Neuro: No weakness or numbness in the region being treated Skin: Negative (No itching) Eyes: Negative (No blurred or double vision) Respiratory: Negative (No Cough, [id number]-[id number], Dyspnea on exertion, wheezing) Cardiovascular: Negative (No Chest Pain, Tightness, Pressure, Palpitations) Gastrointestinal: Negative (No Abdominal pain, Nausea, Vomiting, Constipation, Diarrhea) Genitourinary: Negative (No dysuria) Hematologic: Negative (No bleeding, bruising) OB: is Denied or Not Applicable Endocrine: Negative (No hot/cold intolerance) Psychiatric: Negative (No depression, anxiety or suicidal ideation) Physical Exam: There were no vitals filed for this visit. Constitutional:normal weight Eyes: Conjunctiva clear. No discharge from eyes Cardiovascular: Appears well perfused Lymphatic: No visible regional lymphadenopathy Skin: No visible rashes or ecchymosis Psychiatric: Full affect, Alert, Pleasant Note: Examination was limited today due to this being a virtual/telemedicine encounter Psychiatric: Full affect, Alert, Pleasant LUMBAR MUSCULOSKELETAL/NEURO EXAM Inspection: - Symmetric without atrophy Posture: - Normal intact spinal curves Gait: - Normal Spine Range of Motion: - Flexion: Full with pain - Extension: Full with pain -Rotation: Full with pain Palpation: - Lumbar Paraspinal Tenderness: Concordant in the Bilateral lumbar paraspinals - Paraspinal Spasms: Moderate - Facet Loading: Right-positive; Left-positive - Greater Trochanter: None tenderness Bilateral Strength: LEFT RIGHT Iliopsoas (L2) 4 5 Quadriceps (L3) 4 5 Anterior Tibialis (L4): 4 5 Exten Hallucis Longus (L5) 4 5 Gastrocnemius (S1): 4 5 Muscle Tone: - Normal and symmetric Neural Tension Signs: -Straight Leg Exam Negative Bilateral lower limb(s) Sensation: - diminished to light touch in the L2-S2 Left lower limb dermatomes Reflexes: LEFT RIGHT Patellar (L4) Normal 2+ Normal 2+ Achilles (S1) Normal 2+ Normal 2+ Clonus Negative Negative Hip Range of Motion: - Normal with None pain at end range internal rotation - Normal with None pain at end range external rotation Sacroiliac Maneuvers: - SIJ tenderness: Negative Bilateral - Sheila's (ankle to knee, push down): positive for concordant pain at the anterior hip joint-left side Significant tenderness to palpation at the R thoracic paraspinal region around braline. Diagnoses: 1. Myofascial pain - PRE-CERT ORDER (AG) - tiZANidine (ZANAFLEX) 4 mg tablet; Take 1 tablet by mouth at bedtime as needed (muscle spasms). Dispense: 30 tablet; Refill: 5 - methocarbamol (ROBAXIN) 750 mg tablet; TAKE 1 PILL BY MOUTH UP TO 3 TIMES PER DAY NEEDED FOR PAINFUL MUSCLE SPASMS Dispense: 90 tablet; Refill: 5 2. Chronic right-sided thoracic back pain - PRE-CERT ORDER (AG) 3. Spinal stenosis, lumbar region with neurogenic claudication - PRE-CERT ORDER (AG) 4. Lumbar spondylosis - PRE-CERT ORDER (AG) - diclofenac, EC, (VOLTAREN) 75 mg EC tablet; TAKE 1 PILL BY MOUTH WITH FOOD UP TO EVERY 12 HOURS NEEDED FOR PAIN Dispense: 60 tablet; Refill: 5 Impression & Plan: Patient had a positive response to LESI, we can repeat this as needed. For his residual pain to his left hip will obtain lactic hip x-ray and increase Lyrica to 100 mg 3 times daily. The pain could also be referred from his lower back. We can evaluate after his MBB's as well. Patient will follow-up as scheduled, he was agreeable to this plan. Depending on results of current treatment plan consider: Titrate Lyrica, lumbar RFA, TPI's to rightthoracic paraspinal region (not previously tolerated)-pending response to REID NB Medications: Requested Prescriptions Pending Prescriptions Disp Refills pregabalin (LYRICA) 100 mg capsule 90 capsule 1 Sig: Take 1 capsule by mouth three times a day for 30 days. TIME ON VISIT: Virtual visit 20 minutes-due to technical difficulties was done via audio only Attribution: In addition to reviewing the information noted above, some elements copied from my most recent clinical note(s), including the physical exam (completed in entirety today), and the impression and plan sections, have been updated where appropriate. All reflect current medical decision making from today's date. Jessica Tapia APRN.[facility] documented in this [facility] Miscellaneous Notes* Telephone Encounter - Tawana Crews LPN - 01/07/2023 3:31 PM EDT Attempted to contact patient to follow up after procedure. Left a brief message asking patient to return call if they have any questions or concerns. Tawana Crews LPN documented in this [facility]10-02-2023 NoteHNO ID: [id number] Author: Shiv Salguero MD Service: ? Author Type: Physician Type: Progress Notes Filed: 01/05/2023 3:00 PM Note Text: [facility] Date: 01/05/2023 Patient name: Jo Fisher Physician performing procedure: Shiv Salguero MD, PhD Procedure: Erector Spinae Block under Fluoroscopic Guidance Side Treated: Right Injectate: A total of 10cc, consisting of 1cc of Depo-medrol (40mg/cc), 5cc of 0.75% Bupivacaine and 4cc of Normal Saline (effective dose of 0.375% Bupivicaine) Improvement after today's procedure: as per nursing report Diagnosis: (M79.18) Myofascial pain (primary encounter diagnosis) (M54.6, G89.29) Chronic right-sided thoracic back pain Comments: None HPI: Jo Fisher is an 67 year old MALE w/ opioid abuse history, HTN, T2DM, perforated sigmoid colon s/p repair who presents today for an elective erector spinae block. Patient otherwise denies fevers, chills, weakness, saddle anesthesia, bowel or bladder incontinence or recent antibiotic or anticoagulant use. Review of Systems: Pertinent Positives: MSK: pain in the region being treated Neuro: No weakness or numbness in the region being treated Skin: Negative (No itching) Eyes: Negative (No blurred or double vision) Respiratory: Negative (No Cough, Pxzqybeiy-bx-wtpgkl, Dyspnea on exertion, wheezing) Cardiovascular: Negative (No Chest Pain, Tightness, Pressure, Palpitations) Gastrointestinal: Negative (No Abdominal pain, Nausea, Vomiting, Constipation, Diarrhea) Genitourinary: Negative (No dysuria) Hematologic: Negative (No bleeding, bruising) OB: is Denied or Not Applicable Endocrine: Negative (No hot/cold intolerance) Psychiatric: Negative (No depression, anxiety or suicidal ideation) ALLERGIES Allergen Reactions Poison Tamica Extract Itching Current Outpatient Medications on File Prior to Visit Medication Sig albuterol HFA (PROVENTIL HFA, VENTOLIN HFA) 90 mcg/actuation inhaler INHALE 1-2 PUFFS BY MOUTH DAILY NEEDED pregabalin (LYRICA) 50 mg capsule Take 1 capsule by mouth three times daily for 180 days. atorvastatin (LIPITOR) 40 mg tablet Take 1 tablet by mouth once daily. traZODone (DESYREL) 50 mg tablet TAKE 2 TABLETS BY MOUTH EVERY EVENING AT 6 PM. tiZANidine (ZANAFLEX) 4 mg tablet TAKE 1 TABLET BY MOUTH EVERY DAY AT BEDTIME NEEDED FOR MUSCLE SPASM sertraline (ZOLOFT) 100 mg tablet TAKE 1 TABLET BY MOUTH EVERY DAY methocarbamol (ROBAXIN) 750 mg tablet TAKE 1 PILL BY MOUTH UP TO 3 TIMES PER DAY NEEDED FOR PAINFUL MUSCLE SPASMS diclofenac, EC, (VOLTAREN) 75 mg EC tablet TAKE 1 PILL BY MOUTH WITH FOOD UP TO EVERY 12 HOURS NEEDED FOR PAIN empagliflozin (JARDIANCE) 10 mg tablet Take 1 tablet by mouth once daily. hydroCHLOROthiazide (HYDRODIURIL, ESIDRIX) 12.5 mg capsule Take 12.5 mg by mouth once daily. lisinopril (ZESTRIL,PRINIVIL) 30 mg tablet Take 30 mg by mouth once daily. metoprolol succinate ER (TOPROL XL) 100 mg Take 100 mg by mouth once daily. Fluticasone Propionate (CUTIVATE) 0.05 % cream Apply to affected area twice daily. metFORMIN (GLUCOPHAGE) 1,000 mg tablet Take 1 tablet by mouth twice daily with meals. No current facility-administered medications on file prior to visit. PAST MEDICAL HISTORY Diagnosis Date Opiate abuse, episodic (HCC) history of opiate abuse, per care everywhere note 04/21/2022 Perforated sigmoid colon (HCC) PAST SURGICAL HISTORY Procedure Laterality Date PAST SURGICAL HISTORY OF colon surgery PAST SURGICAL HISTORY OF colostomy bag REPAIR EPIGASTRIC HERNIA,REDUC FAMILY HISTORY Problem Relation Age of Onset Hypertension Mother Heart Father Social History Tobacco Use Smoking status: Former Packs/day: 1.50 Years: 44.00 Additional pack years: 0.00 Total pack years: 66.00 Types: Cigarettes Quit date: 09/17/2012 Years since quittin.3 Smokeless tobacco: Never Vaping Use Vaping Use: Some days Substances: Nicotine Devices: Disposable Substance Use Topics Alcohol use: Yes Comment: very rarely Drug use: Yes Types: Marijuana Comment: medical marijuana card - occationally Attestation Information obtained by others were confirmed and edited as necessary on 01/04/2023 by Shiv Salguero MD. Objective Exam: Vitals: As per nursing documentation Constitutional: Normal Appearance, Oriented to Time, Place and Person Head: No lacerations, no external signs of trauma Eyes: Conjunctiva clear. No discharge from the eyes Cardiovascular: Appears well-perfused Pulmonary: Non-labored respirations Abdominal: Non-distended Skin: No visible rashes or ecchymosis Psychiatric: Mood appropriate for given condition Neurological: no focal deficits, gross movements are limited by pain, but otherwise unremarkable Data Reviewed: Nursing note and vitals reviewed. Additional imaging reviewed as a (more content not included)...[facility] 01-05-2023 NoteHNO ID: [id number] Author: Ronen Stack MA Service: ? Author Type: Senior Clinical Data Analyst Type: Progress Notes Filed: 01/05/2023 3:00 PM Note Text: Review of Systems Constitutional: Negative for activity change, chills, fever and unexpected weight change. Gastrointestinal: Negative for bowel retention or incontinence Genitourinary: Negative for difficulty urinating. Negative for bladder retention or incontinence Musculoskeletal: Positive for arthralgias, back pain, neck pain and neck stiffness. Negative for gait problem, joint swelling and myalgias. Neurological: Positive for headaches. Negative for weakness and numbness. Psychiatric/Behavioral: Negative for dysphoric mood, sleep disturbance and suicidal ideas. The patient is nervous/anxious.[facility] 09-26-2023 Miscellaneous Notes* Telephone Encounter - Elsy Mendoza LPN - 12/30/2022 9:57 AM EDT Opened in error. Elsy Mendoza LPN documented in [facility] Miscellaneous Notes* Telephone Encounter - Elsy Mendoza LPN - 12/30/2022 9:55 AM EDT Patient has been identified by name and date of : Yes Patient phones for refill(s): Requested Prescriptions Pending Prescriptions Disp Refills albuterol HFA (PROVENTIL HFA, VENTOLIN HFA) 90 mcg/actuation inhaler Date of last office visit in primary care: 12/10/2022 6 month follow-up: 06/10/2023 Last 2 Encounter Wt Readings: Date: Wt: 12/10/2022 124.3 kg (274 lb) 10/13/2022 124.3 kg (274 lb) Previous labs/tests for medication: Not applicable Please advise. Thank you. Elsy Mendoza LPN * Telephone Encounter - Ashley Leblanc - 12/29/2022 7:09 PM EDT Patient has been identified by name and date of : Yes Last office visit in this department: Visit date not found RX INSTRUCTIONS: Patient aware RX will be sent to pharmacy. No need to notify patient. Patient phones requesting refills as follows: Requested Prescriptions Pending Prescriptions Disp Refills albuterol HFA (PROVENTIL HFA, VENTOLIN HFA) 90 mcg/actuation inhaler Please review and advise. Ashley Leblanc documented in this encounterK[facility]-18-2023 NoteHNO ID: [id number] Author: Martina Bey MA Service: ? Author Type: Senior Clinical Data Analyst Type: Progress Notes Filed: 12/22/2022 11:41 AM Note Text: Review of Systems Constitutional: Negative for activity change, appetite change, chills, fever and unexpected weight change. Genitourinary: Negative for difficulty urinating. Musculoskeletal: Positive for back pain and neck pain. Negative for arthralgias, gait problem, joint swelling, myalgias and neck stiffness. Neurological: Negative for weakness, numbness and headaches. Psychiatric/Behavioral: Negative for dysphoric mood, sleep disturbance and suicidal ideas. The patient is not nervous/anxious.[facility]09-18-2023 NoteHNO ID: [id number] Author: Shiv Salguero MD Service: ? Author Type: Physician Type: Progress Notes Filed: 12/22/2022 11:41 AM Note Text: [facility] Date: 12/22/2022 Patient name: Jo Fisher Physician performing procedure: Shiv Salguero MD, PhD Procedure: Interlaminar Epidural Steroid Injection (ILESI) under fluoroscopic guidance Levels Treated: L5-S1 Interlaminar Space, Left bias Injectate: A total of 4cc, consisting of 2cc of Depo-medrol (40mg/cc), 1cc of 1% Lidocaine and the remainder consisting of Normal Saline Improvement after today's procedure: as per nursing report Diagnosis: (M48.062) Spinal stenosis, lumbar region with neurogenic claudication (primary encounter diagnosis) (M54.16) Lumbar radiculopathy Comments: None HPI: Jo Fisher is an 67 year old MALE opioid abuse history, HTN, T2DM, perforated sigmoid colon s/p repair who presents today for an elective interlaminar epidural steroid injection. Patient otherwise denies fevers, chills, weakness, saddle anesthesia, bowel or bladder incontinence or recent antibiotic or anticoagulant use. MRI Spine Report MRI LUMBAR SPINE WO IVCON Exam End: 10/02/2022 10:30 AM (Final result) Narrative: * * *Final Report* * * DATE OF EXAM: Oct 02 2022 9:48AM LDM 0303 - MRI LUMBAR SPINE WO IVCON / PROCEDURE REASON: multiple diagnoses * * * * Physician Interpretation * * * * EXAMINATION: MRI LUMBAR SPINE WO IVCON, MRI THORACIC SPINE WO IVCON CLINICAL HISTORY: Chronic thoracic and lumbar pain with progressive increase in severity and frequency, unresponsive to conservative management. TECHNIQUE: Routine lumbosacral and thoracic spine MR protocol without gadolinium. MQ: [id number] COMPARISON: None. RESULT: THORACIC: Counting reference: Craniocervical and lumbosacral junctions For the purposes of this report, Assume the first normal thoracic rib is at the T1 level. Localizer images: Non-diagnostic. Alignment: Alignment is anatomic. Mild to moderate disc space narrowing is noted in the lower thoracic spine. Cord: The thoracic spinal cord is within normal limits of signal intensity and morphology. Bone marrow signal/fracture: No evidence of pathologic marrow infiltration. No evidence of prior fracture. Thoracic soft tissues: The paraspinal soft tissues are within normal limits. Canal and foramina: Minimal disc bulging is noted at T3-4, T9-10 and T10-11 and a small central disc protrusion is noted at T8-9 and T11-12 with slight flattening of ventral surface of the cord at T8-9 but there is no impact on the adjacent spinal cord otherwise. Facet degenerative changes and rostrocaudal facet subluxation cause severe left T10-11 bony foraminal stenosis. The thoracic canal and foramina are otherwise patent. LUMBAR: Counting reference: Craniocervical and lumbosacral junctions For the purposes of this report, L4-5 is considered the level of the iliac crest and assume there are 5 lumbar-type vertebrae. Anatomic variant: None. Localizer images: No additional findings. Alignment: Alignment is anatomic. Moderate disc space narrowing is noted at L4-5 and L5-S1 and mild disc space narrowing is noted at L1-2. Bone marrow signal/fracture: No evidence of pathologic marrow infiltration. No evidence of prior fracture. Conus: The conus is within normal limits of signal intensity and morphology. Paraspinal soft tissues: Paraspinal soft tissues are within normal limits. L1-L2: Mild disc bulging without significant canal or foraminal stenosis. L2-L3: Canal and foramina are patent L3-L4: Canal and foramina are patent L4-L5: Mild disc osteophyte complex with mild canal stenosis. Facet degenerative changes and rostrocaudal facet subluxation cause [id number] right and mild left foraminal stenosis. L5-S1: Mild disc osteophyte complex and small shallow right central disc protrusion, the latter of which abuts the exiting right S1 nerve root sleeve. No significant impact on the thecal sac. Facet degenerative changes and rostrocaudal facet subluxation cause mild right and moderate left foraminal stenosis. Sacrum and iliac wings: Mild arthritic changes in the right SI joint. Impression: IMPRESSION: Small eccentric disc protrusion at L5-S1 abutting the exiting right S1 nerve root sleeve. No impact on the adjacent thecal sac. Bony foraminal stenosis at L4-5 and L5-S1 as outlined above. Mild thoracic degenerative disc disease. Small central disc protrusions at T8-9 and T11-12 without significant impact on the cord at either level. Severe left T10-11 bony foraminal stenosis. Anatomic Thoracic/Lumbar Variant: None. L4-5 is considered the level of the iliac crest and assume there are 5 lumbar-type vertebrae. Sleeping Car Conductor: KYLEE Transcribe Date/Time: Oct 04 2022 7:26P Dictated by : NEHA DE JESUS MD [facility] (more content not included)...[facility]09-18-2023 Nurse Note* Ruth Walters LPN - 12/22/2022 8:40 AM EDT Order has been placed in the patient's chart with the following parameters for discharge from the physician: Patient is alert and oriented Vitals: Diastolic/Systolic +/- 20mmHg Respirations: 12-18 Pulse: 60-100 SpO2 is greater than or equal to 90% Patient has no nausea or vomiting Patient has no dizziness Pain level is +/- 2 from initial evaluation Dressing, dry and intact with no evidence of bleeding Criteria has been met, patient is okay to be discharged per the physician. Physician has gone in and evaluated the patient. Dressing dry and intact. No drainage noted. The patient denies nausea, numbness, tingling, weakness, shortness of breath, dizziness, or headache. Pain level 5/10. Vital signs within normal limits. Patient denied needing walked out by clinical staff and denied needing a wheelchair. Patient given discharge instructions and sent to transportation via ambulatory method. Patient left in good condition. * Rehana Jiang - 12/22/2022 8:19 AM EDT Procedure to be performed: L5/S1 Lumbar Interlaminar Epidural Steroid Injection Patient was walked from exam room to procedure room and assisted onto the procedure tablePatient s procedure was performed in an [facility] Procedure room. Pause completed at each level by provider to verify correct level and laterality placement Pressure was applied to patient s injection site(s) and bleeding was minimal. Patient had no complaint of shortness of breath, dizziness, headache, numbness, tingling, weakness or complications from procedure. Patient was assisted from the procedure table and walked back to exam room. Patient was advised a clinician will be to obtain another set of vitals. Time Out: 827 Confirmed patient name, date of , procedure site, laterality, and allergies Procedure Start: 830 Procedure End: 836 * Martina Bey MA - 12/22/2022 8:09 AM EDT Solar Applications Development Engineer's Name: eldon Are you on a blood thinner: no If yes, is a hold required: non Last dose of blood thinner: no INR Result today: no Do you require a Lovenox bridge:no Are you a diabetic:yes Are you/or could you be : no Are you taking Xanax for the procedure: no Are you currently on a steroid? no Are you currently on an antibiotic: no Have you had a COVID-19 vaccine in the last 14 days Or are you scheduled to receive one? no documented in this [facility] History of Present illness Narrative* Martina Bey MA - 12/22/2022 8:13 AM EDT Review of Systems Constitutional: Negative for activity change, appetite change, chills, fever and unexpected weight change. Genitourinary: Negative for difficulty urinating. Musculoskeletal: Positive for back pain and neck pain. Negative for arthralgias, gait problem, joint swelling, myalgias and neck stiffness. Neurological: Negative for weakness, numbness and headaches. Psychiatric/Behavioral: Negative for dysphoric mood, sleep disturbance and suicidal ideas. The patient is not nervous/anxious. * Shiv Salguero MD - 12/22/2022 8:10 AM EDT [facility] Date: 12/22/2022 Patient name: Jo Fisher Physician performing procedure: Shiv Salguero MD, PhD Procedure: Interlaminar Epidural Steroid Injection (ILESI) under fluoroscopic guidance Levels Treated: L5-S1 Interlaminar Space, Left bias Injectate: A total of 4cc, consisting of 2cc of Depo-medrol (40mg/cc), 1cc of 1% Lidocaine and the remainder consisting of Normal Saline Improvement after today's procedure: as per nursing report Diagnosis: (M48.062) Spinal stenosis, lumbar region with neurogenic claudication (primary encounter diagnosis) (M54.16) Lumbar radiculopathy Comments: None HPI: Jo Fisher is an 67 year old MALE opioid abuse history, HTN, T2DM, perforated sigmoid colon s/p repair who presents today for an elective interlaminar epidural steroid injection. Patient otherwise denies fevers, chills, weakness, saddle anesthesia, bowel or bladder incontinenceor recent antibiotic or anticoagulant use. MRI Spine Report MRI LUMBAR SPINE WO IVCON Exam End: 10/02/2022 10:30 AM (Final result) Narrative: * * *Final Report* * * DATE OF EXAM: Oct 02 2022 9:48AM LDM 0303 - MRI LUMBAR SPINE WO IVCON / PROCEDURE REASON: multiple diagnoses * * * * Physician Interpretation * * * * EXAMINATION: MRI LUMBAR SPINE WO IVCON, MRI THORACIC SPINE WO IVCON CLINICAL HISTORY: Chronic thoracic and lumbar pain with progressive increase in severity and frequency, unresponsive to conservative management. TECHNIQUE: Routine lumbosacral and thoracic spine MR protocol without gadolinium. MQ: [id number]_3 COMPARISON: None. RESULT: THORACIC: Counting reference: Craniocervical and lumbosacral junctions For the purposes of this report, Assume the first normal thoracic rib is at the T1 level. Localizer images: Non-diagnostic. Alignment: Alignment is anatomic. Mild to moderate disc space narrowing is noted in the lower thoracic spine. Cord: The thoracic spinal cord is within normal limits of signal intensity and morphology. Bone marrow signal/fracture: No evidence of pathologic marrow infiltration. No evidence of prior fracture. Thoracic soft tissues: The paraspinal soft tissues are within normal limits. Canal and foramina: Minimal disc bulging is noted at T3-4, T9-10 and T10-11 and a small central disc protrusion is noted at T8-9 and T11-12 with slight flattening of ventral surface of the cord at T8-9 but there is no impact on the adjacent spinal cord otherwise. Facet degenerative changes and rostrocaudal facet subluxation cause severe left T10-11 bony foraminal stenosis. The thoracic canal and foramina are otherwise patent. LUMBAR: Counting reference: Craniocervical and lumbosacral junctions For the purposes of this report, L4-5 is considered the level of the iliac crest and assume there are 5 lumbar-type vertebrae. Anatomic variant: None. Localizer images: No additional findings. Alignment: Alignment is anatomic. Moderate disc space narrowing is noted at L4-5 and L5-S1 and mild disc space narrowing is noted at L1-2. Bone marrow signal/fracture: No evidence of pathologic marrow infiltration. No evidence of prior fracture. Conus: The conus is within normal limits of signal intensity and morphology. Paraspinal soft tissues: Paraspinal soft tissues are within normal limits. L1-L2: Mild disc bulging without significant canal or foraminal stenosis. L2-L3: Canal and foramina are patent L3-L4: Canal and foramina are patent L4-L5: Mild disc osteophyte complex with mild canal stenosis. Facet degenerative changes and rostrocaudal facet subluxation cause [id number] right and mild left foraminal stenosis. L5-S1: Mild disc osteophyte complex and small shallow right central disc protrusion, the latter of which abuts the exiting right S1 nerve root sleeve. No significant impact on the thecal sac. Facet degenerative changes and rostrocaudal facet subluxation cause mild right and moderate left foraminal stenosis. Sacrum and iliac wings: Mild arthritic changes in the right SI joint. Impression: IMPRESSION: Small eccentric disc protrusion at L5-S1 abutting the exiting right S1 nerve root sleeve. No impact on the adjacent thecal sac. Bony foraminal stenosis at L4-5 and L5-S1 as outlined above. Mild thoracic degenerative disc disease. Small central disc protrusions at T8-9 and T11-12 without significant impact on the cord at either level. Severe left T10-11 bony foraminal stenosis. Anatomic Thoracic/Lumbar Variant: None. L4-5 is considered the level of the iliac crest and assume there are 5 lumbar-type vertebrae. Sleeping Car Conductor: KYLEE Transcribe Date/Time: Oct 04 2022 7:26P Dictated by : NEHA DE JESUS MD This examination was interpreted and the report reviewed and electronically signed by: NEHA DE JESUS MD on Oct 04 2022 7:37PM EST Review of Systems: Pertinent Positives: MSK: pain in the region being treated Neuro: No weakness or numbness in the region being treated Skin: Negative (No itching) Eyes: Negative (No blurred or double vision) Respiratory: Negative (No Cough, [id number], Dyspnea on exertion, wheezing) Cardiovascular: Negative (No Chest Pain, Tightness, Pressure, Palpitations) Gastrointestinal: Negative (No Abdominal pain, Nausea, Vomiting, Constipation, Diarrhea) Genitourinary: Negative (No dysuria) Hematologic: Negative (No bleeding, bruising) OB: is Denied or Not Applicable Endocrine: Negative (No hot/cold intolerance) Psychiatric: Negative (No depression, anxiety or suicidal ideation) PAST MEDICAL HISTORY Diagnosis Date Opiate abuse, episodic (HCC) history of opiate abuse, per care everywhere note 04/21/2022 Perforated sigmoid colon (HCC) PAST SURGICAL HISTORY Procedure Laterality Date PAST SURGICAL HISTORY OF colon surgery PAST SURGICAL HISTORY OF colostomy bag REPAIR EPIGASTRIC HERNIA,REDUC FAMILY HISTORY Problem Relation Age of Onset Hypertension Mother Heart Father Social History Tobacco Use Smoking status: Former Packs/day: 1.50 Years: 44.00 Additional pack years: 0.00 Total pack years: 66.00 Types: Cigarettes Quit date: 09/17/2012 Years since quittin.2 Smokeless tobacco: Never Vaping Use Vaping Use: Some days Substances: Nicotine Devices: Disposable Substance Use Topics Alcohol use: Yes Comment: very rarely Drug use: Yes Types: Marijuana Comment: medical marijuana card - occationally Current Outpatient Medications on File Prior to Visit Medication Sig pregabalin (LYRICA) 50 mg capsule Take 1 capsule by mouth three times daily for 180 days. atorvastatin (LIPITOR) 40 mg tablet Take 1 tablet by mouth once daily. traZODone (DESYREL) 50 mg tablet TAKE 2 TABLETS BY MOUTH EVERY EVENING AT 6 PM. tiZANidine (ZANAFLEX) 4 mg tablet TAKE 1 TABLET BY MOUTH EVERY DAY AT BEDTIME NEEDED FOR MUSCLE SPASM sertraline (ZOLOFT) 100 mg tablet TAKE 1 TABLET BY MOUTH EVERY DAY methocarbamol (ROBAXIN) 750 mg tablet TAKE 1 PILL BY MOUTH UP TO 3 TIMES PER DAY NEEDED FOR PAINFUL MUSCLE SPASMS diclofenac, EC, (VOLTAREN) 75 mg EC tablet TAKE 1 PILL BY MOUTH WITH FOOD UP TO EVERY 12 HOURS NEEDED FOR PAIN empagliflozin (JARDIANCE) 10 mg tablet Take 1 tablet by mouth once daily. albuterol HFA (PROVENTIL HFA, VENTOLIN HFA) 90 mcg/actuation inhaler INHALE 1-2 PUFFS BY MOUTH DAILY NEEDED hydroCHLOROthiazide (HYDRODIURIL, ESIDRIX) 12.5 mg capsule Take 12.5 mg by mouth once daily. lisinopril (ZESTRIL,PRINIVIL) 30 mg tablet Take 30 mg by mouth once daily. metoprolol succinate ER (TOPROL XL) 100 mg Take 100 mg by mouth once daily. Fluticasone Propionate (CUTIVATE) 0.05 % cream Apply to affected area twice daily. metFORMIN (GLUCOPHAGE) 1,000 mg tablet Take 1 tablet by mouth twice daily with meals. No current facility-administered medications on file prior to visit. Attestation Information obtained by others were confirmed and edited as necessary on 12/19/2022 by Shiv Salguero MD. Objective Exam: Vitals: As per nursing documentation Constitutional: Normal Appearance, Oriented to Time, Place and Person Head: No lacerations, no external signs of trauma Eyes: Conjunctiva clear. No discharge from the eyes Cardiovascular: Appears well-perfused Pulmonary: Non-labored respirations Abdominal: Non-distended Skin: No visible rashes or ecchymosis Psychiatric: Mood appropriate for given condition Neurological: no focal deficits, gross movements are limited by pain, but otherwise unremarkable Data Reviewed: Nursing note and vitals reviewed. Additional imaging reviewed as appropriate Assessment and Plan: We discussed the current plan and the pathology responsible for the patient's pain. Specific counseling related to the procedure was provided regarding the risks, benefits and alternatives. The patient wishes to proceed with the plan as noted above. Encounter Diagnosis ICD-10-CM 1. Spinal stenosis, lumbar region with neurogenic claudication M48.062 EPI LUMBAR OR SACRAL W/IMAGING methylPREDNISolone acetate 80 mg injection (DEPO-Medrol) lidocaine 10 mg/mL (1 %) 100 mg injection (XYLOCAINE) iohexol 300 mg IV injection (OMNIPAQUE 300) 0.9% NaCl 10 mL flush 2. Lumbar radiculopathy M54.16 EPI LUMBAR OR SACRAL W/IMAGING methylPREDNISolone acetate 80 mg injection (DEPO-Medrol) lidocaine 10 mg/mL (1 %) 100 mg injection (XYLOCAINE) iohexol 300 mg IV injection (OMNIPAQUE 300) 0.9% NaCl 10 mL flush Time out to confirm patient name, date of , procedure site, laterality, and allergies performed by physician. Please see nursing note for exact times (time out, procedure start, procedure end). [place] protocol documentation / Pre-Procedure checklist: Unless stated otherwise in the procedure note, the risks include but are not limited to infection, allergic reaction, increased pain, lack of therapeutic benefit, steroid reaction, nerve damage, paralysis, stroke, epidural hematoma, syncope, headache, respiratory or cardiac arrest, pneumothorax, and scar formation Time Out was led by the physician in the procedure room, with the patient and all staff present andparticipating The following information was verified: name, date of , procedure site (marked), laterality, anticoagulants and allergies [place] protocol documentation / Pre-Procedure Checklist: Consent: Verbal and written consent was obtained prior to the procedure. Risks, benefits and alternative treatment options were discussed with the patient. All questions were fully answered. Unless stated otherwise in the procedure note, the risks include but are not limited to infection, allergic reaction, increased pain, lack of therapeutic benefit, steroid reaction, nerve damage, paralysis, stroke, epidural hematoma, syncope, headache, respiratory or cardiac arrest, pneumothorax, and scar formation Once the plan was agreed upon, the patient gave written consent to proceed and was transported intothe procedure room Surgical/Procedure pause or Time Out : Time Out was led by the physician in the procedure room, with the patient and all staff present andparticipating The following information was verified during the Time Out process: Patient name, patient date of , procedure site (marked), laterality, anticoagulants and allergies Anticoagulants: reviewed with patient, notable for: none DESCRIPTION OF PROCEDURE: The patient was brought to the procedure room and positioned prone on the procedure room table. A pillow was placed below the abdomen to decrease lumbar lordosis and a safety strap was placed across the legs. The lumbosacral region was then exposed, prepped, and draped in a sterile fashion using 2%Chloroprep scrub. Skin anesthesia was achieved using 2 mL of Lidocaine 1% using a 25G 1.5inch needle to infiltrate the skin over the respective injection site. The target interspace was visualized under fluoroscopic imaging. A 20 gauge 3 1/2 Tuohy needle was then slowly guided into the epidural space utilizing loss of resistance technique and multi-planar fluoroscopic imaging for needle guidance. After negative aspiration for blood or CSF, contrast in the form of 1mL of Omnipaque 300 was injected and was found to be consistent with epidural spread. There was no evidence of intravascular or intrathecal uptake. After negative aspiration, the above mentioned injectate was then administered. The needle was subsequently withdrawn and minimal bleeding was observed. No specimens were obtained. A dressing was applied and the patient was taken to the recovery area for further observation. Please see the nursing note for exact times (time out, procedure start, procedure end). The patient was noted to have tolerated the procedure well and was discharged after an appropriate period of post-procedure observation in stable condition. The patient was instructed to contact us in the event of worsening pain, fever, weakness, numbness or bladder or bowel incontinence. The patient was further advised to follow-up with the requesting physician within one to two weeks or as per their requested follow-up plan. A post-procedure visit summary with written instructions was offeredto the patient at the time of discharge. Shiv Salguero MD, PhD Pain Management [facility] documented in this encounterK[facility]23 Instructions* Patient Instructions* Ruth Walters LPN - 12/22/2022 8:01 AM EDT PROCEDURE DISCHARGE INSTRUCTIONS 12/22/2022 Jo Fisher 1955 Physician: Shiv Salguero MD Procedure: Epidural Steroid Injection: Lumbar (transforaminal/Interlaminar/Caudal) Post Procedure Instructions: If sedation not given, no driving for 3 hours after the procedure., If sedation given, no driving the day of the procedure., Rest the day of the procedure., You may resume normal activities the day after the procedure, as tolerated., Pain should gradually subside over the next 2-3 weeks., Avoid movements that may aggravate pain., Apply cold compresses to injection site if needed., If medically acceptable, take over the counter anti-inflammatories such as ibuprofen or Aleve if needed for post procedure discomfort., and No hot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 Dyspnea Scale (MMRC) I only get breathless with strenous exercise 0 Lung Cancer Risk Factors: 1.Tobacco Use: Start Age 13, Quit Age 57 , Average packs per day 1.5, Pack Years 67 2. Passive Smoke Exposure: No. 3. Personal hx of malignancy: No. 4. Significant exposures (1 year or more of exposure): Asbestos. 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 5. Race: White. 6. Education:High school graduate 7. BMI:Body mass index is 42.27 kg/m . 8. COPD: No 9. Pneumonia in the past 5 years: No 10. Is there a history of lung cancer in a first degree relative? No. 11. Is there a history of lung cancer in a non first degree relative? No 12. Is there a history of any other cancer in a first degree relative? No. PAST MEDICAL HISTORY Diagnosis Date Opiate abuse, episodic (HCC) history of opiate abuse, per care everywhere note 04/21/2022 Perforated sigmoid colon (HCC) PAST SURGICAL HISTORY Procedure Laterality Date PAST SURGICAL HISTORY OF colon surgery PAST SURGICAL HISTORY OF colostomy bag REPAIR EPIGASTRIC HERNIA,REDUC FAMILY HISTORY Problem Relation Age of Onset Hypertension Mother Heart Father albuterol HFA (PROVENTIL HFA, VENTOLIN HFA) 90 mcg/actuation inhaler INHALE 1-2 PUFFS BY MOUTH DAILY NEEDED atorvastatin (LIPITOR) 40 mg tablet Take 40 mg by mouth once daily. DULoxetine (CYMBALTA) 60 mg capsule Take 60 mg by mouth once daily. JARDIANCE 10 mg tablet Take 10 mg by mouth once daily. hydroCHLOROthiazide (HYDRODIURIL, ESIDRIX) 12.5 mg capsule Take 12.5 mg by mouth once daily. lisinopril (ZESTRIL,PRINIVIL) 30 mg tablet Take 30 mg by mouth once daily. methocarbamol (ROBAXIN) 500 mg tablet metoprolol succinate ER (TOPROL XL) 100 mg Take 100 mg by mouth once daily. lidocaine (LIDODERM) 5 % Apply 1 Patch as directed every 24 hours. Fluticasone Propionate (CUTIVATE) 0.05 % cream Apply to affected area twice daily. metFORMIN (GLUCOPHAGE) 1,000 mg tablet Take 1 tablet by mouth twice daily with meals. ALLERGIES Allergen Reactions Poison Tamica Extract Itching The medications and allergies were reviewed and reconciled for this patient and deemed current. Health Maintenance Immunization History Administered Date(s) Administered COVID-19 booster vaccine, age 12+ yr, bivalent ([employer]) 04/24/2022 COVID-19 original vaccine, age 12+ yr, monovalent ([employer] - PURPLE TOP) 06/13/2020 07/04/2020 04/05/2021 influenza, high-dose, quadrivalent vaccine (FLUZONE HIGH DOSE QUADRIVALENT) 04/24/2022 Colonoscopy: Mammogram: DATA REVIEW I have directly visualized the testing documented: Prior Imaging: Last CT/CTA Chest/Lungs No resulted procedures found. Last CT Chest - Impression Only No resulted procedures found. Last XR Chest - Impression Only No resulted procedures found. Pulmonary Function Testing: No textual results found for the specified procedure(s). PHYSICAL EXAM: BP 171/84 (BP Site: Left Arm, BP Position: Sitting, BP Cuff Size: Large Adult) Pulse 74 Wt 126.1 kg (278 lb) SpO2 94% BMI 42.27 kg/m Deferred ASSESSMENT and RECOMMENDATIONS: 1. Screening for lung cancer: Six year risk for lung cancer: 2.2% Source: [employer] https://[employer]/[place]ian/result/[email or web address]_[email or web address] I have determined that the patient is eligible for a low dose CT based on age, absence of signs or symptoms of lung cancer, and total pack years: Yes. The patient and I engaged in shared decision making, including the use of one or more decision aids, to include benefits, harms, follow-up diagnostic testing, over-diagnosis, false positive rate, andtotal radiation exposure. The patient understands and feels comfortable with it: Yes. The patient was counseled on the importance of adherence to annual LDCT lung cancer screening, impact of comorbidities and ability or willingness to undergo diagnosis and treatment. The patient understands and feels comfortable with it:Yes. 2. Nicotine dependence: The patient was counseled on the importance of maintaining cigarette smoking abstinence - The patient is committed to remaining abstinent from tobacco. I spent a total of 30 minutes on the date of the service which included preparing to see the patient, [id number] patient care, completing clinical documentation, obtaining and/or reviewing separately obtained history, counseling and educating the patient/family/caregiver, ordering medications, johnny ts, or procedures, and communicating with other HCPs (not separately reported). Makayla Mansfield APRN.SPORTS BOOK SERVER NPI #: May 14, 2022 8:17 AM documented [facility] History and physical note * Elba Amaya MD - 05/12/2022 8:15 AM EST HPI: This 66 y.o. male presents for treatment of chronic back Pain. Current Outpatient Medications: acetaminophen 500 MG tablet, 1-2 pills po q 8 hrs prn pain. Max 3000 mg/d including amount in othermedicines., Disp: 90 tablet, Rfl: 1 Albuterol (Ventolin HFA) 108 (90 Base) MCG/ACT Aero Soln inhaler, 1-2 puffs daily as needed, Disp: 18 g, Rfl: 11 Atorvastatin 40 MG tablet, Take 1 tablet by mouth daily., Disp: 90 tablet, Rfl: 0 DULoxetine [address] Particles capsule DR, Take 1 capsule by mouth daily., Disp: 90 capsule, Rfl: 1 Empagliflozin (Jardiance) 10 MG tablet, Take 1 tablet by mouth daily., Disp: 90 tablet, Rfl: 1 fluticasone 0.05 % Cream, fluticasone propionate 0.05 % topical cream, Disp: , Rfl: hydroCHLOROthiazide 12.5 MG capsule, Take 1 capsule by mouth daily., Disp: 90 capsule, Rfl: 1 lidocaine 5 % Patch patch, Place 1 patch on skin every 24 hours. Max of 12 hours of application then remove., Disp: 30 patch, Rfl: 5 lisinopril 30 MG tablet, Take 1 tablet by mouth daily., Disp: 90 tablet, Rfl: 1 metFORMIN 1000 MG tablet, Take 1 tablet by mouth 2 times daily with meals., Disp: 180 tablet, Rfl: 1 Methocarbamol 500 MG tablet, 1-2 pills po q 12 hrs prn spasms/pain., Disp: 40 tablet, Rfl: 0 Metoprolol succinate 100 MG tablet XL, One tab daily, Disp: 30 tablet, Rfl: 11 traZODone 50 MG tablet, Take 2 tablets by mouth every evening at 6 PM., Disp: 60 tablet, Rfl: 6 diclofenac sodium [address], 1 pill po q 8-12 hrs w food prn pain. Stop if stomach pain. (Patient not taking: Reported on 05/12/2022), Disp: 40 tablet, Rfl: 0 DISABILITY PLACARD, Disability placard end date 2026, Disp: 1 Each, Rfl: 0 Current Facility-Administered Medications: Lidocaine (PF) 2 % 5 mL syringe, 5 mL, Other, Once (Outpt Clinic), Elba Amaya MD Past Medical History: Diagnosis Date Arthritis COPD (chronic obstructive pulmonary disease) Diabetes mellitus Past Surgical History: Procedure Laterality Date LARGE BOWEL SURGERY 2012 Pt states Perferated colon surgery by Dr Claduio Holland in [place] Family History Problem Relation Age of Onset Hypertension Mother Heart Disease - Other Father Review of Systems: General: Denies fevers, chills, or night sweats Abdominal: Denies nausea, vomiting, diarrhea Respiratory: Denies cough, sputum production Genitourinary: Denies dysuria or frequency Vitals: 05/12/22 0838 BP: (!) 195/100 Pulse: 70 Resp: 18 Physical Examination: Vitals: 05/12/22 0838 BP: (!) 195/100 Pulse: 70 Resp: 18 Constitutional The patient is awake, alert, well developed, well nourished and well groomed. The patient is pleasant and cooperative. The patient is a good historian and is very helpful with the history and physical examination. Musculoskeletal The patient has moderate difficulty transitioning from sitting to standing. The patient has a(n) antalgic gait. The Thoracic spine demonstrates a flexion biased curve. Palpation reveals tenderness over the bilateral thoracolumbar, right thoracolumbar lumbar spine. Thoracic range of motion is limited in extension, right rotation, right lateral bend. Thoracic facet loading produces pain on the right side. There is no deformity to the lumbosacral spine. Trigger points are not present in the lumbosacral spine musculature. Muscle strength is 5/5 in the bilateral lower extremities. Seated straight leg raise is negative in the lower extremity for leg pain radiating to the foot from the low back. Neurologic Cranial Nerves 2-12 were tested and are grossly intact. The deep tendon reflexes of the in upper and lower extremities are symmetrical; they are graded at 2/4. Plantar reflexes (Babinski): toes are downgoing. Cerebellar function is normal; Romberg's test is negative. The gait is abnormal. Sensory testing for pain (pinprick), light touch, position, and vibration is intact. Psychiatric The patient is oriented to person, place, and time. Speech is fluent and words are clear. Thought processes are coherent, insight is good. There are no obsessive, compulsive, phobic or delusional thoughts; there are no illusions or hallucinations. The patient's fund of knowledge: awareness of current events and past history is appropriate for age. The patient's higher cognitive functions are intact. The patient's mood is neutral and the affect appropriate; there are no loose associations. Assessment: ICD-10-CM 1. Thoracic spondylosis M47.814 Plan: Proceed with right T8-9, T9-10 facet medial branch block [facility]02-06-2023 History and physical note* Elba Amaya MD - 05/12/2022 8:15 AM EST HPI: This 66 y.o. male presents for treatment of chronic back Pain. Current Outpatient Medications: acetaminophen 500 MG tablet, 1-2 pills po q 8 hrs prn pain. Max 3000 mg/d including amount in othermedicines., Disp: 90 tablet, Rfl: 1 Albuterol (Ventolin HFA) 108 (90 Base) MCG/ACT Aero Soln inhaler, 1-2 puffs daily as needed, Disp: 18 g, Rfl: 11 Atorvastatin 40 MG tablet, Take 1 tablet by mouth daily., Disp: 90 tablet, Rfl: 0 DULoxetine [address] Particles capsule DR, Take 1 capsule by mouth daily., Disp: 90 capsule, Rfl: 1 Empagliflozin (Jardiance) 10 MG tablet, Take 1 tablet by mouth daily., Disp: 90 tablet, Rfl: 1 fluticasone 0.05 % Cream, fluticasone propionate 0.05 % topical cream, Disp: , Rfl: hydroCHLOROthiazide 12.5 MG capsule, Take 1 capsule by mouth daily., Disp: 90 capsule, Rfl: 1 lidocaine 5 % Patch patch, Place 1 patch on skin every 24 hours. Max of 12 hours of application then remove., Disp: 30 patch, Rfl: 5 lisinopril 30 MG tablet, Take 1 tablet by mouth daily., Disp: 90 tablet, Rfl: 1 metFORMIN 1000 MG tablet, Take 1 tablet by mouth 2 times daily with meals., Disp: 180 tablet, Rfl: 1 Methocarbamol 500 MG tablet, 1-2 pills po q 12 hrs prn spasms/pain., Disp: 40 tablet, Rfl: 0 Metoprolol succinate 100 MG tablet XL, One tab daily, Disp: 30 tablet, Rfl: 11 traZODone 50 MG tablet, Take 2 tablets by mouth every evening at 6 PM., Disp: 60 tablet, Rfl: 6 diclofenac sodium [address], 1 pill po q 8-12 hrs w food prn pain. Stop if stomach pain. (Patient not taking: Reported on 05/12/2022), Disp: 40 tablet, Rfl: 0 DISABILITY PLACARD, Disability placard end date 2026, Disp: 1 Each, Rfl: 0 Current Facility-Administered Medications: Lidocaine (PF) 2 % 5 mL syringe, 5 mL, Other, Once (Outpt Clinic), Elba Amaya MD Past Medical History: Diagnosis Date Arthritis COPD (chronic obstructive pulmonary disease) Diabetes mellitus Past Surgical History: Procedure Laterality Date LARGE BOWEL SURGERY 2012 Pt states Perferated colon surgery by Dr Claudio Holland in [place] Family History Problem Relation Age of Onset Hypertension Mother Heart Disease - Other Father Review of Systems: General: Denies fevers, chills, or night sweats Abdominal: Denies nausea, vomiting, diarrhea Respiratory: Denies cough, sputum production Genitourinary: Denies dysuria or frequency Vitals: 05/12/22 0838 BP: (!) 195/100 Pulse: 70 Resp: 18 Physical Examination: Vitals: 05/12/22 0838 BP: (!) 195/100 Pulse: 70 Resp: 18 Constitutional The patient is awake, alert, well developed, well nourished and well groomed. The patient is pleasant and cooperative. The patient is a good historian and is very helpful with the history and physical examination. Musculoskeletal The patient has moderate difficulty transitioning from sitting to standing. The patient has a(n) antalgic gait. The Thoracic spine demonstrates a flexion biased curve. Palpation reveals tenderness over the bilateral thoracolumbar, right thoracolumbar lumbar spine. Thoracic range of motion is limited in extension, right rotation, right lateral bend. Thoracic facet loading produces pain on the right side. There is no deformity to the lumbosacral spine. Trigger points are not present in the lumbosacral spine musculature. Muscle strength is 5/5 in the bilateral lower extremities. Seated straight leg raise is negative in the lower extremity for leg pain radiating to the foot from the low back. Neurologic Cranial Nerves 2-12 were tested and are grossly intact. The deep tendon reflexes of the in upper and lower extremities are symmetrical; they are graded at 2/4. Plantar reflexes (Babinski): toes are downgoing. Cerebellar function is normal; Romberg's test is negative. The gait is abnormal. Sensory testing for pain (pinprick), light touch, position, and vibration is intact. Psychiatric The patient is oriented to person, place, and time. Speech is fluent and words are clear. Thought processes are coherent, insight is good. There are no obsessive, compulsive, phobic or delusional thoughts; there are no illusions or hallucinations. The patient's fund of knowledge: awareness of current events and past history is appropriate for age. The patient's higher cognitive functions are intact. The patient's mood is neutral and the affect appropriate; there are no loose associations. Assessment: ICD-10-CM 1. Thoracic spondylosis M47.814 Plan: Proceed with right T8-9, T9-10 facet medial branch block documented in this [facility]02-06-2023 History of Present illness Narrative* Glenda Nelson RN - 05/12/2022 8:15 AM EST Physician: Dr. Luc Amaya Scrub: Felipe REYES. Tech: Nancy GUSMAN Prop Attendant: Rita REYES. MOTOR COACH TOUR OPERATOR: N/A. Site cleansed with hibiclens. documented in this [facility]02-06-2023 Procedure note* Elba Amaya MD - 05/12/2022 8:15 AM ESTAssociated Order(s): SPINAL INJECTION Procedure(s): SPINAL INJECTION Pre-Procedure Diagnose(s): Thoracic spondylosis Post-Procedure Diagnose(s): Thoracic spondylosis Procedure: Right T8-T9 and T9-T10 Thoracic Facet Joint Block under fluoroscopy Attending Physician: Elba Amaya MD PreOperative Diagnosis: Thoracic spondylosis without myelopathy PostOperative Diagnosis: Same Anesthesia: Local Complications: None Informed Consent: The patient's condition and proposed procedures, risks (including but not limitedto infection, bleeding, damage or scarring to skin, muscle, ligament, fascia, tendon, blood vessel and nerve tissue, allergic reaction, adverse side effects from medications such as steroids, contrast, local anesthetics, and medication preservatives, vasovagal reactions, headaches, bruising, soreness, and increased pain after the injection), and alternatives were discussed with the patient or responsible green party. The patient's / responsible green party's questions were answered. The patient / responsible green party appeared to understand and chose to proceed. Informed consent was obtained. Blood Loss: Minimal Indication for Procedure: This patient presents for treatment of thoracic back pain. Pain is worsened with twisting and side bending. The patient presents for right thoracic facet block. Technique: The scrub nurse's and physician's hands were washed immediately prior to the procedure using a chlorhexidine soap or sanitized using ethyl alcohol hand van driver. Hat, mask, and sterile gloves were used for the entirety of the procedure. All other personnel in the room wore hat and masks, as well as appropriate personal protective equipment. Risks and benefits of the procedure were discussed in detail, and an informed consent was completed and signed by the patient and physician. A timeout was performed prior to the start of the procedure. The patient was given a verbal description of the intended procedure including the risks and benefits of the procedure. The patient then provided written informed consent for the procedure. The patient was taken to the operating room and placed prone on the operating table. The thoracic spine was prepped and draped in the usual sterile fashion using Hibiclens x 3. A timeout procedure was performed. A C-arm fluoroscope was brought into the operating field and an AP radiograph was taken of the thoracic spine with attention to the T10 level. The junction between the right transverse process and the right superior articular process at the T10 level was identified. Through the skin and subcutaneous tissue overlying this target a 25G 3.5 inch angulated Quincke spinal needle was advanced under intermittent fluoroscopic guidance to contact the osseous target. The procedure was then repeated in the exact same fashion at the T8 and T9 levels on the right. A lateral radiograph was taken to determine the depth of the needles and to ensure posterior placement to the pleura. When all needles werein satisfactory location, the stylettes were removed. Then after negative aspiration for blood, CSF, air, or any other body fluid, 0.5 ml of a mixture of 2% lidocaine was injected at each level. Whenthe injections were complete, the needles were removed. The patient's back was cleansed and dried. Band aid dressings were placed. The patient was then turned supine onto the transport bed and taken to the recovery room in stable condition. The patient tolerated the procedure well with no immediatecomplications. Post Procedure Evaluation: Pre-procedure pain level: 4 up to 10/10 Post-procedure pain level: 4/10 Amount of pain relief: 0% Pain with provocative maneuvers: Not Improved [facility]02-06-2023 Procedure note* Elba Amaya MD - 05/12/2022 8:15 AM ESTAssociated Order(s): SPINAL INJECTION Procedure(s): SPINAL INJECTION Pre-Procedure Diagnose(s): Thoracic spondylosis Post-Procedure Diagnose(s): Thoracic spondylosis Procedure: Right T8-T9 and T9-T10 Thoracic Facet Joint Block under fluoroscopy Attending Physician: Elba Amaya MD PreOperative Diagnosis: Thoracic spondylosis without myelopathy PostOperative Diagnosis: Same Anesthesia: Local Complications: None Informed Consent: The patient's condition and proposed procedures, risks (including but not limitedto infection, bleeding, damage or scarring to skin, muscle, ligament, fascia, tendon, blood vessel and nerve tissue, allergic reaction, adverse side effects from medications such as steroids, contrast, local anesthetics, and medication preservatives, vasovagal reactions, headaches, bruising, soreness, and increased pain after the injection), and alternatives were discussed with the patient or responsible green party. The patient's / responsible green party's questions were answered. The patient / responsible green party appeared to understand and chose to proceed. Informed consent was obtained. Blood Loss: Minimal Indication for Procedure: This patient presents for treatment of thoracic back pain. Pain is worsened with twisting and side bending. The patient presents for right thoracic facet block. Technique: The scrub nurse's and physician's hands were washed immediately prior to the procedure using a chlorhexidine soap or sanitized using ethyl alcohol hand van driver. Hat, mask, and sterile gloves were used for the entirety of the procedure. All other personnel in the room wore hat and masks, as well as appropriate personal protective equipment. Risks and benefits of the procedure were discussed in detail, and an informed consent was completed and signed by the patient and physician. A timeout was performed prior to the start of the procedure. The patient was given a verbal description of the intended procedure including the risks and benefits of the procedure. The patient then provided written informed consent for the procedure. The patient was taken to the operating room and placed prone on the operating table. The thoracic spine was prepped and draped in the usual sterile fashion using Hibiclens x 3. A timeout procedure was performed. A C-arm fluoroscope was brought into the operating field and an AP radiograph was taken of the thoracic spine with attention to the T10 level. The junction between the right transverse process and the right superior articular process at the T10 level was identified. Through the skin and subcutaneous tissue overlying this target a 25G 3.5 inch angulated Quincke spinal needle was advanced under intermittent fluoroscopic guidance to contact the osseous target. The procedure was then repeated in the exact same fashion at the T8 and T9 levels on the right. A lateral radiograph was taken to determine the depth of the needles and to ensure posterior placement to the pleura. When all needles werein satisfactory location, the stylettes were removed. Then after negative aspiration for blood, CSF, air, or any other body fluid, 0.5 ml of a mixture of 2% lidocaine was injected at each level. Whenthe injections were complete, the needles were removed. The patient's back was cleansed and dried. Band aid dressings were placed. The patient was then turned supine onto the transport bed and taken to the recovery room in stable condition. The patient tolerated the procedure well with no immediatecomplications. Post Procedure Evaluation: Pre-procedure pain level: 4 up to 10/10 Post-procedure pain level: 4/10 Amount of pain relief: 0% Pain with provocative maneuvers: Not Improved [facility] Miscellaneous Notes* Telephone Encounter - Fadia Cortez RN - 04/29/2022 8:31 AM EST Pt called and is notified of providers results. Pt voices understanding. Fadia Cortez RN * Telephone Encounter - Jessica Nicole APRN.CNS - 04/29/2022 8:09 AM EST Please let him know that ultrasound screening for AAA was negative documented in this [facility] NoteHNO ID: [id number] Author: RT Nathaniel(R) Service: Radiology Author Type: Technologist Type: Progress Notes Filed: 04/28/2022 8:25 AM Note Text: Radiology Service Progress Note PATIENT NAME: Jo Fisher DATE OF SERVICE: April 28, 2022 TIME: 8:25 AM PATIENT IDENTITY VERIFICATION COMPLETED USING TWO (2) IDENTIFIERS: Name and Date of confirmed by patient verbally. FALL SCREENING: Has the patient had 2 falls in the last year or 1 fall with injury or currently using an Ambulatory Assistive Device (Walker, Cane, Wheelchair, Crutches, etc.)? No PATIENT GENDER DATA: Male PATIENT RELEVANT IMPLANT DATA REVIEWED: Not Applicable RADIOLOGY DEPARTMENT: Ultrasound PERIPHERAL IV DATA: Not applicable SIGNED BY: RT Nathaniel(R) April 28, 2022 8:25 AMMer[facility] [id number] Miscellaneous Notes* Telephone Encounter - Tramaine Altman Ma - 04/28/2022 9:29 AM EST Patient notified, verbalized understanding. Tramaine Altman Ma * Telephone Encounter - Jessica Nicole APRN.MELITON - 04/28/2022 7:34 AM EST Labs overall in acceptable range. Triglycerides and A1c a bit over target, endorse avoiding sugar and high fat foods in diet, limit portion sizes of bread potatoes rice and pasta and exercise /walk as able daily to help keep these incontrol. Continue with current medications unchanged for now. Recheck labs at next visit -October orders in [facility] Latest Ref Rng & Units 04/24/2022 WBC 3.70 - 11.00 k/uL 8.55 RBC 4.20 - 6.00 m/uL 6.31 (H) Hemoglobin 13.0 - 17.0 g/dL 14.2 Hematocrit 39.0 - 51.0 % 48.3 MCV 80.0 - 100.0 fL 76.5 (L) MCH 26.0 - 34.0 pg 22.5 (L) MCHC 30.5 - 36.0 g/dL 29.4 (L) RDW-CV 11.5 - 15.0 % 20.4 (H) Platelet Count 150 - 400 k/uL 213 MPV 9.0 - 12.7 fL 10.3 Neut% % 66.6 Abs Neut (ANC) 1.45 - 7.50 k/uL 5.70 Lymph% % 21.8 Abs Lymph 1.00 - 4.00 k/uL 1.86 [place]% % 9.5 Abs [place] <0.87 k/uL 0.81 Eosin% % 1.4 Abs Eosin <0.46 k/uL 0.12 Baso% % 0.5 Abs Baso <0.11 k/uL 0.04 Immature Gran % % 0.2 IMMATURE GRANS (ABS) <0.10 k/uL <0.03 NRBC /100 WBC 0.0 Absolute nRBC <0.01 k/uL <0.01 DTYPE Auto Protein, Total 6.3 - 8.0 g/dL 7.5 Albumin 3.9 - 4.9 g/dL 4.6 Calcium 8.5 - 10.2 mg/dL 9.9 Bilirubin, Total 0.2 - 1.3 mg/dL 0.2 Alkaline Phosphatase 38 - 113 U/L 62 AST 14 - 40 U/L 21 ALT 10 - 54 U/L 19 Glucose 74 - 99 mg/dL 88 BUN 9 - 24 mg/dL 22 Creatinine 0.73 - 1.22 mg/dL 0.93 Sodium 136 - 144 mmol/L 139 Potassium 3.7 - 5.1 mmol/L 4.7 Chloride 97 - 105 mmol/L 98 CO2 22 - 30 mmol/L 31 (H) Anion Gap 9 - 18 mmol/L 10 eGFR >=60 mL/min/1.73m 91 Cholesterol, Total <200 mg/dL 171 Triglyceride <150 mg/dL 290 (H) HDL Cholesterol >39 mg/dL 41 Non HDL Cholesterol <130 mg/dL 130 (H) Fasting Time hrs 4 VLDL Cholesterol <30 mg/dL 58 (H) TC:HDL Ratio <5.10 4.17 LDL Cholesterol <100 mg/dL 72 LDL:HDL Ratio <2.54 1.76 Creatinine, Ur Random (UCRR) 20.0 - 300.0 mg/dL 83.4 Albumin, Urine Random mg/L 57.5 Albumin/Creat Ratio <30 mg/g 69 (H) HIV 12 Combo (Ag/Ab) Nonreactive Nonreactive HIV 1/2 Ab HIV Interpretation Hemoglobin A1C 4.3 - 5.6 % 6.8 (H) Estimated Average Glucose mg/dL 148 Hep C Antibody IA Negative Negative PSA Screening <2.60 ng/mL 1.00 documented in this [facility] History of Present illness Narrative* Marie Vyas RT(R) - 04/28/2022 8:15 AM EST Radiology Service Progress Note PATIENT NAME: Jo SALAZARN: [id number] DATE OF SERVICE: April 28, 2022 TIME: 8:25 AM PATIENT IDENTITY VERIFICATION COMPLETED USING TWO (2) IDENTIFIERS: Name and Date of confirmedby patient verbally. FALL SCREENING: Has the patient had 2 falls in the last year or 1 fall with injury or currently using an Ambulatory Assistive Device (Walker, Cane, Wheelchair, Crutches, etc.)? No PATIENT GENDER DATA: Male PATIENT RELEVANT IMPLANT DATA REVIEWED: Not Applicable RADIOLOGY DEPARTMENT: Ultrasound PERIPHERAL IV DATA: Not applicable SIGNED BY: RT Nathaniel(R) April 28, 2022 8:25 AM documented in this encounterK[facility]01-19-2023 Instructions* Patient Instructions* Jessica Nicole APRN.CNS - 04/24/2022 1:40 PM EST Check to see if your insurance covers Tdap and shingles vaccine and what location to get the vaccine -usually best covered at your local pharmacy where you get prescriptions filled documented in this encounterK[facility]01-19-2023 History of Present illness Narrative* Jessica Nicole APRN.CNS - 04/24/2022 1:00 PM EST SUBJECTIVE: ABDOMINAL AORTIC ANEURYSM SCREENING Never done HEPATITIS C SCREENING Never done HIV SCREENING Never done DTAP,TDAP,TD(1 - Tdap) Never done LIPID SCREEN Never done DIABETES SCREEN Never done COLORECTAL CANCER SCREENING Never done LUNG CANCER SCREENING Never done SHINGRIX VACCINE(1 of 2) Never done PROSTATE CANCER SCREENING DISCUSSION Never done PNEUMOCOCCAL: 65+(1 - PCV) Never done COVID-19 VACCINE(4 - Booster for Pfizer series) due on 05/31/2021 INFLUENZA(1) Never done ADVANCE DIRECTIVE DISCUSSION Never done DEPRESSION ASSESSMENT Never done HPI Jo Fisher is a 66 year old male. PMH significant for ACTIVE PROBLEM LIST Myofascial Pain Low Back Pain Arthropathy of Lumbar Facet Joint Degeneration of Lumbar Intervertebral Disc Type 2 Diabetes Mellitus With Hyperglycemia (Hcc) Presents today to establish care with Win Zamora MD Previous PCP:Fermín Fonseca II [facility] [place] Last seen: April 2022 Labwork: April 2022 not yet completed ER/Hospitalization: Outside records: care everywhere Milton Estevez DO [facility] -sees for myofascial pain syndrome of thoracic spine, thoracic back pain and thoracic facet joint syndrome. Review of notes indicate that he has declined referral to pain management at his last visit. Notes he has an upcoming procedure, and interested in pain management going forward. States using medical marijuana on his own, does ont see provider, states has card. DIABETES MELLITUS: Notes prior uncontrolled; good control recently. Without report of excessive thirst or increased frequency of urination, chest pain or dyspnea , numbness, tingling orpain in extremities, new or unusual visual symptoms, low sugar/hypoglycemic reactions, weight loss/gain, lightheadedness/dizziness, and bowel changes/loose stools. HTN: Without report of headache, chest pain, palpitations, dyspnea, peripheral edema, orthopnea, fatigue, and PND. Last 3 Encounter BP Readings: Date: BP: 04/24/2022 122/78 Hyperlipidemia. Mr. Fisher reports doing well on current therapy. He reports colonoscopy 2012 when he had bowel surgery, no colon cancer screening since that time. His most recent lipid panels are: No results found for: CHOL No results found for: HDL No results found for: LDL No results found for: TG Review of Systems Constitutional: Negative. Musculoskeletal: Positive for arthralgias and back pain. Objective BP 122/78 Pulse 83 Resp 16 Ht 172.7 cm (5' 8) Wt 124.3 kg (274 lb) SpO2 93% BMI 41.66 kg/m Physical Exam Vitals and nursing note reviewed. Constitutional: Appearance: Normal appearance. HENT: Head: Normocephalic and atraumatic. Eyes: Conjunctiva/sclera: Conjunctivae normal. Cardiovascular: Rate and Rhythm: Normal rate and regular rhythm. Pulses: Carotid pulses are 2+ on the right side and 2+ on the left side. Radial pulses are 2+ on the right side and 2+ on the left side. Pulmonary: Effort: Pulmonary effort is normal. Breath sounds: Normal breath sounds. Abdominal: General: Bowel sounds are normal. Palpations: Abdomen is soft. Musculoskeletal: Right lower leg: No edema. Left lower leg: No edema. Skin: General: Skin is warm and dry. Neurological: General: No focal deficit present. Mental Status: He is alert and oriented to person, place, and time. ALLERGIES Allergen Reactions Poison Tamica Extract Itching Medications albuterol HFA (PROVENTIL HFA, VENTOLIN HFA) 90 mcg/actuation inhaler INHALE 1-2 PUFFS BY MOUTH DAILY NEEDED atorvastatin (LIPITOR) 40 mg tablet Take 40 mg by mouth once daily. DULoxetine (CYMBALTA) 60 mg capsule Take 60 mg by mouth once daily. JARDIANCE 10 mg tablet Take 10 mg by mouth once daily. hydroCHLOROthiazide (HYDRODIURIL, ESIDRIX) 12.5 mg capsule Take 12.5 mg by mouth once daily. lisinopril (ZESTRIL,PRINIVIL) 30 mg tablet Take 30 mg by mouth once daily. metFORMIN (GLUCOPHAGE) 1,000 mg tablet Take 1,000 mg by mouth twice daily with meals. methocarbamol (ROBAXIN) 500 mg tablet metoprolol succinate ER (TOPROL XL) 100 mg Take 100 mg by mouth once daily. lidocaine (LIDODERM) 5 % Apply 1 Patch as directed every 24 hours. Fluticasone Propionate (CUTIVATE) 0.05 % cream Apply to affected area twice daily. tiZANidine (ZANAFLEX) 2 mg tablet PLEASE SEE ATTACHED FOR DETAILED DIRECTIONS (Patient not taking: Reported on 04/24/2022) PAST MEDICAL HISTORY Diagnosis Date Opiate abuse, episodic (HCC) history of opiate abuse, per care everywhere note 04/21/2022 Perforated sigmoid colon (HCC) PAST SURGICAL HISTORY Procedure Laterality Date PAST SURGICAL HISTORY OF colon surgery PAST SURGICAL HISTORY OF colostomy bag REPAIR EPIGASTRIC HERNIA,REDUC Social History Tobacco Use Smoking status: Former Packs/day: 2.00 Years: 30.00 Pack years: 60.00 Types: Cigarettes Quit date: 04/19/2012 Years since quittin.0 Smokeless tobacco: Never Substance Use Topics Alcohol use: Yes Comment: very rarely Drug use: Yes Types: Marijuana Comment: medical marijuana card - occationally ASSESSMENT/PLAN: 1. Type 2 diabetes mellitus with hyperglycemia, without long-term current use of insulin (HCC) - ICD9: 250.00, 790.29, ICD10: E11.65 (primary diagnosis) Unknown control, labs today - Continue current medications - CBC + DIFF - COMP METABOLIC PANEL - LIPID PANEL BASIC - HGB A1C - ALBUMIN/CREAT RATIO RND UR - CBC + DIFF - COMP METABOLIC PANEL - HGB A1C - LIPID PANEL BASIC - ALBUMIN/CREAT RATIO RND UR 2. Need for influenza vaccination - ICD9: V04.81, ICD10: Z23 - INFLUENZA SEASONAL QUADRIVALENT HIGH DOSE AGE 65+ 3. Primary hypertension - ICD9: 401.9, ICD10: I10 controlled - Continue current medication(s) - Encouraged dietary sodium restriction/DASH diet - Recommended regular aerobic exercise. - Goal of BP <130/80 4. Chronic right-sided thoracic back pain - ICD9: 724.1, 338.29, ICD10: M54.6, G89.29 Currently going to physical medicine provider, has upcoming procedure. Interested in pain management for a future visit. Chronic mid back pain. - CONSULT TO PAIN MGT 5. Hyperlipidemia, unspecified hyperlipidemia type - ICD9: 272.4, ICD10: E78.5 Recommend a plant based diet such as Mediterranean diet with plenty of vegetables, fruits,whole grains, fish, chicken, turkey or plant proteins and routine exercise such as walking 6. Screening for abdominal aortic aneurysm - ICD9: V81.2, ICD10: Z13.6 - US SCREENING FOR AAA 7. Special screening examination for viral disease - ICD9: V73.99, ICD10: Z11.59 - HEP C AB IA W/CONF SCRN 8. Screening for HIV (human immunodeficiency virus) - ICD9: V73.89, ICD10: Z11.4 - HIV 1 2 COMBO(AG/AB),WITH REFLEX TO DIFFERENTIATION 9. Screening for colon cancer - ICD9: V76.51, ICD10: Z12.11 - COLOGUARD 10. Encounter for screening for lung cancer - ICD9: V76.0, ICD10: Z12.2 - CONSULT LUNG CANCER SCREENING CLINIC 11. Screening for prostate cancer - ICD9: V76.44, ICD10: Z12.5 - PSA/PROSTSPECAG SCRN 12. Encounter for immunization - ICD9: V03.89, ICD10: Z23 - PNEUMOCOCCAL VACCINE (PREVNAR 20) - [employer] COVID-19 BIVALENT BOOSTER VACCINE, AGE 12+ YR 13. Z68.41 Endorse weight loss; portion control and routine exercise such as walking. Refer as indicated. labs today and 6 mos visit with Win Zamora MD 6 mos, establish Jessica Nicole APRN.WORM RAISER Medical Decision Making: Problems: Moderate: 2+ stable chronic illnesses Data: Unique test(s) ordered: 3+ Risk: Moderate: Drug management Medical Decision Making Level: 4 - Moderate documented in this encounterK[facility]01-18-2023 History of Present illness Narrative* Mayi Boyce - 04/23/2022 9:45 AM EST Nurse Note: Review of Systems Constitutional: Negative for chills, fatigue and fever. HENT: Negative for congestion, sinus pressure, sinus pain, tinnitus and trouble swallowing. Eyes: Negative for visual disturbance. Respiratory: Negative for chest tightness, shortness of breath and wheezing. Cardiovascular: Negative for chest pain, palpitations and leg swelling. Gastrointestinal: Negative for abdominal pain, blood in stool, constipation, diarrhea, nausea and vomiting. Genitourinary: Negative for difficulty urinating, frequency and urgency. Musculoskeletal: Positive for back pain. Skin: Negative for rash and wound. Neurological: Negative for dizziness, weakness and numbness. Hematological: Does not bruise/bleed easily. Psychiatric/Behavioral: Positive for sleep disturbance. Negative for agitation and dysphoric mood. The patient is not nervous/anxious. Nursing Assessment: Physical Exam * Fermín Fonseca II, MD - 04/23/2022 9:45 AM EST HISTORY OF PRESENT ILLNESS 66 y.o. male Fu appt History No Known Allergies has Arthropathy of lumbar facet joint; Degeneration of lumbar intervertebral disc; Low back pain; Myofascial pain; Obesity: body mass index of 35.0-39.9; Stress; and Type 2 diabetes mellitus with hyperglycemia (A1C > 6.49) on their problem list. Current Outpatient Medications Medication Sig Dispense Refill acetaminophen 500 MG tablet 1-2 pills po q 8 hrs prn pain. Max 3000 mg/d including amount in other medicines. 90 tablet 1 albuterol (Ventolin HFA) 108 (90 Base) MCG/ACT Aero Soln inhaler 1-2 puffs daily as needed 18 g 1 Atorvastatin 40 MG tablet Take 1 tablet by mouth daily. 90 tablet 0 diclofenac sodium [address] 1 pill po q 8-12 hrs w food prn pain. Stop if stomach pain. 40 tablet 0 DISABILITY PLACARD Disability placard end date 2026 1 Each 0 DULoxetine [address] Particles capsule DR Take 1 capsule by mouth daily. 90 capsule 1 Empagliflozin (Jardiance) 10 MG tablet Take 1 tablet by mouth daily. 90 tablet 1 fluticasone 0.05 % Cream fluticasone propionate 0.05 % topical cream hydroCHLOROthiazide 12.5 MG capsule Take 1 capsule by mouth daily. 90 capsule 1 lidocaine 5 % Patch patch Place 1 patch on skin every 24 hours. Max of 12 hours of application thenremove. 30 patch 5 lisinopril 30 MG tablet Take 1 tablet by mouth daily. 90 tablet 1 metFORMIN 1000 MG tablet Take 1 tablet by mouth 2 times daily with meals. 180 tablet 1 Methocarbamol 500 MG tablet 1-2 pills po q 8-12 hrs prn spasms/pain. 40 tablet 0 metoprolol succinate 100 MG tablet XL One tab daily 30 tablet 1 traZODone 50 MG tablet Take 2 tablets by mouth every evening at 6 PM. 60 tablet 6 No current facility-administered medications for this visit. family history includes Heart Disease - Other in his father; Hypertension in his mother. Past Medical History: Diagnosis Date Arthritis COPD (chronic obstructive pulmonary disease) Diabetes mellitus Past Surgical History: Procedure Laterality Date LARGE BOWEL SURGERY 2012 states Perferated colon surgery by Dr Claudio Holland in [place] Social History Tobacco Use Smoking Status Former Packs/day: 2.00 Years: 30.00 Pack years: 60.00 Types: Cigarettes Smokeless Tobacco Never Tobacco Comments quit 9 yr ago Social History Substance and Sexual Activity Alcohol Use Not Currently Physical Examination: Vital Signs: BP 160/84 (BP Location: Left arm, BP Position: Sitting) Ht 1.778 m (5' 10) Wt 127.5 kg (281 lb) BMI 40.32 kg/m Smoking Status Former Constitutional: Oriented to person, place, and time. Appears well developed and well nourished. Eyes: conjunctiva/corneas clear, normal vision Ears/Nose/Mouth Eyes -EOMI. Ears - External normal ear. Hearing normal. Mouth - Lips normal color. Head/Neck: Face symmetrical, trachea midline, Head - Normocephalic. symmetrical. Normal ROM, neck supple. Pulmonary/chest: Normal respiratory effort, non-labored breathing. Abdominal/GI: Soft, non-tender, no organomegaly. Bowel sounds normal. Cardiovascular Normal rate and regular rhythm. No Murmurs or Rubs. Radial Pulses Normal. Circulation Normal. Neurologic: Alert and oriented x3. No focal neurological deficits noted. Extremities: No clubbing, cyanosis, or edema noted, no calf tenderness bilaterally. Skin: Warm and dry.Normal turgor, well-hydrated, no rashes noted. Psych: Normal mood and affect. Behavior is normal. ASSESSMENT AND PLAN patient is here for follow-up. Presently biggest problem is his back. Patient has thoracic pain. Follows with Dr. Del Valle. Does receive injections. Not much help at this time. Hopefully deeper injection will give him some relief. Blood pressure mildly elevated. Recommend he check at home. Medicine reviewed Patient type 2 diabetes. Due for an A1c. Will have this drawn at the hospital Patient with hyperlipidemia. Patient needs to have a fasting lipid panel. New patient also due for screening PSA Jo was seen today for follow-up. Diagnoses and all orders for this visit: Primary hypertension Type 2 diabetes mellitus with hyperglycemia, without long-term current use of insulin Pulmonary emphysema, unspecified emphysema type Chronic right-sided thoracic back pain Screening PSA (prostate specific antigen) documented in this encounterMad[facility]04-27-2022 History of Present illness Narrative* Evelia Espinal LPN - 07/31/2021 9:45 AM EDT Nurse Note: Review of Systems Constitutional: Positive for fatigue. Negative for chills, diaphoresis and fever. HENT: Negative for congestion, ear pain, postnasal drip, rhinorrhea, sinus pressure and sore throat. Eyes: Negative for pain. Respiratory: Negative for cough, chest tightness, shortness of breath and wheezing. Cardiovascular: Negative for chest pain and palpitations. Gastrointestinal: Negative for abdominal pain, constipation, diarrhea, nausea and vomiting. Endocrine: Negative for cold intolerance and heat intolerance. Genitourinary: Negative for difficulty urinating, frequency and urgency. Musculoskeletal: Positive for back pain. Negative for joint swelling. Skin: Negative for rash and wound. Allergic/Immunologic: Negative for environmental allergies. Neurological: Negative for dizziness, light-headedness and headaches. Hematological: Does not bruise/bleed easily. Psychiatric/Behavioral: Positive for sleep disturbance. Negative for dysphoric mood. The patient isnot nervous/anxious and is not hyperactive. Nursing Assessment: Physical Exam Pt here for diabetes follow up * Fermín Fonseca II, MD - 07/31/2021 9:45 AM EDT HISTORY OF PRESENT ILLNESS 66 y.o. male fu dm2 Nurse Note: Review of Systems Constitutional: Positive for fatigue. Negative for chills, diaphoresis and fever. HENT: Negative for congestion, ear pain, postnasal drip, rhinorrhea, sinus pressure and sore throat. Eyes: Negative for pain. Respiratory: Negative for cough, chest tightness, shortness of breath and wheezing. Cardiovascular: Negative for chest pain and palpitations. Gastrointestinal: Negative for abdominal pain, constipation, diarrhea, nausea and vomiting. Endocrine: Negative for cold intolerance and heat intolerance. Genitourinary: Negative for difficulty urinating, frequency and urgency. Musculoskeletal: Positive for back pain. Negative for joint swelling. Skin: Negative for rash and wound. Allergic/Immunologic: Negative for environmental allergies. Neurological: Negative for dizziness, light-headedness and headaches. Hematological: Does not bruise/bleed easily. Psychiatric/Behavioral: Positive for sleep disturbance. Negative for dysphoric mood. The patient isnot nervous/anxious and is not hyperactive. Nursing Assessment: Physical Exam Pt here for diabetes follow up History No Known Allergies has Arthropathy of lumbar facet joint; Degeneration of lumbar intervertebral disc; Low back pain; Myofascial pain; and Obesity: body mass index of 35.0-39.9 on their problem list. Current Outpatient Medications Medication Sig Dispense Refill albuterol (Ventolin HFA) 108 (90 Base) MCG/ACT Aero Soln inhaler 1-2 puffs daily as needed 18 g 11 atorvastatin 40 MG tablet Take 1 tablet by mouth daily. 90 tablet 1 DULoxetine [address] Particles capsule DR Take 1 capsule by mouth daily. 90 capsule 1 Empagliflozin (Jardiance) 10 MG tablet Take 1 tablet by mouth daily. 90 tablet 1 hydroCHLOROthiazide 12.5 MG capsule Take 1 capsule by mouth daily. 90 capsule 1 lisinopril 30 MG tablet Take 1 tablet by mouth daily. 90 tablet 1 metFORMIN 1000 MG tablet Take 1 tablet by mouth 2 times daily with meals. 180 tablet 1 metoprolol succinate 100 MG tablet XL One tab daily 90 tablet 1 fluticasone 0.05 % Cream fluticasone propionate 0.05 % topical cream sildenafil 20 MG tablet Take 20 mg by mouth as needed. No current facility-administered medications for this visit. family history includes Heart Disease - Other in his father; Hypertension in his mother. Past Medical History: Diagnosis Date Arthritis COPD (chronic obstructive pulmonary disease) Diabetes mellitus Past Surgical History: Procedure Laterality Date LARGE BOWEL SURGERY 2012 Pt states Perferated colon surgery by Dr Claudio Holland in [place] Social History Tobacco Use Smoking Status Former Smoker Packs/day: 2.00 Years: 30.00 Pack years: 60.00 Smokeless Tobacco Never Used Tobacco Comment quit 9 yr ago Social History Substance and Sexual Activity Alcohol Use Not Currently Physical Examination: Vital Signs: BP 144/90 (BP Location: Left arm, BP Position: Sitting) Pulse 78 Temp 97.7 F (36.5 C) (Temporal) Ht 1.778 m (5' 10) Wt 125.2 kg (276 lb) SpO2 92% BMI 39.60 kg/m Smoking Status Former Smoker Constitutional: Oriented to person, place, and time. Appears well developed and well nourished. Eyes: conjunctiva/corneas clear, normal vision Ears/Nose/Mouth Eyes -EOMI. Ears - External normal ear. Hearing normal. Mouth - Lips normal color. Head/Neck: Face symmetrical, trachea midline, Head - Normocephalic. symmetrical. Normal ROM, neck supple. Pulmonary/chest: Normal respiratory effort, non-labored breathing. Abdominal/GI: Soft, non-tender, no organomegaly. Bowel sounds normal. Cardiovascular Normal rate and regular rhythm. No Murmurs or Rubs. Radial Pulses Normal. Circulation Normal. Neurologic: Alert and oriented x3. No focal neurological deficits noted. Extremities: No clubbing, cyanosis, or edema noted, no calf tenderness bilaterally. Skin: Warm and dry.Normal turgor, well-hydrated, no rashes noted. Psych: Normal mood and affect. Behavior is normal. ASSESSMENT AND PLAN Patient's here for follow-up. Patient with type 2 diabetes. A1c is very well controlled. No further intervention Blood pressure control although slightly elevated. Continue to observe medicine reviewed History colonic polyps. Approximately 10 years ago. Due for colonoscopy. Patient reticent to do this. He will let us know when he is ready Patient with insomnia due to chronic back pain. Will try trazodone 50 mg at bedtime Reviewed previous labs with PSA BMP and A1c. Jo was seen today for follow-up and diabetes. Diagnoses and all orders for this visit: Type 2 diabetes mellitus with hyperglycemia, without long-term current use of insulin Chronic bilateral low back pain without sciatica Primary hypertension History of colonic polyps Insomnia due to medical condition documented in this encounterMadison Health01-13-2022 History of Present illness Narrative* Alison Ivy LPN - 04/18/2021 10:00 AM EST Blood drawn x1 from left AC * Fermín Fonseca II, MD - 04/18/2021 10:00 AM EST HISTORY OF PRESENT ILLNESS 65 y.o. male to est Nurse Note: Review of Systems Constitutional: Negative for chills, diaphoresis, fatigue and fever. HENT: Negative for congestion, ear pain, postnasal drip, rhinorrhea, sinus pressure and sore throat. Eyes: Negative for pain. Respiratory: Negative for cough, chest tightness, shortness of breath and wheezing. Cardiovascular: Negative for chest pain and palpitations. Gastrointestinal: Negative for abdominal pain, constipation, diarrhea, nausea and vomiting. Endocrine: Negative for cold intolerance and heat intolerance. Genitourinary: Negative for difficulty urinating, frequency and urgency. Musculoskeletal: Positive for back pain. Negative for joint swelling. Skin: Negative for rash and wound. Allergic/Immunologic: Negative for environmental allergies. Neurological: Negative for dizziness, light-headedness and headaches. Hematological: Does not bruise/bleed easily. Psychiatric/Behavioral: Negative for dysphoric mood and sleep disturbance. The patient is not nervous/anxious and is not hyperactive. Nursing Assessment: Physical Exam Pt here for establishment History No Known Allergies has Arthropathy of lumbar facet joint; Degeneration of lumbar intervertebral disc; Low back pain; Myofascial pain; and Obesity: body mass index of 35.0-39.9 on their problem list. Current Outpatient Medications Medication Sig Dispense Refill albuterol (Ventolin HFA) 108 (90 Base) MCG/ACT Aero Soln inhaler Ventolin HFA 90 mcg/actuation aerosol inhaler atorvastatin 40 MG tablet Take 40 mg by mouth daily. DULoxetine [address] Particles capsule DR Take 60 mg by mouth daily. hydroCHLOROthiazide 12.5 MG capsule Take 12.5 mg by mouth daily. Jardiance 10 MG tablet Take 10 mg by mouth daily. lisinopril 30 MG tablet Take 30 mg by mouth daily. metFORMIN 1000 MG tablet Take 1,000 mg by mouth daily. metoprolol succinate 100 MG tablet XL sildenafil 20 MG tablet Take 20 mg by mouth as needed. No current facility-administered medications for this visit. family history includes Heart Disease - Other in his father; Hypertension in his mother. Past Medical History: Diagnosis Date Arthritis COPD (chronic obstructive pulmonary disease) Diabetes mellitus Past Surgical History: Procedure Laterality Date LARGE BOWEL SURGERY 2013 Pt states Perferated colon surgery by Dr Claudio Holland in [place] Social History Tobacco Use Smoking Status Former Smoker Packs/day: 2.00 Years: 30.00 Pack years: 60.00 Smokeless Tobacco Never Used Tobacco Comment quit 9 yr ago Social History Substance and Sexual Activity Alcohol Use Not Currently Physical Examination: Vital Signs: BP 138/84 (BP Location: Left arm, BP Position: Sitting) Pulse 86 Temp 98 F (36.7 C) (Temporal) Ht 1.778 m (5' 10) Wt 119.6 kg (263 lb 9.6 oz) SpO2 95% BMI 37.82 kg/m Smoking Status Former Smoker Constitutional: Oriented to person, place, and time. Appears well developed and well nourished. Eyes: conjunctiva/corneas clear, normal vision Ears/Nose/Mouth Eyes -EOMI. Ears - External normal ear. Hearing normal. Mouth - Lips normal color. Head/Neck: Face symmetrical, trachea midline, Head - Normocephalic. symmetrical. Normal ROM, neck supple. Pulmonary/chest: Normal respiratory effort, non-labored breathing. Abdominal/GI: Soft, non-tender, no organomegaly. Bowel sounds normal. Cardiovascular Normal rate and regular rhythm. No Murmurs or Rubs. Radial Pulses Normal. Circulation Normal. Neurologic: Alert and oriented x3. No focal neurological deficits noted. Extremities: No clubbing, cyanosis, or edema noted, no calf tenderness bilaterally. Skin: Warm and dry.Normal turgor, well-hydrated, no rashes noted. Psych: Normal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 Records FoundNo Family History Records Found Advance Directives No Advanced Directives Records Found Advance Directive Response Recorded Date/ Time Living Will No May 01 3:57pm Power of Rail Layer No May 01, 2023 3:57pm Reason for Referral Specialty Diagnoses / Procedures Referred By Contac t Referred To Contact Pain Management Diagnoses Chronic right-sided thoracic back pain Procedures CONSULT TO PAIN MGT OFFICE/OUTPATIENT NEW HIGH MDM 60-74 MINUTES Jessica Nicole, PRODUCT TEST SPECIALIST.WORM RAISER [address] [place] [address] Referral ID Status Reason Start Date Expiration Date Visits Requested Visits Authorized [id number] Pending Review PCP Requested Referral 04/24/2022 04/24/2023 1 1 Specialty Diagnoses / Procedures Referred By Contac t Referred To Contact US IMAGING Diagnoses Screening for abdominal aortic aneurysm Procedures US SCREENING FOR AAA (2017) US ABDOMINAL AORTA REAL TIME SCREEN STUDY AAA Jessica Nicole, PRODUCT TEST SPECIALIST.WORM RAISER [address] [place] [address] Us Imaging Referral ID Status Reason Start Date Expiration Date Visits Requested Visits Authorized [id number] Authorized Auto-Generat ed Referral 04/24/2022 05/24/2023 1 1 Specialty Diagnoses / Procedures Referred By Contac t Referred To Contact Diagnoses Thoracic spondylosis Procedures XR FLUORO PAIN MANAGEMENT Elba Amaya MD [address] [place] [address] Referral ID Status Reason Start Date Expiration Date V isits Requested Visits Authorized [id number] New Request 05/12/2022 06/06/2023 1 1 Specialty Diagnoses / Procedures Referred By Contac t Referred To Contact CT IMAGING Diagnoses Encounter for screening for malignant neoplasm of lung Former cigarette smoker Procedures CT LUNG SCREEN WO IVCON COMPUTED TOMOGRAPHY THORAX LW DOSE LNG CA SCR Makayla Fairbanks, PRODUCT TEST SPECIALIST.SPORTS BOOK SERVER [address] [place] [address] Ct Imaging Referral ID Status Reason Start Date Expiration Date Visits Requested Visits Authorized [id number] Authorized Auto-Generat ed Referral 05/14/2022 06/13/2023 1 1 Specialty Diagnoses / Procedures Referred By Contac t Referred To Contact CT IMAGING Diagnoses Former cigarette smoker Encounter for screening for malignant neoplasm of lung Procedures CT LUNG SCREEN WO IVCON COMPUTED TOMOGRAPHY THORAX LW DOSE LNG CA Makayla Triplett, CARRIE.SPORTS BOOK SERVER [address] [place] [address] Ct Imaging Referral ID Status Reason Start Date Expiration Date Visits Requested Visits Authorized [id number] Pending Review Auto-Generat ed Referral 07/02/2022 03/04/2024 1 1 Specialty Diagnoses / Procedures Referred By Contac t Referred To Contact [facility] Diagnoses Chronic right-sided thoracic back pain Procedures PT REHAB FOLLOW UP ORDER THERAPEUTIC EXERCISES RE, EA 15 MIN. Jaime Nieto, PT [address] [place] [address] [facility] [address] [place] [address] Referral ID Status Reason Start Date Expiration Date Visits Requested Visits Authorized [id number] Pending Review PCP Requested Referral Auto-Generate d Referral 09/09/2022 12/08/2022 1 1 Specialty Diagnoses / Procedures Referred By Contac t Referred To Contact MR IMAGING Diagnoses Chronic right-sided thoracic back pain Radiculopathy of lumbar region Back pain due to injury Procedures MRI LUMBAR SPINE WO IVCON MRI SPINAL CANAL LUMBAR W/O CONTRAST MATERIAL Naun Warren APRN.SPORTS BOOK SERVER [address] [place] [address] Mr Imaging Referral ID Status Reason Start Date Expiration Date V isits Requested Visits Authorized [id number] Closed Auto-Generate d Referral 10/02/2022 11/01/2022 1 1 Specialty Diagnoses / Procedures Referred By Contac t Referred To Contact Pain Management Diagnoses Chronic right shoulder pain Chronic pain syndrome Back pain due to injury Procedures CONSULT TO PAIN MGT OFFICE/OUTPATIENT NEW HIGH MDM 60 MINUTES Naun Warren APRN.SPORTS BOOK SERVER [address] [place] [address] Referral ID Status Reason Start Date Expiration Date Visits Requested Visits Authorized [id number] Authorized PCP Requested Referral 06/15/2023 06/14/2024 1 1 Specialty Diagnoses / Procedures Referred By Gene orellana Referred To Contact Ophthalmology Diagnoses Screening for diabetic retinopathy Procedures CONSULT TO OPHTHALMOLOGY OFFICE/OUTPATIENT NEW HIGH MDM 60 MINUTES Jessica Nicole, PRODUCT TEST SPECIALIST.WORM RAISER [address] [place] [address] Referral ID Status Reason Start Date Expiration Date Visits Requested Visits Authorized [id number] Authorized PCP Requested Referral 10/23/2023 10/22/2024 1 1 Specialty Diagnoses / Procedures Referred By Gene orellana Referred To Contact [facility] Diagnoses Pulmonary emphysema, unspecified emphysema type (HCC) Procedures SPIROMETRY - BASELINE AND POST DILATOR BRNCDILAT RSPSE SPMTRY PRE&POST-BRNCDILAT ADMN Jessica Nicole, PRODUCT TEST SPECIALIST.WORM RAISER [address] [place] [address] [facility] [place] [address] Referral ID Status Reason Start Date Expiration Date Visits Requested Visits Authorized [id number] New Request Auto-Generat ed Referral 10/23/2023 11/21/2024 1 1 Specialty Diagnoses / Procedures Referred By Gene orellana Ref[facility] Diagnoses Welcome to Medicare preventive visit Procedures ECG COMPLETE ECG ROUTINE ECG W/LEAST 12 LDS W/I&R Jessica Nicole, PRODUCT TEST SPECIALIST.WORM RAISER [address] [place] [address] [facility] [address] [place] [address] Referral ID Status Reason Start Date Expiration Date Visits Requested Visits Authorized [id number] New Request Auto-Generat ed Referral 10/23/2023 10/22/2024 1 1 Chief Complaint and Reason for Visit Chief Complaint BACK PAIN/RX HERE Chief Complaint CAT BITE Chief Complaint Admit Date RIGHT SHOULDER June 21, 2024 8:1 8am LEFT SHOULDER August 09, 2024 9:55am Room 1 August 09, 2024 10:00a m PAIN, PSEUDO PARALYSIS September 12, 2024 3: 35pm Reason for Visit Admit Date Right rotator cuff tear arthropathy Esteban h 2024 8:18am Left shoulder pain August 09, 2024 9:55am Chief Complaint Admit Date RIGHT SHOULDER June 21, 2024 8:1 8am LEFT SHOULDER August 09, 2024 9:55am Room 1 August 09, 2024 10:00a m PAIN, PSEUDO PARALYSIS September 12, 2024 3: 35pm LEFT SHOULDER September 20, 2024 8:24 am Reason for Visit Admit Date Right rotator cuff tear arthropathy [facility] 2024 8:18am Left shoulder pain August 09, 2024 9:55am Left rotator cuff tear arthropathy September 20, 2024 8:24am Left shoulder pain September 20, 2024 8:24 am Chief Complaint Admit Date LEFT SHOULDER August 09, 2024 9:55am Room 1 August 09, 2024 10:00a m PAIN, PSEUDO PARALYSIS September 12, 2024 3: 35pm LEFT SHOULDER September 20, 2024 8:24 am RIGHT SHOULDER October 21, 2024 9:07 am Reason for Visit Admit Date Left shoulder pain August 09, 2024 9:55am Left rotator cuff tear arthropathy September 20, 2024 8:24am Left shoulder pain September 20, 2024 8:24 am Chief Complaint Admit Date PAIN, PSEUDO PARALYSIS September 12, 2024 3: 35pm LEFT SHOULDER September 20, 2024 8:24 am RIGHT SHOULDER October 21, 2024 9:07 am LEFT SHOULDER December 26, 2024 7:54am Reason for Visit Admit Date Left rotator cuff tear arthropathy September 20, 2024 8:24am Left shoulder pain September 20, 2024 8:24 am Right rotator cuff tear arthropathy October 21, 2024 9:07am Left rotator cuff tear arthropathy Evin cordero 2024 7:54am Medications Administered Section Inactive Administered Medications - up to 3 most recent administrations Medication Order MAR Action Action Date Dose Rate Site triamcinolone acetonide 60 mg injection (KeNALog 40) 60 mg, INTRAMUSCULAR, ONCE, 1 dose, On 10/13/22 at 1400 Given 10/13/2022 1:43 PM EDT 60 mg Breas t, Right Inactive Administered Medications - up to 3 most recent administrations Medication Order MAR Action Action Date Dose Rate Site 0.9% NaCl 10 mL flush 10 mL, INTRAVENOUS, ONCE, 1 dose, On Thu12/22/22 at 0830, Add To Bag After All Drug Is In The Tubing Given by [facility] 12/22/2022 8:32 AM EDT 10 mL iohexol 300 mg IV injection (OMNIPAQUE 300) 300 mg, OTHER, ONCE, 1 dose, On Thu12/22/22 at 0830 Given by [facility] 12/22/2022 8:32 AM EDT 300 mg lidocaine 10 mg/mL (1 %) 100 mg injection (XYLOCAINE) 100 mg, OTHER, ONCE, 1 dose, On Thu12/22/22 at 0830 Given by [facility] 12/22/2022 8:31 AM EDT 100 mg methylPREDNISolone acetate 80 mg injection (DEPO-Medrol) 80 mg, OTHER, ONCE, 1 dose, On Thu12/22/22 at 0830 Given by [facility] 12/22/2022 8:35 AM EDT 80 mg Inactive Administered Medications - up to 3 most recent administrations Medication Order MAR Action Action Date Dose Rate Site BUPivacaine (PF) 0.5 % (5 mg/mL) 15 mg injection 15 mg (3 mL), OTHER, ONCE, 1 dose, On Thu01/19/23 at 0700 Given by [facility] 01/19/2023 7:05 AM EDT 15 mg lidocaine 10 mg/mL (1 %) 100 mg injection (XYLOCAINE) 100 mg, OTHER, ONCE, 1 dose, On Thu01/19/23 at 0700 Given by [facility] 01/19/2023 7:04 AM EDT 100 mg Inactive Administered Medications - up to 3 most recent administrations Medication Order MAR Action Action Date Dose Rate Site 0.9% NaCl 10 mL flush 10 mL, INTRAVENOUS, ONCE, 1 dose, On Thu02/02/23 at 0700, Add To Bag After All Drug Is In The Tubing Given by [facility] 02/02/2023 7:13 AM EDT 10 mL iohexol 300 mg IV injection (OMNIPAQUE 300) 300 mg, OTHER, ONCE, 1 dose, On Thu02/02/23 at 0700 Given by [facility] 02/02/2023 7:14 AM EDT 300 mg lidocaine 10 mg/mL (1 %) 100 mg injection (XYLOCAINE) 100 mg, OTHER, ONCE, 1 dose, On Thu02/02/23 at 0700 Given by [facility] 02/02/2023 7:14 AM EDT 100 mg Inactive Administered Medications - up to 3 most recent administrations Medication Order MAR Action Action Date Dose Rate Site 0.9% NaCl 10 mL flush 10 mL, INTRAVENOUS, ONCE, 1 dose, On Thu03/16/23 at 0800, Add To Bag After All Drug Is In The Tubing Given by [facility] 03/16/2023 7:31 AM EST 10 mL iohexol 300 mg IV injection (OMNIPAQUE 300) 300 mg, OTHER, ONCE, 1 dose, On Thu03/16/23 at 0800 Given by [facility] 03/16/2023 7:32 AM EST 300 mg lidocaine 10 mg/mL (1 %) 100 mg injection (XYLOCAINE) 100 mg, OTHER, ONCE, 1 dose, On Thu03/16/23 at 0800 Given by [facility] 03/16/2023 7:31 AM EST 100 mg methylPREDNISolone acetate 80 mg injection (DEPO-Medrol) 80 mg, OTHER, ONCE, 1 dose, On Thu03/16/23 at 0800 Given by [facility] 03/16/2023 8:11 AM EST 80 mg Additional Source Comments Reason for Visit (unrecogniz ed section and content) Reason Comments New Patient Reason Comments Follow-up Diabetes Reason Comments Follow-up Reason Onset Date Comments Establish Care Immunizations 04/24/2022 Flu vaccination Reason Comments Results Reason Comments Results US screen AAA Reason Comments Follow-up Specialty Diagnoses / Procedures Referred By Gene orellana Referred To Contact Anesthesiology Pain Mgt Diagnoses Myofascial pain syndrome of thoracic spine Thoracic back pain, unspecified back pain laterality, unspecified chronicity Thoracic facet joint syndrome Milton Estevez S, DO [address] [place] [address] Elba Amaya MD [address] [place] [address] Referral ID Status Reason Start Date Expiration Date Visits Re quested Visits Authorized [id number] Closed 04/04/2022 04/29/2023 1 1 Specialty Diagnoses / Procedures Referred By Gene orellana Referred To Contact Diagnoses Thoracic spondylosis Procedures XR FLUORO PAIN MANAGEMENT Elba Amaya MD [address] [place] [address] Referral ID Status Reason Start Date Expiration Date V isits Requested Visits Authorized [id number] New Request 05/12/2022 06/06/2023 1 1 Reason Comments Counseling Lung Eval Specialty Diagnoses / Procedures Referred By Contac t Referred To Contact CT IMAGING Diagnoses Encounter for screening for malignant neoplasm of lung Former cigarette smoker Procedures CT LUNG SCREEN WO IVCON COMPUTED TOMOGRAPHY THORAX LW DOSE LNG CA SCR Makayla Fairbanks, PRODUCT TEST SPECIALIST.SPORTS BOOK SERVER [address] [place] [address] Ct Imaging Referral ID Status Reason Start Date Expiration Date V isits Requested Visits Authorized [id number] Closed Auto-Generate d Referral 05/14/2022 06/13/2023 1 [address] Reason [address] results for CT scan Results LDCT Reason Comments Zoom Appointment Reason Comments Wellness Specialty Diagnoses / Procedures Referred By Contac t Referred To Contact Internal Medicine / WELL[facility] Diagnoses Chronic right-sided thoracic back pain Procedures CONSULT TO WELLNESS NON-PHARMACOLOGIC PAIN MANAGEMENT OFFICE/OUTPATIENT [facility] MDM 60-74 MINUTES Naun Warren, PRODUCT TEST SPECIALIST.SPORTS BOOK SERVER [address] [place] [address] Tia Eckert MD [address] [place] [address] Referral ID Status Reason Start Date Expiration Date Visits Requested Visits Authorized [id number] Authorized PCP Requested Referral 08/20/2022 04/05/2023 99 99 Reason Comments PT Eval Specialty Diagnoses / Procedures Referred By Contac t Referred To Contact [facility] Diagnoses Chronic right-sided thoracic back pain Procedures CONSULT TO PHYSICAL THERAPY PHYSICAL THERAPY EVALUATION [facility] COMPLEX 45 MINS Naun Warren, PRODUCT TEST SPECIALIST.SPORTS BOOK SERVER [address] [place] [address] [facility] [address] [place] [address] Referral ID Status Reason Start Date Expiration Date V isits Requested Visits Authorized [id number] Closed Auto-Generate d Referral 04/06/2022 04/05/2023 1 1 Reason Comments Refill Request Specialty Diagnoses / Procedures Referred By Contac t Referred To Contact MR IMAGING Diagnoses Chronic right-sided thoracic back pain Radiculopathy of lumbar region Back pain due to injury Procedures MRI LUMBAR SPINE WO IVCON MRI SPINAL CANAL LUMBAR W/O CONTRAST MATERIAL Naun Warren, PRODUCT TEST SPECIALIST.SPORTS BOOK SERVER [address] [place] [address] Mr Imaging Referral ID Status Reason Start Date Expiration Date V isits Requested Visits Authorized [id number] Closed Auto-Generate d Referral 10/02/2022 11/01/2022 1 1 Reason Comments Pain (Shoulder Pain) L shoulder pain, MV A on 10/01 Reason Comments Recheck left shoulder still has feeling of wanting to dislocate Reason Onset Date Comments Refill Request 11/20/2022 Reason Comments PT Progress Note Specialty Diagnoses / Procedures Referred By Contac t Referred To Contact [facility] Diagnoses Chronic right-sided thoracic back pain Procedures PT REHAB FOLLOW UP ORDER THERAPEUTIC EXERCISES RE, EA 15 MIN. Naun Warren, PRODUCT TEST SPECIALIST.SPORTS BOOK SERVER [address] [place] [address] [facility] [address] [place] [address] Referral ID Status Reason Start Date Expiration Date V isits Requested Visits Authorized [id number] Closed PCP Requested Referral Auto-Generated Referral 09/11/2022 12/12/2022 2 2 Reason Comments Medication Problem Atorvastatin 40 mg p rescription Reason Comments Procedure Specialty Diagnoses / Procedures Referred By Contac t Referred To Contact Pain Management / PAIN MANAGEMENT Diagnoses Spinal stenosis, lumbar region with neurogenic claudication L5/S1 ILESI Procedures FLUOR NEEDLE/CATH SPINE/PARASPINAL DX/THER ADDON NJX DX/THER SBST INTRLMNR LMBR/SAC W/IMG GDN PROCEDURE Jessica Tapia, PRODUCT TEST SPECIALIST.SPORTS BOOK SERVER [address] [place] [address] Shiv Salguero MD [address] [place] [address] Referral ID Status Reason Start Date Expiration Date Visits Re quested Visits Authorized [id number] Closed 12/22/2022 03/22/2023 1 1 Reason Comments Opened In Error Reason Onset Date Comments Refill Request 12/29/2022 Reason Comments Procedure Follow Up Dr. Salguero 01-05-23 Reason Comments Follow Up Specialty Diagnoses / Procedures Referred By Contac t Referred To Contact Pain Management / PAIN MANAGEMENT Diagnoses Follow up after ILESI. 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 Procedures NJX DX/THER AGT PVRT FACET JT LMBR/SAC 1 LEVEL NJX DX/THER AGT PVRT FACET JT LMBR/SAC 2ND LEVEL FLUOROSCOPIC GUIDANCE NEEDLE PLACEMENT ADD ON PROCEDURE 20 Jessica Tapia PRODUCT TEST SPECIALIST.SPORTS BOOK SERVER [address] [place] [address] Shiv Salguero MD [address] [place] [address] Referral ID Status Reason Start Date Expiration Date Visits Re quested Visits Authorized [id number] Closed 04/06/2022 04/05/2023 1 1 Reason Comments Follow Up Specialty Diagnoses / Procedures Referred By Contac t Referred To Contact Pain Management / PAIN MANAGEMENT Diagnoses Follow up after REID & 1st MBB, Procedures OFFICE/OUTPATIENT ESTABLISHED MOD MDM 30-39 MIN VIDEO SPEC EST Jessica Tapia, PRODUCT TEST SPECIALIST.SPORTS BOOK SERVER [address] [place] [address] Jessica Tapia APRN.SPORTS BOOK SERVER [address] [place] [address] Referral ID Status Reason Start Date Expiration Date Visits Re quested Visits Authorized [id number] Closed 04/06/2022 04/05/2023 1 1 Reason Comments Appointment Reason Comments Injections ILESI Specialty Diagnoses / Procedures Referred By Contac t Referred To Contact Pain Management / PAIN MANAGEMENT Diagnoses Spinal stenosis, thoracic region T10/11 ILESI Procedures NJX DX/THER SBST INTRLMNR CRV/THRC W/IMG GDN FLUOR NEEDLE/CATH SPINE/PARASPINAL DX/THER ADDON PROCEDURE 20 Smart, Jessica, PRODUCT TEST SPECIALIST.SPORTS BOOK SERVER [address] [place] [address] Shiv Salguero MD [address] [place] [address] Referral ID Status Reason Start Date Expiration Date V isits Requested Visits Authorized [id number] Authorized 02/02/2023 05/03/2023 1 1 Reason Onset Date Comments Refill Request 12/15/2022 Referral ID Status Reason Start Date Expiration Date Visits Re quested Visits Authorized [id number] Closed 02/02/2023 05/03/2023 1 1 Reason Onset Date Comments Refill Request 05/20/2023 Reason Comments Pre-Op Exam Reason Comments Orders Reason Onset Date Comments Population Health Navigation Outreach 06/26/2023 [employer] care gaps Reason Onset Date Comments requesting medication no on list 06/29/2023 Reason Onset Date Comments Refill Request 07/10/2023 Reason Onset Date Comments Refill Request 08/07/2023 Reason Comments Medicare Wellness Exam Reason Onset Date Comments Refill Request 12/16/2023 Reason Onset Date Comments Refill Request 02/10/2024 Reason Comments Refill Request diclofenac Reason Comments Medicare Wellness Exam Reason Onset Date Comments Refill Request 08/16/2024 Reason Onset Date Comments Population Health Navigation Outreach 10/19/2024 [employer] [place] Reason Comments F/U 6 Month Reason Onset Date Comments Allied Health Visit 12/13/2024 Medication A dherence Outreach Care Teams (unrecognized sec tion and content) Guidance Services Coordinator Relationship Specialty Start Date End Date Marian IIFermín MD [address] [place] [address] [id number] PCP - General Internal Medicine 04/18/21 Guidance Services Coordinator Relationship Specialty Start Date End Date Fermín Fonseca II, MD [address] [facility], [place] [id number] PCP - General Internal Medicine 04/18/21 Guidance Services Coordinator Relationship Specialty Start Date End Date Fermín Fonseca II, MD [address] [facility], [place] [id number] PCP - General Internal Medicine 04/18/21 Guidance Services Coordinator Relationship Specialty Start Date End Date Fermín Fonseca II, MD [address] [facility], [place] [phone] PCP - General Internal Medicine 04/18/21 Guidance Services Coordinator Relationship Specialty Start Date End Date Win Zamora MD [address] [place] [address] PCP - General Internal Medicine 04/24/22 Guidance Services Coordinator Relationship Specialty Start Date End Date Win Zamora MD [address] [place] [address] PCP - General Internal Medicine 04/24/22 Guidance Services Coordinator Relationship Specialty Start Date End Date Win Zamora MD [address] [place] [address] PCP - General Internal Medicine 04/24/22 Guidance Services Coordinator Relationship Specialty Start Date End Date Win Zamora MD [address] [place] [address] PCP - General Internal Medicine 04/24/22 Guidance Services Coordinator Relationship Specialty Start Date End Date Fermín Fonseca II, MD [address] [facility], [place] [id number] PCP - General Internal Medicine 04/18/21 Guidance Services Coordinator Relationship Specialty Start Date End Date Fermín Fonseca II, MD [address] [id number] PCP - General Internal Medicine 04/18/21 Guidance Services Coordinator Relationship Specialty Start Date End Date Win Zamora MD [address] [place] [address], [place] [address] PCP - General Internal Medicine 04/24/22 Team Status: Inactive Member Role Status Dates PEREZ ROSE Attending Provider, Referring Provider Kaz yang Guidance Services Coordinator Relationship Specialty Start Date End Date Win Zamora MD [address] [place] [address], [place] [address] PCP - General Internal Medicine 04/24/22 Guidance Services Coordinator Relationship Specialty Start Date End Date Win Zamora MD [address] [place] [address], [place] [address] PCP - General Internal Medicine 04/24/22 Guidance Services Coordinator Relationship Specialty Start Date End Date Win Zamora MD [address] [place] [address], [place] [address] PCP - General Internal Medicine 04/24/22 Guidance Services Coordinator Relationship Specialty Start Date End Date Win Zamora MD [address] [place] [address], [place] [address] PCP - General Internal Medicine 04/24/22 Guidance Services Coordinator Relationship Specialty Start Date End Date Win Zamora MD [address] [place] [address], [place] [address] PCP - General Internal Medicine 04/24/22 Guidance Services Coordinator Relationship Specialty Start Date End Date Win Zamora MD [address] [place] [address], [place] [address] PCP - General Internal Medicine 04/24/22 Guidance Services Coordinator Relationship Specialty Start Date End Date Win Zamora MD [address] [place] [address] PCP - General Internal Medicine 04/24/22 Guidance Services Coordinator Relationship Specialty Start Date End Date Win Zamora MD [address] [place] [address] PCP - General Internal Medicine 04/24/22 Guidance Services Coordinator Relationship Specialty Start Date End Date Win Zamora MD [address] [place] [address] PCP - General Internal Medicine 04/24/22 Guidance Services Coordinator Relationship Specialty Start Date End Date Win Zamora MD [address] [place] [address] PCP - General Internal Medicine 04/24/22 Guidance Services Coordinator Relationship Specialty Start Date End Date Win Zamora MD [address] [place] [address] PCP - General Internal Medicine 04/24/22 Guidance Services Coordinator Relationship Specialty Start Date End Date Win Zamora MD [address] [place] [address] PCP - General Internal Medicine 04/24/22 Guidance Services Coordinator Relationship Specialty Start Date End Date Win Zamora MD [address] [place] [address] PCP - General Internal Medicine 04/24/22 Guidance Services Coordinator Relationship Specialty Start Date End Date Win Zamora MD [address] [place] [address] PCP - General Internal Medicine 04/24/22 Guidance Services Coordinator Relationship Specialty Start Date End Date Win Zamora MD [address] [place] [address] PCP - General Internal Medicine 04/24/22 Guidance Services Coordinator Relationship Specialty Start Date End Date Win Zamora MD [address] [place] [address] PCP - General Internal Medicine 04/24/22 Guidance Services Coordinator Relationship Specialty Start Date End Date Win Zamora MD [address] [place] [address] PCP - General Internal Medicine 04/24/22 Guidance Services Coordinator Relationship Specialty Start Date End Date Win Zamora MD [address] [place] [address] PCP - General Internal Medicine 04/24/22 Guidance Services Coordinator Relationship Specialty Start Date End Date Win Zamora MD [address] [place] [address] PCP - General Internal Medicine 04/24/22 Guidance Services Coordinator Relationship Specialty Start Date End Date Win Zamora MD [address] [place] [address] PCP - General Internal Medicine 04/24/22 Guidance Services Coordinator Relationship Specialty Start Date End Date Win Zamora MD [address] [place] [address] PCP - General Internal Medicine 04/24/22 Guidance Services Coordinator Relationship Specialty Start Date End Date Win Zamora MD [address] [place] [address] PCP - General Internal Medicine 04/24/22 Guidance Services Coordinator Relationship Specialty Start Date End Date Win Zamora MD [address] [place] [address] PCP - General Internal Medicine 04/24/22 Guidance Services Coordinator Relationship Specialty Start Date End Date Win Zamora MD [address] [place] [address] PCP - General Internal Medicine 04/24/22 Guidance Services Coordinator Relationship Specialty Start Date End Date Win Zamora MD [address] [place] [address] PCP - General Internal Medicine 04/24/22 Team Status: Active Member Role Status Dates Dr. Win Zamora MD Primary Care Provider Active Team Status: Inactive Member Role Status Dates Dr. Jessica Espinal MD Emergency Provider Active Dr. Win Zamora MD Primary Care Provider Active Guidance Services Coordinator Relationship Specialty Start Date End Date Win Zamora MD [address] [place] [address] PCP - General Internal Medicine 04/24/22 Guidance Services Coordinator Relationship Specialty Start Date End Date Win Zamora MD [address] [place] [address] PCP - General Internal Medicine 04/24/22 Guidance Services Coordinator Relationship Specialty Start Date End Date Win Zamora MD [address] [place] [address] PCP - General Internal Medicine 04/24/22 Guidance Services Coordinator Relationship Specialty Start Date End Date Win Zamora MD [address] [place] [address] PCP - General Internal Medicine 04/24/22 Guidance Services Coordinator Relationship Specialty Start Date End Date Win Zamora MD [address] [place] [address] PCP - General Internal Medicine 04/24/22 Guidance Services Coordinator Relationship Specialty Start Date End Date Win Zamora MD [address] [place] [address] PCP - General Internal Medicine 04/24/22 Guidance Services Coordinator Relationship Specialty Start Date End Date Win Zamora MD [address] [place] [address] PCP - General Internal Medicine 04/24/22 Guidance Services Coordinator Relationship Specialty Start Date End Date Win Zamora MD [address] [place] [address] PCP - General Internal Medicine 04/24/22 Guidance Services Coordinator Relationship Specialty Start Date End Date Win Zamora MD [address] [place] [address] PCP - General Internal Medicine 04/24/22 Guidance Services Coordinator Relationship Specialty Start Date End Date Win Zamora MD [address] [place] [address] PCP - General Internal Medicine 04/24/22 Guidance Services Coordinator Relationship Specialty Start Date End Date Win Zamora MD [address] [place] [address] PCP - General Internal Medicine 04/24/22 Guidance Services Coordinator Relationship Specialty Start Date End Date Win Zamora MD [address] [place] [address] PCP - General Internal Medicine 04/24/22 Jessica Nicole, PRODUCT TEST SPECIALIST.WORM RAISER [address] [place] [address] Film Tests Checker Internal Medicine 03/14/24 Naun Warren PRODUCT TEST SPECIALIST.SPORTS BOOK SERVER [address] [place] [address] Film Tests Checker Internal Medicine 03/14/24 Guidance Services Coordinator Relationship Specialty Start Date End Date Win Zamora MD [address] [place] [address] PCP - General Internal Medicine 04/24/22 Jessica Nicole, PRODUCT TEST SPECIALIST.WORM RAISER [address] [place] [address] Film Tests Checker Internal Medicine 03/14/24 Naun Warren PRODUCT TEST SPECIALIST.SPORTS BOOK SERVER [address] [place] [address] Film Tests Checker Internal Medicine 06/28/24 Guidance Services Coordinator Relationship Specialty Start Date End Date Win Zamora MD [address] [place] [address] PCP - General Internal Medicine 04/24/22 Jessica Nicole, PRODUCT TEST SPECIALIST.WORM RAISER [address] [place] [address] Film Tests Checker Internal Medicine 03/14/24 Naun Warren PRODUCT TEST SPECIALIST.SPORTS BOOK SERVER [address] [place] [address] Film Tests Checker Internal Medicine 06/28/24 Team Status: Inactive Member Role Status Dates Dr. Win Zamora MD Primary Care Provider Active Start: June 21, 2024 End: June 21, 2024 Dr. Win Zamora MD Referring Provider Active Start: June 21, 2024 End: June 21, 2024 Silvio Singleton MD Attending Provider Active St art: June 21, 2024 End: June 21, 2024 Team Status: Inactive Member Role Status Dates Dr. Win Zamora MD Primary Care Provider Active Start: August 09, 2024 End: August 09, 2024 Dr. Win Zamora MD Referring Provider Active Start: August 09, 2024 End: August 09, 2024 Silvio Singleton MD Attending Provider Active St art: August 09, 2024 End: August 09, 2024 Team Status: Inactive Member Role Status Dates Dr. Win Zamora MD Primary Care Provider Active Start: August 09, 2024 End: August 09, 2024 Dr. Domingo Cobian MD Attending Provider Active S tart: August 09, 2024 End: August 09, 2024 Team Status: Inactive Member Role Status Dates Dr. Win Zamora MD Primary Care Provider Active Start: September 12, 2024 End: September 12, 2024 Silvio Singleton MD Attending Provider Active St art: September 12, 2024 End: September 12, 2024 Silvio Singleton MD Referring Provider Active St art: September 12, 2024 End: September 12, 2024 Team Status: Inactive Member Role Status Dates Dr. Win Zamora MD Primary Care Provider Active Start: September 20, 2024 End: September 20, 2024 Dr. Win Zamora MD Referring Provider Active Start: September 20, 2024 End: September 20, 2024 Silvio Singleton MD Attending Provider Active St art: September 20, 2024 End: September 20, 2024 Guidance Services Coordinator Relationship Specialty Start Date End Date Win Zamora MD [address] [place], [place] [address] PCP - General Internal Medicine 04/24/22 Naun Warren PRODUCT TEST SPECIALIST.SPORTS BOOK SERVER [address] [place], [place] [address] Film Tests Checker Internal Medicine 06/28/24 Jessica Nicole, PRODUCT TEST SPECIALIST.WORM RAISER [address] [place], [place] [address] Film Tests Checker Internal Medicine 08/24/24 Team Status: Active Member Role/Relationship Status Dates Dr. iWn Zamora MD Primary Care Provider Active Team Status: Inactive Member Role/Relationship Status Dates Dr. Win Zamora MD Primary Care Provider Active Start: August 09, 2024 End: August 09, 2024 Dr. Win Zamora MD Referring Provider Active Start: August 09, 2024 End: August 09, 2024 Silvio Singleton MD Attending Provider Active St art: August 09, 2024 End: August 09, 2024 Team Status: Inactive Member Role/Relationship Status Dates Dr. Win Zamora MD Primary Care Provider Active Start: August 09, 2024 End: August 09, 2024 Dr. Domingo Cobian MD Attending Provider Active S tart: August 09, 2024 End: August 09, 2024 Team Status: Inactive Member Role/Relationship Status Dates Dr. Win Zamora MD Primary Care Provider Active Start: September 12, 2024 End: September 12, 2024 Silvio Singleton MD Attending Provider Active St art: September 12, 2024 End: September 12, 2024 Silvio Singleton MD Referring Provider Active St art: September 12, 2024 End: September 12, 2024 Team Status: Inactive Member Role/Relationship Status Dates Dr. Win Zamora MD Primary Care Provider Active Start: September 20, 2024 End: September 20, 2024 Dr. Win Zamora MD Referring Provider Active Start: September 20, 2024 End: September 20, 2024 Silvio Singleton MD Attending Provider Active St art: September 20, 2024 End: September 20, 2024 Team Status: Inactive Member Role/Relationship Status Dates Dr. Win Zamora MD Primary Care Provider Active Start: October 21, 2024 End: October 21, 2024 Dr. Win Zamora MD Referring Provider Active Start: October 21, 2024 End: October 21, 2024 Silvio Singleton MD Attending Provider Active St art: October 21, 2024 End: October 21, 2024 Guidance Services Coordinator Relationship Specialty Start Date End Date Win Zamora MD [address] [place] [address] PCP - General Internal Medicine 04/24/22 Naun Warren PRODUCT TEST SPECIALIST.SPORTS BOOK SERVER [address] [place] [address] Film Tests Checker Internal Medicine 06/28/24 Jessica Nicole, PRODUCT TEST SPECIALIST.WORM RAISER [address] [place] [address] Film Tests Checker Internal Medicine 08/24/24 Guidance Services Coordinator Relationship Specialty Start Date End Date Win Zamora MD [address] [place] [address] PCP - General Internal Medicine 04/24/22 Naun Warren, PRODUCT TEST SPECIALIST.SPORTS BOOK SERVER [address] [place] [address] Film Tests Checker Internal Medicine 06/28/24 Jessica Nicole, PRODUCT TEST SPECIALIST.WORM RAISER [address] [place] [address] Film Tests Checker Internal Medicine 08/24/24 Team Status: Active Member Role/Relationship Status Dates Dr. Win Zamora MD Primary care physician Active Team Status: Inactive Member Role/Relationship Status Dates Dr. Win Zamora MD Primary care physician Active Start: September 12, 2024 End: September 12, 2024 Silvio Singleton MD Attending physician Active S tart: September 12, 2024 End: September 12, 2024 Silvio Singleton MD Referring Provider Active St art: September 12, 2024 End: September 12, 2024 Team Status: Inactive Member Role/Relationship Status Dates Dr. Win Zamora MD Primary care physician Active Start: September 20, 2024 End: September 20, 2024 Dr. Win Zamora MD Referring Provider Active Start: September 20, 2024 End: September 20, 2024 Silvio Singleton MD Attending physician Active S tart: September 20, 2024 End: September 20, 2024 Team Status: Inactive Member Role/Relationship Status Dates Dr. Win Zamora MD Primary care physician Active Start: October 21, 2024 End: October 21, 2024 Dr. Win Zamora MD Referring Provider Active Start: October 21, 2024 End: October 21, 2024 Silvio Singleton MD Attending physician Active S tart: October 21, 2024 End: October 21, 2024 Team Status: Inactive Member Role/Relationship Status Dates Dr. Win Zamora MD Primary care physician Active Start: December 26, 2024 End: December 26, 2024 Dr. Win Zamora MD Referring Provider Active Start: December 26, 2024 End: December 26, 2024 Silvio Singleton MD Attending physician Active S tart: December 26, 2024 End: December 26, 2024 (unrecognized sect ion and content) No Status Records FoundNo Status Records FoundNo Status Records FoundNo Status Records FoundNo Status Records FoundNo Status Records FoundNo Status Records FoundNo Status Records FoundNo Status Records FoundNo Status Records Found INFORMATION SOURCE (unrecogn ized section and content) DATE CREATED AUTHOR 01/04/2022 Derrick arrington DATE CREATED AUTHOR AUTHOR'S ORGANIZ ATION 02/11/2022 [facility] DATE CREATED AUTHOR AUTHOR'S ORGANIZ ATION 04/24/2022 [facility] DATE CREATED AUTHOR AUTHOR[facility]S [facility]IZ AT[facility]2022 [facility] DATE CREATED AUTHOR AUTHOR'S ORGANIZ ATION 07/03/2022 [facility] DATE CREATED AUTHOR AUTHOR'S ORGANIZ ATION 01/23/2023 [facility] DATE CREATED AUTHOR AUTHOR'S ORGANIZ ATION 04/24/2023 [facility] DATE CREATED AUTHOR AUTHOR'S ORGANIZ ATION 04/26/2023 [facility] ([place] DATE CREATED AUTHOR AUTHOR'S ORGANIZ ATION 12/26/2024 [facility] DATE CREATED AUTHOR AUTHOR'S ORGANIZ ATION 01/11/2025 [facility] Source Comments (unrecognize d section and content) In the event this informatio n is protected by the Federal Confidentiality of Alcohol and Drug Abuse Patient Records regulations: The Federal rules restrict any use of the information to criminally investigate or prosecute any alcohol or drug abuse patient.[facility] TownshipIn the event this information is protected by the Federal Confidentiality of Alcohol and Drug Abuse Patient Records regulations: The Federal rules restrict any use of the information to criminally investigate or prosecute any alcohol or drug abuse patient.[facility] TownshipIn the event this information is protected by the Federal Confidentiality of Alcohol and Drug Abuse Patient Records regulations: The Federal rules restrict any use of the information to criminally investigate or prosecute any alcohol or drug abuse patient.[facility] TownshipIn the event this information is protected by the Federal Confidentiality of Alcohol and Drug Abuse Patient Records regulations: The Federal rules restrict any use of the information to criminally investigate or prosecute any alcohol or drug abuse patient.[facility] TownshipIn the event this information is protected by the Federal Confidentiality of Alcohol and Drug Abuse Patient Records regulations: The Federal rules restrict any use of the information to criminally investigate or prosecute any alcohol or drug abuse patient.[facility] TownshipIn the event this information is protected by the Federal Confidentiality of Alcohol and Drug Abuse Patient Records regulations: The Federal rules restrict any use of the information to criminally investigate or prosecute any alcohol or drug abuse patient.[facility] TownshipIn the event this information is protected by the Federal Confidentiality of Alcohol and Drug Abuse Patient Records regulations: The Federal rules restrict any use of the information to criminally investigate or prosecute any alcohol or drug abuse patient.[facility] TownshipIn the event this information is protected by the Federal Confidentiality of Alcohol and Drug Abuse Patient Records regulations: The Federal rules restrict any use of the information to criminally investigate or prosecute any alcohol or drug abuse patient.[facility] TownshipIn the event this information is protected by the Federal Confidentiality of Alcohol and Drug Abuse Patient Records regulations: The Federal rules restrict any use of the information to criminally investigate or prosecute any alcohol or drug abuse patient.[facility] TownshipIn the event this information is protected by the Federal Confidentiality of Alcohol and Drug Abuse Patient Records regulations: The Federal rules restrict any use of the information to criminally investigate or prosecute any alcohol or drug abuse patient.[facility] TownshipIn the event this information is protected by the Federal Confidentiality of Alcohol and Drug Abuse Patient Records regulations: The Federal rules restrict any use of the information to criminally investigate or prosecute any alcohol or drug abuse patient.[facility] TownshipIn the event this information is protected by the Federal Confidentiality of Alcohol and Drug Abuse Patient Records regulations: The Federal rules restrict any use of the information to criminally investigate or prosecute any alcohol or drug abuse patient.[facility] TownshipIn the event this information is protected by the Federal Confidentiality of Alcohol and Drug Abuse Patient Records regulations: The Federal rules restrict any use of the information to criminally investigate or prosecute any alcohol or drug abuse patient.[facility] TownshipIn the event this information is protected by the Federal Confidentiality of Alcohol and Drug Abuse Patient Records regulations: The Federal rules restrict any use of the information to criminally investigate or prosecute any alcohol or drug abuse patient.[facility] TownshipIn the event this information is protected by the Federal Confidentiality of Alcohol and Drug Abuse Patient Records regulations: The Federal rules restrict any use of the information to criminally investigate or prosecute any alcohol or drug abuse patient.[facility] TownshipIn the event this information is protected by the Federal Confidentiality of Alcohol and Drug Abuse Patient Records regulations: The Federal rules restrict any use of the information to criminally investigate or prosecute any alcohol or drug abuse patient.[facility] TownshipIn the event this information is protected by the Federal Confidentiality of Alcohol and Drug Abuse Patient Records regulations: The Federal rules restrict any use of the information to criminally investigate or prosecute any alcohol or drug abuse patient.[facility] TownshipIn the event this information is protected by the Federal Confidentiality of Alcohol and Drug Abuse Patient Records regulations: The Federal rules restrict any use of the information to criminally investigate or prosecute any alcohol or drug abuse patient.[facility] TownshipIn the event this information is protected by the Federal Confidentiality of Alcohol and Drug Abuse Patient Records regulations: The Federal rules restrict any use of the information to criminally investigate or prosecute any alcohol or drug abuse patient.[facility] TownshipIn the event this information is protected by the Federal Confidentiality of Alcohol and Drug Abuse Patient Records regulations: The Federal rules restrict any use of the information to criminally investigate or prosecute any alcohol or drug abuse patient.[facility] TownshipIn the event this information is protected by the Federal Confidentiality of Alcohol and Drug Abuse Patient Records regulations: The Federal rules restrict any use of the information to criminally investigate or prosecute any alcohol or drug abuse patient.[facility] TownshipIn the event this information is protected by the Federal Confidentiality of Alcohol and Drug Abuse Patient Records regulations: The Federal rules restrict any use of the information to criminally investigate or prosecute any alcohol or drug abuse patient.[facility] TownshipIn the event this information is protected by the Federal Confidentiality of Alcohol and Drug Abuse Patient Records regulations: The Federal rules restrict any use of the information to criminally investigate or prosecute any alcohol or drug abuse patient.[facility] TownshipIn the event this information is protected by the Federal Confidentiality of Alcohol and Drug Abuse Patient Records regulations: The Federal rules restrict any use of the information to criminally investigate or prosecute any alcohol or drug abuse patient.[facility] TownshipIn the event this information is protected by the Federal Confidentiality of Alcohol and Drug Abuse Patient Records regulations: The Federal rules restrict any use of the information to criminally investigate or prosecute any alcohol or drug abuse patient.[facility] TownshipIn the event this information is protected by the Federal Confidentiality of Alcohol and Drug Abuse Patient Records regulations: The Federal rules restrict any use of the information to criminally investigate or prosecute any alcohol or drug abuse patient.[facility] TownshipIn the event this information is protected by the Federal Confidentiality of Alcohol and Drug Abuse Patient Records regulations: The Federal rules restrict any use of the information to criminally investigate or prosecute any alcohol or drug abuse patient.[facility] TownshipIn the event this information is protected by the Federal Confidentiality of Alcohol and Drug Abuse Patient Records regulations: The Federal rules restrict any use of the information to criminally investigate or prosecute any alcohol or drug abuse patient.[facility] TownshipIn the event this information is protected by the Federal Confidentiality of Alcohol and Drug Abuse Patient Records regulations: The Federal rules restrict any use of the information to criminally investigate or prosecute any alcohol or drug abuse patient.[facility] TownshipIn the event this information is protected by the Federal Confidentiality of Alcohol and Drug Abuse Patient Records regulations: The Federal rules restrict any use of the information to criminally investigate or prosecute any alcohol or drug abuse patient.[facility] TownshipIn the event this information is protected by the Federal Confidentiality of Alcohol and Drug Abuse Patient Records regulations: The Federal rules restrict any use of the information to criminally investigate or prosecute any alcohol or drug abuse patient.[facility] TownshipIn the event this information is protected by the Federal Confidentiality of Alcohol and Drug Abuse Patient Records regulations: The Federal rules restrict any use of the information to criminally investigate or prosecute any alcohol or drug abuse patient.[facility] TownshipIn the event this information is protected by the Federal Confidentiality of Alcohol and Drug Abuse Patient Records regulations: The Federal rules restrict any use of the information to criminally investigate or prosecute any alcohol or drug abuse patient.[facility] TownshipIn the event this information is protected by the Federal Confidentiality of Alcohol and Drug Abuse Patient Records regulations: The Federal rules restrict any use of the information to criminally investigate or prosecute any alcohol or drug abuse patient.[facility] TownshipIn the event this information is protected by the Federal Confidentiality of Alcohol and Drug Abuse Patient Records regulations: The Federal rules restrict any use of the information to criminally investigate or prosecute any alcohol or drug abuse patient.[facility] TownshipIn the event this information is protected by the Federal Confidentiality of Alcohol and Drug Abuse Patient Records regulations: The Federal rules restrict any use of the information to criminally investigate or prosecute any alcohol or drug abuse patient.[facility] TownshipIn the event this information is protected by the Federal Confidentiality of Alcohol and Drug Abuse Patient Records regulations: The Federal rules restrict any use of the information to criminally investigate or prosecute any alcohol or drug abuse patient.[facility] TownshipIn the event this information is protected by the Federal Confidentiality of Alcohol and Drug Abuse Patient Records regulations: The Federal rules restrict any use of the information to criminally investigate or prosecute any alcohol or drug abuse patient.[facility] TownshipIn the event this information is protected by the Federal Confidentiality of Alcohol and Drug Abuse Patient Records regulations: The Federal rules restrict any use of the information to criminally investigate or prosecute any alcohol or drug abuse patient.[facility] TownshipIn the event this information is protected by the Federal Confidentiality of Alcohol and Drug Abuse Patient Records regulations: The Federal rules restrict any use of the information to criminally investigate or prosecute any alcohol or drug abuse patient.[facility] TownshipIn the event this information is protected by the Federal Confidentiality of Alcohol and Drug Abuse Patient Records regulations: The Federal rules restrict any use of the information to criminally investigate or prosecute any alcohol or drug abuse patient.[facility] TownshipIn the event this information is protected by the Federal Confidentiality of Alcohol and Drug Abuse Patient Records regulations: The Federal rules restrict any use of the information to criminally investigate or prosecute any alcohol or drug abuse patient.[facility] TownshipIn the event this information is protected by the Federal Confidentiality of Alcohol and Drug Abuse Patient Records regulations: The Federal rules restrict any use of the information to criminally investigate or prosecute any alcohol or drug abuse patient.[facility] TownshipIn the event this information is protected by the Federal Confidentiality of Alcohol and Drug Abuse Patient Records regulations: The Federal rules restrict any use of the information to criminally investigate or prosecute any alcohol or drug abuse patient.[facility] TownshipIn the event this information is protected by the Federal Confidentiality of Alcohol and Drug Abuse Patient Records regulations: The Federal rules restrict any use of the information to criminally investigate or prosecute any alcohol or drug abuse patient.[facility] TownshipIn the event this information is protected by the Federal Confidentiality of Alcohol and Drug Abuse Patient Records regulations: The Federal rules restrict any use of the information to criminally investigate or prosecute any alcohol or drug abuse patient.[facility] TownshipIn the event this information is protected by the Federal Confidentiality of Alcohol and Drug Abuse Patient Records regulations: The Federal rules restrict any use of the information to criminally investigate or prosecute any alcohol or drug abuse patient.[facility] TownshipIn the event this information is protected by the Federal Confidentiality of Alcohol and Drug Abuse Patient Records regulations: The Federal rules restrict any use of the information to criminally investigate or prosecute any alcohol or drug abuse patient.[facility] TownshipIn the event this information is protected by the Federal Confidentiality of Alcohol and Drug Abuse Patient Records regulations: The Federal rules restrict any use of the information to criminally investigate or prosecute any alcohol or drug abuse patient.[facility] TownshipIn the event this information is protected by the Federal Confidentiality of Alcohol and Drug Abuse Patient Records regulations: The Federal rules restrict any use of the information to criminally investigate or prosecute any alcohol or drug abuse patient.[facility] TownshipIn the event this information is protected by the Federal Confidentiality of Alcohol and Drug Abuse Patient Records regulations: The Federal rules restrict any use of the information to criminally investigate or prosecute any alcohol or drug abuse patient.[facility] TownshipIn the event this information is protected by the Federal Confidentiality of Alcohol and Drug Abuse Patient Records regulations: The Federal rules restrict any use of the information to criminally investigate or prosecute any alcohol or drug abuse patient.[facility] TownshipIn the event this information is protected by the Federal Confidentiality of Alcohol and Drug Abuse Patient Records regulations: The Federal rules restrict any use of the information to criminally investigate or prosecute any alcohol or drug abuse patient.[facility] TownshipIn the event this information is protected by the Federal Confidentiality of Alcohol and Drug Abuse Patient Records regulations: The Federal rules restrict any use of the information to criminally investigate or prosecute any alcohol or drug abuse patient.[facility] TownshipIn the event this information is protected by the Federal Confidentiality of Alcohol and Drug Abuse Patient Records regulations: The Federal rules restrict any use of the information to criminally investigate or prosecute any alcohol or drug abuse patient.[facility] TownshipIn the event this information is protected by the Federal Confidentiality of Alcohol and Drug Abuse Patient Records regulations: The Federal rules restrict any use of the information to criminally investigate or prosecute any alcohol or drug abuse patient.[facility] TownshipIn the event this information is protected by the Federal Confidentiality of Alcohol and Drug Abuse Patient Records regulations: The Federal rules restrict any use of the information to criminally investigate or prosecute any alcohol or drug abuse patient.[facility] TownshipIn the event this information is protected by the Federal Confidentiality of Alcohol and Drug Abuse Patient Records regulations: The Federal rules restrict any use of the information to criminally investigate or prosecute any alcohol or drug abuse patient.[facility] TownshipIn the event this information is protected by the Federal Confidentiality of Alcohol and Drug Abuse Patient Records regulations: The Federal rules restrict any use of the information to criminally investigate or prosecute any alcohol or drug abuse patient.[facility] Goals (unrecognized section and content) Goals may be documented in a n alternate section No data available for this sectionGoals may be documented in an alternate sectionGoals may be documented in an alternate sectionGoals may be documented in an alternate sectionGoals may be documented in an alternate sectionGoals may be documented in an alternate section FOR RECORDS PERTAINING TO PATIENTS WHO ARE OR HAVE BEEN ENROLLED IN A CHEMICAL DEPENDENCY/SUBSTANCEABUSE PROGRAM, SOME INFORMATION MAY BE OMITTED. This clinical summary was aggregated from multiple sources. Caution should be exercised in using it in the provision of clinical care. This summary normalizes information from multiple sources, and as a consequence, information in this document may materially change the coding, format and clinical context of patient data. In addition, data may be omitted in some cases. CLINICAL DECISIONS SHOULD BE BASED ON THE PRIMARY CLINICAL RECORDS. [facility] [employer] [facility]. provides no warranty or guarantee of the accuracy or completeness of information in this document.
[2025-03-28] VITALS (16 sets, daily range): BP systolic 149–190; BP diastolic 90–101; PULSE 88–103; RESP 16–22; TEMP 36.6–37.2; O2SAT 85–95
[2025-03-28 00:27] LABS: Troponin T High Sens 4 HR 18 ng/L (<=22)
--- NOTE | 2025-03-28 00:31 | HP.PCM.HOS_ITS ---
[facility] - General General Date of Admission: 03/27/25 Date of Service: 03/27/25 Chief Complaint: Cough and shortness of breath HPI Narrative JO NAVARRO, is a 69 M with past medical history of COPD not on oxygen, hypertension and diabetes who presented with 3 days history of worsening cough productive of whitish sputum, worsening wheezing and dyspnea on minimal exertion. No fever, chills, vomiting or diarrhea. At baseline he only uses albuterol as needed and has not been hospitalized for COPD often. He stopped smoking several years ago. 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 Patient states he did not have his flu vaccine this year. In the ED patient was hypoxemic requiring supplemental oxygen between 2 to 4 L nasal cannula. He required multiple nebulized bronchodilators for symptom relief. Patient denies any leg swelling, weight gain or any cardiac history. Patient will be admitted to the hospital for COPD exacerbation management and acute hypoxemic spectra failure likely secondary to a viral infective exacerbation [facility] Medical History (Updated 03/28/25 @ 00:[address] Bro Guy MD) Left rotator cuff tear arthropathy Left shoulder pain Right rotator cuff tear arthropathy COPD (chronic obstructive pulmonary disease) Hyperlipidemia HTN (hypertension) Diabetes mellitus, type II Home Medications ?Medication ?Instructions ?Recorded ?Last Taken ?Type albuterol sulfate 90 mcg/actuation 1 - 2 puff inhalati on QDAY PRN 06/21/24 Unknown History aerosol inhaler shortness of breath or wheez ing atorvastatin 40 mg tablet 40 mg PO QDAY 06/21/24 Unkno wn History cyclobenzaprine 10 mg tablet 10 mg PO Q8H PRN muscle s pasms 06/21/24 Unknown History hydrochlorothiazide 12.5 mg capsule 12.5 mg PO QAM Unknown History metoprolol succinate 100 mg 100 mg PO QDAY 06/21/24 Un known History tablet,extended release 24 hr sertraline 100 mg tablet 100 mg PO QDAY 06/21/24 Unkn own History trazodone 50 mg tablet 100 mg PO QPM 06/21/24 Unkno wn History empagliflozin 10 mg tablet 10 mg PO DAILY 03/27/25 Unk nown History (Jardiance) lisinopril 30 mg tablet 30 mg PO DAILY 03/27/25 Unkn own History metformin 1,000 mg tablet 1,000 mg PO BID 03/27/25 Unk nown History Allergy/AdvReac Type Severity Reaction Status Date / Time No Known Allergies Allergy Verified 03/27/25 17:54 Surgical History History of colostomy reversal History of colon resection Social History housing: house Smoking Status: Former smoker ROS Constitutional Constitutional: Denies fever(s) or poor appetite ENT HEENT: Reports none Cardiovascular Cardiovascular: Reports dyspnea; Denies chest pain Respiratory/Chest Respiratory/Chest: Reports cough, dyspnea, excessive phlegm production and wheezing Gastrointestinal Gastrointestinal: Denies abdominal pain or change in bowel habits Genitourinary Genitourinary: Denies change in urinary stream or dysuria Musculoskeletal Musculoskeletal: Denies arthralgias or myalgias Integumentary Integumentary: Reports none Neurologic Neurologic: Denies abnormal speech, dizziness, focal weakness, loss of vision or numbness Hematologic/Lymphatic Hematologic/Lymphatic: Reports none Patient's Goals Of Care . What would you like to achieve or improve as a result of your hospital stay?: N ormal oxygen saturation Vital Signs Vital Signs Vital Signs: 03/27/25 17:51 03/27/25 19:38 03/27/25 19:38 Temperature 97.3 F L Temperature Source Temporal Pulse Rate 110 H Respiratory Rate 24 H 16 Respiratory Effort Respiratory Depth Respiratory Pattern Blood Pressure 178/117 H Blood Pressure Mean 137 Blood Pressure Source Blood Pressure Position Blood Pressure Location Pulse Ox 80 98 98 Oxygen Delivery Method Room Air Nasal Cannula Oxygen Flow Rate (L/min) 4 03/27/25 19:38 03/27/25 19:38 03/27/25 19:40 Temperature Temperature Source Pulse Rate 80 107 H Respiratory Rate 16 26 H Respiratory Effort Normal Non-Labored Respiratory Depth Normal Respiratory Pattern Normal Tachypnea Blood Pressure 138/70 H Blood Pressure Mean 92 Blood Pressure Source Blood Pressure Position Blood Pressure Location Pulse Ox 99 Oxygen Delivery Method Room Air Oxygen Flow Rate (L/min) 03/27/25 20:00 03/27/25 21:00 03/27/25 21:45 Temperature 100.6 F H Temperature Source Pulse Rate 110 H 104 H 103 H Respiratory Rate 23 H 21 H 27 H Respiratory Effort Respiratory Depth Respiratory Pattern Blood Pressure 149/97 H 165/96 H 177/104 H Blood Pressure Mean 114 116 128 Blood Pressure Source Blood Pressure Position Blood Pressure Location Pulse Ox 92 93 93 Oxygen Delivery Method Nasal Cannula Nasal Cannula Oxygen Flow Rate (L/min) 2 2 03/27/25 22:00 03/27/25 23:13 03/27/25 23:40 Temperature 100.2 F H Temperature Source Oral Pulse Rate 105 H 100 Respiratory Rate 20 H 24 H Respiratory Effort Respiratory Depth Respiratory Pattern Blood Pressure 177/104 H 169/82 H Blood Pressure Mean 128 111 Blood Pressure Source Monitor Blood Pressure Position Semi-Fowlers Blood Pressure Location Right Arm Pulse Ox 93 92 Oxygen Delivery Method Nasal Cannula Nasal Cannula Nasal Cannula Oxygen Flow Rate (L/min) 2 4 03/28/25 00:13 Temperature Temperature Source Pulse Rate 103 H Respiratory Rate Respiratory Effort Respiratory Depth Respiratory Pattern Blood Pressure Blood Pressure Mean Blood Pressure Source Blood Pressure Position Blood Pressure Location Pulse Ox Oxygen Delivery Method Oxygen Flow Rate (L/min) Weight Weight: 124.5 kg Body Mass Index (BMI) 39.4 Physical Exam Const alert and oriented x3 HEENT normocephalic and head/scalp atraumatic Eyes EOMs intact bilaterally; Negative for no scleral icterus Neck supple Resp Effort and Inspection: tachypneic, respiratory distress, uses accessory muscles, audible wheezes and prolonged expiratory phase Cardio regular rate and regular rhythm; Negative for no murmurs GI normal to inspection, nondistended, normoactive bowel sounds; Negative for non- tender no CVA tenderness Extremity no joint enlargement and no pedal edema Skin no rashes or lesions noted Neuro oriented x3 and moves all extremities Results Lab / Micro Data 03/27/25 19:15 03/27/25 18:06 Labs: Laboratory Results - last 24 hr 03/27/25 18:06: WBC Cancelled, Corrected WBC Cancelled, RBC Cancelled, Hgb Cancelled, Hct Cancelled, MCV Cancelled, MCH Cancelled, MCHC Cancelled, RDW Std Deviation Cancelled, RDW Coeff of Kishan Cancelled, Plt Count Cancelled, MPV Cancelled, Immature Gran % (Auto) Cancelled, Neut % (Auto) Cancelled, Lymph % (Auto) Cancelled, [place] % (Auto) Cancelled, Eos % (Auto) Cancelled, Baso % (Auto) Cancelled, Absolute Neuts (auto) Cancelled, Absolute Lymphs (auto) Cancelled, Total Counted Cancelled, Neutrophils % (Manual) Cancelled, Band Neutrophils % Cancelled, Lymphocytes % (Manual) Cancelled, Monocytes % (Manual) Cancelled, Eosinophils % (Manual) Cancelled, Basophils % (Manual) Cancelled, Metamyelocytes % Cancelled, Myelocytes % Cancelled, Promyelocytes % Cancelled, Blast Cells % Cancelled, Plasma Cell % (Manual) Cancelled, Other Cells % Cancelled, Nucleated RBC % Cancelled, Nucleated RBCs/100 WBC Cancelled, Differential Comment Cancelled, Diff Path Review Cancelled, Hypersegmented Neuts Cancelled, Atypical Lymphocytes Cancelled, Reactive Lymphocytes Cancelled, Smudge Cells Cancelled, Toxic Granulation Cancelled, Toxic Vacuolation Cancelled, Dohle Bodies Cancelled, Rose Rods Cancelled, Platelet Estimate Cancelled, Plt Morphology Comment Cancelled, RBC Morphology Cancelled 03/27/25 18:06: RBC Morphology Cancelled, Polychromasia Cancelled, Hypochromasia Cancelled, Basophilic Stippling Cancelled, Anisocytosis Cancelled, Microcytosis Cancelled, Macrocytosis Cancelled, Spherocytes Cancelled, Sickle Cells Cancelled, Target Cells Cancelled, Tear Drop Cells Cancelled, Ovalocytes Cancelled, Stomatocytes Cancelled, Calderon-[place] Bodies Cancelled, Esa Cells Cancelled, Bite Cells Cancelled, Crenated Cell Cancelled, Acanthocytes (Spur) Cancelled, Rouleaux Cancelled, Schistocytes Cancelled, Sodium 135, Potassium 4.8, Chloride 92 L, Carbon Dioxide 25.3, Anion Gap 18, BUN 13, Creatinine 0.84, Est GFR (MDRD) Non-Af 95, BUN/Creatinine Ratio 15.8, Glucose 209 H, Calcium 9.6, Troponin T High Sens 21 03/27/25 19:15: WBC 6.9, RBC 5.88, Hgb 16.7 H, Hct 50.8, MCV 86.4, MCH 28.4, MCHC 32.9, RDW Std Deviation 47.4 H, RDW Coeff of Kishan 14.9 H, Plt Count 165, MPV 10.2, Immature Gran % (Auto) 0.400, Neut % (Auto) 85.4 H, Lymph % (Auto) 6.7 L, [place] % (Auto) 7.1, Eos % (Auto) 0.1, Baso % (Auto) 0.3, Absolute Neuts (auto) 5.9, Absolute Lymphs (auto) 0.46 L, Nucleated RBC % 0 03/27/25 19:54: Troponin T Hi Sens 2 Hr 20, NT pro BNP II 84 03/27/25 23:44: Troponin T Hi Sens 4Hr 18 Micro: Microbiology 03/27/25 20:05 Mucosa - Nose SARS-CoV-2, Influenza & RSV (PCR) - Final Imaging Radiology Impression Chest X-Ray 03/27/25 20:00 IMPRESSION: [id number] pulmonary edema. No focal consolidations. Reading Location: [facility] Assessment & Plan Assessment/Plan (1) COPD with acute exacerbation: (2) Acute hypoxemic respiratory failure: (3) HTN (hypertension): QUALIFIERS: Hypertension type: primary hypertension Qualified Code(s): I10 - Essential (primary) hypertension (4) Diabetes mellitus, type II: QUALIFIERS: Diabetes mellitus [facility] insulin use: without beveller operator use Diabetes mellitus complication status: without complication Qualified Code(s): E11.9 - Type 2 diabetes mellitus without complications PLAN: Plan Admission to PCU COPD exacerbation: Albuterol nebulizer every 2 hours as needed, scheduled DuoNeb every 6 hours. IV Rocephin and azithromycin for 3- 5 days (x-ray showed no pneumonia, so prophylactic antibiotics. Exacerbation is likely due to viral infection). Solu-Medrol 40 mg IV twice daily. He initially received 125 in the ED Check influenza, COVID-19 and RSV. Continue oxygen, goal SpO2 88 to 92% Hypertension: Continue lisinopril and HCTZ Diabetes: At home he takes metformin, start ACHS sliding scale adjust as needed Charges/Coding Visit Charges Inpatient E&M: 51184 Init Hosp L3
[2025-03-28] MEDS: 0.9% Saline Lock 10 ML Syringe IV (00:59)
[2025-03-28] MEDS: 0.9% Normal Saline (250mL Bag) 250 ML 15 ML IV (00:59)
[2025-03-28] MEDS: Ceftriaxone 2 GM in 0.9% Normal Saline (50mL MB+) 50 ML IV (00:59)
[2025-03-28] MEDS: Azithromycin 500 MG in 0.9% Normal Saline (250mL Bag) 250 ML 250 MG IV (01:52)
[2025-03-28] MEDS: Metoprolol(XL)Succ 100 MG Tablet PO (06:27)
[2025-03-28 07:09] LABS: Hematocrit 54.1 % (40-54); Hemoglobin 17.0 g/dL (13.0-16.5); Immature Granulocytes Count 0.040 X10^3/uL (0.0-0.0); Mean Corp Hgb Conc 31.4 g/dL (32-36); Mean Corpuscular Volume 88.1 fL (80-94); Mean Platelet Vol. 10.0 fl (6.2-12.0); NRBC Flagged by Analyzer 0 % (0-5); POSITIVE DIFFERENTIAL YES; Platelet Count 152 K/mm3 (150-450); RBC Distribution Width CV 15.1 % (11.6-14.6); RBC Distribution Width SD 48.4 fl (35.1-43.9); Red Blood Count 6.14 M/mm3 (4.6-6.2); White Blood Count 5.8 K/mm3 (4.4-11.0)
[2025-03-28 07:35] LABS: Anion Gap 13 (7-18); BUN 16 mg/dL (4-19); BUN/Creat Ratio 19.6 RATIO (10-20); Calcium,Total 9.6 mg/dL (7.6-11.0); Carbon Dioxide 29.5 mmol/L (20.0-29.0); Chloride 97 mmol/L (96-106); Estimated Creatinine Clearance 117.00 ml/min (50-250); Glucose 209 mg/dL (70-99); Magnesium 2.3 mg/dL (1.5-2.2); Potassium 4.4 mmol/L (3.5-5.1)
--- NOTE | 2025-03-28 07:58 | PN.HOSP_ITS ---
Reason for Visit Chief Complaint: Cough and shortness of breath Objective Data Objective Data Vital Signs: Vital Signs Temp Pulse Resp BP Pulse Ox O2 Del Method O2 Flow Rate 97.9 F 96 20 H 190/90 H 93 Nasal Cannula 3 03/28/25 06:22 03/28/25 06:27 03/28/25 06:22 03/28/25 06:22 03/28/25 06:22 03/28/25 06:22 03/28/25 06:22 FiO2 93 03/28/25 06:22 Oxygen Flow Rate (L/min) 3 Oxygen Delivery Method Nasal Cannula Weight: 124.5 kg Body Mass Index (BMI) 39.4 Intake & Output: Intake and Output for Last 24 Hours 03/26/25 03/27/25 03/28/25 23:59 23:59 23:59 Intake Total 300 / 300 Output Total 900 / 900 Balance -600 / -600 Lab / Micro Data 03/28/25 06:37 03/28/25 06:37 Labs: Laboratory Results - last 24 hr 03/27/25 18:06: WBC Cancelled, Corrected WBC Cancelled, RBC Cancelled, Hgb Cancelled, Hct Cancelled, MCV Cancelled, MCH Cancelled, MCHC Cancelled, RDW Std Deviation Cancelled, RDW Coeff of Kishan Cancelled, Plt Count Cancelled, MPV Cancelled, Immature Gran % (Auto) Cancelled, Neut % (Auto) Cancelled, Lymph % (Auto) Cancelled, [place] % (Auto) Cancelled, Eos % (Auto) Cancelled, Baso % (Auto) Cancelled, Absolute Neuts (auto) Cancelled, Absolute Lymphs (auto) Cancelled, Total Counted Cancelled, Neutrophils % (Manual) Cancelled, Band Neutrophils % Cancelled, Lymphocytes % (Manual) Cancelled, Monocytes % (Manual) Cancelled, Eosinophils % (Manual) Cancelled, Basophils % (Manual) Cancelled, Metamyelocytes % Cancelled, Myelocytes % Cancelled, Promyelocytes % Cancelled, Blast Cells % Cancelled, Plasma Cell % (Manual) Cancelled, Other Cells % Cancelled, Nucleated RBC % Cancelled, Nucleated RBCs/100 WBC Cancelled, Differential Comment Cancelled, Diff Path Review Cancelled, Hypersegmented Neuts Cancelled, Atypical Lymphocytes Cancelled, Reactive Lymphocytes Cancelled, Smudge Cells Cancelled, Toxic Granulation Cancelled, Toxic Vacuolation Cancelled, Dohle Bodies Cancelled, Rose Rods Cancelled, Platelet Estimate Cancelled, Plt Morphology Comment Cancelled, RBC Morphology Cancelled 03/27/25 18:06: RBC Morphology Cancelled, Polychromasia Cancelled, Hypochromasia Cancelled, Basophilic Stippling Cancelled, Anisocytosis Cancelled, Microcytosis Cancelled, Macrocytosis Cancelled, Spherocytes Cancelled, Sickle Cells Cancelled, Target Cells Cancelled, Tear Drop Cells Cancelled, Ovalocytes Cancelled, Stomatocytes Cancelled, [place] Bodies Cancelled, Esa Cells Cancelled, Bite Cells Cancelled, Crenated Cell Cancelled, Acanthocytes (Spur) Cancelled, Rouleaux Cancelled, Schistocytes Cancelled, Sodium 135, Potassium 4.8, Chloride 92 L, Carbon Dioxide 25.3, Anion Gap 18, BUN 13, Creatinine 0.84, Est GFR (MDRD) Non-Af 95, BUN/Creatinine Ratio 15.8, Glucose 209 H, Calcium 9.6, Troponin T High Sens 21 03/27/25 19:15: WBC 6.9, RBC 5.88, Hgb 16.7 H, Hct 50.8, MCV 86.4, MCH 28.4, MCHC 32.9, RDW Std Deviation 47.4 H, RDW Coeff of Kishan 14.9 H, Plt Count 165, MPV 10.2, Immature Gran % (Auto) 0.400, Neut % (Auto) 85.4 H, Lymph % (Auto) 6.7 L, [place] % (Auto) 7.1, Eos % (Auto) 0.1, Baso % (Auto) 0.3, Absolute Neuts (auto) 5.9, Absolute Lymphs (auto) 0.46 L, Nucleated RBC % 0 03/27/25 19:54: Troponin T Hi Sens 2 Hr 20, NT pro BNP II 84 03/27/25 23:44: Troponin T Hi Sens 4Hr 18 03/28/25 06:31: POC Glucose 239 H 03/28/25 06:37: WBC 5.8, RBC 6.14, Hgb 17.0 H, Hct 54.1 H, MCV 88.1, MCH 27.7, M CHC 31.4 L, RDW Std Deviation 48.4 H, RDW Coeff of Kishan 15.1 H, Plt Count 152, MPV 10.0, Immature Gran % (Auto) 0.700, Neut % (Auto) 89.3 H, Lymph % (Auto) 6.7 L, [place] % (Auto) 2.9, Eos % (Auto) 0.2, Baso % (Auto) 0.2, Absolute Neuts (auto) 5.2, Absolute Lymphs (auto) 0.39 L, Nucleated RBC % 0, Sodium 139, Potassium 4.4, Chloride 97, Carbon Dioxide 29.5 H, Anion Gap 13, BUN 16, Creatinine 0.79, Estim Creat Clear Calc 117.00, Est GFR (MDRD) Non-Af 97, BUN/Creatinine Ratio 19.6, Glucose 209 H, Calcium 9.6, Magnesium 2.3 H Micro: Microbiology 03/27/25 20:05 Mucosa - Nose SARS-CoV-2, Influenza & RSV (PCR) - Final Radiography Diagnostic Testing: Radiology Impression Chest X-Ray 03/27/25 20:00 IMPRESSION: [id number] pulmonary edema. No focal consolidations. Reading Location: [facility]
[2025-03-28] MEDS: Furosemide 20 MG/2 ML VIAL IV (09:01)
[2025-03-28] MEDS: Glucerna Shake 120 ML LIQUID PO (09:23)
--- NOTE | 2025-03-28 16:01 | CASEMGMT ---
ERIC WILCOX Assessment Face to Face with patient for initial transition planning/care coordination assessment. ERIC WILCOX introduced self and role at [facility], pt voices understanding. Pt is A&Ox4 and is resting comfortably in the chair and is calm. Care providers, pharmacy, and demographics verified. Admitting dx: COPD Exacerbation LACE Strata: 2 PCP: Nohemy Nava Specialists: Richelle (PM) Preferred Pharmacy: [facility] Insurance: [facility] AD[facility] Prescription Benefit: Yes LNOK: Sarina (Roommate) Living Arrangements: Pt lives with Sarina in a ground level apartment with one step to enter ADLs/IADLs: Indep. 6-Click score is 24 Transportation: Self, Sarina DME: Functioning [employer] with sufficient testing supplies including lancets, test strips, and EtOH swabs.?Pt is currently requiring additional oxygen and may qualify for home oxygen use. A verbal list of local in-network DME companies were provided to the pt at this time. Pt prefers [employer].?Pt states that he does not have a pulse ox but can afford one and plans to buy off [employer] HHC/SNF: Denies hx or needs. Pt?s goal: Home Plan: Home, follow for additional oxygen needs. Pt states that he feels safe returning home with his roommate once medically ready. Pt denies the need for any additional therapy or resources. Pt states that he feels safe with this plan and denies further questions, concerns, or needs. Report given to PROJECT ENGINEER CM. Rimma Newsome RN, CM
--- NOTE | 2025-03-28 18:08 | PCM.HOSP.N ---
Hospitalist Note Patient is a 69-year-old white male who presents emergency department with shortness of breath. Patient is not hypoxic./Flu/RSV was unremarkable. He is admitted for acute exacerbation of COPD with steroids, aerosols, supplemental oxygen and Rocephin and azithromycin. I added on a respiratory viral panel today and he tested positive for human metapneumovirus. Will discontinue antibiotics. Continue steroids but increase to 40 3 times daily. Add Mucinex 1200 p.o. twice daily. Add incentive parameter and Acapella. Patient states clinically he is already 40 to 50% better. Will check ambulatory pulse ox in a.m. and if stable will plan for discharge tomorrow. Patient is diabetic at baseline to do anticipate hyperglycemia during his hospital stay.
[2025-03-29] VITALS (7 sets, daily range): BP systolic 165–196; BP diastolic 97–103; PULSE 77–93; RESP 16–18; TEMP 36.3–36.6; O2SAT 84–97
[2025-03-29 05:37] LABS: Hematocrit 52.2 % (40-54); Hemoglobin 16.6 g/dL (13.0-16.5); Immature Granulocytes Count 0.040 X10^3/uL (0.0-0.0); Mean Corp Hgb Conc 31.8 g/dL (32-36); Mean Corpuscular Volume 87.6 fL (80-94); Mean Platelet Vol. 9.8 fl (6.2-12.0); NRBC Flagged by Analyzer 0 % (0-5); POSITIVE DIFFERENTIAL YES; Platelet Count 145 K/mm3 (150-450); RBC Distribution Width CV 14.7 % (11.6-14.6); RBC Distribution Width SD 46.8 fl (35.1-43.9); Red Blood Count 5.96 M/mm3 (4.6-6.2); White Blood Count 6.3 K/mm3 (4.4-11.0)
[2025-03-29 06:35] LABS: Magnesium 2.4 mg/dL (1.5-2.2)
[2025-03-29 06:38] LABS: AST(SGOT) 25 U/L (<=37); Alanine Aminotransfer ALT/SGPT 14 U/L (<=46); Albumin, Serum 3.8 g/dL (3.4-4.8); Alkaline Phosphatase 76 U/L (40-129); Anion Gap 10 (7-18); BUN 25 mg/dL (4-19); BUN/Creat Ratio 32.8 RATIO (10-20); Calcium,Total 9.6 mg/dL (7.6-11.0); Carbon Dioxide 30.3 mmol/L (20.0-29.0); Chloride 97 mmol/L (96-106); Estimated Creatinine Clearance 117.00 ml/min (50-250); Globulin 3.3 g/dL (2.2-4.2); Glucose 197 mg/dL (70-99); Potassium 4.6 mmol/L (3.5-5.1)
[2025-03-29] MEDS: FLU VACCINE HIGH DOSE 25-26(65YR UP) 180 MCG/0.5 ML SYRINGE IM (07:54)
[2025-03-29] MEDS: Metoprolol(XL)Succ 100 MG Tablet PO (07:58)
--- NOTE | 2025-03-29 11:57 | PCM.DC.SUM ---
Providers Date of Admission: 03/27/25 Date of Discharge: 03/29/25 Primary Care Physician: Dr. Nohemy Nava MD Reason For Visit: COPD EXACERBATION Diagnosis Discharge Diagnosis (1) COPD with acute exacerbation: Status: Chronic Code(s): J44.1 - Chronic obstructive pulmonary disease with (acute) exacerbation (2) Acute hypoxemic respiratory failure: Status: Acute Code(s): J96.01 - Acute respiratory failure with hypoxia (3) HTN (hypertension): Status: Chronic Code(s): I10 - Essential (primary) hypertension Qualifiers: Hypertension type: primary hypertension Qualified Code(s): I10 - Essential (primary) hypertension (4) Diabetes mellitus, type II: Status: Acute Code(s): E11.9 - Type 2 diabetes mellitus without complications Qualifiers: Diabetes mellitus retirement insulin use: without retirement use Diabetes mellitus complication status: without complication Qualified Code(s): E11.9 - Type 2 diabetes mellitus without complications Medications at Discharge Home Medications albuterol sulfate 90 mcg/actuation aerosol inhaler 1 - 2 puff inhalation QDAY PRN shortness of breath or wheezing 06/21/24 atorvastatin 40 mg tablet 40 mg PO QDAY 06/21/24 cyclobenzaprine 10 mg tablet 10 mg PO Q8H PRN muscle spasms 06/21/24 metoprolol succinate 100 mg tablet,extended release 24 hr 100 mg PO QDAY 06/21/24 sertraline 100 mg tablet 100 mg PO QDAY 06/21/24 trazodone 50 mg tablet 100 mg PO QPM 06/21/24 empagliflozin 10 mg tablet (Jardiance) 10 mg PO DAILY 03/27/25 metformin 1,000 mg tablet 1,000 mg PO BID 03/27/25 amlodipine 10 mg tablet 10 mg PO DAILY #30 tabs 03/29/25 guaifenesin 1,200 mg tablet, extended release 12 hr (Mucus Relief ER) 1,200 mg PO BID #0 tabs 03/29/25 hydrochlorothiazide 12.5 mg capsule 25 mg (2 x 12.5 mg) PO QAM #60 caps 03/29/25 lisinopril 40 mg tablet 40 mg PO DAILY #30 tabs 03/29/25 prednisone 10 mg tablet 10 mg PO DAILY #40 tabs 03/29/25 Hospital Course Operations None Procedures EKG and - (Chest x-ray) Summary of Care Provided Minutes Spent on Discharge: 37 Hospital Course: Mr. Fisher is a 69-year-old white male who presented to the emergency department at [facility] on 03/27/2025 with a chief complaint of cough and shortness of breath. Patient states that started about 3 days prior to presentation and slowly been worsening. He stated his cough was productive of whitish sputum and he had worsening wheezing and dyspnea with minimal exertion. He denied fever, chills, nausea or vomiting. He states he has albuterol as needed at home and has not ever been hospitalized for COPD. He states he has a tobacco abuse history but is not currently smoking. He reported that his had been sick and this is likely his sick contact. 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 Patient is not [facility] and does not follow with pulmonary medicine. Vital signs upon presentation showed a temperature of 97.3 with a pulse of 110, respiratory was 24 and breathing was labored and tachypneic with audible wheeze, blood pressure was 170/117 and all pulse ox was 80% on room air. He was immediately placed on 4 L nasal cannula with improvement in his saturation to 98%. His CBC showed an erythrocytosis which appears to be chronic when compared to previous lab. His CMP was unremarkable other than hyperglycemia with a blood sugar of 209. He did have a left shift with an 85.4% neutrophilia. His initial troponin was 20 with a delta of 18 and his proBNP was 84. COVID/flu/RSV panel was unremarkable. Chest x-ray was suggestive of some pulmonary edema with no focal consolidations. EKG was unremarkable other than sinus tachycardia. He was diagnosed with COPD exacerbation and initially placed on antibiotics with Rocephin and azithromycin however these were discontinued on hospital day 2. He was placed on scheduled and as needed nebulizers, Mucinex, incentive spirometry, Acapella, and IV steroids. Respiratory viral panel resulted with positive human metapneumovirus. On day 2 of his hospitalization his lung sounds were much improved and the patient indicated he was feeling much better. He wanted to go home to be home for the holidays and was okay with going home on oxygen if needed. We assessed with an ambulatory pulse ox and the patient required 2 L of oxygen with rest and 4 L with ambulation. Ambulatory pulse ox was reviewed and the patient is ambulatory in the home and in the community and he qualifies for home supplemental oxygen. Home oxygen was arranged per case management. He will be discharged with a long prednisone taper and he indicated he had plenty of albuterol at home. We have encouraged him to continue Mucinex at home and continue his incentive spirometry and Acapella after discharge. He is to continue using oxygen until cleared by primary care physician to decrease oxygen or come off oxygen altogether. We do feel he would benefit from pulmonary medicine follow-up and made that referral. He likely needs outpatient PFTs and a 6-minute walk test once he is not acutely ill. He was also found to be persistently hypertensive during his hospital stay. We uptitrated his lisinopril from 30 to 40 mg, uptitrated his hydrochlorothiazide from 12.5 to 25 mg and added amlodipine 10 mg daily. I have asked him to follow-up closely for blood pressure check with his primary care physician within the next week. It does appear that his blood pressures are persistently elevated. Prescriptions were sent to the hospital pharmacy prior to discharge. Patient was notified that his blood sugars were likely remain elevated until his prednisone taper is completed. Patient was discharged home with oxygen in stable condition on 03/29/2025. Discharge diagnoses: Acute hypoxic respiratory failure COPD exacerbation secondary to viral pneumonia Viral pneumonia secondary to human metapneumovirus Uncontrolled essential hypertension Hyperlipidemia DM-2 Insomnia Depression Obesity Physical Exam Narrative Patient states he is at least 75% better. States his breathing feels much better. He does not feel as tight or wheezy. Would like to go home even if he requires oxygen. Const alert, oriented x3, no apparent distress, no limitations and well nourished; Negative for average body habitus or healthy appearing Constitutional Narrative: Obese, upper middle-aged, white male, sitting up in a chair at the bedside, watching television, appears comfortable, nontoxic. General Appearance: cooperative, comfortable, well kempt and well developed Exam Limitations: no limitations Nutritional Appearance: obese HEENT normocephalic, head/scalp atraumatic and moist oral mucous membranes HEENT Narrative: Mallampati 3, no thrush, mild to moderate hearing loss Eyes conjunctivae normal; Negative for no scleral icterus Neck supple Neck Narrative: Neck is short and thick, trachea is midline Resp normal respiratory effort, no retractions, no use of accessory muscles and No clear to auscultation bilaterally Resp Narrative: Breath sounds are finally coarse diffusely but much improved since yesterday with no auscultated wheezing, no signs of respiratory distress and patient is no longer tachypneic, no accessory muscle use Auscultation: Negative for rhonchi or wheezes Cardio regular rate, regular rhythm, S1 normal heart sound, S2 normal heart sound, no murmurs, no rub, no gallops and no clicks GI normal to inspection, nondistended, normoactive bowel sounds, soft to palpation and non-tender GI Narrative: Large protuberant abdomen Extremity no clubbing, cyanosis or edema Extremity Narrative: Pedal and radial pulses are 2+ Skin no jaundice Neuro oriented x3, moves all extremities, no focal motor deficits and no sensory deficits noted Speech: speech normal Psych affect normal Psych Narrative: Very pleasant, eye contact is good and patient interacts appropriately Weight / BMI Weight Weight: 124.5 kg Body Mass Index (BMI) 39.4 ABG / Lab / Microbiology Data 03/29/25 04:52 03/29/25 04:52 Laboratory: Laboratory Results - last 24 hr 03/28/25 11:43: POC Glucose 254 H 03/28/25 16:04: POC Glucose 349 H 03/28/25 21:47: POC Glucose 219 H 03/29/25 04:52: WBC 6.3, RBC 5.96, Hgb 16.6 H, Hct 52.2, MCV 87.6, MCH 27.9, MCHC 31.8 L, RDW Std Deviation 46.8 H, RDW Coeff of Kishan 14.7 H, Plt Count 145 L, MPV 9.8, Immature Gran % (Auto) 0.600, Neut % (Auto) 83.2 H, Lymph % (Auto) 8.1 L, Emery % (Auto) 7.5, Eos % (Auto) 0.3, Baso % (Auto) 0.3, Absolute Neuts (auto) 5.2, Absolute Lymphs (auto) 0.51 L, Nucleated RBC % 0, Sodium 138, Potassium 4.6, Chloride 97, Carbon Dioxide 30.3 H, Anion Gap 10, BUN 25 H, Creatinine 0.75, Estim Creat Clear Calc 117.00, Est GFR (MDRD) Non-Af 98, BUN/Creatinine Ratio 32.8 H, Glucose 197 H, Calcium 9.6, Phosphorus 3.5, Magnesium 2.4 H, Total Bilirubin 0.39, AST 25, ALT 14, Alkaline Phosphatase 76, Total Protein 7.0, Albumin 3.8, Globulin 3.3, Albumin/Globulin Ratio 1.1 03/29/25 06:28: POC Glucose 191 H 03/29/25 11:20: POC Glucose 227 H Microbiology: Microbiology 03/28/25 10:10 Mucosa - Nasopharyngeal Respiratory Panel (PCR) - Final Human [place] 03/27/25 20:05 Mucosa - Nose SARS-CoV-2, Influenza & RSV (PCR) - Final D/C Instructions Discharge Activity: Return to Normal Activity DC O2, CPAP, BIPAP Needs Home O2 Discharge instructions: Yes Type of respiratory needs?: Oxygen Oxygen frequency: At rest and With Ambulation Oxygen liters per minute during Ambulation: 4 DC home with Oxygen: Yes Home O2 MD Review: I have reviewed the oxygen testing, and the patient qualifies for home oxygen equipment and portability. The patient is mobile in the home and the community. Patient's Goals Of Care - F/U Goals Reviewed Goals of care reviewed with patient: Yes - No change Meaningful Use Info Meaningful Use Meaningful Use Diagnoses (Choose all that apply): None applicable Discharge Plan Admission Admit Date/Time: 03/27/25 22:25 Primary Reason for Your Visit: Cough and shortness of breath Attending Provider: Lauren Garcia Primary Care Provider: Nohemy Nava Consulting Providers: Bro Guy Instructions Additional Instructions / Restrictions: 1. Please wear oxygen with 2 L at rest and 4 L with exertion and continue this until you can follow-up with your primary care physician to be retested 2. Your blood pressure was elevated during your hospitalization so we made some changes in your home blood pressure medications. Prescriptions were sent to the pharmacy prior to discharge. Please follow-up with your primary care physician within the next week for blood pressure check to reassess effectiveness and need for any changes 3. Your COPD exacerbation is related to a virus called human metapneumovirus. Continue your albuterol inhaler, continue your incentive spirometer and Acapella after discharge for at least 7 to 10 days, and complete prednisone taper. 4. You would benefit from follow-up with pulmonary medicine. I made a referral below. You will have to call and set up an appointment. Anticipate that this will likely not be soon however would recommend in the next 3 months to avoid further exacerbations of possible. 5. I do expect your blood sugars will remain elevated while you are on prednisone. This should slowly improve as you taper off prednisone Discharge Orders/Prescriptions Prescriptions: New lisinopril 40 mg Tablet 40 mg PO DAILY Qty: 30 0RF amlodipine 10 mg Tablet 10 mg PO DAILY Qty: 30 0RF guaifenesin [Mucus Relief ER] 1,200 mg Tablet Extended Release 12hr 1,200 mg PO BID Qty: 0 0RF prednisone 10 mg tablet 10 mg PO DAILY Qty: 40 0RF Rx Instructions: 4 tablets x 4 days, 3 tablets x 4 days, 2 tablets x 4 days, 1 tablet x 4 days and stop Continued metoprolol succinate 100 mg tablet extended release 24 hr 100 mg PO QDAY atorvastatin 40 mg tablet 40 mg PO QDAY trazodone 50 mg tablet 100 mg PO QPM cyclobenzaprine 10 mg tablet 10 mg PO Q8H PRN (Reason: muscle spasms) Patient Comments: [NO ORIGINAL SIG] sertraline 100 mg tablet 100 mg PO QDAY albuterol sulfate 90 mcg/actuation HFA aerosol inhaler 1 - 2 puff inhalation QDAY PRN (Reason: shortness of breath or wheezing) Jardiance 10 mg tablet 10 mg PO DAILY metformin 1,000 mg tablet 1,000 mg PO BID Changed hydrochlorothiazide 12.5 mg capsule 25 mg PO QAM Qty: 60 0RF Discontinued lisinopril 30 mg tablet 30 mg PO DAILY Referrals / Follow Up: Jorge Luis Hunt DO [Med Staff - Active Staff, Pulmonary Medicine] - Within 3 Months Referral Note: Call Thursday or Thursday to set up an appointment to be seen within the next 3 months for COPD Nohemy Nava MD [Primary Care Provider, Internal Medicine] - Within 1 Week Disposition Disposition (needs filled in before D/C Order can be placed): Home, Self Care Charges/Coding Visit Charges Inpatient E&M: 08518 Disch Hosp >30min
--- NOTE | 2025-03-29 12:32 | CASEMGMT ---
Addendum entered by Freddie Smith 03/29/25 13:30: Portable O2 tank from [employer] stock taken to pt's room. Pt made aware to call [facility] [place] leaving to arrange for restaurant delivery driver to meet him @ his home to deliver more O2. He voices understanding. RN, Maggi, aware to educate pt on use of portable O2 tank. Pt aware he is to wear 2 L/M @ rest and 4 L/M w/exertion. He states his roommate will be taking him home. Per [facility] retail pharmacy, there is no co-pay on pt's dc meds and they will deliver meds to pt's room per pt request. Pt denies having other discharge needs or concerns. Original Note: ERIC WILCOX NOTE: Discharge order is in. Home O2 amb testing has been completed. Pt qualifies for O2 @ 2 L/M @ rest and 4 L/M w/exertion. Script received from Dr Garcia and sent to [facility] via [employer]. Hunter WETZEL RN, CM
== END 2025-03-29 15:37 | disposition home or self-care (01) | DRG 190 ==
LOC: ED 19:53 → PCU 22:38
PROVIDERS: Admitting Provider Internal Medicine; Emergency Provider Emergency Medicine; PCP Internal Medicine; Visit Provider Internal Medicine
DX: J44.1 Chronic obstructive pulmonary disease with (acute) exacerbation (principal); J96.01 Acute respiratory failure with hypoxia; J12.3 Human metapneumovirus pneumonia; E11.9 Type 2 diabetes mellitus without complications; I10 Essential (primary) hypertension; F32.A Depression, unspecified; E66.9 Obesity, unspecified; Z93.3 Colostomy status; E78.5 Hyperlipidemia, unspecified; Z87.891 Personal history of nicotine dependence; G47.00 Insomnia, unspecified; Z23 Encounter for immunization; Z79.899 Other long term (current) drug therapy; Z79.84 Long term (current) use of oral hypoglycemic drugs; Z68.39 Body mass index [BMI] 39.0-39.9, adult
CPT/HCPCS: 36415; 71045; 80048; 80053; 82962; 83735; 83880; 84100; 84484; 85025; 87631; 87633; 93005; 94640; 94668; 94760; 97802; 99283; A4216; J0696; J1938